=== PATIENT | female | born 1995 | race Caucasian/White ===

== ENCOUNTER → 2017-11-18 15:45 | Outpatient (CLI) | payer OTHER, SELFPAY ==
[2017-11-18 17:42] LABS: Absolute Lymphocyte Count 2.12 X10^3/ul (0.83-4.51); Absolute Neutrophil Count 4.8 X10^3/uL (2.0-7.7); Basophil# 0.01 X10^3/uL; Basophil% 0.1 % (0-1); Eosinophil# 0.08 X10^3/uL; Hematocrit 40.4 % (37-47); Hemoglobin 13.7 g/dl (12.0-15.0); Lymphocyte # 2.12 X10^3/ul (4.0); Lymphocyte % 27.1 % (19-41); Mean Corp Hgb Conc 33.9 g/gl (32-36); Mean Corpuscular Hgb 30.8 pg (27.0-32.0); Mean Corpuscular Volume 90.8 fL (81-99); Mean Platelet Vol. 10.7 fl (6.2-12.0); Monocyte% 10.2 % (0-10); Neutrophil # 4.81 X10^3/uL (2.7-7.7); Neutrophil % 61.5 % (47-70); Platelet Count 374 K/mm3 (150-450); RBC Distribution Width CV 12.5 % (11.6-14.6); RBC Distribution Width SD 40.7 fl (35.1-43.9); Red Blood Count 4.45 M/mm3 (4.2-5.4); White Blood Count 7.8 K/mm3 (4.4-11.0)
[2017-11-18 17:43] LABS: POSITIVE COUNT NO; POSITIVE DIFFERENTIAL NO; POSITIVE MORPHOLOGY NO
[2017-11-18 17:59] LABS: Erythrocyte Sedimentation Rate 2 mm/hr (0-20)
[2017-11-18 18:06] LABS: ALB/GLOB Ratio 1.3 RATIO (0.9-2.4); AST(SGOT) 16 U/L (15-37); Alanine Aminotransfer ALT/SGPT 22 U/L (13-56); Albumin, Serum 4.2 g/dL (3.2-5.0); Alkaline Phosphatase 50 U/L (45-117); Anion Gap 9 (5-15); BUN 10 mg/dL (7-18); BUN/Creat Ratio 17.2 RATIO (10-20); Calcium,Total 9.1 mg/dL (8.5-10.1); Chloride 103 mmol/L (98-107); Creatinine, Serum 0.58 mg/dL (0.55-1.02); EST Glomerular Filtration Rate 136 mL/min (>60); Est Glom Filt Rate - Afr Amer 165 mL/min (>60); Globulin 3.3 g/dL (2.2-4.2); Glucose 83 mg/dL (74-106); Potassium 3.8 mmol/L (3.5-5.1); Protein, Total 7.5 g/dL (6.4-8.2); Sodium Level 138 mmol/L (136-145); Thyroid Stim Hormone (TSH) 0.79 uIU/mL (0.358-3.74)
[2017-11-20 16:10] LABS: PROEL- A/G Ratio 1.5 (0.7-1.7); PROEL- Albumin 4.3 g/dL (2.9-4.4); PROEL- Alpha-1 Globulin 0.2 g/dL (0.0-0.4); PROEL- Alpha-2 Globulin 0.6 g/dL (0.4-1.0); PROEL- Globulin, Total 2.8 g/dL (2.2-3.9); PROEL- TOTAL PROTEIN 7.1 g/dL (6.0-8.5)
== END ==
PROVIDERS: Family Provider Internal Medicine; PCP Internal Medicine; Visit Provider Internal Medicine
DX: R20.2 Paresthesia of skin (principal)
CPT/HCPCS: 36415; 80053; 84165; 84443; 85025; 85652

== ENCOUNTER → 2018-01-28 12:34 | Outpatient (CLI) | payer OTHER, SELFPAY | PROVIDERS: Family Provider Internal Medicine; PCP Internal Medicine; Visit Provider Internal Medicine | DX: R20.2 Paresthesia of skin (principal) ==

== ENCOUNTER → 2019-10-11 08:19 | Outpatient (CLI) | payer BC, SELFPAY ==
--- NOTE | 2019-10-11 08:21 | US_ITS ---
STUDY: ABDOMINAL ULTRASOUND -left UPPER QUADRANT REASON FOR VISIT: Female, 23 years old SPLENOMEGALY TECHNIQUE: Ultrasound evaluation of the left upper quadrant was performed with real-time and static hope-scale imaging. TECHNICAL QUALITY: Adequate. COMPARISON: None. FINDINGS: Spleen: The spleen measures 8.4 cm x 3 3 cm by 3.4 cm. It is unremarkable. Left Kidney: Normal size of the left kidney. The left kidney measures 11.6 cm x 5.1 cm x 5.2 cm. Normal renal cortex. The left cortex measures 1.3 cm. There is no demonstrated renal mass or cyst. There is no left hydronephrosis. US/Spleen IMPRESSION: Normal left upper quadrant ultrasound examination. Electronically Signed: Lawrence Mckee, at 10:24 EST , Service support ,
== END ==
PROVIDERS: PCP Internal Medicine; Referring Provider Internal Medicine; Visit Provider Internal Medicine
DX: R16.1 Splenomegaly, not elsewhere classified (principal)
CPT/HCPCS: 76705

== ENCOUNTER → 2020-02-02 16:59 | Outpatient (CLI) | payer BC, SELFPAY ==
[2020-02-02 14:36] VITALS: BMI 26.1
[2020-02-02 20:05] LABS: Chlamydia Trachomatis by PCR Negative (Negative); Neisserai gonorrhoeae by PCR Negative (Negative); Probe Check PASS; Sample Adequacy Control PASS; Specimen Processing Control PASS
[2020-02-07 14:39] LABS: HPV Reflexed? NOT INDICATED
== END ==
PROVIDERS: PCP Internal Medicine; Referring Provider Nurse Practitioner Women's Health; Visit Provider Nurse Practitioner Women's Health
DX: Z11.3 Encounter for screening for infections with a predominantly sexual mode of transmission (principal); Z12.4 Encounter for screening for malignant neoplasm of cervix
CPT/HCPCS: 87491; 87591; 88175; G0145

== ENCOUNTER → 2020-08-09 15:31 | Outpatient (CLI) | payer BC, SELFPAY ==
[2020-02-02 14:36] VITALS: BMI 26.1
--- NOTE | 2020-08-09 15:36 | RAD_ITS ---
STUDY: X-RAY CHEST REASON FOR EXAM: Female, 24 years old. PT HAD COVID IN JANUARY, CONTINUED UPPER CHEST PAIN TECHNIQUE: 2 views COMPARISON: None. FINDINGS: The lungs are clear and expanded. There is no demonstrated pleural abnormality. Normal size heart. Normal mediastinum and mike. Normal visualized pulmonary arteries. Normal visualized aortic arch and descending thoracic aorta. Normal visualized thoracic spine. Normal visualized ribs, clavicles, and shoulders. There is no demonstrated abnormality of the visualized soft tissue structures of the upper abdomen. RAD/Chest PA and Lateral IMPRESSION: Normal x-ray examination of the chest. Electronically Signed: Franca Altamirano MD at 22:52 EST , Service support ,
== END ==
PROVIDERS: PCP Internal Medicine; Referring Provider Nurse Practitioner; Visit Provider Nurse Practitioner
DX: R07.89 Other chest pain (principal)
CPT/HCPCS: 71046

== ENCOUNTER → 2022-05-02 | Outpatient (CLI) | payer BC, SELFPAY ==
[2022-05-02 09:25] LABS: hCG Titer Quant., Serum 8 mIU/mL (1-3)
== END | disposition home or self-care (01) ==
LOC: PAVLAB 08:32
PROVIDERS: PCP Internal Medicine; Referring Provider Obstetrics & Gynecology; Visit Provider Obstetrics & Gynecology
DX: N91.2 Amenorrhea, unspecified (principal)
CPT/HCPCS: 36415; 84702

== ENCOUNTER → 2022-05-04 | Outpatient (CLI) | payer BC, SELFPAY ==
[2022-05-04 09:06] LABS: hCG Titer Quant., Serum 1 mIU/mL (1-3)
== END | disposition home or self-care (01) ==
LOC: LAB 08:13
PROVIDERS: PCP Internal Medicine; Referring Provider Obstetrics & Gynecology; Visit Provider Obstetrics & Gynecology
DX: O20.0 Threatened abortion (principal)
CPT/HCPCS: 36415; 84702

== ENCOUNTER → 2022-05-30 | Outpatient (CLI) | payer BC, SELFPAY ==
[2022-05-30 16:09] LABS: hCG Titer Quant., Serum 67 mIU/mL (1-3)
== END | disposition home or self-care (01) ==
LOC: LABSPEC 15:29
PROVIDERS: PCP Internal Medicine; Visit Provider Obstetrics & Gynecology
DX: O03.9 Complete or unspecified spontaneous abortion without complication (principal)
CPT/HCPCS: 36415; 84702

== ENCOUNTER → 2022-06-01 | Outpatient (CLI) | payer BC, SELFPAY ==
[2022-06-01 10:20] LABS: hCG Titer Quant., Serum 149 mIU/mL (1-3)
== END | disposition home or self-care (01) ==
LOC: LAB 09:16
PROVIDERS: PCP Internal Medicine; Visit Provider Obstetrics & Gynecology
DX: O03.9 Complete or unspecified spontaneous abortion without complication (principal)
CPT/HCPCS: 36415; 84702

== ENCOUNTER → 2022-06-21 | Outpatient (CLI) | payer BC, SELFPAY | END | disposition home or self-care (01) | LOC: LABSPEC 17:04 | PROVIDERS: PCP Internal Medicine; Visit Provider Obstetrics & Gynecology | DX: O34.60 Maternal care for abnormality of vagina, unspecified trimester (principal); N89.8 Other specified noninflammatory disorders of vagina | CPT/HCPCS: 87070; 87086; 87088; 87205 ==

== ENCOUNTER → 2022-07-08 | Outpatient (CLI) | payer BC, SELFPAY ==
[2022-07-08 13:51] LABS: Amphetamine Urine VISTA NEGATIVE (<1000 ng/mL); Barbiturate Urine VISTA NEGATIVE (< 200 ng/mL); Benzodiazepine Urine VISTA NEGATIVE (< 200 ng/mL); Cocaine Urine VISTA NEGATIVE (< 300 ng/mL); Ecstacy Urine VISTA NEGATIVE (< 500 ng/mL); Methadone Urine VISTA NEGATIVE (< 300 ng/mL); PCP Urine VISTA NEGATIVE (< 25 ng/mL); THC Urine VISTA NEGATIVE (< 50 ng/mL); Vista UDS pH Range 7
[2022-07-11 08:10] LABS: Chlamydia By Nucleic Acid AMP Negative (Negative)
[2022-07-11 16:05] LABS: Gonococcus By Nucleic Acid AMP Negative (Negative)
== END | disposition home or self-care (01) ==
LOC: LABSPEC 13:15
PROVIDERS: PCP Internal Medicine; Visit Provider Obstetrics & Gynecology
DX: Z34.91 Encounter for supervision of normal pregnancy, unspecified, first trimester (principal)
CPT/HCPCS: 80307; 87086; 87088; 87491; 87591

== ENCOUNTER → 2022-07-15 | Outpatient (CLI) | payer BC, SELFPAY ==
[2022-07-15 15:56] LABS: Absolute Lymphocyte Count 2.65 X10^3/uL (0.83-4.51); Absolute Neutrophil Count 8.2 X10^3/uL (2.0-7.7); Basophil# 0.03 X10^3/uL; Basophil% 0.3 % (0-1); Eosinophil# 0.17 X10^3/uL; Eosinophils% 1.4 % (0-5); Hematocrit 36.7 % (37-47); Lymphocyte # 2.65 X10^3/ul (0.83-4.51); Lymphocyte % 22.2 % (19-41); Mean Corp Hgb Conc 35.4 g/dL (32-36); Mean Corpuscular Hgb 31.2 pg (27.0-32.0); Mean Platelet Vol. 9.5 fl (6.2-12.0); Monocyte# 0.82 X10^3/uL; Monocyte% 6.9 % (0-10); NRBC Flagged by Analyzer 0 % (0-5); Neutrophil # 8.23 X10^3/uL (2.7-7.7); Neutrophil % 68.8 % (47-70); Platelet Count 397 K/mm3 (150-450); RBC Distribution Width CV 12.2 % (11.6-14.6); RBC Distribution Width SD 39.4 fl (35.1-43.9); Red Blood Count 4.17 M/mm3 (4.2-5.4)
[2022-07-15 16:51] LABS: NATERA MAILED SPECIMEN
[2022-07-16 08:48] LABS: HIV - WCH Non-Reactive (Nonreactive); Hepatitis B Surface Antigen Non-Reactive (Nonreactive); Hepatitis C Antibody Non-Reactive (Nonreactive); Rubella IgG Reactive (Nonreactive); Syphilis Antibodies Non-reactive
== END | disposition home or self-care (01) ==
PROVIDERS: PCP Internal Medicine; Referring Provider Obstetrics & Gynecology; Visit Provider Obstetrics & Gynecology
DX: Z34.81 Encounter for supervision of other normal pregnancy, first trimester (principal)
CPT/HCPCS: 36415; 85025; 86703; 86762; 86780; 86803; 86850; 86900; 86901; 87340

== ENCOUNTER → 2022-10-28 | Outpatient (CLI) | payer BC, SELFPAY ==
[2022-10-28 11:45] LABS: Absolute Lymphocyte Count 1.87 X10^3/uL (0.83-4.51); Absolute Neutrophil Count 10.9 X10^3/uL (2.0-7.7); Basophil# 0.05 X10^3/uL; Basophil% 0.4 % (0-1); Eosinophil# 0.15 X10^3/uL; Eosinophils% 1.1 % (0-5); Hematocrit 37.9 % (37-47); Hemoglobin 12.5 g/dL (12.0-15.0); Lymphocyte # 1.87 X10^3/ul (0.83-4.51); Lymphocyte % 13.2 % (19-41); Mean Corpuscular Hgb 30.6 pg (27.0-32.0); Mean Corpuscular Volume 92.9 fL (81-99); Monocyte# 0.97 X10^3/uL; Monocyte% 6.8 % (0-10); NRBC Flagged by Analyzer 0 % (0-5); Neutrophil # 10.89 X10^3/uL (2.7-7.7); Neutrophil % 76.6 % (47-70); Platelet Count 365 K/mm3 (150-450); RBC Distribution Width CV 13.6 % (11.6-14.6); RBC Distribution Width SD 45.6 fl (35.1-43.9); Red Blood Count 4.08 M/mm3 (4.2-5.4); White Blood Count 14.2 K/mm3 (4.4-11.0)
[2022-10-28 11:54] LABS: Glucose Challenge Gest 1H 50g 91 mg/dL (70-140)
[2022-10-28 12:49] LABS: HIV - WCH Non-Reactive (Nonreactive); Syphilis Antibodies Non-reactive
== END | disposition home or self-care (01) ==
PROVIDERS: Registered Nurse; PCP Internal Medicine; Referring Provider Obstetrics & Gynecology; Visit Provider Obstetrics & Gynecology
DX: O09.90 Supervision of high risk pregnancy, unspecified, unspecified trimester (principal); Z13.1 Encounter for screening for diabetes mellitus; Z3A.00 Weeks of gestation of pregnancy not specified
CPT/HCPCS: 36415; 82950; 85025; 86703; 86780

== ENCOUNTER → 2023-01-14 | Outpatient (CLI) | payer BC, SELFPAY | END | disposition home or self-care (01) | LOC: LABSPEC 10:38 | PROVIDERS: PCP Internal Medicine; Referring Provider Obstetrics & Gynecology; Visit Provider Obstetrics & Gynecology | DX: O09.90 Supervision of high risk pregnancy, unspecified, unspecified trimester (principal); Z3A.00 Weeks of gestation of pregnancy not specified | CPT/HCPCS: 87081 ==

== ENCOUNTER 2023-01-16 16:35 | Outpatient (CLI) | payer BC, SELFPAY ==
[2023-01-16 16:44] VITALS: BMI 32.9
[2023-01-16 17:09] VITALS: BP 122/72; PULSE 85; O2SAT 98
[2023-01-16 17:11] VITALS: PULSE 87; TEMP 36.3; O2SAT 97
[2023-01-16 17:50] LABS: ROM Internal Control Test YES-OK TO RESULT pt. (Internal QC); ROM Patient Test Negative (Negative)
--- NOTE | 2023-01-16 23:52 | OB.TRI.NOTE ---
HPI - General HPI Narrative TIFFANIE MO, is a 27 F who presents to l&D to rule out rupture of membranes. [facility] Medical History (Updated 01/31/23 @ 14:[address] Val Earl DO) History of anxiety Oligohydramnios Psoriasis Vaginal delivery Home Medications escitalopram oxalate 5 mg tablet (Lexapro) 5 mg PO DAILY anxiety 06/21/22 [History Last Taken 01/23/23 21:00] multivitamin no.47-iron fum 27 mg-folate no.1 1 mg-dha 300 mg capsule (PNV-DHA) 1 cap PO DAILY 06/27/22 [History Last Taken 01/23/23 21:00] omeprazole 20 mg capsule,delayed release 20 mg PO DAILY heartburn 01/24/23 [History Last Taken 01/23/23 19:00] Allergy/AdvReac Type Severity Reaction Status Date / Time No Known Allergies Allergy Verified 01/24/23 17:45 Family History Grandmother Diabetes Breast cancer, Onset Age: 67 maternal Grandfather Hypertension Grandmother Breast cancer, Onset Age: 75 paternal- of Covid before treatment of breast cancer completed Social History adopted: No household members: spouse housing: house current occupational status: employed 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 pets and animals: Yes (Not managing litterbox) pets and animals: cat(s) history of recent travel: Yes ([place] in January) out of state: Yes out of country: Yes sexually active: Yes Smoking Status: Never smoker alcohol intake: never substance use type: does not use well-balanced diet: daily or most days caffeine: No eating out: 1-3 times/week during the past year weight has: remained stable what type of physical activity do you participate in: weight training frequency: 3-4 times per week duration: 30-45 minutes/day lala/restorationism: None seatbelt use: always do you feel safe at home: Yes additional social history: [place]- Works at a [employer] History 2 Elective abortions Hx Para 0 Spontaneous abortions 1 Hx # Term Pregnancies Ectopic pregnancies Hx # Pregnancies Multiple births # of living children 1 Past Pregnancies Del. Date Name GA/Weeks Outcome Route Bth Weight Infant Gen Labor Lgth Anesthesia Del Locatn Provider FOB 05/03/22 chemical 01/25/23 Black 38 live - full term Male [facility] Marcanthony Delivery Date: 01/25/23 Last Updated by: Marisela Hollins IOL [place] 38 SM ROS Constitutional Constitutional: Reports systems reviewed and no addt'l complaints, except as documented Gastrointestinal Gastrointestinal: Denies bloating, constipation, cramping, diarrhea, nausea or vomiting Genitourinary Genitourinary: Reports other Details: Denies vaginal odor, vaginal bleeding, or vaginal discharge ; Denies difficulty urinating or flank pain NST FHR Rate Baby A Baseline: 135 Variability:: Moderate Accelerations:: 15 x 15 Decelerations:: None NST Reactive:: Yes FHR Category:: Category I Assessment & Plan (1) False labor after 37 completed weeks of gestation: PLAN: Plan rom + negative. pt reassured. sending home. Charges/Coding Multi Select Codes Urinary/Genital Urinary/Genital CPT Codes: 08847-02 non-stress test Interp
== END 2023-01-16 18:08 | disposition home or self-care (01) ==
LOC: WPOUT 16:41 → WP 16:41
PROVIDERS: Obstetrics & Gynecology; PCP Internal Medicine; Referring Provider Obstetrics & Gynecology; Visit Provider Obstetrics & Gynecology
DX: O47.1 False labor at or after 37 completed weeks of gestation (principal); O99.343 Other mental disorders complicating pregnancy, third trimester; F41.9 Anxiety disorder, unspecified; Z3A.37 37 weeks gestation of pregnancy
CPT/HCPCS: 59025; 59050; 84112

== ENCOUNTER 2023-01-24 17:13 | Inpatient (IN) | payer BC, SELFPAY ==
[2023-01-24] MEDS: Lactated Ringers 1,000 ML 50 ML IV (17:40)
[2023-01-24 17:44] VITALS: BMI 33.3
[2023-01-24 18:18] VITALS: BP 109/65; PULSE 112
[2023-01-24 18:18] LABS: Absolute Neutrophil Count 9.3 X10^3/uL (2.0-7.7); Basophil# 0.04 X10^3/uL; Basophil% 0.3 % (0-1); Eosinophil# 0.13 X10^3/uL; Hematocrit 39.1 % (37-47); Hemoglobin 13.2 g/dL (12.0-15.0); Lymphocyte % 15.4 % (19-41); Mean Corp Hgb Conc 33.8 g/dL (32-36); Mean Corpuscular Hgb 30.8 pg (27.0-32.0); Mean Corpuscular Volume 91.1 fL (81-99); Mean Platelet Vol. 10.4 fl (6.2-12.0); Monocyte# 1.26 X10^3/uL; Monocyte% 9.7 % (0-10); NRBC Flagged by Analyzer 0 % (0-5); Neutrophil # 9.27 X10^3/uL (2.7-7.7); Neutrophil % 71.4 % (47-70); Platelet Count 360 K/mm3 (150-450); RBC Distribution Width CV 13.8 % (11.6-14.6); RBC Distribution Width SD 45.8 fl (35.1-43.9); Red Blood Count 4.29 M/mm3 (4.2-5.4)
[2023-01-24 18:53] LABS: Syphilis Antibodies Non-reactive
[2023-01-24] MEDS: miSOPROStol 25 MCG TABLET VAGINAL ×2 (18:53→23:49)
[2023-01-24 20:04] VITALS: BP 113/69; PULSE 100; TEMP 36.6
--- NOTE | 2023-01-24 20:07 | HP.PCM.OB_ITS ---
HPI - General General Date of Admission: 01/24/23 HPI Narrative TIFFANIE MO, is a 27 F who presents for IOL secondary to oligohydramnios. she had an ultrasound today that showed kg of 3 cm upon review of images Maternal Data Information DARLENE Calculator Estimated Delivery Date Method Current WG Current Estimate 02/07/23 LMP (Certain) 38w 0d PFSH PFSH Medical History (Updated 01/24/23 @ 20:[address] Alida Mitchell MD) History of anxiety Oligohydramnios Psoriasis Home Medications escitalopram oxalate 5 mg tablet (Lexapro) 5 mg PO DAILY anxiety 06/21/22 [History Last Taken 01/23/23 21:00] multivitamin no.47-iron fum 27 mg-folate no.1 1 mg-dha 300 mg capsule (PNV-DHA) 1 cap PO DAILY 06/27/22 [History Last Taken 01/23/23 21:00] omeprazole 20 mg capsule,delayed release 20 mg PO DAILY heartburn 01/24/23 [History Last Taken 01/23/23 19:00] Allergy/AdvReac Type Severity Reaction Status Date / Time No Known Allergies Allergy Verified 01/24/23 17:45 Family History Grandmother Diabetes Breast cancer, Onset Age: 67 maternal Grandfather Hypertension Grandmother Breast cancer, Onset Age: 75 paternal- of Covid before treatment of breast cancer completed Social History adopted: No household members: spouse housing: house current occupational status: employed 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 pets and animals: Yes (Not managing litterbox) pets and animals: cat(s) history of recent travel: Yes ([place] in January) out of state: Yes out of country: Yes sexually active: Yes Smoking Status: Never smoker alcohol intake: never substance use type: does not use well-balanced diet: daily or most days caffeine: No eating out: 1-3 times/week during the past year weight has: remained stable what type of physical activity do you participate in: weight training frequency: 3-4 times per week duration: 30-45 minutes/day lala/druze: None seatbelt use: always do you feel safe at home: Yes additional social history: [place]- Works at a [employer] History 2 Elective abortions Hx Para 0 Spontaneous abortions 1 Hx # Term Pregnancies Ectopic pregnancies Hx # Pregnancies Multiple births # of living children Past Pregnancies Del. Date Name GA/Weeks Outcome Route Bth Weight Gen Labor Lgth Anesthesia Del Campos Provider FOB 05/03/22 chemical Visit Details Expected Delivery Route/Plan Labor Preferences- CB/BF classes: done labor support person: milton and mom Lynnette labor intervention preferences: none pain management options preferred: plans on epidural cut cord/dad catch: considering : yes PP control planned: [] discussed possible routes of delivery and associated risks: [] special requests: [] Plans Covid status: discussed Flu vaccine: encouraged Tdap vaccine: given Rhogam: na LARC form signed: declined movement and labor precautions reviewed. Problem list reviewed and updated with the most current plan of care details and appropriate orders placed. Relevant counseling for the gestational age provided. Continue routine care and follow up unless otherwise noted in visit notes/problem list details OB Flowsheet Initial Weight: Not Recorded Date -?-?-?-?-?-?-?-?-?-?-?-?- EGA Weight BP Urine Prot -?-?-?-?-?-?-?-?-?-?--?-?- Glucose FHR FuHt Pres Dilation -?-?-?-?-?-?-?-?-?-?-?-?- Effaced St Visit Note 07/08/22 -?-?-?-?-?-?-?-?-?-?-?-?- 9w 3d 193 lb 136/82 -?-?-?-?-?-?-?-?-?-?-?-?- 160 -?-?-?-?-?-?-?-?-?-?-?-?- SM- CRL 2.48cm c ons with LMP 08/06/22 -?-?-?-?-?-?-?-?-?-?-?-?- 13w 4d 195 lb 133/86 Negative -?-?-?-?-?-?-?-?-?-?-?-?- Negative 134 -?-?-?-?-?-?-?-?-?-?-?-?- JV- still a philomena le nauseated. no other complaints. normal NIPT. 09/03/22 -?-?-?-?-?-?-?-?-?-?-?-?- 17w 4d 199 lb 2 oz 108/72 Nega tive -?-?-?-?-?-?-?-?-?-?-?-?- Negative 153 -?-?-?-?-?-?-?-?-?-?-?-?- -No Concerns. No VB, cramping. MFM US 09/2309/18/22 -?-?-?-?-?-?-?-?-?-?-?-?- 19w 5d 196 lb 2 oz 114/76 -?-?-?-?-?-?-?-?-?-?-?-?- 143 -?-?-?-?-?-?-?-?-?-?-?-?- LC- no vb/crampi ng. fell yesterday onto bottom. in today for FHT. 09/30/22 -?-?-?-?-?-?-?-?-?-?-?-?- 21w 3d 202 lb 2 oz 113/71 Nega tive -?-?-?-?-?-?-?-?-?-?-?-?- Negative 145 -?-?-?-?-?-?-?-?-?-?-?-?- LC- no cramping/ vb/lof. anatomy LC- no cramping/vb/lof. vania clay normal. 10/29/22 -?-?-?-?-?-?-?-?-?-?-?-?- 25w 4d 206 lb 6 oz 116/76 Nega tive -?-?-?-?-?-?-?-?-?-?-?-?- Negative 145 26 -?-?-?-?-?-?-?-?-?-?-?-?- SM- no vb lof go od fm no regular ctx 11/18/22 -?-?-?-?-?-?-?-?-?-?-?-?- 28w 3d 213 lb 6 oz 99/57 Nega tive -?-?-?-?-?-?-?-?-?-?-?-?- Negative 140 28 -?-?-?-?-?-?-?-?-?-?-?-?- LC- doing well. no vb/lof/ctx. good fm. normal 28 week labs. LC- doing well. no vb/lof/ct x. good fm. normal 28 week labs. larc discussed and signed 12/02/22 -?-?-?-?-?-?-?-?-?-?-?-?- 30w 3d 215 lb 112/72 Negative -?-?-?-?-?-?-?-?-?-?-?-?- Negative 160 30 -?-?-?-?-?-?-?-?-?-?-?-?- SM- no vb lof go od fm no regular ctx 12/18/22 -?-?-?-?-?-?-?-?-?-?-?-?- 32w 5d 216 lb 117/75 Negative -?-?-?-?-?-?-?-?-?-?-?-?- Negative 159 32 -?-?-?-?-?-?-?-?-?-?-?-?- CIERRA- seth woods discussed, no complaints today. plan discussed briefly but she really does not have many requests after going to the just breathe class. 01/01/23 -?-?-?-?-?-?-?-?-?-?-?-?- 34w 5d 219 lb 8 oz 112/77 Nega tive -?-?-?-?-?-?-?-?-?-?-?-?- Negative 164 34 -?--?-?-?-?-?-?-?-?-?-?-?- JV- still has in digestion. will try omeprazole. plan for gbs next visit. 01/14/23 -?-?-?-?-?-?-?-?-?-?-?-?- 36w 4d 220 lb 4 oz 108/71 Nega tive -?-?-?-?-?-?-?-?-?-?-?-?- Negative 145 36 Cephalic 0 .5 -?-?-?-?-?-?-?-?-?-?-?-?- -2 SM- no v b lof good fm n oregular ctxgbs collected 01/22/23 -?-?-?-?-?-?-?-?-?-?-?-?- 37w 5d 221 lb 4 oz 100/67 Nega tive -?-?-?-?-?-?-?-?-?-?-?-?- Negative 144 35 Cephalic 1 -?-?-?-?-?-?-?-?-?-?-?-?- 0 -2 JV- measur ing small today. formal scan ordered. suspect could be lower station but patient seems nervous 01/24/23 -?-?-?-?-?-?-?-?-?-?-?-?- 38w 0d 219 lb 109/65 113/69 -?-?-?-?-?-?-?-?-?-?-?-?- -?-?-?-?-?-?-?-?-?-?-?-?- NST FHR Rate Baby A Baseline: 130 Variability:: Moderate Accelerations:: 15 x 15 Decelerations:: None NST Reactive:: Yes FHR Category:: Category I Uterine Activity:: irregular ROS Constitutional Constitutional: Reports systems reviewed and no addt'l complaints, except as documented Eyes Eyes: Denies change in vision ENT HEENT: Reports systems reviewed and no addt'l complaints, except as documented; Denies headache(s) Cardiovascular Cardiovascular: Reports systems reviewed and no addt'l complaints, except as documented; Denies chest pain or dyspnea Respiratory/Chest Respiratory/Chest: Reports systems reviewed and no addt'l complaints, except as documented Gastrointestinal Gastrointestinal: Reports systems reviewed and no addt'l complaints, except as documented; Denies abdominal pain Genitourinary Genitourinary: Reports systems reviewed and no addt'l complaints, except as documented, contractions Details: present (irregular) and movement Details: present; Denies dysuria or genital lesions Musculoskeletal Musculoskeletal: Reports systems reviewed and no addt'l complaints, except as documented Neurologic Neurologic: Reports systems reviewed and no addt'l complaints, except as doc umented Endocrine Endocrinology: Reports systems reviewed and no addt'l complaints, except as documented Vital Signs Vital Signs Vital Signs: 01/24/23 18:18 01/24/23 18:18 01/24/23 20:04 Pulse Rate 112 H Blood Pressure 109/65 113/69 BP Systolic 109 113 BP Diastolic 65 69 01/24/23 20:04 Pulse Rate 100 Blood Pressure BP Systolic BP Diastolic Weight Weight: 219 lb Body Mass Index (BMI) 33.3 Physical Exam Const alert, oriented x3, no apparent distress and healthy appearing HEENT normocephalic and moist oral mucous membranes Head and Scalp: atraumatic Neck full ROM, no lymphadenopathy, supple and thyroid normal General: trachea midline Lymph Lymphatic: no lymphadenopathy noted Chest inspection of chest normal Resp normal respiratory effort Cardio regular rate GI normal to inspection, nondistended, normoactive bowel sounds, soft to palpation and non-tender Inspection: gravid external exam normal Manual OB Exam: estimated gestational size appropriate, presentation cephalic, dilated, effaced and station Extremity normal to inspection General Extremity: Negative for edema Skin no rashes or lesions noted Neuro no focal motor deficits and deep tendon reflexes 2+ bilaterally Motor Exam: strength 5/5 throughout and clonus absent Psych mental status grossly normal Labs Labs Labs: Blood Type A POSITIVE Antibody Screen NEGATIVE Hct 39.1 % (37-47) Hgb 13.2 g/dL (12.0-15.0) Obstetrics US Syphilis Total Ab Non-reactive Rubella IgG Antibody Reactive (Nonreactive) Hep Bs Antigen Non-Reactive (Nonreactive) Chlamydia DNA (JENNI) Negative (Negative) Neisseria gonorrhoeae DNA (JENNI) Negative (Negative) HIV 1&2 Antibody Non-Reactive (Nonreactive) Glucose 1 Hr 50 gm 91 mg/dL (70-140) Assessment & Plan (1) : QUALIFIERS: Weeks of gestation: 37 weeks Qualified Code(s): Z3A.37 - 37 weeks gestation of COMMENT: GBS neg.,NIPT low risk, declind ntd and Carrier testing. anatomy nl. (2) Supervision of high risk , antepartum: COMMENT: PRR , DARLENE 02/07/23 boy Jaziel [place] (3) Need for Tdap vaccination: COMMENT: Given 11/18/22 (4) Oligohydramnios in third trimester: COMMENT: 3cm recommend IOL PLAN: Plan Patient presents IOL, plan management for with cytotec. Pain management: plans epidural. GBS negative. Management of any complications: oligo I have reviewed the [facility] and made any clinically relevant updates.
[2023-01-24 23:47] VITALS: BP 116/55; PULSE 85; TEMP 36.8
[2023-01-24] MEDS: DiphenhydrAMINE 50 MG/ML Syringe IV (23:54)
[2023-01-25] VITALS (86 sets, daily range): BP systolic 104–140; BP diastolic 50–83; PULSE 8–128; TEMP 36.6–37.3; O2SAT 85–100
[2023-01-25] MEDS: miSOPROStol 25 MCG TABLET VAGINAL (04:13)
--- NOTE | 2023-01-25 08:37 | PN.OBGYN_ITS ---
Subjective Subjective overnight did well with cytotec, got rest, plan on fb and pitocin today cat I tracing Objective Data Objective Data Vital Signs: Vital Signs Temp Pulse BP 98.3 F 95 116/69 01/25/23 03:54 01/25/23 07:53 01/25/23 07:53 Weight: 219 lb Body Mass Index (BMI) 33.3 Intake & Output: Intake and Output for Last 24 Hours 01/23/23 01/24/23 01/25/23 23:59 23:59 23:59 Output Total 900 / 900 Balance -900 / -900 Lab / Micro Data Result Diagrams: 01/24/23 17:45 Labs: Laboratory Results - last 24 hr 01/24/23 17:45: WBC 13.0 H, RBC 4.29, Hgb 13.2, Hct 39.1, MCV 91.1, MCH 30.8, MCHC 33.8, RDW Std Deviation 45.8 H, RDW Coeff of Zuri 13.8, Plt Count 360, MPV 10.4, Immature Gran % (Auto) 2.200 H, Neut % (Auto) 71.4 H, Lymph % (Auto) 15.4 L, Crenshaw % (Auto) 9.7, Eos % (Auto) 1.0, Baso % (Auto) 0.3, Absolute Neuts (auto) 9.3 H, Absolute Lymphs (auto) 2.00, Nucleated RBC % 0 01/24/23 17:45: Blood Type A POSITIVE, Antibody Screen NEGATIVE 01/24/23 17:45: Syphilis Total Ab Non-reactive
[2023-01-25] MEDS: 0.9% Normal Saline Single 100 ML IV.SOLN. INTRA-UTER (09:40)
[2023-01-25] MEDS: Oxytocin 15 Units/NS 250ml 15 UNITS/250 ML IV.SOLN 2 UNITS IV (10:25)
[2023-01-25] MEDS: Lactated Ringers 1,000 ML 200 ML IV ×2 (11:14→17:06)
[2023-01-25] MEDS: LACTATED RINGERS 500 ML 999 ML IV ×2 (13:52→18:08)
[2023-01-25] MEDS: fentaNYL-bupivacaine (epidural) 100 ML BAG EPIDURAL ×2 (15:00→19:29)
[2023-01-25] MEDS: Ondansetron 4 MG/2 ML Vial IV (21:22)
[2023-01-25] MEDS: Lidocaine 1% (20 ml mdv) 20 ML Vial INFILT (21:49)
--- NOTE | 2023-01-25 22:01 | EX.PCM.OBRPT ---
Assessment & Plan (1) Oligohydramnios in third trimester: COMMENT: 3cm recommend IOL (2) : QUALIFIERS: Weeks of gestation: 37 weeks Qualified Code(s): Z3A.37 - 37 weeks gestation of COMMENT: GBS neg.,NIPT low risk, declind ntd and Carrier testing. anatomy nl. (3) Supervision of high risk , antepartum: COMMENT: PRR , DARLENE 02/07/23 cecil Sheriff Deonte (4) Need for Tdap vaccination: COMMENT: Given 11/18/22 (5) Vaginal delivery: COMMENT: SM IOL [place] 38 boy Black Maternal Data Information DARLENE Calculator Estimated Delivery Date Method Current WG Current Estimate 02/07/23 LMP (Certain) 38w 2d Vaginal Delivery Operative Information Date of Procedure: 01/25/23 Pre-Operative Diagnosis: see a/p diagnoses Post-Operative Diagnosis: same Surgery / Procedure Performed: Spontaneous Vaginal Delivery Type of Anesthesia: Epidural and Pudendal Block Special Medications: none Estimated Blood Loss: 200 Fluids Replaced: crystalloid Findings Description of Procedure: Patient was uncomfortable with her epidural and therefore counseled to have a pudendal block placed. The vagina was prepped with betadine and the ischial spines were identified bilaterally, and 2 cm medial and posterior to them 10 cc of lidocaine was injected bilaterally without complication. the patient then began pushing and delivered the head in the SAGRARIO presentation. The head was delivered atraumatically. The anterior and posterior shoulders delivered without complication followed by the rest of the infant and the was placed on the maternal abdomen. Delayed cord clamping was employed for approximately 60 seconds. Cord was clamped and cut and gentle traction was applied to the cord and the placenta delivered spontaneously immediately following it was noted to be intact with three-vessel cord. The perineum and vagina were inspected and noted to have a first degree perineal laceration which was repaired in the usual fashion with 3-0 vicryl rapide. . EBL was 200 cc. Patient and infant tolerated delivery well. Amniotic Fluid Description: Clear Placental Delivery Description: Spontaneous Placenta Disposition: [facility] Cord Vessel Description: 3 Vessels Cord Entanglement: None Delayed Cord Clamping: Yes Post Vaginal Delivery Medications Given After Delivery: IV Pitocin Episiotomy Description: None Complication Complications: None Multi Select Codes Urinary/Genital Urinary/Genital CPT Codes: 57119 Vaginal Delivery global pkg and Other Procedure See Report ([id number] pudendal block)
--- NOTE | 2023-01-25 22:03 | DCINST_ITS ---
Discharge Instructions Diet Discharge Diet: No restrictions Activity Discharge Activity: Return to Normal Activity, May Drive, May Shower and May Take a Tub Bath (in 4 weeks) May resume sexual activity in: 6-8 weeks (after seen by OB provider) Weight Bearing Status: Full weight bearing Lifting Restrictions: none Dressing / Incision Call your doctor if you observe: Fever of 101 or Higher, Inability to urinate, Using more than 1 pad per hour (for more than 2 hours in a row or more), Shortness of breath, Dizziness, Chest pain and - (headache not controlled with tylenol, change in vision) Follow Up Care When: in 6 weeks for visit, call the office to make the appointment. If you had elevated blood pressures call the office to be seen within 1 week. Test Results: Test results from this visit will be discussed in further detail at your follow- up appointment, if applicable. Discharge Plan Admission Admit Date/Time: 01/24/23 17:13 Attending Provider: Alida Mitchell Primary Care Provider: Janelle Reeves Discharge Orders/Prescriptions Prescriptions: No Action PNV-DHA 27 mg iron-1 mg -300 mg capsule 1 cap PO DAILY escitalopram oxalate [Lexapro] 5 mg tablet 5 mg PO DAILY omeprazole 20 mg capsule,delayed release(DR/EC) 20 mg PO DAILY Referrals / Follow Up: Janelle Reeves DO [Primary Care Provider] - Disposition Disposition (needs filled in before D/C Order can be placed): Home, Self Care
[2023-01-25] MEDS: Oxytocin 15 Units/NS 250ml 15 UNITS/250 ML IV.SOLN 83 UNITS IV (22:50)
[2023-01-26] VITALS (13 sets, daily range): BP systolic 103–114; BP diastolic 49–62; PULSE 84–112; RESP 16–17; TEMP 36.2–36.8; O2SAT 90–99
[2023-01-26] MEDS: 0.9% Saline Lock 10 ML Syringe IV (02:17)
--- NOTE | 2023-01-26 06:09 | PCM.PN.OB ---
Subjective Subjective Patient doing well without complaints. Tolerating PO. Ambulating and voiding without difficulty. feeding well. Denies chest pain, shortness of breath, calf pain/swelling, fevers, chills, lightheadedness. Objective Data Objective Data Vital Signs: Vital Signs Temp Pulse Resp BP Pulse Ox O2 Del Method 97.6 F L 96 16 112/49 L 96 Room Air 01/26/23 04:45 01/26/23 04:45 01/26/23 04:45 01/26/23 04:45 01/26/23 04:45 01/26/23 04:46 Oxygen Delivery Method Room Air Weight: 219 lb Body Mass Index (BMI) 33.3 Intake & Output: Intake and Output for Last 24 Hours 01/24/23 01/25/23 01/26/23 23:59 23:59 23:59 Intake Total 4245.00 / 4245.00 250 / 250 Output Total 3100 / 3100 300 / 300 Balance 1145.00 / 1145.00 -50 / -50 Lab / Micro Data Result Diagrams: 01/24/23 17:45 ROS Constitutional Constitutional: Reports systems reviewed and no addt'l complaints, except as documented Cardiovascular Cardiovascular: Reports systems reviewed and no addt'l complaints, except as documented Respiratory/Chest Respiratory/Chest: Reports systems reviewed and no addt'l complaints, except as documented Gastrointestinal Gastrointestinal: Reports systems reviewed and no addt'l complaints, except as documented Physical Exam Const alert, oriented x3 and no apparent distress HEENT Head and Scalp: atraumatic Resp normal respiratory effort GI soft to palpation and non-tender Bimanual Exam - Vag & Uterus: uterus non-tender Uterus Palpation: uterus fundus firm (below Umbilicus) Assessment & Plan (1) Vaginal delivery: COMMENT: SM IOL [place] 38 boy Black PLAN: Plan s/p PPD # 1 1. routine post delivery care 2. breast feeding- support given 3. rh positive 4. rubella immune
[2023-01-26] MEDS: Naproxen 500 MG Tablet PO (06:38)
[2023-01-26] MEDS: Escitalopram Oxalate 10 MG Tablet 5 MG PO (11:54)
[2023-01-27 02:27] VITALS: BP 113/56; PULSE 85; RESP 18; TEMP 36.7
[2023-01-27] MEDS: Naproxen 500 MG Tablet PO (02:34)
[2023-01-27 08:08] VITALS: BP 114/62; PULSE 86; RESP 16; TEMP 36.6; O2SAT 97
--- NOTE | 2023-01-27 08:39 | PCM.PN.OB ---
Subjective Subjective Patient doing well without complaints. Tolerating PO. Ambulating and voiding without difficulty. Feeding well. Denies chest pain, shortness of breath, calf pain/swelling, fevers, chills, lightheadedness. Objective Data Objective Data Vital Signs: Vital Signs Temp Pulse Resp BP Pulse Ox O2 Del Method 97.8 F 86 16 114/62 97 Room Air 01/27/23 08:08 01/27/23 08:08 01/27/23 08:08 01/27/23 08:08 01/27/23 08:08 01/27/23 08:08 Oxygen Delivery Method Room Air Weight: 219 lb Body Mass Index (BMI) 33.3 Intake & Output: Intake and Output for Last 24 Hours 01/25/23 01/26/23 01/27/23 23:59 23:59 23:59 Intake Total 4245.00 / 4245.00 250 / 250 Output Total 3100 / 3100 300 / 300 Balance 1145.00 / 1145.00 -50 / -50 Lab / Micro Data Result Diagrams: 01/24/23 17:45 Physical Exam Const alert, oriented x3 and no apparent distress Neck full ROM Lymph Lymphatic: no lymphadenopathy noted Chest inspection of chest normal Nipple/Areola: nipples/areola normal Resp normal respiratory effort, normal air movement and no retractions Cardio regular rate and regular rhythm GI GI Narrative: fundus firm 1 below u, moderate lochia. no clots. Back/Spine normal ROM Extremity normal to inspection and full ROM Psych mental status grossly normal Assessment & Plan (1) Vaginal delivery: COMMENT: SM IOL [place] 38 boy Black PLAN: s/p PPD # 1 1. routine post delivery care 2. breast feeding- support given 3. rh positive 4. rubella immune 5. plan d/c home today
[2023-01-27] MEDS: Escitalopram Oxalate 10 MG Tablet 5 MG PO (10:14)
[2023-01-27] MEDS: Acetaminophen 500 MG Tablet 1000 MG PO (10:17)
[2023-01-27 12:00] VITALS: BP 121/65; PULSE 75; RESP 18; TEMP 36.4; O2SAT 96
== END 2023-01-27 12:40 | disposition home or self-care (01) | DRG 807 ==
PROVIDERS: Admitting Provider Obstetrics & Gynecology; PCP Internal Medicine; Visit Provider Obstetrics & Gynecology
DX: O41.03X0 Oligohydramnios, third trimester, not applicable or unspecified (principal); Z37.0 Single live birth; O99.344 Other mental disorders complicating childbirth; F41.9 Anxiety disorder, unspecified; O70.0 First degree perineal laceration during delivery; Z3A.37 37 weeks gestation of pregnancy; Z79.899 Other long term (current) drug therapy
CPT/HCPCS: 59025; 59050; 85025; 86780; 86850; 86900; 86901; 99221; J7120; A4216; G0378; J2405

== ENCOUNTER → 2023-01-24 | Outpatient (CLI) | payer BC, SELFPAY ==
--- NOTE | 2023-01-24 16:16 | US_ITS ---
STUDY: SECOND AND THIRD TRIMESTER OBSTETRICAL ULTRASOUND - LIMITED REASON FOR EXAM: Female, 27 years old growth LMP: 05/03/2022 PRIOR ULTRASOUND: None. TECHNIQUE: Standard TECHNICAL QUALITY: Adequate. FINDINGS: There is a single intrauterine fetus. The fetus is in a cephalic presentation. There is demonstrated cardiac activity with a heart rate of 145 bpm. There is a normal amniotic fluid volume. The largest amniotic fluid pocket measures 3.4 x 2.2 cm. The amniotic fluid index (LAI) is 5.17 cm. The placenta is anterior and not low-lying The cervix measures 3.6 cm in length. BIOMETRY: BPD: 9.2 cm: 37 weeks, 3 days HC: 34.08 cm: 39 weeks, 2 days AC: 34.3 cm: 33 weeks, 1 days FL: 17.18 cm: 3620 weeks, 5 days Age by LMP: 38 weeks, 0 days. DARLENE by LMP: 02/17/2023. age by current US: 37 weeks, 6 days. DARLENE by current US: 02/08/2023. Estimated weight: 3320 grams, +/- 498 grams, 58 percentile. Gender: US/OB Limited With Biometrics IMPRESSION: Single viable intrauterine gestation. Mean gestational age based upon ultrasound parameters 37 weeks 6 days. Electronically Signed: James Lopez MD, BRITTANY at 18:38 EDT ,
== END | disposition home or self-care (01) ==
LOC: US 16:15
PROVIDERS: PCP Internal Medicine; Referring Provider Obstetrics & Gynecology; Visit Provider Obstetrics & Gynecology
DX: O26.849 Uterine size-date discrepancy, unspecified trimester (principal)
CPT/HCPCS: 76816

== ENCOUNTER 2023-02-11 17:00 | Emergency (ER) | payer BC, SELFPAY ==
[2023-02-11 17:01] VITALS: BP 106/80; PULSE 107; RESP 18; TEMP 36.2; O2SAT 100; BMI 30.7
--- NOTE | 2023-02-11 18:16 | ED.VIS.LOWEX ---
HPI History of Present Illness Chief Complaint: Lower Extremity Injury Narrative Narrative: 27-year-old female who denies significant past medical history is 2 weeks . Over the last few days she has had right posterior calf pain that is dull and achy. She denies any chest pain or shortness of breath. She has not noticed any overt swelling of her right lower extremity. She called her [facility]ER who told her to come to the emergency department for an ultrasound. Of note, she states that she has not had disorder where she can easily dislocate her kneecaps. She had twisted her knee and fallen the other day and relocated her patella, and has swelling around there, but no direct trauma to her mid calf area. [facility] Medical History History of anxiety Oligohydramnios Psoriasis Vaginal delivery Home Medications escitalopram oxalate 5 mg tablet (Lexapro) 5 mg PO DAILY anxiety 06/21/22 [History Last Taken 01/23/23 21:00] multivitamin no.47-iron fum 27 mg-folate no.1 1 mg-dha 300 mg capsule (PNV-DHA) 1 cap PO DAILY 06/27/22 [History Last Taken 01/23/23 21:00] omeprazole 20 mg capsule,delayed release 20 mg PO DAILY heartburn 01/24/23 [History Last Taken 01/23/23 19:00] Allergy/AdvReac Type Severity Reaction Status Date / Time No Known Allergies Allergy Verified 01/24/23 17:45 Family History Grandmother Diabetes Breast cancer, Onset Age: 67 maternal Grandfather Hypertension Grandmother Breast cancer, Onset Age: 75 paternal- of Covid before treatment of breast cancer completed Social History adopted: No household members: spouse housing: house current occupational status: employed 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 pets and animals: Yes (Not managing litterbox) pets and animals: cat(s) history of recent travel: Yes ([place] in January) out of state: Yes out of country: Yes sexually active: Yes Smoking Status: Never smoker alcohol intake: never substance use type: does not use well-balanced diet: daily or most days caffeine: No eating out: 1-3 times/week during the past year weight has: remained stable what type of physical activity do you participate in: weight training frequency: 3-4 times per week duration: 30-45 minutes/day lala/protestant: None seatbelt use: always do you feel safe at home: Yes additional social history: [place]- Works at a [employer] ROS ROS ED ROS Narrative Constitutional: No fever, no chills. HEENT: No sore throat. No neck pain. No loss of vision. No rhinorrhea. Cardiovascular: No chest pain. No palpitations. No pedal edema. Respiratory: No cough, no shortness of breath. Abdominal: No abdominal pain. No nausea. No vomiting. Genitourinary: No dysuria. No hematuria. Musculoskeletal: Right mid calf pain, achiness. No arthralgias. Neurologic: No headaches. No dizziness. No lightheadedness. Skin: No rash. No change in color. Psychiatric: No depression. No anxiety. EXAM Physical Exam Narrative Exam Narrative: Afebrile. Vital signs noted. HEENT: Normocephalic. Atraumatic. PERRL, EOMI. Neck soft and supple. No point tenderness or step off. Cardiovascular: Regular rate and rhythm. No murmurs, rubs, or gallops appreciated. Respiratory: No tachypnea. Lungs clear to auscultation bilaterally. Gastrointestinal: Abdomen soft, nontender, with normoactive bowel sounds. No rebound or guarding. Neurological: Awake. Alert. Nonfocal, nonlateralizing. Skin: No rash. Normal color. No pallor. Musculoskeletal: No pedal edema. Full range of motion extremities. Mild tenderness mid right calf, no overt swelling or erythema, no palpable cord, palpable dorsalis pedis pulse. Const Vital Signs: 02/11/23 17:01 Temperature 97.2 F L Temperature Source Temporal Pulse Rate 107 H Respiratory Rate 18 Blood Pressure 106/80 Blood Pressure Mean 88 Pulse Ox 100 Oxygen Delivery Method Room Air MDM MDM MDM Narrative Medical decision making narrative: Ultrasound will be obtained for rule out of DVT in the right lower extremity. I do not feel laboratory work is indicated currently nor do I feel that any other imaging is indicated. I reviewed the radiology report which shows no evidence of acute DVT. At this point in time, she will be discharged to take [id number] analgesics and follow-up with her primary care provider and/or her [facility]ER. I do not feel that she needs anticoagulants or narcotic pain medication. Disposition is discharged home in stable condition. Radiography Diagnostic Testing: Clinical Impression(s) from Imaging Studies Venous Duplex 02/11/23 19:08 IMPRESSION: Normal right lower extremity duplex venous ultrasound. Electronically Signed: Paolo An MD at 20:07 EDT , Discharge Plan Triage Chief Complaint: Lower Extremity Injury ED Provider: Waqas Evans Dx/Rx/DC Orders Clinical Impression: Calf pain Instructions: ED Myalgias, ED Pain, Acute, Uncertain Cause Prescriptions: No Action PNV-DHA 27 mg iron-1 mg -300 mg capsule 1 cap PO DAILY escitalopram oxalate [Lexapro] 5 mg tablet 5 mg PO DAILY omeprazole 20 mg capsule,delayed release(DR/EC) 20 mg PO DAILY Primary Care Provider: Janelle Reeves Referrals: Janelle Reeves, [Primary Care Provider] - As soon as possible Disposition Disposition: Home, Self Care
--- NOTE | 2023-02-11 19:08 | US_ITS ---
EXAM: US DUPLEX RIGHT LOWER EXTREMITY VEINS CLINICAL INDICATION: right calf pain TECHNIQUE: Real-time duplex ultrasound scan of the right lower extremity veins integrating B-mode two-dimensional vascular structure, Doppler spectral analysis, color flow Doppler imaging and compression. COMPARISON: No relevant prior studies available. FINDINGS: DEEP VEINS: Unremarkable. No DVT in the visualized common femoral, femoral, proximal deep femoral or popliteal veins. The veins demonstrate normal color flow, are normally compressible, with normal phasic flow and/or augmentation response. SUPERFICIAL VEINS: Unremarkable. No thrombus in the visualized great saphenous vein. SOFT TISSUES: No acute findings. No popliteal cyst. US/Venous Duplex Imag/Limited/Uni IMPRESSION: Normal right lower extremity duplex venous ultrasound. Electronically Signed: Paolo An MD at 20:07 EDT ,
[2023-02-11 21:20] VITALS: O2SAT 100
== END 2023-02-11 21:24 | disposition home or self-care (01) ==
PROVIDERS: Emergency Provider Emergency Medicine; PCP Internal Medicine; Visit Provider Emergency Medicine
DX: M79.604 Pain in right leg (principal); F41.9 Anxiety disorder, unspecified; Z79.899 Other long term (current) drug therapy
CPT/HCPCS: 93971; 99282

== ENCOUNTER → 2023-03-14 | Outpatient (CLI) | payer BC, SELFPAY ==
[2023-03-21 18:17] LABS: HPV Reflexed? NOT INDICATED
== END | disposition home or self-care (01) ==
LOC: LABSPEC 16:53
PROVIDERS: PCP Internal Medicine; Referring Provider Obstetrics & Gynecology; Visit Provider Obstetrics & Gynecology
DX: Z12.4 Encounter for screening for malignant neoplasm of cervix (principal)
CPT/HCPCS: 88175; G0145

== ENCOUNTER → 2024-12-08 | Outpatient (CLI) | payer BC, SELFPAY ==
--- NOTE | 2024-12-08 15:22 | US_ITS ---
PROCEDURE: THYROID 12/08/2024 REASON FOR EXAM: THYROMEGALY TECHNIQUE: Real-time grayscale and color imaging COMPARISON: None. PROCEDURE: N/A FINDINGS: The isthmus is normal thickness at 2.7 mm. Right thyroid measures 5.2 cm by 1.4 cm AP x 1.5 cm T. Left thyroid lobe measures 5.0 cm by 1.3 cm AP by 1.6 cm T Ovoid 13 mm craniocaudad solid nodule has smooth margins and is wider than tall (TR 3). ACR TI-RADS recommendation is no follow-up imaging and no FNA biopsies for a small TR 3 lesion. Two colloid cysts identified in the left lower the client. 1 measures 5 mm greatest dimension in the other 7 mm greatest dimension. US/Thyroid IMPRESSION: Small nodules for which follow-up imaging and FNA biopsy is not recommended per ACR TI-RADS guidelines. Reading Location[facility]
== END | disposition home or self-care (01) ==
LOC: US 15:20
PROVIDERS: PCP Internal Medicine; Referring Provider Internal Medicine; Visit Provider Internal Medicine
DX: E01.0 Iodine-deficiency related diffuse (endemic) goiter (principal)
CPT/HCPCS: 76536

== ENCOUNTER → 2025-05-18 | Outpatient (CLI) | payer BC, SELFPAY ==
[2025-05-18 19:39] LABS: hCG Titer Quant., Serum 307 mIU/mL (<9 non-preg)
== END | disposition home or self-care (01) ==
LOC: LAB 16:37
PROVIDERS: PCP Internal Medicine; Referring Provider Advanced Practice Midwife; Visit Provider Advanced Practice Midwife
DX: O26.859 Spotting complicating pregnancy, unspecified trimester (principal); Z3A.00 Weeks of gestation of pregnancy not specified
CPT/HCPCS: 36415; 84702

== ENCOUNTER → 2025-05-20 | Outpatient (CLI) | payer BC, SELFPAY ==
[2025-05-20 17:22] LABS: hCG Titer Quant., Serum 821 mIU/mL (<9 non-preg)
== END | disposition home or self-care (01) ==
LOC: LAB 15:22
PROVIDERS: PCP Internal Medicine; Referring Provider Advanced Practice Midwife; Visit Provider Advanced Practice Midwife
DX: O26.859 Spotting complicating pregnancy, unspecified trimester (principal); Z3A.00 Weeks of gestation of pregnancy not specified
CPT/HCPCS: 36415; 84702

== ENCOUNTER → 2025-06-09 | Outpatient (CLI) | payer BC, SELFPAY ==
--- NOTE | 2025-06-09 11:00 | US_ITS ---
PROCEDURE: TRANSVAGINAL W/PREG US 06/09/2025 REASON FOR EXAM: WELL BEING Routine survey TECHNIQUE: Procedure Code: [id number] Modality: US Procedure: TRANSVAGINAL W/PREG US COMPARISON: None FINDINGS There is a single live intrauterine . There is a normal-appearing gestational sac containing a 4 mm yolk sac and a pole. [place]-rump length measures 10 mm corresponding to an ultrasound dating of 7 weeks 1 day with heart rate noted at 130 beats per minute. EGA by ultrasound is 7 weeks 4 days with DARLENE by ultrasound of 01/22/2026. The uterus appears to be bicornuate with the gestation visualized within the left horn of the uterus. There is a complex fluid collection in the right horn of the uterus measuring 2.6 x 1.7 x 1 cm. Uterus measures 9.5 x 7.4 x 5.3 cm with a closed cervix. 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 DARLENE of 01/22/2026. The right horn of the uterus shows a complex fluid collection within the right endometrium measuring 2.6 x 1.7 x 1 cm Corpus luteal cyst on the right ovary No free fluid in the cul de sac Reading Location: [id number]
[2025-06-09 13:18] LABS: hCG Titer Quant., Serum 57319 mIU/mL (<9 non-preg)
== END | disposition home or self-care (01) ==
LOC: US 10:55
PROVIDERS: PCP Internal Medicine; Referring Provider Obstetrics & Gynecology; Visit Provider Obstetrics & Gynecology
DX: O36.80X0 Pregnancy with inconclusive fetal viability, not applicable or unspecified (principal); O26.859 Spotting complicating pregnancy, unspecified trimester; Z3A.00 Weeks of gestation of pregnancy not specified
CPT/HCPCS: 36415; 76817; 84702

== ENCOUNTER → 2025-06-11 | Outpatient (CLI) | payer BC, SELFPAY ==
--- OUTSIDE RECORDS SUMMARY | 2025-06-11 10:59 | XMS RPT_ITS | CCD ---
Author Organization [facility] Care Team Providers Care Special Agent [employer] Name Role Phone Janelle Linton Unavailable Blayne Costa Unavailable Nicko Bush Unavailable Unavailable Ciesa, Ghada Unavailable Unavailable Unavailable Rashmi Delgado Unavailable Unavailable Nicko Adkins Unavailable Unavailable CarmenJacki brown Unavailable Unavailable Slarb, Meggan Unavailable Unavailable Janelle Linton DO Unavailable Blayne Costa MD Unavailable Rashmi Delgado LPN Unavailable Unavailable Unavailable Unavailable Janelle Linton DO Unavailable Slawil ALVARADO, Meggan Unavailable Unavailable Gravius PHYSICAL DAMAGE APPRAISER, Angi Unavailable Unavailable Dr. Janelle Linton Primary Care Provider [phone] Dr. Janelle Linton Referring Provider [phone] Dr. Val Earl Attending Provider [phone] Dr. Alida Mccrary Attending Provider [phone] JANELLE LINTON Primary Care Unavailable ALIDA MCCRARY Referring UnavailALIDA Waldrop Attending UnavailDr. Janelle Kim Primary Care Provider [phone] Dr. Janelle Linton Referring Provider [phone] ELICIA Palma Attending Provider [phone] Dr. Alida Mccrary Attending Provider [phone] Dr. Val Earl Attending Provider [phone] Dr. Janelle Linton Primary Care Provider [phone] Dr. Janelle Linton Referring Provider ELICIA Palma Attending Provider [phone] Janlele Linton Primary Care Provider [phone] Dr. Janelle Linton Referring Provider ELICIA Palma Attending Provider [phone] Alida Mccrary Referring Provider [phone] Dr. Alida Mccrary Other Provider Dr. Alida Mccrary Admit Provider Dr. Janelle Linton Primary Care Provider [phone] Dr. Janelle Linton Referring Provider [phone] Alida Mccrary Attending Provider [phone] ELICIA Palma Attending Provider [phone] Leandro PIERRE, Dr. Luis Primary Care Provider Leandro PIERRE, Dr. Luis Attending Provider [phone] Leandro PIERRE, Dr. Luis Referring Provider [phone] Leandro PIERRE, Dr. Luis Primary Care Physician Stefanie Rojas CNM Attending Physician [phone] Stefanie Rojas CNM Referring Provider [phone] Stefanie Roajs Attending Unavailable Stefanie Rojas Referring Unavailable Janelle Linton Primary Care Unavailable Janelle Linton Attending Unavailable Janelle Linton Referring Unavailable Janelle Linton Primary Care Unavailable Stefanie Rojas Attending Unavailable Stefanie Rojas Referring Unavailable Janelle Linton Primary Care Unavailable Janelle Linton Primary Care Unavailable Janelle Linton Referring Unavailable Val Earl Attending Unavailabl e Medications Current Medications Medication Drug Class(es) Dates Sig (Normalized) Sig (Original) Multivit 71-Lgvy-Iybtxt 1-Dha (Pnv-Dha) 27 mg iron-1 mg -300 mg capsule (10 sources) Start: 06-03-2025 Start: 06-27-2022 End: 03-14-2023 Multivit 23-Motq-Pouizb 1-Dh a (Pnv-Dha) 27 mg iron-1 mg -300 mg capsule Discontinued 1 NMA PO DAILY June 27, 2022 12:00am March 14, 2023 3:30pm Start: 06-27-2022 End: 03-14-2023 Multivit 91-Hxyc-Zyszsu 1-Dh a (Pnv-Dha) 27 mg iron-1 mg -300 mg capsule Discontinued 1 NMA PO DAILY June 27, 2022 12:00am March 14, 2023 3:30pm Start: 06-27-2022 End: 03-14-2023 take 1 capsule by mouth once daily Multivit 62-Ktdn-Klylmi 1-Dha (Pnv-Dha) 27 mg iron-1 mg -300 mg capsule Discontinued 1 CAP PO DAILY June 27, 2022 12:00am March 14, 2023 3:30pm Start: 06-27-2022 take 1 capsule by mo uth once daily Multivit 08-Eyqd-Pmuytw 1-Dha (Pnv-Dha) 27 mg iron-1 mg -300 mg capsule Active 1 CAP PO DAILY June 27, 2022 12:00am Start: 06-27-2022 Multivit 47-Ir on-Folate 1-Dha (Pnv-Dha) 27 mg iron-1 mg -300 mg capsule Active CAP PO June 26, 2022 11:00pm promethazine hydrochloride 12.5 mg oral tablet (2 sources) Phenothiazine Start: 08-09-2022 take 12.5 mg by mouth every six hours Promethazine Active 12.5 MG PO EVERY 6 HOURS 60 August 09, 2022 1:00am Completed/Discontinued Medications Medication Drug Class(es) Dates Sig (Normalized) Sig (Original) amoxicillin 500 mg oral capsule (20 sources) Penicillin-class Antibacterial Start: 10-01-2019 End: 10-15-2019 take 1 capsule by mouth twice daily Amoxicillin 500 MG Oral Capsule 1 (one) Capsule bid for 0 days Quantity: 20 {Capsule} Refills: 0 Ordered: 15-Oct-2019 Angi Langston CMA Start : 01-Oct-2019 End : 15-Oct-2019 Inactive busPIRone hydrochloride 15 mg oral tablet (20 sources) Start: 03-16-2015 End: 07-27-2015 take 1 tablet by mouth twice daily BUSPIRONE HCL, 15MG (Oral Tablet) 1 (one) Tablet Tablet bid for 0 days Quantity: 60 {Tablet} Refills: 2 Ordered: 27-Jul-2015 Stefanie Mesa RN Start : 16-Mar-2015 End : 27-Jul-2015 Inactive citalopram 10 mg oral tablet (20 sources) Serotonin Reuptake Inhibitor Start: 06-19-2020 End: 08-09-2020 take 1 tablet by mouth once daily CeleXA 10 MG Oral Tablet 1 (one) Tablet qd for 0 days Quantity: 30 {Tablet} Refills: 11 Ordered: 09-Aug-2020 Shelby Rich Start : 19-Jun-2020 End : 09-Aug-2020 Inactive Start: 10-03-2017 End: 09-17-2019 take 1 tablet by mouth once daily CeleXA 10 MG Oral Tablet 1 (one) Tablet qd for 0 days Quantity: 30 {Tablet} Refills: 11 Ordered: 17-Sep-2019 Kian EDAngi Start : 03-Oct-2017 End : 17-Sep-2019 Inactive escitalopram 10 mg oral tablet (20 sources) Serotonin Reuptake Inhibitor Start: 03-14-2023 End: 04-27-2025 take 1 tablet by mouth once daily Escitalopram Oxalate (Lexapro) 10 mg tablet Discontinued 10 mg PO DAILY 90 4 April 07, 2024 6:08am April 27, 2025 12:19pm Start: 07-29-2022 take 0.5 tablet by m outh once daily escitalopram oxalate 10 mg oral tablet 1/2 Tablet daily as directed for 0 days Quantity: 90 {Tablet} Refills: 2 Ordered: 07-Aug-2022 Gina Kwok CNP Start : 07-Aug-2022 Active Comments: Mail order. Start: 06-21-2022 End: 04-07-2024 take 1 tablet by mouth once daily Escitalopram Oxalate (Lexapro) 5 mg tablet Discontinued 5 mg PO DAILY June 21, 2022 12:00am April 07, 2024 11:14am anxiety Start: 03-04-2022 take 0.5 tablet by m outh once daily Escitalopram Oxalate 10 MG Oral Tablet 1/2 Tablet daily as directed for 0 days Quantity: 30 {Tablet} Refills: 3 Ordered: 04-Mar-2022 Janelle Linton DO, DO, Kathleen Start : 04-Mar-2022 Active Start: 05-28-2021 take 1 tablet by alejandrina th once daily Escitalopram Oxalate 10 MG Oral Tablet 1 (one) Tablet daily as directed for 0 days Quantity: 30 {Tablet} Refills: 3 Ordered: 28-May-2021 Shelby Rich Start : 28-May-2021 Active Start: 10-10-2020 take 1 tablet by alejandrina th once daily Escitalopram Oxalate 10 MG Oral Tablet 1 (one) Tablet daily as directed for 0 days Quantity: 30 {Tablet} Refills: 3 Ordered: 10-Oct-2020 Shelby Rich CNP Start : 10-Oct-2020 Active Start: 09-09-2020 take 1 tablet by alejandrina th once daily Escitalopram Oxalate 10 MG Oral Tablet 1 (one) Tablet daily as directed for 0 days Quantity: 30 {Tablet} Refills: 0 Ordered: 09-Sep-2020 Shelby Rich CNP Start : 09-Sep-2020 Active Start: 09-09-2020 take 1 tablet by alejandrina th once daily Escitalopram Oxalate 10 MG Oral Tablet 1 (one) Tablet daily as directed for 0 days Quantity: 30 {Tablet} Refills: 3 Ordered: 09-Sep-2020 Shelby Rich CNP Start : 09-Sep-2020 Active Comments: Mail order. Start: 08-09-2020 take 1 tablet by alejandrina th once daily Escitalopram Oxalate 10 MG Oral Tablet 1 (one) Tablet daily as directed for 0 days Quantity: 30 {Tablet} Refills: 0 Ordered: 09-Aug-2020 Iris ALVARADOMeggan Start : 09-Aug-2020 Active Comment on above: Mail order. omeprazole 20 mg delayed release oral capsule (14 sources) Proton Pump Inhibitor Start: 3 End: 3 take 1 capsule by mouth once daily Omeprazole 20 mg capsule,delayed release(DR/EC) Discontinued 20 mg PO DAILY January 24, 2023 5:46pm March 14, 2023 3:31pm heartburn Pnv #00-Kefc-Glwez Acid-Omega3 30 mg iron-10 mg iron-1 mg capsule (1 source) Start: 4 End: 4 Pnv #26-Owcj-Sltya Acid-Omega3 30 mg iron-10 mg iron-1 mg capsule Discontinued 1 NMA PO DAILY April 07, 2024 12:00am July 09, 2024 3:16pm Pnv 88-Rmkt-Tmsal Kink-Xfqvb-4 30 mg iron-10 mg iron-1 mg capsule (2 sources) Start: 4 End: 4 Pnv 58-Chqu-Siggd Bhvi-Fmlxr-6 30 mg iron-10 mg iron-1 mg capsule Discontinued 1 NMA PO DAILY April 07, 2024 12:00am July 09, 2024 3:16pm predniSONE 10 mg oral tablet (20 sources) Start: 0 End: 0 predniSONE 10 MG Oral Tablet 1 (one) Tablet am and lunch with food for 2days then one tab qd for 4days for 0 days Quantity: 8 {Tablet} Refills: 0 Ordered: 01-Oct-2019 Stefanie Mesa RN Start : 17-Sep-2019 End : 01-Oct-2019 Inactive NEGATED: Highlighted row has not occurred!drug or medication (13 sources) No Known Histori ambrose Medications NEGATED: Highlighted row has not occurred!No Known Historical Medications (4 sources) No Known Histori ambrose Medications Problems Active Problems Problem Classification Problem Date Documented Da te Episodic/Chronic Anxiety disorders (20 sources) Anxiety; Translations: [Anxiety] 04-03-2020 Chronic Comment on above: has had in past now worse with homebound and worry reassurance given will be getting coun seling will be getting coun seling,has not started med yet, keeps googling problems, adds to anxiety just started on awake counselor ing Diseases of white blood cells (20 sources) Leukocytosis; Translations: [Leukocytosis] Resolved: 08-16-2020 04-03-2020 Chronic Comment on above: has had this before in 09-27-19 then normal now elevated again, chest ok, enzo check S&S infection check sed, crp, rine, lymes Fever of unknown origin (20 sources) Fever; Translations: [Fever] 04-03-2020 Episodic Comment on above: Day #7, awaiting res ults of covid. Plan to get results and call her if positive will set up facetime, if not will just give message Hemorrhoids (7 sources) Hemorrhoids; Translations: [Hemorrhoid] 04-03-2022 Episodic Comment on above: flat and uninflamed -- if flaree again call or otc prep H Immunizations and screening for infectious disease (20 sources) Contact with and (suspected) exposure to other viral communicable diseases; Translations: [Exposure to SARS virus] 04-03-2020 Episodic Comment on above: will test today Given 11/18/22 Lymphadenitis (20 sources) Lymphadenopathy; Translations: [Lymphadenopathy] 04-03-2020 Episodic Comment on above: s/p antibioitc and p red - no chg -- before cat scan willck allergy testing-- Nonspecific chest pain (20 sources) Atypical chest pain; Translations: [Chest pain, atypical] 08-09-2020 Episodic Comment on above: resolved Other complications of (1 source) Maternal obesity complicating , childbirth and the puerperium, antepartum; Translations: [Obesity complicating , unspecified trimester] 06-03-2025 Chronic Comment on above: HGBA1c Other complications of (10 sources) High risk ; Translations: [Supervision of high risk , unspecified, unspecified trimester] 10-29-2022 Episodic Comment on above: PRR , DARLENE 02/07/23 boy Jaziel Deonte , DARLENE 01/25/26, P C Black, Deonte Other complications of (9 sources) Vaginal discharge; Translations: [Other specified related conditions, unspecified trimester] 07-08-2022 Episodic Other complications of (1 source) Other specified related conditions, unspecified trimester; Translations: [Other specified complications of , unspecified as to episode of care or not applicable] Episodic Other complications of (20 sources) Supervision of high risk , unspecified, unspecified trimester; Translations: [Supervision of unspecified high-risk ] Episodic Other complications of (2 sources) Spotting per vagina in ; Translations: [Spotting complicating , unspecified trimester] 05-18-2025 Episodic Comment on above: HCGx2 Other complications of (1 source) Spotting complicating , unspecified trimester; Translations: [Spotting complicating , unspecified trimester] Onset: 05-27-2025 Episodic Other connective tissue disease (6 sources) Pain in calf; Translations: [Pain in unspecified lower leg] 02-11-2023 Episodic Other female genital disorders (7 sources) History of past delivery; Translations: [Status post vaginal delivery] 03-14-2023 Episodic Other gastrointestinal disorders (20 sources) Splenomegaly; Translations: [Splenomegaly] 04-03-2020 Episodic Other inflammatory condition of skin (9 sources) Psoriasis; Translations: [Psoriasis, unspecified] 07-08-2022 Chronic Other nervous system disorders (20 sources) Paresthesia; Translations: [Paresthesia] 04-03-2020 Episodic Comment on above: left leg Other nervous system disorders (20 sources) Agnosia for smell; Translations: [Agnosia for smell] 08-11-2020 Episodic Comment on above: ever since covid --- been 8weeks now --give few more weeks and if no better refer ?? in rashad Other nutritional; endocrine; and metabolic disorders (13 sources) Body mass index 25-29 - overweight; Translations: [BMI 25.0-25.9,adult] 04-03-2020 Chronic Other nutritional; endocrine; and metabolic disorders (4 sources) Body mass index 25-29 - overweight; Translations: [BMI 25.0-25.9,adult] Resolved: 03-04-2022 08-16-2020 Episodic Other nutritional; endocrine; and metabolic disorders (8 sources) Weight gain; Translations: [Weight gain] 03-04-2022 Episodic Other nutritional; endocrine; and metabolic disorders (20 sources) Overweight in adulthood with body mass index of 25 or more but less than 30; Translations: [BMI 29.0-29.9,adult] Resolved: 04-03-2022 04-03-2022 Episodic Other and delivery including normal (20 sources) Early stage of ; Translations: [Encounter for supervision of normal , unspecified, unspecified trimester] Episodic Comment on above: SM IOL [place] 38 boy Black quants rising approp riatley GBS neg.,NIPT low ri sk, declind ntd and Carrier testing. anatomy nl. elects NIPT with gen raji Other screening for suspected conditions (not mental disorders or infectious disease) (16 sources) Patient encounter status; Translations: [Encounter for screening for lipid disorder] 08-16-2020 Episodic Comment on above: Mirena IUD Other upper respiratory infections (20 sources) Postnasal drip; Translations: [Posterior rhinorrhea] Resolved: 04-03-2022 04-03-2020 Episodic Polyhydramnios and other problems of amniotic cavity (9 sources) Oligohydramnios; Translations: [Oligohydramnios, third trimester, not applicable or unspecified] 01-25-2023 Episodic Comment on above: 3cm recommend IOL Residual codes; unclassified (20 sources) Finding related to blood, organ, or tissue donation; Translations: [Plasma donor] 08-09-2020 Episodic Comment on above: since she was covid pos Had Wed Aug 02, 2020 Residual codes; unclassified (20 sources) Non-smoker; Translations: [Non-smoker] 08-16-2020 Episodic Residual codes; unclassified (6 sources) H/O: 1 miscarriage; Translations: [Personal history of other complications of , childbirth and the puerperium] 07-08-2022 Episodic Residual codes; unclassified (4 sources) H/O: miscarriage; Translations: [Personal history of other complications of , childbirth and the puerperium] 07-08-2022 Episodic Comment on above: April- weeks Spontaneous (12 sources) Miscarriage; Translations: [Complete or unspecified spontaneous without complication] 06-21-2022 Episodic Comment on above: Serial quants when b ecomes again. Thyroid disorders (1 source) Iodine-deficiency related diffuse (endemic) goiter; Translations: [Iodine-deficiency related diffuse (endemic) goiter] Onset: 12-09-2024 Chronic Unclassified (20 sources) Viral infection (20 sources) Coronavirus infection; Translations: [SARS-associated coronavirus infection] 06-19-2020 Episodic Comment on above: clinically improving Oct tested positive at urgent care is improving, still with no smell (Jul 2020)clinically improving Past or Other Problems Problem Classification Problem Date Documented Da te Episodic/Chronic Headache; including migraine (19 sources) Headache; including migraine Unclassified (20 sources) Non-smoker; Translations: [Non-smoker] 04-03-2020 Unclassified (20 sources) Encounter for screening for lipid disorder; Translations: [Patient encounter status] 04-03-2020 Unclassified (20 sources) BMI 25.0-25.9,adult Unclassified (17 sources) Exposure to SARS virus Unclassified (20 sources) SARS-associated coronavirus infection Unclassified (20 sources) Chest pain, atypical Unclassified (15 sources) Plasma donor Unclassified (20 sources) Agnosia for smell Unclassified (2 sources) BMI 28.0-28.9,adult Unclassified (2 sources) Weight gain Unclassified (1 source) BMI 29.0-29.9,adult Unclassified (1 source) Hemorrhoid Viral infection (7 sources) Disease caused by 2019-nCoV NEGATED: Highlighted row has been ruled out!Unclassified (20 sources) Problem Onset: 05-27-2014 04-03-2020 Results Test Name Value Interpretation Reference Range Facility Serum human chorionic gonado tropin detection for pregnancyOrdered By: Stefanie Rojas on 05-20-2025 HCG ( test) Ql 821 mIU/mL High <9 [facility] Comment on above: Gestational Age0.2-1 Week: 5-50 mIU/mL1-2 Weeks: 50-500 mIU/mL2-3 Weeks: 100-5000 mIU/mL3-4 Weeks: 500-10,000 mIU/mL4-5 Weeks:1000-50,000 mIU/mL5-6 Weeks: 10,000-100,000 mIU/mL6-8 Weeks: 15,000-200,000 mIU/mL2-3 Months:10,000-100,000 mIU/mL hCG Titer Quant., Serumon HCG QUANT. 821 mIU/mL High <9 non-preg [facility] Comment on above: Result Comment: Gest ational Age 0.2-1 Week: 5-50 mIU/mL 1-2 Weeks: 50-500 mIU/mL 2-3 Weeks: 100-5000 mIU/mL 3-4 Weeks: 500-10,000 mIU/mL 4-5 Weeks:1000-50,000 mIU/mL 5-6 Weeks: 10,000-100,000 mIU/mL 6-8 Weeks: 15,000-200,000 mIU/mL 2-3 Months:10,000-100,000 mIU/mL Performed By: #### L 700.8000 #### [facility] [address] [place], [address] Serum human chorionic gonado tropin detection for pregnancyOrdered By: Stefanie Rojas on 05-18-2025 HCG ( test) Ql 307 mIU/mL High <9 [facility] Comment on above: Gestational Age0.2-1 Week: 5-50 mIU/mL1-2 Weeks: 50-500 mIU/mL2-3 Weeks: 100-5000 mIU/mL3-4 Weeks: 500-10,000 mIU/mL4-5 Weeks:1000-50,000 mIU/mL5-6 Weeks: 10,000-100,000 mIU/mL6-8 Weeks: 15,000-200,000 mIU/mL2-3 Months:10,000-100,000 mIU/mL hCG Titer Quant., Serumon HCG QUANT. 307 mIU/mL High <9 non-preg [facility] Comment on above: Result Comment: Gest ational Age 0.2-1 Week: 5-50 mIU/mL 1-2 Weeks: 50-500 mIU/mL 2-3 Weeks: 100-5000 mIU/mL 3-4 Weeks: 500-10,000 mIU/mL 4-5 Weeks:1000-50,000 mIU/mL 5-6 Weeks: 10,000-100,000 mIU/mL 6-8 Weeks: 15,000-200,000 mIU/mL 2-3 Months:10,000-100,000 mIU/mL Performed By: #### L 700.8000 #### [facility] [address] [place] [address], [id number] Thyroidon 12-08-2024 Thyroid [facility] Services [address] [place] [address] Thyroid MR#: [id number] Acct: [id number] Name: TIFFANIE MO Rep #: [id number] : 1995 F 29 From: Lc Mancilla DO PCP: Dr. Janelle Linton, Status: DEP CLI Study: Thyroid Date of Exam: 12/08/24 Exam# [id number] Ordering Dr: Janelle Linton DO PROCEDURE: THYROID 12/08/2024 REASON FOR EXAM: THYROMEGALY TECHNIQUE: Real-time grayscale and color imaging COMPARISON: None. PROCEDURE: N/A FINDINGS: The isthmus is normal thickness at 2.7 mm. Right thyroid measures 5.2 cm by 1.4 cm AP x 1.5 cm T. Left thyroid lobe measures 5.0 cm by 1.3 cm AP by 1.6 cm T Ovoid 13 mm craniocaudad solid nodule has smooth margins and is wider than tall (TR 3). ACR TI-RADS recommendation is no follow-up imaging and no FNA biopsies for a small TR 3 lesion. Two colloid cysts identified in the left lower the client. 1 measures 5 mm greatest dimension in the other 7 mm greatest dimension. US/Thyroid IMPRESSION: Small nodules for which follow-up imaging and FNA biopsy is not recommended per ACR TI-RADS guidelines. Reading Location: [facility] CC: Dr. Janelle Linton DO Criminal Researcher: Signed Normal [facility] [employer] Office Visit Reporton 07-09-2024 [employer] Office Visit Report [facility] [address], [address] [place] [address] OFFICE VISIT Date of Service: 07/09/24 MR#: [id number] Acct: [id number] Name: TIFFANIE MO Rep #: [id number] : 1995 Provider: Dr. Val Vela DO Age/Sex: 28/F Location: [facility] Status: Signed Intake Vital Signs 04/07/24 11:12 07/09/24 15:09 07/09/24 15:09 Height 5 ft 8 in 5 ft 8 in 5 ft 8 in Weight: 207 lb 211 lb 6 oz BMI 31.4 32.1 BP 102/60 120/84 H Blood Pressure Location Lt brachial Position Sitting Intake Visit Reasons: mirena removal Director Telemetry Required: No Is patient in pain?: No Allergies No Known Allergies Allergy (Verified 07/09/24 15:08) Medications ???Medication ???Instructions ???Recorded ???Confirmed ???Type escitalopram oxalate 10 mg tablet 10 mg PO DAILY #90 tabs 04/07/24 07/09/24 Rx (Lexapro) Post menopausal: No Patient : No : No [facility] Medical History Vaginal delivery Oligohydramnios Psoriasis History of anxiety Family History Grandmother Diabetes Breast cancer, Onset Age: 67 maternal Grandfather Hypertension Grandmother Breast cancer, Onset Age: 75 paternal- of Covid before treatment of breast cancer completed Social History adopted: No household members: spouse housing: house current occupational status: employed 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 and animals: Yes (Not managing litterbox) pets and animals: cat(s) history of recent travel: No ([place] in January) sexually active: Yes Smoking Status: Never smoker alcohol intake: never substance use type: does not use well-balanced diet: daily or most days caffeine: No eating out: 1-3 times/week during the past year weight has: remained stable what type of physical activity do you participate in: weight training frequency: 3-4 times per week duration: 30-45 minutes/day lala/confucianist: None seatbelt use: always do you feel safe at home: Yes additional social history: [place]- Works at a [employer] HPI mirena removal Details: TIFFANIE MO is a 28 year old who presents for IUD removal. She wants to start trying for baby #2. History 2 Elective abortions Hx Para 0 Spontaneous abortions 1 Hx # Term Pregnancies Ectopic pregnancies Hx # Pregnancies Multiple births # of living children 1 Past Pregnancies Del. Date Name GA/Weeks Outcome Route Bth Weight Infant Gen Labor Lgth Anesthesia Del Locatn Provider FOB 05/03/22 chemical 01/25/23 Black 38 live - full term 6lbs 10oz Male H Ma rcafiorella Clemons Delivery Date: 01/25/23 Last Updated by: Marisela Hollins IOL [place] 38 SM ROS Const ROS Unobtainable: All systems reviewed are unremarkable except as noted in H Resp Resp: Reports system reviewed and no additional complaints, except as documented; Denies cough GI GI: Reports as per HPI Psych Psych: Reports system reviewed and no additional complaints, except as documented Exam Const General: cooperative, healthy appearing, comfortable and no acute distress Resp Effort Inspection: normal respiratory effort General: bimanual renal exam normal bilaterally External Female Exam: normal appearance of the urethra Urethra: normal appearance of the urethra Speculum Exam - Vagina: normal appearance of the vagina Speculum Exam - Cervix: normal appearance of the cervix Bimanual Exam- Adnexa, other: normal adnexae and normal Pelvic Support: normal Skin General: no rashes or lesions noted Psych Appearance: grossly normal Speech and Movement: speech and movement normal Office Procedures IUD Removal IUD Removal Details: Sign out documentation: Completed Procedure: Speculum placed in vagina, IUD string visualized and grasped with ring forceps. IUD easily removed in its entirety and patient tolerated well. Coding Level of Care Code Off vis,est,level 3 Diagnoses Contraception management Z30.9 Encounter for IUD removal Z30.432 Assessment and Plan Assessment and Plan (1) Contraception management: Status: Acute Comment: Mirena IUD (2) Encounter for IUD removal: Status: Acute Orders: Orders IUD Removal Today Z30.432 - Encounter for removal of intrauterine contraceptive device Plan IUD successfully removed. start vitamins RTO as needed and for annual exams 07/09/24 1546 Date Val Earl DO Cosigner Signature: Date (if applicable) CC (more content not included)... Normal [facility] Cervical or vagninal specime n microscopic examination by cytology stain (reported asOrdered By: Val Fiore on 03-14-2023 Cytology report Cyto stain Doc (Cvx/Vag) Comment . [facility] Comment on above: The Pap smear is a s creening test designed to aid in thedetection of premalignant and malignant conditions of theuterine cervix. It is not a diagnostic procedure andshould not be used as the sole means of detecting cervicalcancer. Both false-positive and false-negative reports dooccur. Laboratory - CytologyOrdered By: Val Fiore on 03-14-2023 Natural Resources Engineer Cyto stain Nom (Cvx/Vag) [ID] Comment . [facility] Comment on above: Nicolas Del Realt echnologist ([facility]) Laboratory - Miscellaneous t estsOrdered By: Val Fiore on 03-14-2023 Service comment (Unsp spec) [Interp] Comment . [facility] Comment on above: This liquid based Th inPrep(R) pap test was screened withthe use of an image guided system. Service comment (Unsp spec) [Interp] . . [facility] No Panel InformationOrdered By: Val Fiore on 03-14-2023 Human Papillomavirus Screen Comment . [facility] Comment on above: The HPV DNA reflex nancy gibson were not met with this specimenresult therefore, no HPV testing was performed.Performed at: [address] [id number] Director: Zenia Howard MD, Phone: [phone] Pap Smear QC Review Comment . [facility] Comment on above: Nancy Reed ytotechnologist ([facility]) Pathology report final diagnosis Narrative Comment . [facility] Comment on above: NEGATIVE FOR INTRAEP ITHELIAL LESION OR MALIGNANCY.THIS SPECIMEN WAS RESCREENED PART OF OUR OFFICE AUTOMATION TECHNICIAN PROGRAM. Absolute lymphocyte countOrd ered By: Dr. Mccrary on 01-24-2023 Lymphocytes Auto (Unsp spec) [#/Vol] 2.00 10*3/uL 0.83-4.51 [facility] Basophil percentageOrdered B y: Dr. Mccrary on 01-24-2023 Basophils/100 WBC (Bld) 0.3 % 0-1 [facility] Eosinophils/100 WBC (Bld) 1.0 % 0-5 [facility] Neutrophils (Bld) [#/Vol] 9.3 10*3/uL 2.0-7.7 [facility] Neutrophils/100 WBC (Bld) 71.4 % 47-70 [facility] WBC (Bld) [#/Vol] 13.0 10*3/uL 4.4-11.0 [facility] Blood erythrocytes count (nu mber/volume)Ordered By: Dr. Mccrary on 01-24-2023 RBC (Bld) [#/Vol] 4.29 10*6/uL 4.2-5.4 [facility] Blood hemoglobin measurement (mass/volume)Ordered By: Dr. Mccrary on 01-24-2023 Hemoglobin (Bld) [Mass/Vol] 13.2 g/dL 12.0-15.0 [facility] Blood lymphocytes/100 leukoc ytesOrdered By: Dr. Mccrary on 01-24-2023 Lymphocytes/100 WBC (Bld) 15.4 % 19-41 [facility] Blood monocytes/100 leukocyt esOrdered By: Dr. Mccrary on 01-24-2023 Monocytes/100 WBC (Bld) 9.7 % 0-10 [facility] Blood platelet mean volumeOr dered By: Dr. Mccrary on 01-24-2023 Platelet mean volume (Bld) [Entitic vol] 10.4 fL 6.2-12.0 [facility] Determination of erythrocyte mean corpuscular volume (MCV)Ordered By: Dr. Mccrary on 01-24-2023 MCV (RBC) [Entitic vol] 91.1 fL 81-99 [facility] Hematocrit Auto (Bld) [Volum e fraction]Ordered By: Dr. Mccrary on 01-24-2023 Hematocrit (Bld) [Volume fraction] 39.1 % 37-47 [facility] Laboratory - Hematology and Cell countsOrdered By: Dr. Mccrary on 01-24-2023 Erythrocyte distribution width (RBC) [Entitic vol] 45.8 fL 35.1-43.9 [facility] Erythrocyte distribution width (RBC) [Ratio] 13.8 % 11.6-14.6 [facility] Immature granulocytes/100 WBC (Bld) 2.200 % 0.0-0.9 [facility] Comment on above: IG% - Immature Granu locytes (promyelocytes, myelocytes and metamyelocytes) > 1% indicates that a LEFT SHIFT is Present. MCH (RBC) [Entitic mass] 30.8 pg 27.0-32.0 [facility] Nucleated RBC/100 WBC (Bld) [Ratio] 0 % 0-5 [facility] MCHC Auto (RBC) [Mass/Vol]Or dered By: Dr. Mccrary on 01-24-2023 MCHC (RBC) [Mass/Vol] 33.8 g/dL 32-36 [facility] Platelets bldOrdered By: Dr. Mccrary on 01-24-2023 Platelets (Bld) [#/Vol] 360 10*3/uL 150-450 [facility] Serum Treponema species anti body detectionOrdered By: Dr. Mccrary on 01-24-2023 Treponema sp Ab Ql (S) Non-Reactive [facility] Laboratory - Chemistry and C hemistry - challengeon 01-22-2023 Glucose Ql (U) Negative [facility] Laboratory - Urinalysison Protein Ql (U) Negative [facility] No Panel InformationOrdered By: Dr. Mccrary on 01-17-2023 Group B Streptococcus Culture Group B Beta Streptococcus is not isolated. [facility] No Panel InformationOrdered By: Dr. Fiore on 01-16-2023 Vaginal Amniotic Fluid Detection Negative Negative [facility] Comment on above: Amniotic fluid not p resent indicates No Rupture of FetalMembranes at time of specimen collection. Laboratory - Chemistry and C hemistry - challengeon 01-14-2023 Glucose Ql (U) Negative [facility] Laboratory - Urinalysison Protein Ql (U) Negative [facility] No Panel InformationOrdered By: Alida Mccrary on 01-14-2023 Group B Streptococcus Culture Group B Beta Streptococcus is not isolated. [facility] Laboratory - Chemistry and C hemistry - challengeon 01-01-2023 Glucose Ql (U) Negative [facility] Laboratory - Urinalysison Protein Ql (U) Negative [facility] Laboratory - Chemistry and C hemistry - challengeon 12-18-2022 Glucose Ql (U) Negative [facility] Laboratory - Urinalysison Protein Ql (U) Negative [facility] Laboratory - Chemistry and C hemistry - challengeon 2022 Glucose Ql (U) Negative [facility] Laboratory - Urinalysison Protein Ql (U) Negative [facility] Laboratory - Chemistry and C hemistry - challengeon 11-18-2022 Glucose Ql (U) Negative [facility] Laboratory - Urinalysison Protein Ql (U) Negative [facility] Laboratory - Chemistry and C hemistry - challengeon 10-29-2022 Glucose Ql (U) Negative [facility] Laboratory - Urinalysison Protein Ql (U) Negative [facility] Absolute lymphocyte countOrd ered By: Kacy Palma on 10-28-2022 Lymphocytes Auto (Unsp spec) [#/Vol] 1.87 10*3/uL 0.83-4.51 [facility] Basophil percentageOrdered B y: Kacy Palma on 10-28-2022 Basophils/100 WBC (Bld) 0.4 % 0-1 [facility] Eosinophils/100 WBC (Bld) 1.1 % 0-5 [facility] Neutrophils (Bld) [#/Vol] 10.9 10*3/uL 2.0-7.7 [facility] Neutrophils/100 WBC (Bld) 76.6 % 47-70 [facility] WBC (Bld) [#/Vol] 14.2 10*3/uL 4.4-11.0 [facility] Blood erythrocytes count (nu mber/volume)Ordered By: Kacy Palma on 10-28-2022 RBC (Bld) [#/Vol] 4.08 10*6/uL 4.2-5.4 [facility] Blood hemoglobin measurement (mass/volume)Ordered By: Kacy Palma on 10-28-2022 Hemoglobin (Bld) [Mass/Vol] 12.5 g/dL 12.0-15.0 [facility] Blood lymphocytes/100 leukoc ytesOrdered By: Kacy Palma on 10-28-2022 Lymphocytes/100 WBC (Bld) 13.2 % 19-41 [facility] Blood monocytes/100 leukocyt esOrdered By: Kacy Palma on 10-28-2022 Monocytes/100 WBC (Bld) 6.8 % 0-10 [facility] Blood platelet mean volumeOr dered By: Kacy Palma on 10-28-2022 Platelet mean volume (Bld) [Entitic vol] 10.0 fL 6.2-12.0 [facility] Determination of erythrocyte mean corpuscular volume (MCV)Ordered By: Kacy Palma on 10-28-2022 MCV (RBC) [Entitic vol] 92.9 fL 81-99 [facility] Gestational diabetes screen 1-hour screen with 50g oral glucose loadOrdered By: Kacy Palma on 10-28-2022 Glucose 1 Hr post 50 g glucose PO [Mass/Vol] 91 mg/dL 70-140 [facility] HIV 1 and HIV-2 antibody ass ay with HIV-1 p24 antigen detectionOrdered By: Kacy Palma on 10-28-2022 HIV 1+2 Ab+HIV1 p24 Ag IA Ql Non-Reactive Nonreactive [facility] Hematocrit Auto (Bld) [Volum e fraction]Ordered By: Kacy Palma on 10-28-2022 Hematocrit (Bld) [Volume fraction] 37.9 % 37-47 [facility] Laboratory - Hematology and Cell countsOrdered By: Kacy Palma on 10-28-2022 Erythrocyte distribution width (RBC) [Entitic vol] 45.6 fL 35.1-43.9 [facility] Erythrocyte distribution width (RBC) [Ratio] 13.6 % 11.6-14.6 [facility] Immature granulocytes/100 WBC (Bld) 1.900 % 0.0-0.9 [facility] Comment on above: IG% - Immature Granu locytes (promyelocytes, myelocytes and metamyelocytes) > 1% indicates that a LEFT SHIFT is Present. MCH (RBC) [Entitic mass] 30.6 pg 27.0-32.0 [facility] Nucleated RBC/100 WBC (Bld) [Ratio] 0 % 0-5 [facility] MCHC Auto (RBC) [Mass/Vol]Or dered By: Kacy Palma on 10-28-2022 MCHC (RBC) [Mass/Vol] 33.0 g/dL 32-36 [facility] Platelets bldOrdered By: Tosha Palma on 10-28-2022 Platelets (Bld) [#/Vol] 365 10*3/uL 150-450 [facility] Serum Treponema species anti body detectionOrdered By: Kacy Palma on 10-28-2022 Treponema sp Ab Ql (S) Non-Reactive [facility] Laboratory - Chemistry and C hemistry - challengeon 09-30-2022 Glucose Ql (U) Negative [facility] Laboratory - Urinalysison Protein Ql (U) Negative [facility] Absolute lymphocyte counton 07-15-2022 Lymphocytes Auto (Unsp spec) [#/Vol] 2.65 10*3/uL 0.83-4.51 [facility] Work Phone: Basophil percentageon 2021 Basophils/100 WBC (Bld) 0.3 % 0-1 [facility] Work Phone: Eosinophils/100 WBC (Bld) 1.4 % 0-5 [facility] Work Phone: Neutrophils (Bld) [#/Vol] 8.2 10*3/uL 2.0-7.7 [facility] Work Phone: Neutrophils/100 WBC (Bld) 68.8 % 47-70 [facility] Work Phone: WBC (Bld) [#/Vol] 12.0 10*3/uL 4.4-11.0 [facility] Work Phone: Blood erythrocytes count (nu mber/volume)on 07-15-2022 RBC (Bld) [#/Vol] 4.17 10*6/uL 4.2-5.4 [facility] Work Phone: Blood hemoglobin measurement (mass/volume)on 07-15-2022 Hemoglobin (Bld) [Mass/Vol] 13.0 g/dL 12.0-15.0 [facility] Work Phone: Blood lymphocytes/100 leukoc yteson 07-15-2022 Lymphocytes/100 WBC (Bld) 22.2 % 19-41 [facility] Work Phone: Blood monocytes/100 leukocyt eson 07-15-2022 Monocytes/100 WBC (Bld) 6.9 % 0-10 [facility] Work Phone: Blood platelet mean volumeon 07-15-2022 Platelet mean volume (Bld) [Entitic vol] 9.5 fL 6.2-12.0 [facility] Work Phone: Determination of erythrocyte mean corpuscular volume (MCV)on 07-15-2022 MCV (RBC) [Entitic vol] 88.0 fL 81-99 [facility] Work Phone: HIV 1 and HIV-2 antibody ass ay with HIV-1 p24 antigen detectionon 07-15-2022 HIV 1+2 Ab+HIV1 p24 Ag IA Ql Non-Reactive Nonreactive [facility] Work Phone: Hematocrit Auto (Bld) [Volum e fraction]on 07-15-2022 Hematocrit (Bld) [Volume fraction] 36.7 % 37-47 [facility] Work Phone: Laboratory - Hematology and Cell countson 07-15-2022 Erythrocyte distribution width (RBC) [Entitic vol] 39.4 fL 35.1-43.9 [facility] Work Phone: Erythrocyte distribution width (RBC) [Ratio] 12.2 % 11.6-14.6 [facility] Work Phone: Immature granulocytes/100 WBC (Bld) 0.400 % 0.0-0.9 [facility] Work Phone: Comment on above: IG% - Immature Granu locytes (promyelocytes, myelocytes and metamyelocytes) > 1% indicates that a LEFT SHIFT is Present. MCH (RBC) [Entitic mass] 31.2 pg 27.0-32.0 [facility] Work Phone: Nucleated RBC/100 WBC (Bld) [Ratio] 0 % 0-5 [facility] Work Phone: MCHC Auto (RBC) [Mass/Vol]on 07-15-2022 MCHC (RBC) [Mass/Vol] 35.4 g/dL 32-36 [facility] Work Phone: No Panel Informationon 07-15 Hepatitis B Surface Antigen Non-Reactive Nonreactive [facility] Work Phone: Hepatitis C Antibody Non-Reactive Nonreactive [facility] Work Phone: Comment on above: Non Reactive: < 0.8 Equivocal: >/= 0.8 to < 1.0 Reactive: >/= 1.0The [facility] recommends that a reactive/equivocal HCV antibody result be followed up by the HCV Nucleic Acid Amplificationtest (922428) Miscellaneous Test Comment MAILED SPECIMEN [facility] Work Phone: Rubella IgG Antibody Reactive Nonreactive [facility] Work Phone: Comment on above: Antibody Results Int erpretation of Immune Status Non Reactive Presumed Non-Immune Equivocal Equivocal Reactive Presumed Immune Platelets bldon 07-15-2022 Platelets (Bld) [#/Vol] 397 10*3/uL 150-450 [facility] Work Phone: Serum Treponema species anti body detectionon 07-15-2022 Treponema sp Ab Ql (S) Non-Reactive [facility] Work Phone: Chlamydia trachomatis rRNA d etection by probe and target amplification methodon 07-08-2022 C. trachomatis rRNA JENNI+probe Ql (Unsp spec) Negative Negative [facility] Work Phone: Laboratory - Drug toxicology on 07-08-2022 Amphetamines Ql (U) Negative <1000 ng/mL [facility] Work Phone: Benzodiazepines Ql (U) Negative < 200 ng/mL [facility] Work Phone: Cannabinoids Screen Ql (U) Negative < 50 ng/mL [facility] Work Phone: Cocaine Ql (U) Negative < 300 ng/mL [facility] Work Phone: Opiates Ql (U) Negative < 300 ng/mL [facility] Work Phone: Laboratory - Microbiology an d Antimicrobial susceptibilityon 07-08-2022 N. gonorrhoeae DNA JENNI+probe Ql (Unsp spec) Negative Negative [facility] Work Phone: Comment on above: Performed at: =Edwin walker [address]Nacho vazqueztonМария [id number] Director: Zenia Howard MD, Phone: [phone] No Panel Informationon 07-08 MDMA (Ecstasy) Screen Negative < 500 ng/mL [facility] Work Phone: Urine Barbiturates Screen Negative < 200 ng/mL [facility] Work Phone: Urine Drug Screen Comment [facility] Work Phone: Comment on above: CONFIRMATORY TESTING FOR ALL POSITIVE URINE DRUG SCREENRESULTS WILL ONLY BE SENT OUT UPON PHYSICIAN ORDER. VISTA Urine Drug Screen methods provide only preliminaryanalytical test results. A more specific alternate chemicalmethod must be used in order to obtain a confirmedanalytical result. Gas chromatography/mass spectrometery(GC/MS) is the preferred confirmatory method. Clinicalconsideration and professional judgement should be appliedto any drug of abuse test result, particularly whenpreliminary positive results are used. URINE TCA TESTING MUST BE ORDERED SEPARATELY. USE TESTMNEMONIC: [facility] Urine Methadone Screen Negative < 300 ng/mL [facility] Work Phone: Urine phencyclidine (PCP) de tectionon 07-08-2022 Phencyclidine Ql (U) Negative < 25 ng/mL [facility] Work Phone: No Panel Informationon 06-21 POC Bacterial Vaginitis (Rapid) Negative [facility] Work Phone: Serum or plasma choriogonado tropin detectionon 06-01-2022 HCG ( test) Ql 149 mIU/mL <4 [facility] Work Phone: Comment on above: hCG levels with Gest ational AgeGestational Age hCG mIU/mL (IU/L)0.2 - 1 week 5 - 501-2 weeks 50 - 5002-3 weeks 100 - 64258-5 weeks 500 - 320013-6 weeks 1000 - 540180-3 weeks 78880 - 100,0006-8 weeks 76142 - 200,0002-3 months 04691 - 100,000 Serum or plasma choriogonado tropin detectionon 05-30-2022 HCG ( test) Ql 67 mIU/mL <4 [facility] Work Phone: Comment on above: hCG levels with Gest ational AgeGestational Age hCG mIU/mL (IU/L)0.2 - 1 week 5 - 501-2 weeks 50 - 5002-3 weeks 100 - 87083-4 weeks 500 - 054260-5 weeks 1000 - 977712-7 weeks 83862 - 100,0006-8 weeks 61332 - 200,0002-3 months 17801 - 100,000 Serum or plasma choriogonado tropin detectionon 05-04-2022 HCG ( test) Ql 1 mIU/mL <4 [facility] Work Phone: Comment on above: hCG levels with Gest ational AgeGestational Age hCG mIU/mL (IU/L)0.2 - 1 week 5 - 501-2 weeks 50 - 5002-3 weeks 100 - 67686-2 weeks 500 - 694010-6 weeks 1000 - 614293-9 weeks 38641 - 100,0006-8 weeks 12392 - 200,0002-3 months 43647 - 100,000 Serum or plasma choriogonado tropin detectionon 05-02-2022 HCG ( test) Ql 8 mIU/mL <4 [facility] Work Phone: C-REACT PROT HIGH SENS(hsCRP ) ([id number])Ordered By: Department Of Sociology Chair on 08-11-2020 CRP High sensitivity method [Mass/Vol] 0.19 mg/L Normal 0.00-3.00 [facility] Work Phone: Comment on above: Relative Risk for Fu ture Cardiovascular Event Low <1.00 Average 1.00 - 3.00 High >3.00 PATIENT NOT FASTINGP ERFORMED BY: [employer] [place] [id number] CBC & PLATELETS (AUTO) ([id number] [id number])Ordered By: Department Of Sociology Chair on 08-11-2020 Erythrocyte distribution width (RBC) [Ratio] 12.5 % Normal 11.7-15.4 [facility] Work Phone: Comment on above: PATIENT NOT FASTINGP ERFORMED BY: [employer] [place] [id number] Hematocrit (Bld) [Volume fraction] 39.1 % Normal 34.0-46.6 [facility] Work Phone: Comment on above: PATIENT NOT FASTINGP ERFORMED BY: CB [facility] Gslczy225[address]Dublin [place] [id number] Hemoglobin (Bld) [Mass/Vol] 13.4 g/dL Normal 11.1-15.9 [facility] Work Phone: Comment on above: PATIENT NOT FASTINGP ERFORMED BY: CB [facility] Wsmjdt6048 [address]Dublin [place] [id number] MCH (RBC) [Entitic mass] 31.2 pg Normal 26.6-33.0 [facility] Work Phone: Comment on above: PATIENT NOT FASTINGP ERFORMED BY: CB [facility] Blwfzs0836 [address] RoadDublin [place] [id number] MCHC (RBC) [Mass/Vol] 34.3 g/dL Normal 31.5-35.7 [facility] Work Phone: Comment on above: PATIENT NOT FASTINGP ERFORMED BY: CB [facility] Hqneiq26[address]Dublin [place] [id number] MCV (RBC) [Entitic vol] 91 fL Normal 79-97 [facility] Work Phone: Comment on above: PATIENT NOT FASTINGP ERFORMED BY: CB [facility] Piokfk76[address]Dublin [place] [id number] Platelets (Bld) [#/Vol] 400 {x10E3/uL} Normal 150-450 [facility]; [facility] Work Phone: Comment on above: PATIENT NOT FASTINGP ERFORMED BY: CB [facility] Udpmwb9149 [address]Dublin [place] [id number] Platelets (Bld) [#/Vol] 400 10*3/uL Normal 150-450 [facility]; [facility] Work Phone: Comment on above: PATIENT NOT FASTINGP ERFORMED BY: CB [facility] Wnmoet2505 [address]Dublin [place] [id number] RBC (Bld) [#/Vol] 4.29 {x10E6/uL} Normal 3.77-5.28 [facility] Work Phone: Comment on above: PATIENT NOT FASTINGP ERFORMED BY: RAYMOND Styles Ektyut78[address] [id number] RBC (Bld) [#/Vol] 4.29 10*6/uL Normal 3.77-5.28 [facility] Work Phone: Comment on above: PATIENT NOT FASTINGP ERFORMED BY: [facility] Gtdzoh7393 [facility] [id number] WBC (Bld) [#/Vol] 6.5 {x10E3/uL} Normal 3.4-10.8 [facility] Work Phone: Comment on above: PATIENT NOT FASTINGP ERFORMED BY: [facility] Quzrza7108 [facility] [id number] WBC (Bld) [#/Vol] 6.5 10*3/uL Normal 3.4-10.8 [facility]; [facility] Work Phone: Comment on above: PATIENT NOT FASTINGP ERFORMED BY: KwameGeneral [facility] Evvwur8914 [facility] [id number] Lyme Disease Antibody W/ Ref mary ([id number])Ordered By: Department Of Sociology Chair on 08-11-2020 B. burgdorferi IgG+IgM Qn (S) {index_val} Normal 0.00-0.90 [facility]; [facility] Work Phone: Comment on above: Negative <0.91 Equiv ocal 0.91 - 1.09 Positive >1.09 PATIENT NOT FASTINGP ERFORMED BY: LabProm[facility]6370 [facility] [id number] B. burgdorferi IgG+IgM Qn (S) {index_val} Normal 0.00-0.90 [facility]; [facility] Work Phone: Comment on above: Negative <0.91 Equiv ocal 0.91 - 1.09 Positive >1.09 PATIENT NOT FASTINGP ERFORMED BY: RAYMOND LabCowillie Surlgs2409 [address]Dublin [place] [id number] SED RATE ERYTHROCYTE ([id number]) Ordered By: Department Of Sociology Chair on 08-11-2020 ESR (Bld) [Velocity] 2 mm/h Normal 0-32 Comp rehensive [facility]; [facility] Work Phone: Comment on above: PATIENT NOT FASTINGP ERFORMED BY: RAYMOND [facility] Mczieb7094 [address]Dublin [place] [id number] URINALYSIS ([id number])Ordered By : Department Of Sociology Chair on 08-11-2020 Appearance (U) Clear Normal Comprehens ronal [facility]; [facility] Work Phone: Comment on above: PATIENT NOT FASTINGP ERFORMED BY: RAYMOND LabCorinna CeeLjtdud2299 [address]Dublin [place] [id number] Bilirubin Ql (U) Negative Normal Comprehe nsive [facility]; [facility] Work Phone: Comment on above: PATIENT NOT FASTINGP ERFORMED BY: RAYMOND LabCowillie CeeUsrmya0414 [address]Dublin [place] [id number] Bilirubin Ql (U) Negative Normal Comprehe nsive [facility]; [facility] Work Phone: Comment on above: PATIENT NOT FASTINGP ERFORMED BY: RAYMOND LabCorinna Zqippz1533 [address]Dublin [place] [id number] Color (U) Yellow Normal [facility]; [facility] Work Phone: Comment on above: PATIENT NOT FASTINGP ERFORMED BY: RAYMOND [facility] Qfzjck1796 [address]son RoadDublin [place] [id number] Glucose Ql (U) Negative Normal Comprehens ronal [facility]; [facility] Work Phone: Comment on above: PATIENT NOT FASTINGP ERFORMED BY: RAYMOND [facility] Yhuygq9969 [address] RoadDublin [place] [id number] Glucose Ql (U) Negative Normal Comprehens ronal [facility] Medicine; [facility] Work Phone: Comment on above: PATIENT NOT FASTINGP ERFORMED BY: RAYMOND [facility] Ehepds8820 [address] RoadDublin [place] [id number] Hemoglobin Ql (U) Negative Normal Compreh ensive Internal Medicine; [facility] Work Phone: Comment on above: PATIENT NOT FASTINGP ERFORMED BY: RAYMOND [facility] Nomxxt9245 [address]Dublin [place] [id number] Hemoglobin Ql (U) Negative Normal Compreh ensive Internal Medicine; [facility] Work Phone: Comment on above: PATIENT NOT FASTINGP ERFORMED BY: RAYMOND [facility] Twpcua4293 [address] RoadDublin [place] [id number] Ketones Ql (U) Negative Normal Comprehens ronal [facility]; [facility] Work Phone: Comment on above: PATIENT NOT FASTINGP ERFORMED BY: RAYMOND [facility] Kfsmcz0698 [address] RoadDublin [place] [id number] Ketones Ql (U) Negative Normal Comprehens ronal [facility] Medicine; [facility] Work Phone: Comment on above: PATIENT NOT FASTINGP ERFORMED BY: RAYMOND [facility] Objdap7029 [address] RoadDublin [place] [id number] Leukocyte esterase Test strip Ql (U) Negative Normal [facility]; [facility] Work Phone: Comment on above: PATIENT NOT FASTINGP ERFORMED BY: RAYMOND [facility] Exqnpp7643 [address] RoadDublin [place] [id number] Leukocyte esterase Test strip Ql (U) Negative Normal [facility]; [facility] Work Phone: Comment on above: PATIENT NOT FASTINGP ERFORMED BY: CB [facility] Vfuuch7947 [address] RoadDublin [place] [id number] Microscopic observation LM Nom (Urine sed) MICNIP Normal [facility]; [facility] Work Phone: Comment on above: Microscopic not lolita cated and not performed. PATIENT NOT FASTINGP ERFORMED BY: CB [facility] Cimaba3060 [address]Dublin [place] [id number] Nitrite Ql (U) Negative Normal Comprehens ronal [facility] Medicine; [facility] Work Phone: Comment on above: PATIENT NOT FASTINGP ERFORMED BY: RAYMOND LabCorinna Marlow6370 [address] RoadDublin [place] [id number] Nitrite Ql (U) Negative Normal Comprehens ronal Internal Medicine; [facility] Internal Medicine Work Phone: Comment on above: PATIENT NOT FASTINGP ERFORMED BY: RAYMOND LabCorinna Zlpvfq7954 [address]Dublin [place] [id number] pH (U) 7.0 [pH] Normal 5.0-7.5 [facility]; [facility] Work Phone: Comment on above: PATIENT NOT FASTINGP ERFORMED BY: RAYMOND LabCowillie Viwcuk8524 [address] RoadDublin [place] [id number] Protein Ql (U) Negative Normal Comprehens ronal Internal Medicine; [facility] Internal Medicine Work Phone: Comment on above: PATIENT NOT FASTINGP ERFORMED BY: RAYMOND Ayaan Epvoar0981 [address]Dublin [place] [id number] Protein Ql (U) Negative Normal Comprehens ronal Internal Medicine; [facility] Medicine Work Phone: Comment on above: PATIENT NOT FASTINGP ERFORMED BY: RAYMOND Ayaan Marlow6370 [address] [facility]bl[facility] [place] [id number] Specific gravity (U) [Rel density] <=1.005 Abnormal 1.005-1.030 [facility]; [facility] Work Phone: Comment on above: PATIENT NOT FASTINGP ERFORMED BY: RAYMOND LabFarzanarp Thuukc3172 [address]Dublin [place] [id number] Urobilinogen (U) [Mass/Vol] 0.2 mg/dL Normal 0.2-1.0 [facility]; [facility] Work Phone: Comment on above: PATIENT NOT FASTINGP ERFORMED BY: RAYMOND LabCorinna CeeAtqsih0381 [address]Dublin [place] [id number] Urobilinogen Test strip (U) [Mass/Vol] 0.2 mg/dL Normal 0.2-1.0 Comprehensi Internal Medicine; [facility] Work Phone: Comment on above: PATIENT NOT FASTINGP ERFORMED BY: RAYMOND [facility] Hdmslt8291 [address] [facility]in [place] [id number] ASSAY, TROPONIN, QUANTITATIV E (aka Troponin I) ([id number])Ordered By: Department Of Sociology Chair on 08-09-2020 Troponin I.cardiac [Mass/Vol] ng/mL Normal 0.00-0.04 [facility] Work Phone: Comment on above: PATIENT NOT FASTINGP ERFORMED BY: CB [facility] Rxhkei7328 [address]Formerly [facility]in [place] [id number] Troponin I.cardiac [Mass/Vol] ng/mL Normal 0.00-0.04 [facility]; [facility] Work Phone: Comment on above: PATIENT NOT FASTINGP ERFORMED BY: [facility] Disrvv0801 [address] [facility] [id number] CBC & PLATELETS (AUTO) ([id number])Ordered By: Department Of Sociology Chair on 08-09-2020 Erythrocyte distribution width (RBC) [Ratio] 12.3 % Normal 11.7-15.4 [facility] Work Phone: Comment on above: PATIENT NOT FASTINGP ERFORMED BY: CB [facility] Jacjap2325 [address] [facility] [id number] Hematocrit (Bld) [Volume fraction] 42.9 % Normal 34.0-46.6 [facility] Work Phone: Comment on above: PATIENT NOT FASTINGP ERFORMED BY: CB [facility] Fegdmd0296 [facility] [facility] [id number] Hemoglobin (Bld) [Mass/Vol] 14.6 g/dL Normal 11.1-15.9 [facility] Work Phone: Comment on above: PATIENT NOT FASTINGP ERFORMED BY: CB [facility] Qicdon1374 [address] [facility] [id number] MCH (RBC) [Entitic mass] 31.3 pg Normal 26.6-33.0 [facility] Work Phone: Comment on above: PATIENT NOT FASTINGP ERFORMED BY: CB [facility] Kwaufh5252 [address] RoadDublin [place] [id number] MCHC (RBC) [Mass/Vol] 34.0 g/dL Normal 31.5-35.7 [facility] Work Phone: Comment on above: PATIENT NOT FASTINGP ERFORMED BY: CB [facility] Kxwoci6871 [address] RoadDublin [place] [id number] MCV (RBC) [Entitic vol] 92 fL Normal 79-97 [facility] Work Phone: Comment on above: PATIENT NOT FASTINGP ERFORMED BY: CB [facility] Petmqp0730 [address] RoadDublin [place] [id number] Platelets (Bld) [#/Vol] 443 {x10E3/uL} Normal 150-450 [facility] Work Phone: Comment on above: PATIENT NOT FASTINGP ERFORMED BY: CB [facility] Giehoe3047 [address] RoadDublin [place] [id number] Platelets (Bld) [#/Vol] 443 10*3/uL Normal 150-450 [facility]; [facility] Work Phone: Comment on above: PATIENT NOT FASTINGP ERFORMED BY: CB [facility] Ebxmsa2391 [address]Dublin [place] [id number] RBC (Bld) [#/Vol] 4.67 {x10E6/uL} Normal 3.77-5.28 [facility]erehens[facility] Work Phone: Comment on above: PATIENT NOT FASTINGP ERFORMED BY: CB [facility] Pnnpee1971 [address] RoadDublin [place] [id number] RBC (Bld) [#/Vol] 4.67 10*6/uL Normal 3.77-5.28 [facility]; [facility] Work Phone: Comment on above: PATIENT NOT FASTINGP ERFORMED BY: CB [facility] Blqkne8168 [address] RoadDublin [place] [id number] WBC (Bld) [#/Vol] 14.4 {x10E3/uL} Abnormal 3.4-10.8 Co mprehensive Internal Medicine Work Phone: Comment on above: PATIENT NOT FASTINGP ERFORMED BY: RAYMOND [facility] Mpboga1381 [address]Dublin [place] [id number] WBC (Bld) [#/Vol] 14.4 10*3/uL Abnormal 3.4-10.8 [facility]; [facility] Work Phone: Comment on above: PATIENT NOT FASTINGP ERFORMED BY: CB [facility] Ylrnes1843 [address] RoadDublin [place] [id number] CPK MB FRACTION ([id number])Order ed By: Department Of Sociology Chair on 08-09-2020 CK.MB [Mass/Vol] 1.0 ng/mL Normal 0.0-5.3 [facility] Work Phone: Comment on above: PATIENT NOT FASTINGP ERFORMED BY: RAYMOND [facility] Lbeain3293 [address] Roadblin [place] [id number] MYOGLOBIN ([id number])Ordered By: Department Of Sociology Chair on 08-09-2020 Myoglobin [Mass/Vol] ng/mL Abnormal 25-58 [facility] Internal Medicine Work Phone: Comment on above: PATIENT NOT FASTINGP ERFORMED BY: CB [facility] Bhtxcq9630 [address] RoadDublin [place] [id number] Myoglobin [Mass/Vol] ng/mL Abnormal 25-58 [facility] Internal Medicine; [facility] Work Phone: Comment on above: PATIENT NOT FASTINGP ERFORMED BY: CB [facility] Vilduq4477 [address] Roadblin [place] [id number] Metabolic Panel, Comprehensi ve ([id number])Ordered By: Department Of Sociology Chair on 08-09-2020 Albumin [Mass/Vol] 5.0 g/dL Normal 3.9-5.0 [facility] Internal Medicine Work Phone: Comment on above: PATIENT NOT FASTINGP ERFORMED BY: CB [facility] Zhqokn1054 [address] RoadDublin [place] [id number] Albumin/Globulin [Mass ratio] 2.2 {ratio} Normal 1.2-2.2 [facility] Work Phone: Comment on above: PATIENT NOT FASTINGP ERFORMED BY: RAYMOND [facility] Gdudni4287 [address] RoadDublin [place] [id number] ALP [Catalytic activity/Vol] 53 [iU]/L Normal 39-117 [facility] Work Phone: Comment on above: PATIENT NOT FASTINGP ERFORMED BY: CB [facility] Qkruhu3590 [address] RoadDublin [place] [id number] ALP [Catalytic activity/Vol] 53 U/L Normal 39-117 [facility]; [facility] Work Phone: Comment on above: PATIENT NOT FASTINGP ERFORMED BY: CB [facility] Jkqwsx3748 [address] RoadDublin [place] [id number] ALT [Catalytic activity/Vol] 14 [iU]/L Normal 0-32 [facility] Work Phone: Comment on above: PATIENT NOT FASTINGP ERFORMED BY: RAYMOND [facility] Qacfel6501 [address] RoadDublin [place] [id number] ALT [Catalytic activity/Vol] 14 U/L Normal 0-32 [facility]; [facility] Work Phone: Comment on above: PATIENT NOT FASTINGP ERFORMED BY: RAYMOND [facility] Yvgwcv4195 [address] RoadDublin [place] [id number] AST [Catalytic activity/Vol] 18 [iU]/L Normal 0-40 [facility] Work Phone: Comment on above: PATIENT NOT FASTINGP ERFORMED BY: RAYMOND [facility] Lydvxd7423 [address] RoadDublin [place] [id number] AST [Catalytic activity/Vol] 18 U/L Normal 0-40 [facility]; [facility] Work Phone: Comment on above: PATIENT NOT FASTINGP ERFORMED BY: CB [facility] Ubjnjz2319 [address] RoadDublin [place] [id number] Bilirubin [Mass/Vol] 0.3 mg/dL Normal 0.0-1.2 Comp [facility] Internal Medicine Work Phone: Comment on above: PATIENT NOT FASTINGP ERFORMED BY: CB [facility] Fupvmo5349 [address] RoadDublin [place] [id number] Calcium [Mass/Vol] 9.9 mg/dL Normal 8.7-10.2 [facility] Internal Medicine Work Phone: Comment on above: PATIENT NOT FASTINGP ERFORMED BY: CB [facility] Owwygc2318 [address] RoadDublin [place] [id number] Chloride [Moles/Vol] 100 mmol/L Normal 96-106 Comp rehensive Internal Medicine Work Phone: Comment on above: PATIENT NOT FASTINGP ERFORMED BY: CB [facility] Hfqwfv5481 [address] RoadDublin [place] [id number] CO2 [Moles/Vol] 25 mmol/L Normal 20-29 [facility] Internal Medicine Work Phone: Comment on above: PATIENT NOT FASTINGP ERFORMED BY: CB [facility] Pmgoqr8413 [address] RoadDublin [place] [id number] Creatinine [Mass/Vol] 0.65 mg/dL Normal 0.57-1.00 [facility] Work Phone: Comment on above: PATIENT NOT FASTINGP ERFORMED BY: CB [facility] Zyikwb2606 [address] RoadDublin [place] [id number] GFR/1.73 sq M predicted among blacks CKD-EPI (S/P/Bld) [Vol rate/Area] 143 mL/min/1.73 Normal [facility] Work Phone: Comment on above: PATIENT NOT FASTINGP ERFORMED BY: CB [facility] Fusyff4156 [address] RoadDublin [place] [id number] GFR/1.73 sq M predicted among non-blacks CKD-EPI (S/P/Bld) [Vol rate/Area] 124 mL/min/1.73 Normal [facility] Work Phone: Comment on above: PATIENT NOT FASTINGP ERFORMED BY: CB [facility] Fjafej3143 [address] RoadDublin [place] [id number] Globulin (S) [Mass/Vol] 2.3 g/dL Normal 1.5-4.5 [facility] Work Phone: Comment on above: PATIENT NOT FASTINGP ERFORMED BY: RAYMOND [facility] Oumoqn6155 [address] RoadDublin [place] [id number] Glucose [Mass/Vol] 120 mg/dL Abnormal 65-99 [facility] Internal Medicine Work Phone: Comment on above: PATIENT NOT FASTINGP ERFORMED BY: RAYMOND [facility] Jktuyu8362 [address] RoadDublin [place] [id number] Potassium [Moles/Vol] 4.1 mmol/L Normal 3.5-5.2 [facility] Work Phone: Comment on above: PATIENT NOT FASTINGP ERFORMED BY: RAYMOND [facility] Foitfn9736 [address] RoadDublin [place] [id number] Protein [Mass/Vol] 7.3 g/dL Normal 6.0-8.5 [facility] Internal Medicine Work Phone: Comment on above: PATIENT NOT FASTINGP ERFORMED BY: RAYMOND [facility] Ukugjo7707 [address] RoadFormerly [facility]in [place] [id number] Sodium [Moles/Vol] 140 mmol/L Normal 134-144 [facility] Internal Medicine Work Phone: Comment on above: PATIENT NOT FASTINGP ERFORMED BY: RAYMOND [facility] Xlnfxt4718 [address] RoadDublin [place] [id number] Urea nitrogen [Mass/Vol] 9 mg/dL Normal 6-20 [facility] Work Phone: Comment on above: PATIENT NOT FASTINGP ERFORMED BY: CB [facility] Scvhpk4911 [address] RoadDublin [place] [id number] Urea nitrogen/Creatinine [Mass ratio] 14 mg/mg Normal 9-23 [facility] Work Phone: Comment on above: PATIENT NOT FASTINGP ERFORMED BY: CB [facility] Komwtq3421 [address] RoadDublin [place] [id number] 2018 Novel Coronavirus (COVI D-19), JENNI ([id number])Ordered By: Department Of Sociology Chair on 03-31-2020 2019 Novel Coronavirus (COVID-19), JENNI ([id number]) Not Detected Normal [facility] Work Phone: Comment on above: This test was develo ped and its performance characteristics determinedby [employer]. This test has not been FDA cleared orapproved. This test has been authorized by FDA under an Emergency UseAuthorization (EUA). This test is only authorized for the duration oftime the declaration that circumstances exist justifying theauthorization of the emergency use of in vitro diagnostic tests fordetection of SARS-CoV-2 virus and/or diagnosis of COVID-19 infectionunder section 564(b)(1) of the Act, 21 U.S.C. 360bbb-3(b)(1), unlessthe authorization is terminated or revoked sooner.When diagnostic testing is negative, the possibility of a falsenegative result should be considered in the context of a patient'srecent exposures and the presence of clinical signs and symptomsconsistent with COVID-19. An individual without symptoms of COVID-19and who is not shedding SARS-CoV-2 virus would expect to have anegative (not detected) result in this assay. PATIENT NOT FASTINGP ERFORMED BY: [employer] [place] Xdmknmwwku8287 Meet My FriendsFrazee [place] [id number] Information: NASAL 2019 Novel Coronavirus (COVID-19), JENNI ([id number]) Not detected Normal [facility]; [facility] Work Phone: Comment on above: This test was develo ped and its performance characteristics determinedby [employer]. This test has not been FDA cleared orapproved. This test has been authorized by FDA under an Emergency UseAuthorization (EUA). This test is only authorized for the duration oftime the declaration that circumstances exist justifying theauthorization of the emergency use of in vitro diagnostic tests fordetection of SARS-CoV-2 virus and/or diagnosis of COVID-19 infectionunder section 564(b)(1) of the Act, 21 U.S.C. 360bbb-3(b)(1), unlessthe authorization is terminated or revoked sooner.When diagnostic testing is negative, the possibility of a falsenegative result should be considered in the context of a patient'srecent exposures and the presence of clinical signs and symptomsconsistent with COVID-19. An individual without symptoms of COVID-19and who is not shedding SARS-CoV-2 virus would expect to have anegative (not detected) result in this assay. PATIENT NOT FASTINGP ERFORMED BY: [employer] TechJEANCARLOS [facility] Zcwbiijasr1414 [address] [place] [id number] Information: NASAL CBC W/AUTO DIFF WBC ([id number])O rdered By: Department Of Sociology Chair on 10-13-2019 Basophils (Bld) [#/Vol] 0.0 {x10E3/uL} Normal 0.0-0.2 [facility] Work Phone: Comment on above: PATIENT NOT FASTINGP ERFORMED BY: [facility] Rnfeqm3838 [address] [facility] FetchFormerly [facility]in [place] [id number] Basophils (Bld) [#/Vol] 0.0 10*3/uL Normal 0.0-0.2 [facility]; [facility] Work Phone: Comment on above: PATIENT NOT FASTINGP ERFORMED BY: CB [facility] Rfjpvj6739 [address] [facility] With FetchFormerly [facility]in [place] [id number] Basophils/100 WBC (Bld) 0 % Normal [facility] Work Phone: Comment on above: PATIENT NOT FASTINGP ERFORMED BY: [facility] Afazqt3347 [address] [facility]bl[facility] [place] [id number] Eosinophils (Bld) [#/Vol] 0.2 {x10E3/uL} Normal 0.0-0.4 [facility] Work Phone: Comment on above: PATIENT NOT FASTINGP ERFORMED BY: [facility] Sgjtbo8955 [address] RoadDublin [place] [id number] Eosinophils (Bld) [#/Vol] 0.2 10*3/uL Normal 0.0-0.4 [facility]; [facility] Work Phone: Comment on above: PATIENT NOT FASTINGP ERFORMED BY: CB [facility] Tfhkpm6494 [address]Dublin [place] [id number] Eosinophils/100 WBC (Bld) 2 % Normal [facility] Work Phone: Comment on above: PATIENT NOT FASTINGP ERFORMED BY: CB [facility] Ofqwyz8770 [address] RoadDublin [place] [id number] Erythrocyte distribution width (RBC) [Ratio] 12.2 % Normal 11.7-15.4 [facility] Work Phone: Comment on above: PATIENT NOT FASTINGP ERFORMED BY: CB [facility] Mtgbqu6287 [address] RoadDublin [place] [id number] Hematocrit (Bld) [Volume fraction] 43.6 % Normal 34.0-46.6 [facility] Work Phone: Comment on above: PATIENT NOT FASTINGP ERFORMED BY: CB [facility] Kajbev3926 [address] RoadDublin [place] [id number] Hemoglobin (Bld) [Mass/Vol] 14.4 g/dL Normal 11.1-15.9 [facility] Work Phone: Comment on above: PATIENT NOT FASTINGP ERFORMED BY: CB [facility] Cypvwd9994 [address] RoadDublin [place] [id number] Immature granulocytes (Bld) [#/Vol] 0.0 {x10E3/uL} Normal 0.0-0.1 [facility] Work Phone: Comment on above: PATIENT NOT FASTINGP ERFORMED BY: CB [facility] Bupfeq1929 [address] RoadDublin [place] [id number] Immature granulocytes (Bld) [#/Vol] 0.0 10*3/uL Normal 0.0-0.1 [facility]; [facility] Work Phone: Comment on above: PATIENT NOT FASTINGP ERFORMED BY: CB [facility] Lqraoe6657 [address] RoadDublin [place] [id number] Immature granulocytes/100 WBC (Bld) 0 % Normal [facility] Work Phone: Comment on above: PATIENT NOT FASTINGP ERFORMED BY: CB [facility] Upqyct4730 [address] RoadDublin [place] [id number] Lymphocytes (Bld) [#/Vol] 2.1 {x10E3/uL} Normal 0.7-3.1 [facility] Work Phone: Comment on above: PATIENT NOT FASTINGP ERFORMED BY: CB [facility] Knvpcb3323 [address] [facility]bl[facility] [place] [id number] Lymphocytes (Bld) [#/Vol] 2.1 10*3/uL Normal 0.7-3.1 [facility]; [facility] Work Phone: Comment on above: PATIENT NOT FASTINGP ERFORMED BY: CB [facility] Uydyae3475 [facility] [facility] [id number] Lymphocytes/100 WBC (Bld) 26 % Normal [facility] Work Phone: Comment on above: PATIENT NOT FASTINGP ERFORMED BY: CB [facility] Ayekro6829 [facility] [id number] MCH (RBC) [Entitic mass] 30.3 pg Normal 26.6-33.0 [facility] Work Phone: Comment on above: PATIENT NOT FASTINGP ERFORMED BY: CB [facility] Nemcrf4494 [address] [facility] [place] [id number] MCHC (RBC) [Mass/Vol] 33.0 g/dL Normal 31.5-35.7 [facility] Work Phone: Comment on above: PATIENT NOT FASTINGP ERFORMED BY: RAYMOND [facility] Iodlow3520 [address] [facility] [place] [id number] MCV (RBC) [Entitic vol] 92 fL Normal 79-97 [facility] Work Phone: Comment on above: PATIENT NOT FASTINGP ERFORMED BY: CB [facility] Eurehm5117 [address] [facility] [place] [id number] Monocytes (Bld) [#/Vol] 0.8 {x10E3/uL} Normal 0.1-0.9 [facility] Work Phone: Comment on above: PATIENT NOT FASTINGP ERFORMED BY: CB [facility] Nsagcq8341 [address] [facility] CenterD[facility] [place] [id number] Monocytes (Bld) [#/Vol] 0.8 10*3/uL Normal 0.1-0.9 [facility]; [facility] Work Phone: Comment on above: PATIENT NOT FASTINGP ERFORMED BY: CB [facility] Gokgpy1235 [address] RoadDublin [place] [id number] Monocytes/100 WBC (Bld) 9 % Normal [facility] Work Phone: Comment on above: PATIENT NOT FASTINGP ERFORMED BY: CB [facility] Dbyhzp4069 [address] RoadDublin [place] [id number] Neutrophils (Bld) [#/Vol] 5.1 {x10E3/uL} Normal 1.4-7.0 [facility] Work Phone: Comment on above: PATIENT NOT FASTINGP ERFORMED BY: CB [facility] Rameya7618 [address] RoadDublin [place] [id number] Neutrophils (Bld) [#/Vol] 5.1 10*3/uL Normal 1.4-7.0 [facility]; [facility] Work Phone: Comment on above: PATIENT NOT FASTINGP ERFORMED BY: CB [facility] Dslkpj5053 [address]Dublin [place] [id number] Neutrophils/100 WBC (Bld) 63 % Normal [facility] Work Phone: Comment on above: PATIENT NOT FASTINGP ERFORMED BY: CB [facility] Fdiyot2702 [address] RoadDublin [place] [id number] Platelets (Bld) [#/Vol] 437 {x10E3/uL} Normal 150-450 [facility] Work Phone: Comment on above: PATIENT NOT FASTINGP ERFORMED BY: CB [facility] Drxlcm8202 [address] RoadDublin [place] [id number] Platelets (Bld) [#/Vol] 437 10*3/uL Normal 150-450 [facility]; [facility] Work Phone: Comment on above: PATIENT NOT FASTINGP ERFORMED BY: CB [facility] Gbrdrc4657 [address] RoadDublin [place] [id number] RBC (Bld) [#/Vol] 4.76 {x10E6/uL} Normal 3.77-5.28 Co mprehensive Internal Medicine Work Phone: Comment on above: PATIENT NOT FASTINGP ERFORMED BY: RAYMOND [facility] Lehklq5431 [address] [facility]bl[facility] [place] [id number] RBC (Bld) [#/Vol] 4.76 10*6/uL Normal 3.77-5.28 [facility]; [facility] Work Phone: Comment on above: PATIENT NOT FASTINGP ERFORMED BY: CB [facility] Ffxcoo1132 [address]Formerly [facility]in [place] [id number] WBC (Bld) [#/Vol] 8.1 {x10E3/uL} Normal 3.4-10.8 [facility] Internal Medicine Work Phone: Comment on above: PATIENT NOT FASTINGP ERFORMED BY: RAYMOND [facility] Zwybrv2456 [address] RoadFormerly [facility]in [place] [id number] WBC (Bld) [#/Vol] 8.1 10*3/uL Normal 3.4-10.8 [facility] Internal Medicine; [facility] Work Phone: Comment on above: PATIENT NOT FASTINGP ERFORMED BY: RAYMOND [facility] Fenwhc1643 [address] [facility] [place] [id number] KETAN (ANTINUCLEAR ANTIBODY) ( [id number])Ordered By: Department Of Sociology Chair on 09-17-2019 Nuclear Ab Ql (S) Negative Normal Compreh ensive Internal Medicine Work Phone: Comment on above: PATIENT NOT FASTINGP ERFORMED BY: CB [facility] Cmvfuy6672 [address] [facility] [place] [id number] Nuclear Ab Ql (S) Negative Normal Compreh ensive Internal Medicine; [facility] Work Phone: Comment on above: PATIENT NOT FASTINGP ERFORMED BY: CB [facility] Muxnxg8738 [facility] [id number] C-REACTIVE PROTEIN ([id number])Or dered By: Department Of Sociology Chair on 09-17-2019 CRP [Mass/Vol] mg/L Normal 0-10 Comprehens ronal Internal Medicine Work Phone: Comment on above: PATIENT NOT FASTINGP ERFORMED BY: CB [facility] Ddqrtf9489 [facility] [id number] CRP [Mass/Vol] mg/L Normal 0-10 Comprehens ronal Internal Medicine; [facility] Work Phone: Comment on above: PATIENT NOT FASTINGP ERFORMED BY: RAYMOND [facility] Tzbjmk4113 [facility] [id number] CMV ANTIBODY ([id number])Ordered By: Department Of Sociology Chair on 09-17-2019 CMV IgG IA Qn <0.60 Normal 0.00-0.59 Comprehensi ve Internal Medicine Work Phone: Comment on above: Negative <0.60 Equiv ocal 0.60 - 0.69 Positive >0.69 PATIENT NOT FASTINGP ERFORMED BY: RAYMOND [facility] [id number] EBV Panel ([id number])Ordered By: Department Of Sociology Chair on 09-17-2019 EBV capsid IgG IA Qn (S) <18.0 Normal 0.0-17.9 [facility] Work Phone: Comment on above: Negative <18.0 Equiv ocal 18.0 - 21.9 Positive >21.9 PATIENT NOT FASTINGP ERFORMED BY: RAYMOND [facility] [id number] EBV capsid IgM IA Qn (S) <36.0 Normal 0.0-35.9 [facility] Work Phone: Comment on above: Negative <36.0 Equiv ocal 36.0 - 43.9 Positive >43.9 PATIENT NOT FASTINGP ERFORMED BY: [facility]6[address] [facility] [id number] EBV early IgG Qn (S) <9.0 Normal 0.0-8.9 Comp [facility] Internal Medicine Work Phone: Comment on above: Negative < 9.0 Equiv ocal 9.0 - 10.9 Positive >10.9 PATIENT NOT FASTINGP ERFORMED BY: [facility]6[address] [facility] [id number] EBV nuclear IgG IA Qn (S) <18.0 Normal 0.0-17.9 [facility] Work Phone: Comment on above: Negative <18.0 Equiv ocal 18.0 - 21.9 Positive >21.9 PATIENT NOT FASTINGP ERFORMED BY: Xanofi Jnylvi2510 [facility] [id number] Service comment (Unsp spec) [Interp] SPRCS Normal Comprehensi ve Internal Medicine Work Phone: Comment on above: EBV Interpretation Nancy izaguirre . Interpretation EBV-IgM EA(D)-IgG VCA-IgG EBNA-IgG . EBV Seronegative - - - - Early Phase + - - - Acute Primary + +or- + - Infection Convalescence/Past - +or- + + Infection Reactivated +or- +or- + + Infection + Antibody Present - Antibody Absent Effective September 13, 2019, 251185 EBV Acute Infection Antibodies and [id number] EBV, Chronic/Active Infection will be made non-orderable. [employer] offers order code [id number] EBV Antibody Profile. PATIENT NOT FASTINGP ERFORMED BY: [employer]6370 [employer] [facility] [id number] LDH (LD) (LACTATE DEHYDROGEN ASE) ([id number])Ordered By: Department Of Sociology Chair on 09-17-2019 LDH [Catalytic activity/Vol] 174 [iU]/L Normal 119-226 [facility] Work Phone: Comment on above: PATIENT NOT FASTINGP ERFORMED BY: [facility]6[address] [facility] [id number] LDH [Catalytic activity/Vol] 174 U/L Normal 119-226 [facility]; [facility] Work Phone: Comment on above: PATIENT NOT FASTINGP ERFORMED BY: [employer]6[address] [facility] [id number] METABOLIC PANEL, COMPREHENSI VE ([id number])Ordered By: Department Of Sociology Chair on 09-17-2019 Albumin [Mass/Vol] 5.1 g/dL Normal 3.5-5.5 [facility] Internal Medicine Work Phone: Comment on above: Effective September 27, 2019 Albumin reference interval will be changing to: Age Male Female 0 - 7 days 3.6 - 4.9 3.6 - 4.9 8 - 30 days 3.4 - 4.7 3.4 - 4.7 1 - 6 month 3.7 - 4.8 3.7 - 4.8 7 months - 2 years 3.9 - 5.0 3.9 - 5.0 3 - 5 years 4.0 - 5.0 4.0 - 5.0 6 - 12 years 4.1 - 5.0 4.0 - 5.0 13 - 30 years 4.1 - 5.2 3.9 - 5.0 31 - 50 years 4.0 - 5.0 3.8 - 4.8 51 - 60 years 3.8 - 4.9 3.8 - 4.9 61 - 70 years 3.8 - 4.8 3.8 - 4.8 71 - 80 years 3.7 - 4.7 3.7 - 4.7 81 - 89 years 3.6 - 4.6 3.6 - 4.6 >89 years 3.5 - 4.6 3.5 - 4.6 PATIENT NOT FASTINGP ERFORMED BY: CB [facility] Awqukg8705 [address] RoadDublin [place] [id number]; ov 10/01/19 Albumin/Globulin [Mass ratio] 1.8 {ratio} Normal 1.2-2.2 [facility] Work Phone: Comment on above: PATIENT NOT FASTINGP ERFORMED BY: CB [facility] Hizvxg7105 [address] RoadDublin [place] [id number]; ov 10/01/19 ALP [Catalytic activity/Vol] 47 [iU]/L Normal 39-117 [facility] Work Phone: Comment on above: PATIENT NOT FASTINGP ERFORMED BY: CB [facility] Qzfasw0673 [address] RoadDublin [place] [id number]; ov 10/01/19 ALP [Catalytic activity/Vol] 47 U/L Normal 39-117 [facility]; [facility] Work Phone: Comment on above: PATIENT NOT FASTINGP ERFORMED BY: CB [facility] Htsgrp4174 [address] RoadDublin [place] [id number]; ov 10/01/19 ALT [Catalytic activity/Vol] 12 [iU]/L Normal 0-32 [facility] Work Phone: Comment on above: PATIENT NOT FASTINGP ERFORMED BY: CB [facility] Plbkpn0629 [address] RoadDublin [place] [id number]; ov 10/01/19 ALT [Catalytic activity/Vol] 12 U/L Normal 0-32 [facility]; [facility] Work Phone: Comment on above: PATIENT NOT FASTINGP ERFORMED BY: CB [facility] Fyitbc4374 [address] RoadDublin [place] [id number]; ov 10/01/19 AST [Catalytic activity/Vol] 15 [iU]/L Normal 0-40 [facility] Work Phone: Comment on above: PATIENT NOT FASTINGP ERFORMED BY: CB [facility] Koudzi2129 [address] RoadDublin [place] [id number]; ov 10/01/19 AST [Catalytic activity/Vol] 15 U/L Normal 0-40 [facility]; [facility] Work Phone: Comment on above: PATIENT NOT FASTINGP ERFORMED BY: CB [facility] Isvrbo2784 [address] RoadDublin [place] [id number]; ov 10/01/19 Bilirubin [Mass/Vol] 0.3 mg/dL Normal 0.0-1.2 Comp rehensive Internal Medicine Work Phone: Comment on above: PATIENT NOT FASTINGP ERFORMED BY: CB [facility] Tlsovh7034 [address] RoadDublin [place] [id number]; ov 10/01/19 Calcium [Mass/Vol] 10.0 mg/dL Normal 8.7-10.2 [facility] Internal Medicine Work Phone: Comment on above: PATIENT NOT FASTINGP ERFORMED BY: CB [facility] Yipwri4206 [address] RoadDublin [place] [id number]; ov 10/01/19 Chloride [Moles/Vol] 100 mmol/L Normal 96-106 Comp rehensive Internal Medicine Work Phone: Comment on above: PATIENT NOT FASTINGP ERFORMED BY: CB [facility] Mhkelh7855 [address] RoadDublin [place] [id number]; ov 10/01/19 CO2 [Moles/Vol] 24 mmol/L Normal 20-29 [facility] Internal Medicine Work Phone: Comment on above: PATIENT NOT FASTINGP ERFORMED BY: CB [facility] Osxioy5429 [address] RoadDublin [place] [id number]; ov 10/01/19 Creatinine [Mass/Vol] 0.76 mg/dL Normal 0.57-1.00 [facility] Work Phone: Comment on above: PATIENT NOT FASTINGP ERFORMED BY: CB [facility] Znxzaj2122 [address] RoadDublin [place] [id number]; ov 10/01/19 GFR/1.73 sq M predicted among blacks CKD-EPI (S/P/Bld) [Vol rate/Area] 127 mL/min/1.73 Normal [facility] Work Phone: Comment on above: PATIENT NOT FASTINGP ERFORMED BY: CB [facility] Mohabb2620 [address] RoadDublin [place] [id number]; ov 10/01/19 GFR/1.73 sq M predicted among non-blacks CKD-EPI (S/P/Bld) [Vol rate/Area] 110 mL/min/1.73 Normal [facility] Work Phone: Comment on above: PATIENT NOT FASTINGP ERFORMED BY: CB [facility] Txqpnn3169 [address] RoadDublin [place] [id number]; ov 10/01/19 Globulin (S) [Mass/Vol] 2.9 g/dL Normal 1.5-4.5 [facility] Work Phone: Comment on above: PATIENT NOT FASTINGP ERFORMED BY: CB [facility] Gyevlo2554 [address] RoadDublin [place] [id number]; ov 10/01/19 Glucose [Mass/Vol] 125 mg/dL Abnormal 65-99 [facility] Internal Medicine Work Phone: Comment on above: PATIENT NOT FASTINGP ERFORMED BY: CB [facility] Avczpg3766 [address] RoadDublin [place] [id number]; ov 10/01/19 Potassium [Moles/Vol] 4.4 mmol/L Normal 3.5-5.2 [facility] Work Phone: Comment on above: PATIENT NOT FASTINGP ERFORMED BY: CB [facility] Ivfgvg0171 [address] RoadDublin [place] [id number]; ov 10/01/19 Protein [Mass/Vol] 8.0 g/dL Normal 6.0-8.5 [facility] Internal Medicine Work Phone: Comment on above: PATIENT NOT FASTINGP ERFORMED BY: CB [facility] Ovsvyp1566 [address] RoadDublin [place] [id number]; ov 10/01/19 Sodium [Moles/Vol] 142 mmol/L Normal 134-144 [facility] Internal Medicine Work Phone: Comment on above: PATIENT NOT FASTINGP ERFORMED BY: [facility] Kassuz5989 [address] Roadblin [place] [id number]; ov 10/01/19 Urea nitrogen [Mass/Vol] 9 mg/dL Normal 6-20 [facility] Work Phone: Comment on above: PATIENT NOT FASTINGP ERFORMED BY: CB [facility] Zvmtew9962 [address] Roadblin [place] [id number]; ov 10/01/19 Urea nitrogen/Creatinine [Mass ratio] 12 mg/mg Normal 9-23 [facility] Work Phone: Comment on above: PATIENT NOT FASTINGP ERFORMED BY: CB [facility] Iefvfx3897 [address] Roadblin [place] [id number]; ov 10/01/19 RHEUMATOID FACTOR-QUANT ([id number])Ordered By: Department Of Sociology Chair on 09-17-2019 Rheumatoid factor Qn [IU]/mL Normal 0.0-13.9 Comp rehensive Internal Medicine Work Phone: Comment on above: PATIENT NOT FASTINGP ERFORMED BY: RAYMOND [facility] Pngrls1464 [address] RoadDublin [place] [id number] Rheumatoid factor Qn [IU]/mL Normal 0.0-13.9 Comp rehensive Internal Medicine; [facility] Work Phone: Comment on above: PATIENT NOT FASTINGP ERFORMED BY: [facility] Fswioj0188 [address] RoadDublin [place] [id number] SED RATE ERYTHROCYTE ([id number]) Ordered By: Department Of Sociology Chair on 09-17-2019 ESR (Bld) [Velocity] 2 mm/h Normal 0-32 Comp rehensive Internal Medicine Work Phone: Comment on above: PATIENT NOT FASTINGP ERFORMED BY: [employer] [facility] Ndcnkp7618 [address] RoadDublin [place] [id number] METABOLIC PANEL, COMPREHENSI VE ([id number])Ordered By: Department Of Sociology Chair on 05-27-2014 Albumin [Mass/Vol] 4.9 g/dL Normal 3.5-5.5 [facility] Internal Medicine Work Phone: Comment on above: PERFORMED BY: [employer] [facility]6370 [address] [place] [id number] Albumin/Globulin [Mass ratio] 1.8 {ratio} Normal 1.1-2.5 [facility] Work Phone: Comment on above: PERFORMED BY: [employer] [facility]6[address]Dublin [place] [id number] ALP [Catalytic activity/Vol] 55 [iU]/L Normal 39-117 [facility] Work Phone: Comment on above: PERFORMED BY: [employer]6[address]Dublin [place] [id number] ALP [Catalytic activity/Vol] 55 U/L Normal 39-117 [facility]; [facility] Work Phone: Comment on above: PERFORMED BY: [employer]6[address]Dublin [place] [id number] ALT [Catalytic activity/Vol] 10 [iU]/L Normal 0-32 [facility] Work Phone: Comment on above: PERFORMED BY: [employer]6[address]Dublin [place] [id number] ALT [Catalytic activity/Vol] 10 U/L Normal 0-32 [facility]; [facility] Work Phone: Comment on above: PERFORMED BY: [employer] Kgmkdi3594 [address] RoadDublin [place] [id number] AST [Catalytic activity/Vol] 21 [iU]/L Normal 0-40 [facility] Work Phone: Comment on above: PERFORMED BY: [employer] [facility] [employer] Enunav2651 [address] RoadDublin [place] [id number] AST [Catalytic activity/Vol] 21 U/L Normal 0-40 [facility]; [facility] Work Phone: Comment on above: PERFORMED BY: [employer]6[address]Dublin [place] [id number] Bilirubin [Mass/Vol] 0.3 mg/dL Normal 0.0-1.2 [facility] Work Phone: Comment on above: PERFORMED BY: [employer]6[address]Dublin [place] [id number] Calcium [Mass/Vol] 9.7 mg/dL Normal 8.7-10.2 [facility] Internal Medicine Work Phone: Comment on above: PERFORMED BY: [employer] Zhfkie6917 [address] RoadDublin [place] [id number] Chloride [Moles/Vol] 99 mmol/L Normal 97-108 [facility] Work Phone: Comment on above: PERFORMED BY: [employer] Mcmycw8496 [address] RoadDublin [place] [id number] CO2 [Moles/Vol] 24 mmol/L Normal 18-29 [facility] Internal Medicine Work Phone: Comment on above: PERFORMED BY: [employer] Gpoeyr9570 [address] RoadDublin [place] [id number] Creatinine [Mass/Vol] 0.68 mg/dL Normal 0.57-1.00 [facility] Internal Medicine Work Phone: Comment on above: PERFORMED BY: [employer] Irwtlf0383 [address] RoadDublin [place] [id number] GFR/1.73 sq M predicted among blacks CKD-EPI (S/P/Bld) [Vol rate/Area] 147 mL/min/1.73 Normal [facility] Work Phone: Comment on above: PERFORMED BY: [employer]70 [facility] AnalyticsCritical access hospital [id number] GFR/1.73 sq M predicted among non-blacks CKD-EPI (S/P/Bld) [Vol rate/Area] 127 mL/min/1.73 Normal [facility] Work Phone: Comment on above: PERFORMED BY: [facility]ocketBankCritical access hospital [id number] Globulin (S) [Mass/Vol] 2.7 g/dL Normal 1.5-4.5 [facility] Work Phone: Comment on above: PERFORMED BY: RocketBankCritical access hospital [id number] Glucose [Mass/Vol] 91 mg/dL Normal 65-99 [facility] Internal Medicine Work Phone: Comment on above: PERFORMED BY: [employer]70 V[facility] AnalyticsCritical access hospital [id number] Potassium [Moles/Vol] 4.4 mmol/L Normal 3.5-5.2 [facility] Work Phone: Comment on above: PERFORMED BY: [employer]70 Vuv AnalyticsCritical access hospital [id number] Protein [Mass/Vol] 7.6 g/dL Normal 6.0-8.5 [facility] Internal Medicine Work Phone: Comment on above: PERFORMED BY: [employer]70 Vuv AnalyticsCritical access hospital [id number] Sodium [Moles/Vol] 140 mmol/L Normal 134-144 [facility] Internal Medicine Work Phone: Comment on above: PERFORMED BY: RocketBankCritical access hospital [id number] Urea nitrogen [Mass/Vol] 11 mg/dL Normal 6-20 [facility] Work Phone: Comment on above: PERFORMED BY: RocketBankCritical access hospital [id number] Urea nitrogen/Creatinine [Mass ratio] 16 mg/mg Normal 8-20 [facility] Work Phone: Comment on above: PERFORMED BY: [employer] [facility]6370 V[facility] AnalyticsCritical access hospital [id number] TSH ([id number])Ordered By: Bettye estrada Liquor Blender on 05-27-2014 TSH Qn 0.672 {uIU/mL} Normal 0.450-4.500 [facility] re[facility] Internal Medicine Work Phone: Comment on above: PERFORMED BY: [facility] [facility]6370 [email or web address] access hospital [id number] Culture, urine Bacteria identified Cx Nom (U) Positive [facility] Work Phone: Gram stain for investigation of transfusion reaction Microscopic observation Gram stain Nom (Unsp spec) [facility] Work Phone: Thin prep Papanicolaou smear with manual screening Cytopathology procedure, preparation of smear, genital source Normal genital josue isolated [facility] Work Phone: Vital Signs Date Time Vital Sign Value Performing Clinician Facility 03-14-2023 15:23-0400 Body height 172.[address] Janelle Linton Work Phone: [facility] 03-14-2023 15:23-0400 Body mass index (BMI) [Ratio] 31.3 kg/m2 Dr. Janelle Linton Work Phone: [facility] 03-14-2023 15:23-0400 Body weight 93.[address] Janelle Linton Work Phone: [facility] 03-14-2023 15:23-0400 Diastolic blood pressure 77 mm[Hg] Dr. Janelle Linton Work Phone: [facility] 03-14-2023 15:23-0400 Systolic blood pressure 116 mm[Hg] Dr. Janelle Linton Work Phone: [facility] 02-11-2023 21:20-0400 SaO2% (BldA) [Mass fraction] 100 % Dr. Janelle Linton Work Phone: [facility] 02-11-2023 17:01-0400 Body height 172.[address] Janelle Linton Work Phone: [facility] 02-11-2023 17:01-0400 Body mass index (BMI) [Ratio] 30.7 kg/m2 Dr. Janelle Linton Work Phone: [facility] 02-11-2023 17:01-0400 Body temperature 97.2 [degF] Dr. Janelle Linton Work Phone: [facility] 02-11-2023 17:01-0400 Body weight 91.[address] Janelle Linton Work Phone: [facility] 02-11-2023 17:01-0400 Diastolic blood pressure 80 mm[Hg] Dr. Janelle Linton Work Phone: [facility] 02-11-2023 17:01-0400 Heart rate 107 /min Dr. Janelle Linton Work Phone: [facility] 02-11-2023 17:01-0400 Respiratory rate 18 /min Dr. Janelle Linton Work Phone: [facility] 02-11-2023 17:01-0400 Systolic blood pressure 106 mm[Hg] Dr. Janelle Linton Work Phone: [facility] 01-27-2023 12:00-0400 Body temperature 97.6 [degF] Dr. Janelle Linton Work Phone: [facility] 01-27-2023 12:00-0400 Diastolic blood pressure 65 mm[Hg] Dr. Janelle Linton Work Phone: [facility] 01-27-2023 12:00-0400 Heart rate 75 /min Dr. Janelle Linton Work Phone: [facility] 01-27-2023 12:00-0400 Respiratory rate 18 /min Dr. Janelle Linton Work Phone: [facility] 01-27-2023 12:00-0400 SaO2% (BldA) [Mass fraction] 96 % Dr. Janelle Linton Work Phone: [facility] 01-27-2023 12:00-0400 Systolic blood pressure 121 mm[Hg] Dr. Janelle Linton Work Phone: [facility] 01-24-2023 17:44-0400 Body mass index (BMI) [Ratio] 33.3 kg/m2 Dr. Janelle Linton Work Phone: [facility] 01-24-2023 17:44-0400 Body weight 99.[address] Janelle Linton Work Phone: [facility] 01-22-2023 11:38-0400 Body mass index (BMI) [Ratio] 33.6 kg/m2 Dr. Janelle Linton Work Phone: [facility] 01-22-2023 11:38-0400 Body weight 100.[address] Janelle Linton Work Phone: [facility] 01-22-2023 11:38-0400 Diastolic blood pressure 67 mm[Hg] Dr. Janelle Linton Work Phone: [facility] 01-22-2023 11:38-0400 Systolic blood pressure 100 mm[Hg] Dr. Janelle Linton Work Phone: [facility] 01-16-2023 17:11-0400 Body temperature 97.4 [degF] Dr. Janelle Linton Work Phone: [facility] 01-16-2023 17:11-0400 Heart rate 87 /min Dr. Janelle Linton Work Phone: [facility] 01-16-2023 17:11-0400 SaO2% (BldA) [Mass fraction] 97 % Dr. Janelle Linton Work Phone: [facility] 01-16-2023 17:09-0400 Diastolic blood pressure 72 mm[Hg] Dr. Janelle Linton Work Phone: [facility] 01-16-2023 17:09-0400 Systolic blood pressure 122 mm[Hg] Dr. Janelle Linton Work Phone: [facility] 01-16-2023 16:44-0400 Body height 172.[address] Janelle Linton Work Phone: [facility] 01-16-2023 16:44-0400 Body mass index (BMI) [Ratio] 32.9 kg/m2 Dr. Janelle Linton Work Phone: [facility] 01-16-2023 16:44-0400 Body weight 98.[address] Janelle Linton Work Phone: [facility] 01-14-2023 08:40-0400 Body mass index (BMI) [Ratio] 33.5 kg/m2 Dr. Janelle Linton Work Phone: [facility] 01-14-2023 08:40-0400 Body weight 99.[address] Janelle Linton Work Phone: [facility] 01-14-2023 08:40-0400 Diastolic blood pressure 71 mm[Hg] Dr. Janelle Linton Work Phone: [facility] 01-14-2023 08:40-0400 Systolic blood pressure 108 mm[Hg] Dr. Janelle Linton Work Phone: [facility] 01-01-2023 09:18-0400 Body mass index (BMI) [Ratio] 33.3 kg/m2 Dr. Janelle Linton Work Phone: [facility] 01-01-2023 09:18-0400 Body weight 99.[address] Janelle Linton Work Phone: [facility] 01-01-2023 09:18-0400 Diastolic blood pressure 77 mm[Hg] Dr. Janelle Linton Work Phone: [facility] 01-01-2023 09:18-0400 Systolic blood pressure 112 mm[Hg] Dr. Janelle Linton Work Phone: [facility] 12-18-2022 08:30-0400 Body mass index (BMI) [Ratio] 32.8 kg/m2 Dr. Janelle Linton Work Phone: [facility] 12-18-2022 08:30-0400 Body weight 97.[address] Janelle Linton Work Phone: [facility] 12-18-2022 08:30-0400 Diastolic blood pressure 75 mm[Hg] Dr. Janelle Linton Work Phone: [facility] 12-18-2022 08:30-0400 Systolic blood pressure 117 mm[Hg] Dr. Janelle Linton Work Phone: [facility] 2022 08:41-0400 Body mass index (BMI) [Ratio] 32.6 kg/m2 Dr. Janelle Linton Work Phone: [facility] 2022 08:41-0400 Body weight 97.[address] Janelle Linton Work Phone: [facility] 2022 08:41-0400 Diastolic blood pressure 72 mm[Hg] Dr. Janelle Linton Work Phone: [facility] 2022 08:41-0400 Systolic blood pressure 112 mm[Hg] Dr. Janelle Linton Work Phone: [facility] 11-18-2022 08:13-0400 Body mass index (BMI) [Ratio] 32.4 kg/m2 Dr. Janelle Linton Work Phone: [facility] 11-18-2022 08:13-0400 Body weight 96.[address] Janelle Linton Work Phone: [facility] 11-18-2022 08:13-0400 Diastolic blood pressure 57 mm[Hg] Dr. Janelle Linton Work Phone: [facility] 11-18-2022 08:13-0400 Systolic blood pressure 99 mm[Hg] Dr. Janelle Linton Work Phone: [facility] 10-29-2022 08:55-0500 Diastolic blood pressure 76 mm[Hg] Dr. Janelle Linton Work Phone: [facility] 10-29-2022 08:55-0500 Systolic blood pressure 116 mm[Hg] Dr. Janelle Linton Work Phone: [facility] 10-29-2022 08:40-0500 Body mass index (BMI) [Ratio] 31.4 kg/m2 Dr. Janelle Linton Work Phone: [facility] 10-29-2022 08:40-0500 Body weight 93.[address] Janelle Linton Work Phone: [facility] 09-30-2022 09:11-0500 Body mass index (BMI) [Ratio] 30.7 kg/m2 Dr. Janelle Linton Work Phone: [facility] 09-30-2022 09:11-0500 Body weight 91.[address] Janelle Linton Work Phone: [facility] 09-30-2022 09:11-0500 Diastolic blood pressure 71 mm[Hg] Dr. Janelle Linton Work Phone: [facility] 09-30-2022 09:11-0500 Systolic blood pressure 113 mm[Hg] Dr. Janelle Linton Work Phone: [facility] 09-18-2022 09:35-0500 Body mass index (BMI) [Ratio] 29.8 kg/m2 Dr. Janelle Linton Work Phone: [facility] 09-18-2022 09:35-0500 Body weight 88.[address] Janelle Linton Work Phone: [facility] 09-18-2022 09:35-0500 Diastolic blood pressure 76 mm[Hg] Dr. Janelle Linton Work Phone: [facility] 09-18-2022 09:35-0500 Systolic blood pressure 114 mm[Hg] Dr. Janelle Linton Work Phone: [facility] 07-08-2022 10:00-0400 Diastolic blood pressure 82 mm[Hg] Dr. Janelle Linton Work Phone: [facility] Work Phone: 07-08-2022 10:00-0400 Systolic blood pressure 136 mm[Hg] Dr. Janelle Linton Work Phone: [facility] Work Phone: 07-08-2022 09:22-0400 Body height [address] Janelle Linton Work Phone: [facility] Work Phone: 07-08-2022 09:21-0400 Body mass index (BMI) [Ratio] 29.3 kg/m2 Dr. Janelle Linton Work Phone: [facility] Work Phone: 07-08-2022 09:21-0400 Body weight 87.[address] Janelle Linton Work Phone: [facility] Work Phone: 06-21-2022 15:37-0400 Body mass index (BMI) [Ratio] 29.7 kg/m2 Dr. Janelle Linton Work Phone: [facility] Work Phone: 06-21-2022 15:37-0400 Body weight 88.[address] Janelle Linton Work Phone: [facility] Work Phone: 06-21-2022 15:37-0400 Diastolic blood pressure 71 mm[Hg] Dr. Janelle Linton Work Phone: [facility] Work Phone: 06-21-2022 15:37-0400 Systolic blood pressure 105 mm[Hg] Dr. Janelle Linton Work Phone: [facility] Work Phone: 04-03-2022 15:36-0400 Body height 172.72 cm Angi Langston [facility]; [facility] Work Phone: 04-03-2022 15:36-0400 Body mass index (BMI) [Ratio] 29.19 kg/m2 Angi Langston [facility]; [facility] Work Phone: 04-03-2022 15:36-0400 Body surface area Derived from formula 2.01 m2 Angi Langston [facility]; [facility] Work Phone: 04-03-2022 15:36-0400 Body temperature 97.3 [degF] Angi Langston [facility] Com[facility]; [facility] Work Phone: Comment on above: Method: Infrared 04-03-2022 15:36-0400 Body weight 87.09 kg Angi Langston [facility]; [facility] Work Phone: 04-03-2022 15:36-0400 Diastolic blood pressure 78 mm[Hg] Angi Langston [facility]; [facility] Work Phone: Comment on above: Patient Position: Sitting; Cuff Location : Left Arm; Cuff Size: Standard 04-03-2022 15:36-0400 Heart rate 80 /min Anig Langston [facility]; [facility] Work Phone: Comment on above: Pattern: Regular 04-03-2022 15:36-0400 Respiratory rate 16 /min Angi Langston [facility]; [facility] Work Phone: Comment on above: Pattern: Unlabored 04-03-2022 15:36-0400 SaO2% (BldA) [Mass fraction] 98 % Angi Langston [facility]; [facility] Work Phone: Comment on above: Room air 04-03-2022 15:36-0400 Systolic blood pressure 112 mm[Hg] Angi Langston [facility]; [facility] Work Phone: Comment on above: Patient Position: Sitting; Cuff Location : Left Arm; Cuff Size: Standard 03-04-2022 14:59-0400 Body height 172.72 cm Meggan Slarb [employer] [facility]; [facility] Work Phone: 03-04-2022 14:59-0400 Body mass index (BMI) [Ratio] 28.89 kg/m2 Meggan Slarb [employer] [facility]; [facility] Work Phone: 03-04-2022 14:59-0400 Body surface area Derived from formula 2 m2 Meggan Slarb [employer] [facility]; [facility] Work Phone: 03-04-2022 14:59-0400 Body weight 86.18 kg Meggan Slarb [employer] [facility]; [facility] Work Phone: 03-04-2022 14:59-0400 Diastolic blood pressure 78 mm[Hg] Meggan Slarb [employer] [facility]; [facility] Work Phone: Comment on above: Patient Position: Sitting; Cuff Location : Left Arm; Cuff Size: Standard 03-04-2022 14:59-0400 Heart rate 87 /min Meggan Slarb [employer] [facility]; [facility] Work Phone: Comment on above: Pattern: Regular 03-04-2022 14:59-0400 Respiratory rate 16 /min Meggan Slarb [employer] [facility]; [facility] Work Phone: Comment on above: Pattern: Unlabored 03-04-2022 14:59-0400 SaO2% (BldA) [Mass fraction] 97 % Meggan Slarb [employer] [facility]; [facility] Work Phone: Comment on above: Room air 03-04-2022 14:59-0400 Systolic blood pressure 120 mm[Hg] Meggan Slarb [employer] [facility]; [facility] Work Phone: Comment on above: Patient Position: Sitting; Cuff Location : Left Arm; Cuff Size: Standard 08-16-2020 08:10-0500 BMI (Body Mass Index) 25.85 kg/m2 Rashmi [facility]; [facility] Work Phone: 08-16-2020 08:10-0500 Body weight 77.11 kg [facility]; [facility] Work Phone: 08-16-2020 08:10-0500 BSA (Body Surface Area) 1.91 m2 [facility]; [facility] Work Phone: 08-16-2020 08:10-0500 Height 172.72 cm [facility]; [facility] Work Phone: 08-11-2020 07:22-0500 BMI (Body Mass Index) 25.85 kg/m2 Meggan Slarb [employer] [facility] Work Phone: Comment on above: pt reported. 08-11-2020 07:22-0500 Body weight 77.11 kg Meggan Slarb [employer] [facility] Work Phone: Comment on above: pt reported. 08-11-2020 07:22-0500 BSA (Body Surface Area) 1.91 m2 Meggan Slarb [employer] [facility] Work Phone: Comment on above: pt reported. 08-11-2020 07:22-0500 Height 172.72 cm Meggan Slarb [employer] [facility] Work Phone: Comment on above: pt reported. 08-09-2020 11:36-0500 BMI (Body Mass Index) 25.92 kg/m2 Jacki Morales [facility] Work Phone: 08-09-2020 11:36-0500 Body Temperature 98.1 [degF] Jacki Morales [facility] Work Phone: 08-09-2020 11:36-0500 Body weight 77.34 kg Jacki Morales [facility] Work Phone: 08-09-2020 11:36-0500 BSA (Body Surface Area) 1.91 m2 Jacki Morales [facility] Work Phone: 08-09-2020 11:36-0500 Height 172.72 cm Jacki Morales [facility] Work Phone: 06-19-2020 13:16-0400 BMI (Body Mass Index) 25.62 kg/m2 Rashmi Delgado [facility] Work Phone: 06-19-2020 13:16-0400 Body weight 76.43 kg Rashmi Delgado [facility] Work Phone: 06-19-2020 13:16-0400 BSA (Body Surface Area) 1.9 m2 Rashmi Delgado [facility] Work Phone: 06-19-2020 13:16-0400 Height 172.72 cm Rashmi Delgado [facility] Work Phone: 04-03-2020 15:13-0400 BMI (Body Mass Index) 25.62 kg/m2 Nikco Adkins [facility] Work Phone: Comment on above: was 97.9 this AM 04-03-2020 15:13-0400 Body Temperature 99.2 [degF] Nicko Adkins [facility] Work Phone: Comment on above: Method: Oral was 97.9 this AM 04-03-2020 15:13-0400 Body weight 76.43 kg Nicko Adkins [facility] Work Phone: Comment on above: was 97.9 this AM 04-03-2020 15:13-0400 BSA (Body Surface Area) 1.9 m2 Nicko Adkins [facility] Work Phone: Comment on above: was 97.9 this AM 04-03-2020 15:13-0400 Height 172.72 cm Nicko Adkins [facility] Work Phone: Comment on above: was 97.9 this AM 03-31-2020 07:19-0400 BMI (Body Mass Index) 25.62 kg/m2 Shelby Rich ENTRY MANAGER Work Phone: [facility] Work Phone: 03-31-2020 07:19-0400 Body Temperature 98.8 [degF] Shelby Rich ENTRY MANAGER Work Phone: [facility] Work Phone: 03-31-2020 07:19-0400 Body weight 76.43 kg Shelby Rich ENTRY MANAGER Work Phone: [facility] Work Phone: 03-31-2020 07:19-0400 BSA (Body Surface Area) 1.9 m2 Shelby Rich ENTRY MANAGER Work Phone: [facility] Work Phone: 03-31-2020 07:19-0400 Height 172.72 cm Shelby Rich ENTRY MANAGER Work Phone: [facility] Work Phone: 10-15-2019 13:49-0500 BMI (Body Mass Index) 25.62 kg/m2 Angi Langston [facility] Work Phone: 10-15-2019 13:49-0500 Body Temperature 97.2 [degF] Angi Langston [facility] Com[facility] Work Phone: Comment on above: Method: Temporal 10-15-2019 13:49-0500 Body weight 76.43 kg Angi Langston [facility] Work Phone: 10-15-2019 13:49-0500 BP Diastolic 60 mm[Hg] Angi Yeseniaius [facility] Work Phone: Comment on above: Patient Position: Sitting; Cuff Location : Left Arm; Cuff Size: Standard 10-15-2019 13:49-0500 BP Systolic 102 mm[Hg] Angi Gravius [facility] Work Phone: Comment on above: Patient Position: Sitting; Cuff Location : Left Arm; Cuff Size: Standard 10-15-2019 13:49-0500 BSA (Body Surface Area) 1.9 m2 Angi Langston CMA [facility] Work Phone: 10-15-2019 13:49-0500 Height 172.72 cm Angi Langsotn CMA [facility] Work Phone: 10-15-2019 13:49-0500 Pulse (Heart Rate) 127 /min Angi Langston CMA Com[facility] Work Phone: Comment on above: Pattern: Regular 10-15-2019 13:49-0500 Pulse Oximetry 98 % Janelle Linton [facility] Internal Medicine Work Phone: Comment on above: Room air 10-15-2019 13:49-0500 Respiratory Rate 18 /min Angi Langston CMA Com[facility] Work Phone: Comment on above: Pattern: Unlabored 10-15-2019 13:49-0500 SaO2% (BldA) [Mass fraction] 98 % Angi Langston CMA [facility] Internal [facility]; [facility] Work Phone: Comment on above: Room air 10-01-2019 13:11-0500 BMI (Body Mass Index) 25.92 kg/m2 Janelle Linton [facility] Internal Medicine Work Phone: 10-01-2019 13:11-0500 Body Temperature 99.3 [degF] Janelle Linton [facility] Medicine Work Phone: Comment on above: Method: Temporal 10-01-2019 13:11-0500 Body weight 77.34 kg Janelle Linton [facility] Work Phone: 10-01-2019 13:11-0500 BP Diastolic 70 mm[Hg] Janelle Linton [facility] Work Phone: Comment on above: Patient Position: Sitting; Cuff Location : Left Arm; Cuff Size: Standard 10-01-2019 13:11-0500 BP Systolic 120 mm[Hg] Janelle Linton [facility] Medicine Work Phone: Comment on above: Patient Position: Sitting; Cuff Location : Left Arm; Cuff Size: Standard 10-01-2019 13:11-0500 BSA (Body Surface Area) 1.91 m2 Janelle [facility] Internal Medicine Work Phone: 10-01-2019 13:11-0500 Height 172.72 cm [facility] Work [facility]: 10-01-2019 13:11-0500 Pulse (Heart Rate) 125 /min [facility]: Comment on above: Pattern: Regular 10-01-2019 13:11-0500 Respiratory Rate 16 /min [facility] Work [facility]: Comment on above: Pattern: Unlabored 09-17-2019 13:17-0500 BMI (Body Mass Index) 25.92 kg/m2 Angi Langston [facility] Internal Medicine Work Phone: Comment on above: pt reports shes anxious 09-17-2019 13:17-0500 Body Temperature 97.3 [degF] Angi Langston [facility] Comprehensiv [facility] Work Phone: Comment on above: Method: Temporal pt reports shes anxi ous 09-17-2019 13:17-0500 Body weight 77.34 kg Angi Langston [facility] Internal Medicine Work Phone: Comment on above: pt reports shes anxious 09-17-2019 13:17-0500 BP Diastolic 78 mm[Hg] Angi Langston [facility] Work Phone: Comment on above: Patient Position: Sitting; Cuff Location : Left Arm; Cuff Size: Standard pt reports shes anxi ous 09-17-2019 13:17-0500 BP Systolic 110 mm[Hg] Angi Langston [facility] Medicine Work Phone: Comment on above: Patient Position: Sitting; Cuff Location : Left Arm; Cuff Size: Standard pt reports shes anxi ous 09-17-2019 13:17-0500 BSA (Body Surface Area) 1.91 m2 Angi Langston [facility] Internal Medicine Work Phone: Comment on above: pt reports shes anxious 09-17-2019 13:17-0500 Height 172.72 cm [facility] Work Phone: Comment on above: pt reports shes anxious 09-17-2019 13:17-0500 Pulse (Heart Rate) 134 /min Angi Langston [facility] Comprehens ronal Internal Medicine Work Phone: Comment on above: Pattern: Regular pt reports shes anxi ous 09-17-2019 13:17-0500 Pulse Oximetry 95 % Janelle Linton [facility] Work Phone: Comment on above: Room air pt reports shes anxi ous 09-17-2019 13:17-0500 Respiratory Rate 20 /min Angi Langston [facility] Comprehens[facility] e Internal Medicine Work Phone: Comment on above: Pattern: Unlabored pt reports shes anxi ous 09-17-2019 13:17-0500 SaO2% (BldA) [Mass fraction] 95 % Angi Langston [facility]; [facility] Work Phone: Comment on above: Room air pt reports shes anxi ous 11-07-2017 14:41-0500 BMI (Body Mass Index) 25.62 kg/m2 Stefanie Mesa RN [facility] Work Phone: 11-07-2017 14:41-0500 Body weight 76.43 kg Stefanie Mesa RN [facility] Work Phone: 11-07-2017 14:41-0500 BP Diastolic 78 mm[Hg] Stefanie Mesa RN [facility] Work Phone: Comment on above: Patient Position: Sitting; Cuff Location : Left Arm; Cuff Size: Large 11-07-2017 14:41-0500 BP Systolic 118 mm[Hg] Stefanie Mesa RN [facility] Work Phone: Comment on above: Patient Position: Sitting; Cuff Location : Left Arm; Cuff Size: Large 11-07-2017 14:41-0500 BSA (Body Surface Area) 1.9 m2 Stefanie Mesa RN [facility] Work Phone: 11-07-2017 14:41-0500 Height 172.72 cm Stefanie Mesa RN [facility] Work Phone: 11-07-2017 14:41-0500 Pulse (Heart Rate) 71 /min Stefanie Mesa RN Comprehens [facility] Work Phone: Comment on above: Pattern: Regular 11-07-2017 14:41-0500 Pulse Oximetry 98 % Janelle Leandro [facility] Work Phone: Comment on above: Room air 11-07-2017 14:41-0500 Respiratory Rate 18 /min Stefanie Mesa RN Comprehens[facility] e [facility] Work Phone: Comment on above: Pattern: Unlabored 11-07-2017 14:41-0500 SaO2% (BldA) [Mass fraction] 98 % Stefanie Mesa RN [facility]; [facility] Work Phone: Comment on above: Room air 07-27-2015 13:55-0500 BMI (Body Mass Index) 23.45 kg/m2 Stefanie Mesa RN [facility] Work Phone: 07-27-2015 13:55-0500 Body weight 69.97 kg Stefanie Mesa RN [facility] Work Phone: 07-27-2015 13:55-0500 BP Diastolic 64 mm[Hg] Stefanie Mesa RN [facility] Work Phone: Comment on above: Patient Position: Sitting; Cuff Location : Left Arm; Cuff Size: Standard 07-27-2015 13:55-0500 BP Systolic 102 mm[Hg] Stefanie Mesa RN [facility] Work Phone: Comment on above: Patient Position: Sitting; Cuff Location : Left Arm; Cuff Size: Standard 07-27-2015 13:55-0500 BSA (Body Surface Area) 1.83 m2 Stefanie Mesa RN [facility] Work Phone: 07-27-2015 13:55-0500 Height 172.72 cm Stefanie Mesa RN [facility] Work Phone: 07-27-2015 13:55-0500 Pulse (Heart Rate) 70 /min Stefanie Mesa RN [facility]prehens [facility] Work Phone: Comment on above: Pattern: Regular 07-27-2015 13:55-0500 Pulse Oximetry 99 % Janelle Linton [facility] Work Phone: Comment on above: Room air 07-27-2015 13:55-0500 SaO2% (BldA) [Mass fraction] 99 % Stefanie Mesa RN [facility]; [facility] Work Phone: Comment on above: Room air 04-27-2015 12:22-0400 BMI (Body Mass Index) 22.43 kg/m2 Stefanie Mesa RN [facility] Work Phone: 04-27-2015 12:22-040 Body weight 66.91 kg Stefanie Mesa RN [facility] Work Phone: 04-27-2015 12:22-0400 BP Diastolic 60 mm[Hg] Stefanie Mesa RN [facility] Work Phone: Comment on above: Patient Position: Sitting; Cuff Location : Left Arm; Cuff Size: Large 04-27-2015 12:22-0400 BP Systolic 102 mm[Hg] Stefanie Mesa RN [facility] Work Phone: Comment on above: Patient Position: Sitting; Cuff Location : Left Arm; Cuff Size: Large 04-27-2015 12:22-0400 BSA (Body Surface Area) 1.8 m2 Stefanie Mesa RN [facility] Work Phone: 04-27-2015 12:22-040 Height 172.72 cm Stefanie Mesa RN [facility] Work Phone: 04-27-2015 12:22-0400 Pulse (Heart Rate) 60 /min Stefanie Mesa RN Comprehens [facility] Work Phone: Comment on above: Pattern: Regular 04-27-2015 12:22-0400 Pulse Oximetry 98 % Janelle Leandro [facility] Work Phone: Comment on above: Room air 04-27-2015 12:22-0400 Respiratory Rate 16 /min Stefanie Mesa RN Comprehens[facility] e [facility] Work Phone: Comment on above: Pattern: Unlabored 04-27-2015 12:22-0400 SaO2% (BldA) [Mass fraction] 98 % Stefanie Mesa RN [facility]; [facility] Work Phone: Comment on above: Room air 03-16-2015 12:33-0400 BMI (Body Mass Index) 22.58 kg/m2 Stefanie Mesa RN [facility] Work Phone: 03-16-2015 12:33-0400 Body weight 67.36 kg Stefanie Mesa RN [facility] Work Phone: 03-16-2015 12:33-0400 BP Diastolic 62 mm[Hg] Stefanie Mesa RN [facility] Work Phone: Comment on above: Patient Position: Sitting; Cuff Location : Left Arm; Cuff Size: Large 03-16-2015 12:33-0400 BP Systolic 104 mm[Hg] Stefanie Mesa RN [facility] Work Phone: Comment on above: Patient Position: Sitting; Cuff Location : Left Arm; Cuff Size: Large 03-16-2015 12:33-0400 BSA (Body Surface Area) 1.8 m2 Stefanie Mesa RN [facility] Work Phone: 03-16-2015 12:33-0400 Height 172.72 cm Stefanie Mesa RN [facility] Work Phone: 03-16-2015 12:33-0400 Pulse (Heart Rate) 60 /min Stefanie Mesa RN [facility]prehens [facility] Work Phone: Comment on above: Pattern: Regular 03-16-2015 12:33-0400 Pulse Oximetry 98 % Janelle Linton [facility] Work Phone: Comment on above: Room air 03-16-2015 12:33-0400 Respiratory Rate 18 /min Stefanie Mesa RN [facility] Work Phone: Comment on above: Pattern: Unlabored 03-16-2015 12:33-0400 SaO2% (BldA) [Mass fraction] 98 % Stefanie Mesa RN [facility]; [facility] Work Phone: Comment on above: Room air 08-02-2014 16:31-0500 Body weight 69.03 kg Stefanie Mesa RN [facility] Work Phone: 08-02-2014 16:31-0500 BP Diastolic 64 mm[Hg] Stefanie Mesa RN [facility] Work Phone: Comment on above: Patient Position: Sitting; Cuff Location : Left Arm; Cuff Size: Large 08-02-2014 16:31-0500 BP Systolic 118 mm[Hg] Stefanie Mesa RN [facility] Work Phone: Comment on above: Patient Position: Sitting; Cuff Location : Left Arm; Cuff Size: Large 08-02-2014 16:31-0500 Pulse (Heart Rate) 97 /min Stefanie Mesa RN [facility] Work Phone: Comment on above: Pattern: Regular 08-02-2014 16:31-0500 Pulse Oximetry 97 % Janelle Leandro [facility] Work Phone: Comment on above: Room air 08-02-2014 16:31-0500 Respiratory Rate 20 /min Stefanie Mesa RN [facility] Work Phone: Comment on above: Pattern: Unlabored 08-02-2014 16:31-0500 SaO2% (BldA) [Mass fraction] 97 % Stefanie eMsa RN [facility]; [facility] Work Phone: Comment on above: Room air 05-27-2014 13:47-0400 Body weight 67.19 kg Stefanie Mesa RN [facility] Work Phone: 05-27-2014 13:47-0400 BP Diastolic 78 mm[Hg] Stefanie Mesa RN [facility] Work Phone: Comment on above: Patient Position: Sitting; Cuff Location : Left Arm; Cuff Size: Large 05-27-2014 13:47-0400 BP Systolic 118 mm[Hg] Stefanie Mesa RN [facility] Work Phone: Comment on above: Patient Position: Sitting; Cuff Location : Left Arm; Cuff Size: Large 05-27-2014 13:47-0400 Pulse (Heart Rate) 121 /min Stefanie Mesa RN Comprehens [facility] Work Phone: Comment on above: Pattern: Regular 05-27-2014 13:47-0400 Pulse Oximetry 98 % Janelle Leandro [facility] Work Phone: Comment on above: Room air 05-27-2014 13:47-0400 Respiratory Rate 18 /min Stefanie Mesa RN Comprehens[facility] e [facility] Work Phone: Comment on above: Pattern: Unlabored 05-27-2014 13:470400 SaO2% (BldA) [Mass fraction] 98 % Stefanie Mesa RN [facility]; [facility] Work Phone: Comment on above: Room air Encounters Encounter Date Encounter Type Care Provider Facility Start: 05-20-2025 End: 05-20-[address] Janelle Linton DO Work Phone: -Laboratory Start: 05-20-2025 End: 05-20-2025 Patient encounter procedure Stefanie Rojas CNM -Laboratory Work Phone: Start: 05-20-2025 End: 05-20-2025 ambulatory Stefanie Rojas Facility:[facility] Start: 05-18-2025 End: 05-18-[address] Janelle Linton DO Work Phone: -Laboratory Start: 05-18-2025 End: 05-18-2025 Patient encounter procedure Stefanie Rojas CNM -Laboratory Work Phone: Start: 05-18-2025 End: 05-18-2025 ambulatory Stefanie Rojas Facility:[facility] Start: 12-08-2024 End: 12-08-[address] Janelle Linton DO Work Phone: [facility] Work Phone: Start: 12-08-2024 End: 12-08-[address] Janelle Linton DO -Ultrasound, [facility] Work Phone: Start: 12-08-2024 End: 12-08-2024 ambulatory Janelle Linton Facility:[facility] Start: 07-09-2024 End: 07-09-2024 ambulatory Janelle Linton Facility:[facility] Start: 03-14-2023 End: 03-14-[address] Janelle Linton Work Phone: [facility] Work Phone: Start: 03-14-2023 End: 03-14-[address] [facility] Work [facility] Start: 03-14-2023 End: 03-14-[address] Janelle Linton Work Phone: [facility] Work Phone: Start: 02-11-2023 End: 02-11-2023 Emergency department patient visit Dr. Janelle Linton Work Phone: [facility]-Emergency Department Start: 01-27-2023 Non-patient / Non-visit Dr. Janelle Linton Work Phone: [facility] Start: 01-26-2023 Non-patient / Non-visit Dr. Janelle Linton Work Phone: [facility] Start: 01-25-2023 Non-patient / Non-visit Dr. Janelle Linton Work Phone: [facility] Start: 01-24-2023 Non-patient / Non-visit Dr. Janelle Linton Work Phone: [facility] Start: 01-24-2023 End: 01-27-2023 Evaluation and management of inpatient Dr. Janelle Linton [facility] Start: 01-24-2023 End: 01-24-[address] Janelle Linton Work Phone: [facility] Work Phone: Start: 01-24-2023 End: 01-24-[address] Janelle Linton Work Phone: [facility] Start: 01-22-2023 End: 01-22-[address] Janelle Linton Work Phone: [facility] Start: 01-16-2023 Non-patient / Non-visit Dr. Janelle Linton Work Phone: [facility] Start: 01-16-2023 End: 01-16-[address] Janelle Linton Work Phone: [facility] Work Phone: Start: 01-16-2023 End: 01-16-[address] Janelle Linton Work Phone: [facility], Outpatients Start: 01-14-2023 End: 01-14-[address] Janelle Linton Work Phone: [facility] Work Phone: Start: 01-14-2023 End: 01-14-[address] [facility] Start: 01-14-2023 End: 01-14-[address] Janelle Linton Work Phone: [facility] Start: 01-01-2023 End: 01-01-[address] Janelle Linton Work Phone: [facility] Start: 12-18-2022 End: 12-18-[address] Janelle Linton Work Phone: [facility] Start: 2022 End: [address] Janelle Linton Work Phone: [facility] Start: 11-18-2022 End: 11-18-[address] Janelle Linton Work Phone: [facility] Start: 10-29-2022 End: 10-29-[address] Janelle Linton Work Phone: [facility] Start: 10-28-2022 End: 10-28-[address] Janelle Linton [facility] Start: 09-30-2022 End: 09-30-[address] Janelle Linton Work Phone: [facility] Start: 09-23-2022 End: 09-23-2022 ambulatory JANELLE LINTON [facility] pital Start: 09-18-2022 End: 09-18-[address] Janelle Linton Work Phone: [facility] Start: 07-15-2022 End: 07-15-[address] Janelle Linton Work Phone: [facility] Work Phone: Start: 07-15-2022 End: 07-15-[address] Janelle Linton [facility] Start: 07-08-2022 End: 07-08-[address] Janelle Linton [facility] Start: 07-08-2022 End: 07-08-[address] Janelle Linton Work Phone: [facility] Start: 06-21-2022 End: 06-21-[address] Janelle Linton [facility] Start: 06-21-2022 End: 06-21-[address] Janelle Linton Work Phone: [facility] Start: 06-01-2022 End: 06-01-2022 ambulatory [facility] Work Phone: Start: 06-01-2022 End: 06-01-2022 Patient encounter procedure [facility] Start: 05-30-2022 End: 05-30-2022 Patient encounter procedure [facility] Specimen Start: 05-04-2022 End: 05-04-2022 ambulatory [facility] Work Phone: Start: 05-04-2022 End: 05-04-2022 Patient encounter procedure [facility] Start: 05-02-2022 End: 05-02-2022 ambulatory [facility] Work Phone: Start: 05-02-2022 End: 05-02-2022 Patient encounter procedure [facility] OP Pavilion Start: 04-03-2022 End: 04-03-2022 Office outpatient visit 10 minutes Janelle Linton DO Work Phone: [facility] Start: 03-04-2022 End: 03-04-2022 Office outpatient visit 10 minutes Janelle Linton DO Work Phone: [facility] Start: 03-04-2022 Review Janelle Gallegos n DO Work Phone: [facility] Start: 08-16-2020 Review Janelle Linton [facility] Start: 08-16-2020 End: 08-16-2020 Office outpatient visit 15 minutes Janelle Linton [facility] Start: 08-11-2020 End: 08-11-2020 Office outpatient visit 25 minutes Janelle Linton [facility] Start: 08-09-2020 End: 08-09-2020 Office outpatient visit 15 minutes Janelle Linton [facility] Start: 06-19-2020 End: 06-19-2020 Office outpatient visit 10 minutes Janelle Linton [facility] Start: 04-03-2020 End: 04-03-2020 Office outpatient visit 15 minutes Janelle Linton [facility] Start: 03-31-2020 End: 03-31-2020 Office outpatient visit 15 minutes Janelle Linton [facility] Start: 10-15-2019 End: 10-15-2019 Office outpatient visit 15 minutes Janelle Linton [facility] Start: 10-01-2019 End: 10-01-2019 Office outpatient visit 15 minutes Janelle Leandro [facility] Start: 09-17-2019 End: 09-17-2019 Phone Encounter Janelle Leandro [facility] Start: 09-17-2019 End: 09-17-2019 Office outpatient visit 10 minutes Janelle Leandro [facility] Start: 11-07-2017 End: 11-07-2017 Office outpatient visit 15 minutes Janelle Leandro [facility] Start: 07-27-2015 End: 07-27-2015 Office outpatient visit 10 minutes Janelle Leandro [facility] Start: 04-27-2015 End: 04-27-2015 Office outpatient visit 15 minutes Janelle Linton [facility] Start: 03-16-2015 End: 03-16-2015 Office outpatient visit 15 minutes Janelle Leandro [facility] Medicine Start: 08-02-2014 End: 08-02-2014 Office outpatient visit 10 minutes Janelle Leandro [facility] Medicine Start: 05-27-2014 End: 05-27-2014 Office outpatient new 20 minutes Janelle Linton [facility] Internal Medicine Procedures Date Procedure Procedure Detail Performing Clinician Start: 02-11-2023 End: 02-11-2023 Venous Duplex Imag/Limited/Uni Procedure Note: See Note; NOTES: [facility] Imaging Services [address] [place] [id number] Venous Duplex Imag/Limited/Uni MR#: [id number] Acct: [id number] Name: TIFFANIE MO Rep #: [id number] : 1995 F 27 From: Paolo An MD PCP: Dr. Janelle Linton, DO Status: [facility] ER Study: Venous Duplex Imag/Limited/Uni Date of Exam: 0 02/11/23 Exam# [id number] Ordering Dr: Waqas Evans MD EXAM: US DUPLEX RIGHT LOWER EXTREMITY VEINS CLINICAL INDICATION: right calf pain TECHNIQUE: Real-time duplex ultrasound scan of the right lower extremity veins integrating B-mode two-dimensional vascular structure, Doppler spectral analysis, color flow Doppler imaging and compression. COMPARISON: No relevant prior studies available. FINDINGS: DEEP VEINS: Unremarkable. No DVT in the visualized common femoral, femoral, proximal deep femoral or popliteal veins. The veins demonstrate normal color flow, are normally compressible, with normal phasic flow and/or augmentation response. SUPERFICIAL VEINS: Unremarkable. No thrombus in the visualized great saphenous vein. SOFT TISSUES: No acute findings. No popliteal cyst. US/Venous Duplex Imag/Limited/Uni IMPRESSION: Normal right lower extremity duplex venous ultrasound. Electronically Signed: Paolo An MD at 20:07 EDT , CC: Dr. Waqas Evans MD; Dr. Janelle Linton DO Criminal Researcher: Signed Janelle Linton DO Work Phone: Start: 02-11-2023 End: 02-11-2023 Emergency Department Summary Procedure Note: See Note; NOTES: [facility] Medical Records Department [address] [place] [id number] Emergency Department Summary 02/11/23 MR#: [id number] Acct: [id number] Name: TIFFANIE MO Rep #: [id number] : 1995 27 From: Waqas Evans MD PCP: Dr. Janelle Linton DO Status:REG ER Location: ED HPI History of Present Illness Chief Complaint: Lower Extremity Injury Narrative Narrative: 27-year-old female who denies significant past medical history is 2 weeks . Over the last few days she has had right posterior calf pain that is dull and achy. She denies any chest pain or shortness of breath. She has not noticed any overt swelling of her right lower extremity. She called her WEEKDAY BABYSITTER who told her to come to the emergency department for an ultrasound. Of note, she states that she has not had disorder where she can easily dislocate her kneecaps. She had twisted her knee and fallen the other day and relocated her patella, and has swelling around there, but no direct trauma to her mid calf area. [facility] Medical History History of anxiety Oligohydramnios Psoriasis Vaginal delivery Home Medications escitalopram oxalate 5 mg tablet (Lexapro) 5 mg PO DAILY anxiety 06/21/22 [History Last Taken 01/23/23 21:00] multivitamin no.47-iron fum 27 mg-folate no.1 1 mg-dha 300 mg capsule (PNV-DHA) 1 cap PO DAILY 06/27/22 [History Last Taken 01/23/23 21:00] omeprazole 20 mg capsule,delayed release 20 mg PO DAILY heartburn 01/24/23 [History Last Taken 01/23/23 19:00] Allergy/AdvReac Type Severity Reaction Status Date / Time No Known Allergies Allergy Verified 01/24/23 17:45 Family History Grandmother Diabetes Breast cancer, Onset Age: 67 maternal Grandfather Hypertension Grandmother Breast cancer, Onset Age: 75 paternal- of Covid before treatment of breast cancer completed Social History adopted: No household members: spouse housing: house current occupational status: employed 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 and animals: Yes (Not managing litterbox) pets and animals: cat(s) history of recent travel: Yes ([place] in January) out of state: Yes out of country: Yes sexually active: Yes Smoking Status: Never smoker alcohol intake: never substance use type: does not use well-balanced diet: daily or most days caffeine: No eating out: 1-3 times/week during the past year weight has: remained stable what type of physical activity do you participate in: weight training frequency: 3-4 times per week duration: 30-45 minutes/day lala/confucianist: None seatbelt use: always do you feel safe at home: Yes additional social history: Deonte- Works at a [employer] ROS ROS ED ROS Narrative Constitutional: No fever, no chills. HEENT: No sore throat. No neck pain. No loss of vision. No rhinorrhea. Cardiovascular: No chest pain. No palpitations. No pedal edema. Respiratory: No cough, no shortness of breath. Abdominal: No abdominal pain. No nausea. No vomiting. Genitourinary: No dysuria. No hematuria. Musculoskeletal: Right mid calf pain, achiness. No arthralgias. Neurologic: No headaches. No dizziness. No lightheadedness. Skin: No rash. No change in color. Psychiatric: No depression. No anxiety. EXAM Physical Exam Narrative Exam Narrative: Afebrile. Vital signs noted. HEENT: Normocephalic. Atraumatic. PERRL, EOMI. Neck soft and supple. No point tenderness or step off. Cardiovascular: Regular rate and rhythm. No murmurs, rubs, or gallops appreciated. Respiratory: No tachypnea. Lungs clear to auscultation bilaterally. Gastrointestinal: Abdomen soft, nontender, with normoactive bowel sounds. No rebound or guarding. Neurological: Awake. Alert. Nonfocal, nonlateralizing. Skin: No rash. Normal color. No pallor. Musculoskeletal: No pedal edema. Full range of motion extremities. Mild tenderness mid right calf, no overt swelling or erythema, no palpable cord, palpable dorsalis pedis pulse. Const Vital Signs: 02/11/23 17:01 Temperature 97.2 F L Temperature Source Temporal Pulse Rate 107 H Respiratory Rate 18 Blood Pressure 106/80 Blood Pressure Mean 88 Pulse Ox 100 Oxygen Delivery Method Room Air MDM MDM MDM Narrative Medical decision making narrative: Ultrasound will be obtained for rule out of DVT in the right lower extremity. I do not feel laboratory work is indicated currently nor do I feel that any other imaging is indicated. I reviewed the radiology report which shows no evidence of acute DVT. At this point in time, she will be discharged to take [id number] analgesics and follow-up with her primary care provider and/or her WEEKDAY BABYSITTER. I do not feel that she needs anticoagulants or narcotic pain medication. Disposition is discharged home in stable condition. Radiography Diagnostic Testing: Clinical Impression(s) from Imaging Studies Venous Duplex 02/11/23 19:08 IMPRESSION: Normal right lower extremity duplex venous ultrasound. Electronically Signed: Paolo An MD at 20:07 EDT , Discharge Plan Triage Chief Complaint: Lower Extremity Injury ED Provider: Waqas Evans Dx/Rx/DC Orders Clinical Impression: Calf pain Instructions: ED Myalgias, ED Pain, Acute, Uncertain Cause Prescriptions: No Action PNV-DHA 27 mg iron-1 mg -300 mg capsule 1 cap PO DAILY escitalopram oxalate [Lexapro] 5 mg tablet 5 mg PO DAILY omeprazole 20 mg capsule,delayed release(DR/EC) 20 mg PO DAILY Primary Care Provider: Janelle Linton Referrals: Janelle Linton, [Primary Care Provider] - As soon as possible Disposition Disposition: Home, Self Care What to do if you have Problems For any increased pain, shortness of breath, bleeding, nausea or vomiting, chest pain, or any unexpected problems, contact your Primary Care Provider. Call [facility] ([phone]) or report to the closest Emergency Room. Call 911 if necessary. 02/11/232122 <Electronically signed by Waqas Evans MD> Cosigner Signature (if applicable): CC: Dr. Janelle Linton DO Signed Janelle Linton DO Work Phone: Start: 01-24-2023 Ultrasound scan for growth Dr. Janelle Linton Work Phone: Start: 01-24-2023 End: 01-24-2023 OB Limited With Biometrics Procedure Note: See Note; NOTES: [facility] Imaging Services [address] [place] [id number] OB Limited With Biometrics MR#: [id number] Acct: [id number] Name: TIFFANIE MO Rep #: [id number] : 1995 F 27 From: James Lopez MD PCP: Dr. Janelle Linton DO Status: REG CLI Study: OB Limited With Biometrics Date of Exam: 01/24 Exam# [id number] Ordering Dr: Val Earl DO STUDY: SECOND AND THIRD TRIMESTER OBSTETRICAL ULTRASOUND - LIMITED REASON FOR EXAM: Female, 27 years old growth LMP: 05/03/2022 PRIOR ULTRASOUND: None. TECHNIQUE: Standard TECHNICAL QUALITY: Adequate. FINDINGS: There is a single intrauterine fetus. The fetus is in a cephalic presentation. There is demonstrated cardiac activity with a heart rate of 145 bpm. There is a normal amniotic fluid volume. The largest amniotic fluid pocket measures 3.4 x 2.2 cm. The amniotic fluid index (LAI) is 5.17 cm. The placenta is anterior and not low-lying The cervix measures 3.6 cm in length. BIOMETRY: BPD: 9.2 cm: 37 weeks, 3 days HC: 34.08 cm: 39 weeks, 2 days AC: 34.3 cm: 33 weeks, 1 days FL: 17.18 cm: 3620 weeks, 5 days Age by LMP: 38 weeks, 0 days. DARLENE by LMP: 02/17/2023. age by current US: 37 weeks, 6 days. DARLENE by current US: 02/08/2023. Estimated weight: 3320 grams, +/- 498 grams, 58 percentile. Gender: US/OB Limited With Biometrics IMPRESSION: Single viable intrauterine gestation. Mean gestational age based upon ultrasound parameters 37 weeks 6 days. Electronically Signed: James Lopez MD, BRITTANY at 18:38 EDT Reading Location ID and State: [facility] [place] Tel , Service support , CC: Dr. Val Earl DO; Dr. Janelle Linton DO Criminal Researcher: Signed Janelle Linton DO Work Phone: Start: 01-23-2023 End: 01-23-2023 /MAINE.[facility] Procedure Note: See Note; NOTES: [facility] [address] [place] [address] OFFICE VISIT Date of Service: 01/23/23 MR#: [id number] Acct: [id number] Name: TIFFANIE OM Rep #: [id number] : 1995 Provider: DILCIA ceballos Age/Sex: 27/F Location: [facility] Status: Signed Intake Intake Visit Reasons: visit Chief Complaint: Allergies No Known Allergies Allergy (Verified 01/22/23 11:38) PFSH PFSH Medical History History of anxiety Psoriasis Family History Grandmother Diabetes Breast cancer, Onset Age: 67 maternal Grandfather Hypertension Grandmother Breast cancer, Onset Age: 75 paternal- of Covid before treatment of breast cancer completed Social History adopted: No household members: spouse housing: house current occupational status: employed 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 and animals: Yes (Not managing litterbox) pets and animals: cat(s) history of recent travel: Yes ([place] in January) out of state: Yes out of country: Yes sexually active: Yes Smoking Status: Never smoker alcohol intake: never substance use type: does not use well-balanced diet: daily or most days caffeine: No eating out: 1-3 times/week during the past year weight has: remained stable what type of physical activity do you participate in: weight training frequency: 3-4 times per week duration: 30-45 minutes/day lala/confucianist: None seatbelt use: always do you feel safe at home: Yes additional social history: Deonte- Works at a [employer] History 2 Elective abortions Hx Para 0 Spontaneous abortions 1 Hx # Term Pregnancies Ectopic pregnancies Hx # Pregnancies Multiple births # of living children Past Pregnancies Del. Date Name GA/Weeks Outcome Route Bth Weight Gen Labor Lgth Anesthesia Del [facility] Provider FOB 05/03/22 chemical HPI HPI HPI: TIFFANIE MO, is a 27 F who presents to the office today for visit. History provided by the patient. ROS ROS Const Constitutional: Denies fever(s) or lethargy : Denies nipple discharge Skin Skin/Breast: Denies breast pain, breast skin changes or nipple discharge Details: hand expressed some colostrum yesterday, questions today about how to safely do milk expression, patient 37.6 weeks, denies any risk factors for , denies any pelvic rest, denies gestational diabetes, patient had increase breast size with , no significant contractions at this point, checked yesterday at appointment with OB and was 1 cm dilated, referred for expression and milk storage Exam Maternal Assessment Breast Assessment Bilateral Breasts: Soft Nipple Assessment Bilateral Nipples: Flat Areolar Tissue Areolar Tissue: Pliable Assessment Goals Breast Feeding Goals: Exclusive Exam Const General: comfortable and no acute distress Orientation: alert and oriented x3 Chest Breast inspection: normal inspection of the breasts Breast palpation: normal palpation of the breasts Resp Effort Inspection: normal respiratory effort Skin General: no rashes or lesions noted Psych Appearance: grossly normal Mental Status: mental status grossly normal Affect: normal affect Assessment and Plan Assessment and Plan (1) Care and examination of lactating mother: Plan: Educated on milk expression, 2x a day for up to 5 minutes. Educated to not use breastpump. If having contractions or any bleeding stop hand expression. Educated on storage of colostrum and syringes provided to patient. Fitted for 19 size flange and also recommended breast shells to help with flat nipples and will collect any colostrum that is leaking. Follow up with PRN. Call right away for any concerns. Coding Level of Care Code 98271 PRVT COUNSELING INDIVID Diagnoses Care and examination of lactating mother Z39.1 Time Spent (min) 15 01/23/23 1715 <Electronically signed by Day QUIROGA> Date Day QUIROGA Cosigner Signature: Date (if applicable) CC: Janelle Linton DO Work Phone: Start: 01-22-2023 End: 01-22-2023 [employer] Office Visit Report Procedure Note: See Note; NOTES: [facility] [address] [place] [address] OFFICE VISIT Date of Service: 01/22/23 MR#: [id number] Acct: [id number] Name: TIFFANIE MO Rep #: [id number] : 1995 Provider: Dr. Val Vela DO Age/Sex: 27/F Location: [facility] Status: Signed Intake Vital Signs 01/01/23 09:19 01/16/23 16:44 01/22/23 11:38 01/22/23 11:40 Height 5 ft 8 in 5 ft 8 in 5 ft 8 in 5 ft 8 in Weight: 221 lb 4 oz BMI 33.6 BP 100/67 Intake Visit Reasons: 37 WK EST OB Director Telemetry Required: No Is patient in pain?: No Allergies No Known Allergies Allergy (Verified 01/22/23 11:38) Medications escitalopram oxalate 5 mg tablet (Lexapro) 5 mg PO DAILY anxiety 06/21/22 [History Confirmed 01/22/23] multivitamin no.47-iron fum 27 mg-folate no.1 1 mg-dha 300 mg capsule (PNV-DHA) 1 cap PO DAILY 06/27/22 [History Confirmed 01/22/23] promethazine 12.5 mg tablet 12.5 mg PO Q6H PRN nausea and vomiting 30 days #60 tabs 08/09/22 [Rx Confirmed 01/22/23] omeprazole 20 mg capsule,delayed release 20 mg PO DAILY #30 caps 01/01/23 [Rx Confirmed 01/22/23] Last Menstrual Period: 05/03/22 Zika: Zika virus screening: Negative : No PFSH PFSH Medical History History of anxiety Psoriasis Family History Grandmother Diabetes Breast cancer, Onset Age: 67 maternal Grandfather Hypertension Grandmother Breast cancer, Onset Age: 75 paternal- of Covid before treatment of breast cancer completed Social History adopted: No household members: spouse housing: house current occupational status: employed 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 and animals: Yes (Not managing litterbox) pets and animals: cat(s) history of recent travel: Yes ([place] in January) out of state: Yes out of country: Yes sexually active: Yes Smoking Status: Never smoker alcohol intake: never substance use type: does not use well-balanced diet: daily or most days caffeine: No eating out: 1-3 times/week during the past year weight has: remained stable what type of physical activity do you participate in: weight training frequency: 3-4 times per week duration: 30-45 minutes/day lala/confucianist: None seatbelt use: always do you feel safe at home: Yes additional social history: Deonte- Works at a [employer] History 2 Elective abortions Hx Para 0 Spontaneous abortions 1 Hx # Term Pregnancies Ectopic pregnancies Hx # Pregnancies Multiple births # of living children Past Pregnancies Del. Date Name GA/Weeks Outcome Route Bth Weight Gen Labor Lgth Anesthesia Del Locatn Provider FOB 05/03/22 chemical HPI 37 WK EST OB Details: TIFFANIE MO is a 27 year old who presents for routine OB visit. OB Visit DARLENE Calculator Estimated Delivery Date Method Current WG Current Estimate 02/07/23 LMP (Certain) 37w 5d Expected Delivery Route/Plan Labor Preferences- CB/BF classes: done labor support person: deonte and mom Lynnette labor intervention preferences: none pain management options preferred: plans on epidural cut cord/dad catch: considering : yes PP control planned: [] discussed possible routes of delivery and associated risks: [] special requests: [] Specific Issue/Plans Covid status: discussed Flu vaccine: encouraged Tdap vaccine: given Rhogam: na LARC form signed: declined movement and labor precautions reviewed. Problem list reviewed and updated with the most current plan of care details and appropriate orders placed. Relevant counseling for the gestational age provided. Continue routine care and follow up unless otherwise noted in visit notes/problem list details Initial Weight: Not Recorded Date -???-???-???-???-???-???-??? -???-???-???-???-???- EGA Weight BP Urine Prot -???-???-???-???-???-???-??? -???-???-???-???-???- Glucose FHR FuHt Pres Dilation -???-???-???-???-???-???-??? -???-???-???-???-???- Effaced St Visit Note 07/08/22 -???-???-???-???-???-???-??? -???-???-???-???-???- 9w 3d 193 lb 136/82 -???-???-???-???-???-???-??? -???-???-???-???-???- 160 -???-???-???-???-???-???-??? -???-???-???-???-???- SM- CRL 2.48 cm cons with LMP 08/06/22 -???-???-???-???-???-???-??? -???-???-???-???-???- 13w 4d 195 lb 133/86 Negative -???-???-???-???-???-???-??? -???-???-???-???-???- Negative 134 -???-???-???-???-???-???-??? -???-???-???-???-???- JV- still a little nauseated. no other complaints. normal NIPT. 09/03/22 -???-???-???-???-???-???-??? -???-???-???-???-???- 17w 4d 199 lb 2 oz 108/72 Negative -???-???-???-???-???-???-??? -???-???-???-???-???- Negative 153 -???-???-???-???-???-???-??? -???-???-???-???-???- -No Concer ns. No VB, cramping. MFM 09/2309/18/22 -???-???-???-???-???-???-??? -???-???-???-???-???- 19w 5d 196 lb 2 oz 114/76 -???-???-???-???-???-???-??? -???-???-???-???-???- 143 -???-???-???-???-???-???-??? -???-???-???-???-???- LC- no vb/cr amping. fell yesterday onto bottom. in today for FHT. 09/30/22 -???-???-???-???-???-???-??? -???-???-???-???-???- 21w 3d 202 lb 2 oz 113/71 Negative -???-???-???-???-???-???-??? -???-???-???-???-???- Negative 145 -???-???-???-???-???-???-??? -???-???-???-???-???- LC- no cramp ing/vb/lof. anatomy LC- no cramping/vb/lof. anatomy no rmal. 10/29/22 -???-???-???-???-???-???-??? -???-???-???-???-???- 25w 4d 206 lb 6 oz 116/76 Negative -???-???-???-???-???-???-??? -???-???-???-???-???- Negative 145 26 -???-???-???-???-???-???-??? -???-???-???-???-???- SM- no vb lo f good fm no regular ctx 11/18/22 -???-???-???-???-???-???-??? -???-???-???-???-???- 28w 3d 213 lb 6 oz 99/57 Negative -???-???-???-???-???-???-??? -???-???-???-???-???- Negative 140 28 -???-???-???-???-???-???-??? -???-???-???-???-???- LC- doing we ll. no vb/lof/ctx. good fm. normal 28 week labs. LC- doing well. no vb/lof/ctx. goo d fm. normal 28 week labs. larc discussed and signed 12/02/22 -???-???-???-???-???-???-??? -???-???-???-???-???- 30w 3d 215 lb 112/72 Negative -???-???-???-???-???-???-??? -???-???-???-???-???- Negative 160 30 -???-???-???-???-???-???-??? -???-???-???-???-???- SM- no vb lo f good fm no regular ctx 12/18/22 -???-???-???-???-???-???-??? -???-???-???-???-???- 32w 5d 216 lb 117/75 Negative -???-???-???-???-???-???-??? -???-???-???-???-???- Negative 159 32 -???-???-???-???-???-???-??? -???-???-???-???-???- JV- seth langley discussed, no complaints today. plan discussed briefly but she really does not have many requests after going to the [employer] class. 01/01/23 -???-???-???-???-???-???-??? -???-???-???-???-???- 34w 5d 219 lb 8 oz 112/77 Negative -???-???-???-???-???-???-??? -???-???-???-???-???- Negative 164 34 -???-???-???-???-???-???-??? -???-???-???-???-???- JV- still preciado s indigestion. will try omeprazole. plan for gbs next visit. 01/14/23 -???-???-???-???-???-???-??? -???-???-???-???-???- 36w 4d 220 lb 4 oz 108/71 Negative -???-???-???-???-???-???-??? -???-???-???-???-???- Negative 145 36 Cephalic 0.5 -???-???-???-???-???-???-??? -???-???-???-???-???- -2 SM- no vb lof good fm n oregular ctxgbs collected 01/22/23 -???-???-???-???-???-???-??? -???-???-???-???-???- 37w 5d 221 lb 4 oz 100/67 Negative -???-???-???-???-???-???-??? -???-???-???-???-???- Negative 144 35 Cephalic 1 -???-???-???-???-???-???-??? -???-???-???-???-???- 0 -2 JV- measur ing small today. formal scan ordered. suspect could be lower station but patient seems nervous ACOG First Trimester First Trimester: Discussed Second Trimester Second Trimester: Signs and Symptoms of Labor, Selecting a care provider, Reproductive Life Planning Contreception, Care Planning, Depression/Anxiety and Intimate Partner Violence; Discussed Tobacco Cessation Third Trimester Third Trimester: Pain Management Plans, Labor support person(s), Immediate Larc, Movement Monitoring, Signs and Symptoms of Preeclampsia and [place] [facility] Diagnostics Diagnostics Diagnostics: Blood Type A POSITIVE Antibody Screen NEGATIVE Glucose 1 Hr 50 gm 91 mg/dL (70-140) HIV 1 2 Antibody Non-Reactive (Nonreactive) Rubella IgG Antibody Reactive (Nonreactive) Hgb 12.5 g/dL (12.0-15.0) Hct 37.9 % (37-47) Details: HIV: Urine Culture: Sequential Screen: NIPT Screen: ROS Const Denies fever(s) GI Reports as per HPI and Denies abdominal pain Reports as per HPI, Denies abnormal vaginal bleeding, Denies dysuria and Denies vaginal discharge Exam Const General: healthy appearing, comfortable and no acute distress GI Inspection: normal to inspection Palpation: soft and nontender Results POC Urinalysis 2 Dip (Clinic) Office Urine Glucose Negative Last Edit by Gena Aaron on 01/22/23 11:45 Office Urine Protein Negative Last Edit by Gena Aaron on 01/22/23 11:45 Coding Level of Care Code OB Routine Diagnoses Need for Tdap vaccination Z23 Supervision of high risk , antepartum O09.90 Z3A.37 Weeks of gestation: 37 weeks Assessment and Plan Assessment and Plan (1) Need for Tdap vaccination: Status: Acute Comment: Given 11/18/22 (2) Supervision of high risk , antepartum: Status: Acute Comment: PRR , DARLENE 02/07/23 cecil Sheriff Deonte (3) : Status: Acute Qualifiers: Weeks of gestation: 37 weeks Qualified Code(s): Z3A.37 - 37 weeks gestation of Comment: GBS neg.,NIPT low risk, declind ntd and Carrier testing. anatomy nl. Orders: Orders POC Urinalysis 2 Dip (Clinic) Today 01/22/23 1157 <Electronically signed by Val Earl DO> Date Val Earl DO Cosigner Signature: Date (if applicable) CC: Janelle Linton DO Work Phone: Start: 01-16-2023 End: 01-31-2023 OB Triage Physician Note Procedure Note: See Note; NOTES: [facility] Medical Records Department [address] [place] [address] OB Triage Physician Note 01/16/23 [id number] MR#: [id number] Acct: [id number] Name: TIFFANIE MO Rep #: [id number] : 1995 27 From: Val Earl DO PCP: Dr. Janelle Linton DO Status:DEP CLI Y Location: [facility] HPI - General HPI Narrative TIFFANIE MO, is a 27 F who presents to l D to rule out rupture of membranes. [facility] Medical History (Updated 01/31/23 @ 14:[address] Val Earl DO) History of anxiety Oligohydramnios Psoriasis Vaginal delivery Home Medications escitalopram oxalate 5 mg tablet (Lexapro) 5 mg PO DAILY anxiety 06/21/22 [History Last Taken 01/23/23 21:00] multivitamin no.47-iron fum 27 mg-folate no.1 1 mg-dha 300 mg capsule (PNV-DHA) 1 cap PO DAILY 06/27/22 [History Last Taken 01/23/23 21:00] omeprazole 20 mg capsule,delayed release 20 mg PO DAILY heartburn 01/24/23 [History Last Taken 01/23/23 19:00] Allergy/AdvReac Type Severity Reaction Status Date / Time No Known Allergies Allergy Verified 01/24/23 17:45 Family History Grandmother Diabetes Breast cancer, Onset Age: 67 maternal Grandfather Hypertension Grandmother Breast cancer, Onset Age: 75 paternal- of Covid before treatment of breast cancer completed Social History adopted: No household members: spouse housing: house current occupational status: employed 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 and animals: Yes (Not managing litterbox) pets and animals: cat(s) history of recent travel: Yes ([place] in January) out of state: Yes out of country: Yes sexually active: Yes Smoking Status: Never smoker alcohol intake: never substance use type: does not use well-balanced diet: daily or most days caffeine: No eating out: 1-3 times/week during the past year weight has: remained stable what type of physical activity do you participate in: weight training frequency: 3-4 times per week duration: 30-45 minutes/day lala/confucianist: None seatbelt use: always do you feel safe at home: Yes additional social history: Deonte- Works at a [employer] History 2 Elective abortions Hx Para 0 Spontaneous abortions 1 Hx # Term Pregnancies Ectopic pregnancies Hx # Pregnancies Multiple births # of living children 1 Past Pregnancies Del. Date Name GA/Weeks Outcome Route Bth Weight Gen Labor Lgth Anesthesia Del Locatn Provider FOB 05/03/22 chemical 01/25/23 Black 38 live - full term Male WC Vamsi barros Delivery Date: 01/25/23 Last Updated by: Marisela Hollins IOL [place]lig[place] 38 SM ROS Constitutional Constitutional: Reports systems reviewed and no addt'l complaints, except as documented Gastrointestinal Gastrointestinal: Denies bloating, constipation, cramping, diarrhea, nausea or vomiting Genitourinary Genitourinary: Reports other Details: Denies vaginal odor, vaginal bleeding, or vaginal discharge ; Denies difficulty urinating or flank pain NST FHR Rate Baby A Baseline: 135 Variability:: Moderate Accelerations:: 15 x 15 Decelerations:: None NST Reactive:: Yes FHR Category:: Category I Assessment Plan (1) False labor after 37 completed weeks of gestation: PLAN: Plan rom + negative. pt reassured. sending home. Charges/Coding Multi Select Codes Urinary/Genital Urinary/Genital CPT Codes: 72305-42 non-stress test Interp 01/31/23 1453 <Electronically signed by Val Earl DO> Date Val Earl DO Cosigner Signature (if applicable): Date CC: Dr. Val Earl DO; Dr. Janelle Linton DO Signed Janelle Linton DO Work Phone: Start: 01-14-2023 Group B Streptococcus Culture Dr. Janelle Linton Work Phone: Start: 01-14-2023 End: 01-14-2023 [employer] Office Visit Report Procedure Note: See Note; NOTES: [facility] [address] [place], [place] [address] OFFICE VISIT Date of Service: 01/14/23 MR#: [id number] Acct: [id number] Name: TIFFANIE MO Rep #: [id number] : 1995 Provider: Dr. Alida barros MD Age/Sex: 27/F Location: [facility] Status: Signed Intake Vital Signs 12/02/22 08:46 01/14/23 08:40 01/14/23 08:42 Height 5 ft 8 in 5 ft 8 in 5 ft 8 in Weight: 220 lb 4 oz BMI 33.5 BP 108/71 Intake Visit Reasons: 36 WK OB Director Telemetry Required: No Is patient in pain?: No Allergies No Known Allergies Allergy (Verified 01/14/23 08:41) Medications escitalopram oxalate 5 mg tablet (Lexapro) 5 mg PO DAILY 06/21/22 [History Confirmed 01/14/23] multivitamin no.47-iron fum 27 mg-folate no.1 1 mg-dha 300 mg capsule (PNV-DHA) cap PO 06/27/22 [History Confirmed 01/14/23] doxylamine succinate 25 mg tablet (Unisom (doxylamine)) 25 mg PO QHS PRN 08/06/22 [History Confirmed 01/14/23] promethazine 12.5 mg tablet 12.5 mg PO Q6H PRN nausea and vomiting 30 days #60 tabs 08/09/22 [Rx Confirmed 01/14/23] omeprazole 20 mg capsule,delayed release 20 mg PO DAILY #30 caps 01/01/23 [Rx Confirmed 01/14/23] Last Menstrual Period: 05/03/22 Zika: Zika virus screening: Negative : No PFSH PFSH Medical History History of anxiety Psoriasis Family History Grandmother Diabetes Breast cancer, Onset Age: 67 maternal Grandfather Hypertension Grandmother Breast cancer, Onset Age: 75 paternal- of Covid before treatment of breast cancer completed Social History adopted: No household members: spouse housing: house 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 occupational status: employed 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 and animals: Yes (Not managing litterbox) pets and animals: cat(s) history of recent travel: Yes ([place] in January) out of state: Yes out of country: Yes sexually active: Yes Smoking Status: Never smoker alcohol intake: never substance use type: does not use well-balanced diet: daily or most days caffeine: No eating out: 1-3 times/week during the past year weight has: remained stable what type of physical activity do you participate in: weight training frequency: 3-4 times per week duration: 30-45 minutes/day lala/confucianist: None seatbelt use: always do you feel safe at home: Yes additional social history: Deonte- Works at a [employer] History 2 Elective abortions Hx Para 0 Spontaneous abortions 1 Hx # Term Pregnancies Ectopic pregnancies Hx # Pregnancies Multiple births # of living children Past Pregnancies Del. Date Name GA/Weeks Outcome Route Bth Weight Gen Labor Lgth Anesthesia Del Locatn Provider FOB 05/03/22 chemical HPI 36 WK OB Details: TIFFANIE MO is a 27 year old who presents for routine OB visit. OB Visit DARLENE Calculator Estimated Delivery Date Method Current WG Current Estimate 02/07/23 LMP (Certain) 36w 4d Expected Delivery Route/Plan Labor Preferences- CB/BF classes: done labor support person: deonte and mom Lynnette labor intervention preferences: none pain management options preferred: plans on epidural cut cord/dad catch: considering : yes PP control planned: [] discussed possible routes of delivery and associated risks: [] special requests: [] Specific Issue/Plans Covid status: discussed Flu vaccine: encouraged Tdap vaccine: given Rhogam: na LARC form signed: declined movement and labor precautions reviewed. Problem list reviewed and updated with the most current plan of care details and appropriate orders placed. Relevant counseling for the gestational age provided. Continue routine care and follow up unless otherwise noted in visit notes/problem list details Initial Weight: Not Recorded Date -???-???-???-???-???-???-??? -???-???-???-???-???- EGA Weight BP Urine Prot -???-???-???-???-???-???-??? -???-???-???-???-???- Glucose FHR FuHt Pres Dilation -???-???-???-???-???-???-??? -???-???-???-???-???- Effaced St Visit Note 07/08/22 -???-???-???-???-???-???-??? -???-???-???-???-???- 9w 3d 193 lb 136/82 -???-???-???-???-???-???-??? -???-???-???-???-???- 160 -???-???-???-???-???-???-??? -???-???-???-???-???- SM- CRL 2.48 cm cons with LMP 08/06/22 -???-???-???-???-???-???-??? -???-???-???-???-???- 13w 4d 195 lb 133/86 Negative -???-???-???-???-???-???-??? -???-???-???-???-???- Negative 134 -???-???-???-???-???-???-??? -???-???-???-???-???- JV- still a little nauseated. no other complaints. normal NIPT. 09/03/22 -???-???-???-???-???-???-??? -???-???-???-???-???- 17w 4d 199 lb 2 oz 108/72 Negative -???-???-???-???-???-???-??? -???-???-???-???-???- Negative 153 -???-???-???-???-???-???-??? -???-???-???-???-???- MH-No Concer ns. No VB, cramping. [facility] 09/2309/18/22 -???-???-???-???-???-???-??? -???-???-???-???-???- 19w 5d 196 lb 2 oz 114/76 -???-???-???-???-???-???-??? -???-???-???-???-???- 143 -???-???-???-???-???-???-??? -???-???-???-???-???- LC- no vb/cr amping. fell yesterday onto bottom. in today for FHT. 09/30/22 -???-???-???-???-???-???-??? -???-???-???-???-???- 21w 3d 202 lb 2 oz 113/71 Negative -???-???-???-???-???-???-??? -???-???-???-???-???- Negative 145 -???-???-???-???-???-???-??? -???-???-???-???-???- LC- no cramp ing/vb/lof. anatomy LC- no cramping/vb/lof. anatomy no rmal. 10/29/22 -???-???-???-???-???-???-??? -???-???-???-???-???- 25w 4d 206 lb 6 oz 116/76 Negative -???-???-???-???-???-???-??? -???-???-???-???-???- Negative 145 26 -???-???-???-???-???-???-??? -???-???-???-???-???- SM- no vb lo f good fm no regular ctx 11/18/22 -???-???-???-???-???-???-??? -???-???-???-???-???- 28w 3d 213 lb 6 oz 99/57 Negative -???-???-???-???-???-???-??? -???-???-???-???-???- Negative 140 28 -???-???-???-???-???-???-??? -???-???-???-???-???- LC- doing we ll. no vb/lof/ctx. good fm. normal 28 week labs. LC- doing well. no vb/lof/ctx. goo d fm. normal 28 week labs. larc discussed and signed 12/02/22 -???-???-???-???-???-???-??? -???-???-???-???-???- 30w 3d 215 lb 112/72 Negative -???-???-???-???-???-???-??? -???-???-???-???-???- Negative 160 30 -???-???-???-???-???-???-??? -???-???-???-???-???- SM- no vb lo f good fm no regular ctx 12/18/22 -???-???-???-???-???-???-??? -???-???-???-???-???- 32w 5d 216 lb 117/75 Negative -???-???-???-???-???-???-??? -???-???-???-???-???- Negative 159 32 -???-???-???-???-???-???-??? -???-???-???-???-???- CIERRA- seth langley discussed, no complaints today. plan discussed briefly but she really does not have many requests after going to the just breathe class. 01/01/23 -???-???-???-???-???-???-??? -???-???-???-???-???- 34w 5d 219 lb 8 oz 112/77 Negative -???-???-???-???-???-???-??? -???-???-???-???-???- Negative 164 34 -???-???-???-???-???-???-??? -???-???-???-???-???- CIERRA- still preciado s indigestion. will try omeprazole. plan for gbs next visit. 01/14/23 -???-???-???-???-???-???-??? -???-???-???-???-???- 36w 4d 220 lb 4 oz 108/71 -???-???-???-???-???-???-??? -???-???-???-???-???- 145 36 Cephalic 0.5 -???-???-???-???-???-???-??? -???-???-???-???-???- -2 SM- no vb lof good fm n oregular ctxgbs collected ACOG First Trimester First Trimester: Discussed Second Trimester Second Trimester: Signs and Symptoms of Labor, Selecting a care provider, Reproductive Life Planning Contreception, Care Planning, Depression/Anxiety and Intimate Partner Violence; Discussed Tobacco Cessation Third Trimester Third Trimester: Pain Management Plans, Labor support person(s), Immediate Larc, Movement Monitoring, Signs and Symptoms of Preeclampsia and [place] [facility] Diagnostics Diagnostics Diagnostics: Blood Type A POSITIVE Antibody Screen NEGATIVE Glucose 1 Hr 50 gm 91 mg/dL (70-140) HIV 1 2 Antibody Non-Reactive (Nonreactive) Rubella IgG Antibody Reactive (Nonreactive) Hgb 12.5 g/dL (12.0-15.0) Hct 37.9 % (37-47) Chlamydia DNA (JENNI) Negative (Negative) N.gonorrhoeae DNA (JENNI) Negative (Negative) Details: HIV: Urine Culture: Sequential Screen: NIPT Screen: Coding Level of Care Code OB Routine Diagnoses Need for Tdap vaccination Z23 Supervision of high risk , antepartum O09.90 Z3A.36 Weeks of gestation: 36 weeks Assessment and Plan Assessment and Plan (1) Need for Tdap vaccination: Status: Acute Comment: Given 11/18/22 (2) Supervision of high risk , antepartum: Status: Acute Comment: PRR , DARLENE 02/07/23 boy De Baca Deonte (3) : Status: Acute Qualifiers: Weeks of gestation: 36 weeks Qualified Code(s): Z3A.36 - 36 weeks gestation of Comment: NIPT low risk, declind ntd and Carrier testing. anatomy nl. Orders: Orders POC Urinalysis 2 Dip (Clinic) Today Culture, Group B Streptococcus Today O09.90 - Supervision of high risk , unspecified, unspecified trimester 01/14/23 0914 <Electronically signed by Alida Mccrary MD> Date Alida Mccrary MD Cosigner Signature: Date (if applicable) CC: Janelle Leandro DO Work Phone: Start: 01-01-2023 End: 01-01-2023 [employer] Office Visit Report Procedure Note: See Note; NOTES: [facility] [address] [place] [address] OFFICE VISIT Date of Service: 01/01/23 MR#: [id number] Acct: [id number] Name: TIFFANIE MO Rep #: [id number] : 1995 Provider: Dr. Val Vela DO Age/Sex: 27/F Location: [facility] Status: Signed Intake Vital Signs 01/01/23 09:18 01/01/23 09:19 Height 5 ft 8 in 5 ft 8 in Weight: 219 lb 8 oz BMI 33.3 BP 112/77 Intake Visit Reasons: 34 WK OB Director Telemetry Required: No Is patient in pain?: No Allergies No Known Allergies Allergy (Verified 01/01/23 09:18) Medications escitalopram oxalate 5 mg tablet (Lexapro) 5 mg PO DAILY 06/21/22 [History Confirmed 01/01/23] multivitamin no.47-iron fum 27 mg-folate no.1 1 mg-dha 300 mg capsule (PNV-DHA) cap PO 06/27/22 [History Confirmed 01/01/23] doxylamine succinate 25 mg tablet (Unisom (doxylamine)) 25 mg PO QHS PRN 08/06/22 [History Confirmed 01/01/23] promethazine 12.5 mg tablet 12.5 mg PO Q6H PRN nausea and vomiting 30 days #60 tabs 08/09/22 [Rx Confirmed 01/01/23] omeprazole 20 mg capsule,delayed release 20 mg PO DAILY #30 caps 01/01/23 [Rx Confirmed 01/01/23] Last Menstrual Period: 05/03/22 Zika: Zika virus screening: Negative : No PFSH PFSH Medical History History of anxiety Psoriasis Family History Grandmother Diabetes Breast cancer, Onset Age: 67 maternal Grandfather Hypertension Grandmother Breast cancer, Onset Age: 75 paternal- of Covid before treatment of breast cancer completed Social History adopted: No household members: spouse housing: house current occupational status: employed 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 and animals: Yes (Not managing litterbox) pets and animals: cat(s) history of recent travel: Yes ([place] in January) out of state: Yes out of country: Yes sexually active: Yes Smoking Status: Never smoker alcohol intake: never substance use type: does not use well-balanced diet: daily or most days caffeine: No eating out: 1-3 times/week during the past year weight has: remained stable what type of physical activity do you participate in: weight training frequency: 3-4 times per week duration: 30-45 minutes/day lala/confucianist: None seatbelt use: always do you feel safe at home: Yes additional social history: Deonte- Works at a [employer] History 2 Elective abortions Hx Para 0 Spontaneous abortions 1 Hx # Term Pregnancies Ectopic pregnancies Hx # Pregnancies Multiple births # of living children Past Pregnancies Del. Date Name GA/Weeks Outcome Route Bth Weight Infant Gen Labor Lgth Anesthesia Del Locatn Provider FOB 05/03/22 chemical HPI 34 WK OB Details: TIFFANIE MO is a 27 year old who presents for routine OB visit. OB Visit DARLENE Calculator Estimated Delivery Date Method Current WG Current Estimate 02/07/23 LMP (Certain) 34w 5d Expected Delivery Route/Plan Labor Preferences- CB/BF classes: done labor support person: deonte and mom Lynnette labor intervention preferences: none pain management options preferred: plans on epidural cut cord/dad catch: considering : yes PP control planned: [] discussed possible routes of delivery and associated risks: [] special requests: [] Specific Issue/Plans Covid status: discussed Flu vaccine: encouraged Tdap vaccine: given Rhogam: na LARC form signed: declined movement and labor precautions reviewed. Problem list reviewed and updated with the most current plan of care details and appropriate orders placed. Relevant counseling for the gestational age provided. Continue routine care and follow up unless otherwise noted in visit notes/problem list details Initial Weight: Not Recorded Date -???-???-???-???-???-???-??? -???-???-???-???-???- EGA Weight BP Urine Prot -???-???-???-???-???-???-??? -???-???-???-???-???- Glucose FHR FuHt Pres Dilation -???-???-???-???-???-???-??? -???-???-???-???-???- Effaced St Visit Note 07/08/22 -???-???-???-???-???-???-??? -???-???-???-???-???- 9w 3d 193 lb 136/82 -???-???-???-???-???-???-??? -???-???-???-???-???- 160 -???-???-???-???-???-???-??? -???-???-???-???-???- SM- CRL 2.48 cm cons with LMP 08/06/22 -???-???-???-???-???-???-??? -???-???-???-???-???- 13w 4d 195 lb 133/86 Negative -???-???-???-???-???-???-??? -???-???-???-???-???- Negative 134 -???-???-???-???-???-???-??? -???-???-???-???-???- JV- still a little nauseated. no other complaints. normal NIPT. 09/03/22 -???-???-???-???-???-???-??? -???-???-???-???-???- 17w 4d 199 lb 2 oz 108/72 Negative -???-???-???-???-???-???-??? -???-???-???-???-???- Negative 153 -???-???-???-???-???-???-??? -???-???-???-???-???- MH-No Concer ns. No VB, cramping. MFM US 09/2309/18/22 -???-???-???-???-???-???-??? -???-???-???-???-???- 19w 5d 196 lb 2 oz 114/76 -???-???-???-???-???-???-??? -???-???-???-???-???- 143 -???-???-???-???-???-???-??? -???-???-???-???-???- LC- no vb/cr amping. fell yesterday onto bottom. in today for FHT. 09/30/22 -???-???-???-???-???-???-??? -???-???-???-???-???- 21w 3d 202 lb 2 oz 113/71 Negative -???-???-???-???-???-???-??? -???-???-???-???-???- Negative 145 -???-???-???-???-???-???-??? -???-???-???-???-???- LC- no cramp ing/vb/lof. anatomy LC- no cramping/vb/lof. anatomy no rmal. 10/29/22 -???-???-???-???-???-???-??? -???-???-???-???-???- 25w 4d 206 lb 6 oz 116/76 Negative -???-???-???-???-???-???-??? -???-???-???-???-???- Negative 145 26 -???-???-???-???-???-???-??? -???-???-???-???-???- SM- no vb lo f good fm no regular ctx 11/18/22 -???-???-???-???-???-???-??? -???-???-???-???-???- 28w 3d 213 lb 6 oz 99/57 Negative -???-???-???-???-???-???-??? -???-???-???-???-???- Negative 140 28 -???-???-???-???-???-???-??? -???-???-???-???-???- LC- doing we ll. no vb/lof/ctx. good fm. normal 28 week labs. LC- doing well. no vb/lof/ctx. goo d fm. normal 28 week labs. larc discussed and signed 12/02/22 -???-???-???-???-???-???-??? -???-???-???-???-???- 30w 3d 215 lb 112/72 Negative -???-???-???-???-???-???-??? -???-???-???-???-???- Negative 160 30 -???-???-???-???-???-???-??? -???-???-???-???-???- SM- no vb lo f good fm no regular ctx 12/18/22 -???-???-???-???-???-???-??? -???-???-???-???-???- 32w 5d 216 lb 117/75 Negative -???-???-???-???-???-???-??? -???-???-???-???-???- Negative 159 32 -???-???-???-???-???-???-??? -???-???-???-???-???- JV- seth de la rosa shivam discussed, no complaints today. plan discussed briefly but she really does not have many requests after going to the just breathe class. 01/01/23 -???-???-???-???-???-???-??? -???-???-???-???-???- 34w 5d 219 lb 8 oz 112/77 Negative -???-???-???-???-???-???-??? -???-???-???-???-???- Negative 164 34 -???-???-???-???-???-???-??? -???-???-???-???-???- JV- still preciado s indigestion. will try omeprazole. plan for gbs next visit. ACOG First Trimester First Trimester: Discussed Second Trimester Second Trimester: Signs and Symptoms of Labor, Selecting a care provider, Reproductive Life Planning Contreception, Care Planning, Depression/Anxiety and Intimate Partner Violence; Discussed Tobacco Cessation Third Trimester Third Trimester: Pain Management Plans, Labor support person(s), Immediate Larc, Movement Monitoring, Signs and Symptoms of Preeclampsia and Education Diagnostics Diagnostics Diagnostics: Blood Type A POSITIVE Antibody Screen NEGATIVE Glucose 1 Hr 50 gm 91 mg/dL (70-140) HIV 1 2 Antibody Non-Reactive (Nonreactive) Rubella IgG Antibody Reactive (Nonreactive) Hgb 12.5 g/dL (12.0-15.0) Hct 37.9 % (37-47) Chlamydia DNA (JENNI) Negative (Negative) N.gonorrhoeae DNA (JENNI) Negative (Negative) Details: HIV: Urine Culture: Sequential Screen: NIPT Screen: ROS Const Denies fever(s) GI Reports as per HPI and Denies abdominal pain Reports as per HPI, Denies abnormal vaginal bleeding, Denies dysuria and Denies vaginal discharge Exam Const General: healthy appearing, comfortable and no acute distress GI Inspection: normal to inspection Palpation: soft and nontender Results POC Urinalysis 2 Dip (Clinic) Office Urine Glucose Negative Last Edit by Gena Aaron on 01/01/23 09:35 Office Urine Protein Negative Last Edit by Gena Aaron on 01/01/23 09:35 Coding Level of Care Code OB Routine Diagnoses Need for Tdap vaccination Z23 Supervision of high risk , antepartum O09.90 Z3A.34 Weeks of gestation: 34 weeks Assessment and Plan Assessment and Plan (1) Need for Tdap vaccination: Status: Acute Comment: Given 11/18/22 (2) Supervision of high risk , antepartum: Status: Acute Comment: PRR , DARLENE 02/07/23 cecil Sheriff Deonte (3) : Status: Acute Qualifiers: Weeks of gestation: 34 weeks Qualified Code(s): Z3A.34 - 34 weeks gestation of Comment: NIPT low risk, declind ntd and Carrier testing. anatomy nl. Orders: Orders POC Urinalysis 2 Dip (Clinic) Today Medications: New omeprazole 20 mg PO DAILY 30 caps 4RF 01/01/23 0935 <Electronically signed by Val Earl DO> Date Val Earl DO Cosigner Signature: Date (if applicable) CC: Janelle Linton DO Work Phone: Start: 12-18-2022 End: 12-18-2022 [employer] Office Visit Report Procedure Note: See Note; NOTES: [facility] [address] [place], [place] [address] OFFICE VISIT Date of Service: 12/18/22 MR#: [id number] Acct: [id number] Name: TIFFANIE MO Rep #: [id number] : 1995 Provider: Dr. Val Vela DO Age/Sex: 27/F Location: [facility] [place] Status: Signed Intake Vital Signs 10/29/22 08:41 12/18/22 08:30 12/18/22 08:30 Height 5 ft 8 in 5 ft 8 in 5 ft 8 in Weight: 216 lb BMI 32.8 BP 117/75 Intake Visit Reasons: 32 WK OB Is patient in pain?: No Allergies No Known Allergies Allergy (Verified 12/18/22 08:30) Medications escitalopram oxalate 5 mg tablet (Lexapro) 5 mg PO DAILY 06/21/22 [History Confirmed 12/18/22] multivitamin no.47-iron fum 27 mg-folate no.1 1 mg-dha 300 mg capsule (PNV-DHA) cap PO 06/27/22 [History Confirmed 12/18/22] doxylamine succinate 25 mg tablet (Unisom (doxylamine)) 25 mg PO QHS PRN 08/06/22 [History Confirmed 12/18/22] promethazine 12.5 mg tablet 12.5 mg PO Q6H PRN nausea and vomiting 30 days #60 tabs 08/09/22 [Rx Confirmed 12/18/22] Last Menstrual Period: 05/03/22 Zika: Zika virus screening: Negative : No PFSH PFSH Medical History History of anxiety Psoriasis Family History Grandmother Diabetes Breast cancer, Onset Age: 67 maternal Grandfather Hypertension Grandmother Breast cancer, Onset Age: 75 paternal- of Covid before treatment of breast cancer completed Social History adopted: No household members: spouse housing: house current occupational status: employed 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 and animals: Yes (Not managing litterbox) pets and animals: cat(s) history of recent travel: Yes ([place] in January) out of state: Yes out of country: Yes sexually active: Yes Smoking Status: Never smoker alcohol intake: never substance use type: does not use well-balanced diet: daily or most days caffeine: No eating out: 1-3 times/week during the past year weight has: remained stable what type of physical activity do you participate in: weight training frequency: 3-4 times per week duration: 30-45 minutes/day lala/confucianist: None seatbelt use: always do you feel safe at home: Yes additional social history: Deonte- Works at a [employer] History 2 Elective abortions Hx Para 0 Spontaneous abortions 1 Hx # Term Pregnancies Ectopic pregnancies Hx # Pregnancies Multiple births # of living children Past Pregnancies Del. Date Name GA/Weeks Outcome Route Bth Weight Infant Gen Labor Lgth Anesthesia Del Locatn Provider FOB 05/03/22 chemical HPI 32 WK OB Details: TIFFANIE MO is a 27 year old who presents for routine OB visit. OB Visit DARLENE Calculator Estimated Delivery Date Method Current WG Current Estimate 02/07/23 LMP (Certain) 32w 5d Expected Delivery Route/Plan Labor Preferences- CB/BF classes: done labor support person: deonte and mom Lynnette labor intervention preferences: none pain management options preferred: plans on epidural cut cord/dad catch: considering : yes PP control planned: [] discussed possible routes of delivery and associated risks: [] special requests: [] Specific Issue/Plans Covid status: discussed Flu vaccine: encouraged Tdap vaccine: given Rhogam: na LARC form signed: declined movement and labor precautions reviewed. Problem list reviewed and updated with the most current plan of care details and appropriate orders placed. Relevant counseling for the gestational age provided. Continue routine care and follow up unless otherwise noted in visit notes/problem list details Initial Weight: Not Recorded Date -???-???-???-???-???-???-??? -???-???-???-???-???- EGA Weight BP Urine Prot -???-???-???-???-???-???-??? -???-???-???-???-???- Glucose FHR FuHt Pres Dilation -???-???-???-???-???-???-??? -???-???-???-???-???- Effaced St Visit Note 07/08/22 -???-???-???-???-???-???-??? -???-???-???-???-???- 9w 3d 193 lb 136/82 -???-???-???-???-???-???-??? -???-???-???-???-???- 160 -???-???-???-???-???-???-??? -???-???-???-???-???- SM- CRL 2.48 cm cons with LMP 08/06/22 -???-???-???-???-???-???-??? -???-???-???-???-???- 13w 4d 195 lb 133/86 Negative -???-???-???-???-???-???-??? -???-???-???-???-???- Negative 134 -???-???-???-???-???-???-??? -???-???-???-???-???- JV- still a little nauseated. no other complaints. normal NIPT. 09/03/22 -???-???-???-???-???-???-??? -???-???-???-???-???- 17w 4d 199 lb 2 oz 108/72 Negative -???-???-???-???-???-???-??? -???-???-???-???-???- Negative 153 -???-???-???-???-???-???-??? -???-???-???-???-???- -No Concer ns. No VB, cramping. [facility] 09/2309/18/22 -???-???-???-???-???-???-??? -???-???-???-???-???- 19w 5d 196 lb 2 oz 114/76 -???-???-???-???-???-???-??? -???-???-???-???-???- 143 -???-???-???-???-???-???-??? -???-???-???-???-???- LC- no vb/cr amping. fell yesterday onto bottom. in today for FHT. 09/30/22 -???-???-???-???-???-???-??? -???-???-???-???-???- 21w 3d 202 lb 2 oz 113/71 Negative -???-???-???-???-???-???-??? -???-???-???-???-???- Negative 145 -???-???-???-???-???-???-??? -???-???-???-???-???- LC- no cramp ing/vb/lof. anatomy LC- no cramping/vb/lof. anatomy no rmal. 10/29/22 -???-???-???-???-???-???-??? -???-???-???-???-???- 25w 4d 206 lb 6 oz 116/76 Negative -???-???-???-???-???-???-??? -???-???-???-???-???- Negative 145 26 -???-???-???-???-???-???-??? -???-???-???-???-???- SM- no vb lo f good fm no regular ctx 11/18/22 -???-???-???-???-???-???-??? -???-???-???-???-???- 28w 3d 213 lb 6 oz 99/57 Negative -???-???-???-???-???-???-??? -???-???-???-???-???- Negative 140 28 -???-???-???-???-???-???-??? -???-???-???-???-???- LC- doing we ll. no vb/lof/ctx. good fm. normal 28 week labs. LC- doing well. no vb/lof/ctx. goo d fm. normal 28 week labs. larc discussed and signed 12/02/22 -???-???-???-???-???-???-??? -???-???-???-???-???- 30w 3d 215 lb 112/72 Negative -???-???-???-???-???-???-??? -???-???-???-???-???- Negative 160 30 -???-???-???-???-???-???-??? -???-???-???-???-???- SM- no vb lo f good fm no regular ctx 12/18/22 -???-???-???-???-???-???-??? -???-???-???-???-???- 32w 5d 216 lb 117/75 Negative -???-???-???-???-???-???-??? -???-???-???-???-???- Negative 159 32 -???-???-???-???-???-???-??? -???-???-???-???-???- Victor MBebo- seth rj nts discussed, no complaints today. plan discussed briefly but she really does not have many requests after going to the just breathe class. ACOG First Trimester First Trimester: Discussed Second Trimester Second Trimester: Signs and Symptoms of Labor, Selecting a care provider, Reproductive Life Planning Contreception, Care Planning, Depression/Anxiety and Intimate Partner Violence; Discussed Tobacco Cessation Third Trimester Third Trimester: Pain Management Plans, Labor support person(s), Immediate Larc, Movement Monitoring, Signs and Symptoms of Preeclampsia and [place] [facility] Diagnostics Diagnostics Diagnostics: Blood Type A POSITIVE Antibody Screen NEGATIVE Glucose 1 Hr 50 gm 91 mg/dL (70-140) HIV 1 2 Antibody Non-Reactive (Nonreactive) Rubella IgG Antibody Reactive (Nonreactive) Hgb 12.5 g/dL (12.0-15.0) Hct 37.9 % (37-47) Chlamydia DNA (JENNI) Negative (Negative) N.gonorrhoeae DNA (JENNI) Negative (Negative) Details: HIV: Urine Culture: Sequential Screen: NIPT Screen: ROS Const Denies fever(s) GI Reports as per HPI and Denies abdominal pain Reports as per HPI, Denies abnormal vaginal bleeding, Denies dysuria and Denies vaginal discharge Exam Const General: healthy appearing, comfortable and no acute distress GI Inspection: normal to inspection Palpation: soft and nontender Results POC Urinalysis 2 Dip (Clinic) Office Urine Glucose Negative Last Edit by Gena Aaron on 12/18/22 08:36 Office Urine Protein Negative Last Edit by Gena Aaron on 12/18/22 08:36 Coding Level of Care Code OB Routine Diagnoses Need for Tdap vaccination Z23 Supervision of high risk , antepartum O09.90 Z3A.32 Weeks of gestation: 32 weeks Assessment and Plan Assessment and Plan (1) Need for Tdap vaccination: Status: Acute Comment: Given 11/18/22 (2) Supervision of high risk , antepartum: Status: Acute Comment: PRR , DARLENE 02/07/23 boy Jaziel Deonte (3) : Status: Acute Qualifiers: Weeks of gestation: 32 weeks Qualified Code(s): Z3A.32 - 32 weeks gestation of Comment: NIPT low risk, declind ntd and Carrier testing. anatomy nl. Orders: Orders POC Urinalysis 2 Dip (Clinic) Today 12/18/22 09 <Electronically signed by Val Earl DO> Date Val Earl DO Cosigner Signature: Date (if applicable) CC: Janelle Linton DO Work Phone: Start: 2022 End: 2022 [employer] Office Visit Report Procedure Note: See Note; NOTES: [facility] [address] [place], [place] [address]angel[address] [place] [address] OFFICE VISIT Date of Service: 12/02/22 MR#: [id number] Acct: [id number] Name: TIFFANIE MO Rep #: [id number] : 1995 Provider: Dr. Alida barros MD Age/Sex: 27/F Location: [facility] [place] Status: Signed Intake Vital Signs 12/02/22 08:41 12/02/22 08:46 Height 5 ft 8 in 5 ft 8 in Weight: 215 lb BMI 32.6 BP 112/72 Intake Visit Reasons: 30 WK OB Director Telemetry Required: No Is patient in pain?: No Allergies No Known Allergies Allergy (Verified 12/02/22 08:45) Medications escitalopram oxalate 5 mg tablet (Lexapro) 5 mg PO DAILY 06/21/22 [History Confirmed 12/02/22] multivitamin no.47-iron fum 27 mg-folate no.1 1 mg-dha 300 mg capsule (PNV-DHA) cap PO 06/27/22 [History Confirmed 12/02/22] doxylamine succinate 25 mg tablet (Unisom (doxylamine)) 25 mg PO QHS PRN 08/06/22 [History Confirmed 12/02/22] promethazine 12.5 mg tablet 12.5 mg PO Q6H PRN nausea and vomiting 30 days #60 tabs 08/09/22 [Rx Confirmed 12/02/22] Last Menstrual Period: 05/03/22 Zika: Zika virus screening: Negative : No PFSH PFSH Medical History History of anxiety Psoriasis Family History Grandmother Diabetes Breast cancer, Onset Age: 67 maternal Grandfather Hypertension Grandmother Breast cancer, Onset Age: 75 paternal- of Covid before treatment of breast cancer completed Social History adopted: No household members: spouse housing: house current occupational status: employed 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 and animals: Yes (Not managing litterbox) pets and animals: cat(s) history of recent travel: Yes ([place] in January) out of state: Yes out of country: Yes sexually active: Yes Smoking Status: Never smoker alcohol intake: never substance use type: does not use well-balanced diet: daily or most days caffeine: No eating out: 1-3 times/week during the past year weight has: remained stable what type of physical activity do you participate in: weight training frequency: 3-4 times per week duration: 30-45 minutes/day lala/confucianist: None seatbelt use: always do you feel safe at home: Yes additional social history: Deonte- Works at a [employer] History 2 Elective abortions Hx Para 0 Spontaneous abortions 1 Hx # Term Pregnancies Ectopic pregnancies Hx # Pregnancies Multiple births # of living children Past Pregnancies Del. Date Name GA/Weeks Outcome Route Bth Weight Infant Gen Labor Lgth Anesthesia Del Hussainatn Provider FOB 05/03/22 chemical HPI 30 WK OB Details: TIFFANIE MO is a 27 year old who presents for routine OB visit. OB Visit DARLENE Calculator Estimated Delivery Date Method Current WG Current Estimate 02/07/23 LMP (Certain) 30w 3d Expected Delivery Route/Plan Labor Preferences- CB/BF classes: done labor support person: deonte and mom Lynnette labor intervention preferences: none pain management options preferred: plans on epidural cut cord/dad catch: considering : yes PP control planned: [] discussed possible routes of delivery and associated risks: [] special requests: [] Specific Issue/Plans Covid status: discussed Flu vaccine: encouraged Tdap vaccine: given Rhogam: na LARC form signed: declined movement and labor precautions reviewed. Problem list reviewed and updated with the most current plan of care details and appropriate orders placed. Relevant counseling for the gestational age provided. Continue routine care and follow up unless otherwise noted in visit notes/problem list details Initial Weight: Not Recorded Date -???-???-???-???-???-???-??? -???-???-???-???-???- EGA Weight BP Urine Prot -???-???-???-???-???-???-??? -???-???-???-???-???- Glucose FHR FuHt Pres Dilation -???-???-???-???-???-???-??? -???-???-???-???-???- Effaced St Visit Note 07/08/22 -???-???-???-???-???-???-??? -???-???-???-???-???- 9w 3d 193 lb 136/82 -???-???-???-???-???-???-??? -???-???-???-???-???- 160 -???-???-???-???-???-???-??? -???-???-???-???-???- SM- CRL 2.48 cm cons with LMP 08/06/22 -???-???-???-???-???-???-??? -???-???-???-???-???- 13w 4d 195 lb 133/86 Negative -???-???-???-???-???-???-??? -???-???-???-???-???- Negative 134 -???-???-???-???-???-???-??? -???-???-???-???-???- JV- still a little nauseated. no other complaints. normal NIPT. 09/03/22 -???-???-???-???-???-???-??? -???-???-???-???-???- 17w 4d 199 lb 2 oz 108/72 Negative -???-???-???-???-???-???-??? -???-???-???-???-???- Negative 153 -???-???-???-???-???-???-??? -???-???-???-???-???- MH-No Concer ns. No VB, cramping. MFM US 09/2309/18/22 -???-???-???-???-???-???-??? -???-???-???-???-???- 19w 5d 196 lb 2 oz 114/76 -???-???-???-???-???-???-??? -???-???-???-???-???- 143 -???-???-???-???-???-???-??? -???-???-???-???-???- LC- no vb/cr amping. fell yesterday onto bottom. in today for FHT. 09/30/22 -???-???-???-???-???-???-??? -???-???-???-???-???- 21w 3d 202 lb 2 oz 113/71 Negative -???-???-???-???-???-???-??? -???-???-???-???-???- Negative 145 -???-???-???-???-???-???-??? -???-???-???-???-???- LC- no cramp ing/vb/lof. anatomy LC- no cramping/vb/lof. anatomy no rmal. 10/29/22 -???-???-???-???-???-???-??? -???-???-???-???-???- 25w 4d 206 lb 6 oz 116/76 Negative -???-???-???-???-???-???-??? -???-???-???-???-???- Negative 145 26 -???-???-???-???-???-???-??? -???-???-???-???-???- SM- no vb lo f good fm no regular ctx 11/18/22 -???-???-???-???-???-???-??? -???-???-???-???-???- 28w 3d 213 lb 6 oz 99/57 Negative -???-???-???-???-???-???-??? -???-???-???-???-???- Negative 140 28 -???-???-???-???-???-???-??? -???-???-???-???-???- LC- doing we ll. no vb/lof/ctx. good fm. normal 28 week labs. LC- doing well. no vb/lof/ctx. goo d fm. normal 28 week labs. larc discussed and signed 12/02/22 -???-???-???-???-???-???-??? -???-???-???-???-???- 30w 3d 215 lb 112/72 Negative -???-???-???-???-???-???-??? -???-???-???-???-???- Negative 160 30 -???-???-???-???-???-???-??? -???-???-???-???-???- SM- no vb lo f good fm no regular ctx ACOG First Trimester First Trimester: Discussed Second Trimester Second Trimester: Signs and Symptoms of Labor, Selecting a care provider, Reproductive Life Planning Contreception, Care Planning, Depression/Anxiety and Intimate Partner Violence; Discussed Tobacco Cessation Third Trimester Third Trimester: Pain Management Plans, Labor support person(s), Immediate Larc, Movement Monitoring, Signs and Symptoms of Preeclampsia and Education Diagnostics Diagnostics Diagnostics: Blood Type A POSITIVE Antibody Screen NEGATIVE Glucose 1 Hr 50 gm 91 mg/dL (70-140) HIV 1 2 Antibody Non-Reactive (Nonreactive) Rubella IgG Antibody Reactive (Nonreactive) Hgb 12.5 g/dL (12.0-15.0) Hct 37.9 % (37-47) Chlamydia DNA (JENNI) Negative (Negative) N.gonorrhoeae DNA (JENNI) Negative (Negative) Details: HIV: Urine Culture: Sequential Screen: NIPT Screen: Results POC Urinalysis 2 Dip (Clinic) Office Urine Glucose Negative Last Edit by Shanika Jansen on 12/02/22 08:48 Office Urine Protein Negative Last Edit by Shanika Jansen on 12/02/22 08:48 Coding Level of Care Code OB Routine Diagnoses Need for Tdap vaccination Z23 Supervision of high risk , antepartum O09.90 Z3A.30 Weeks of gestation: 30 weeks Assessment and Plan Assessment and Plan (1) Need for Tdap vaccination: Status: Acute Comment: Given 11/18/22 (2) Supervision of high risk , antepartum: Status: Acute Comment: PRR , DARLENE 02/07/23 boy Jaziel Deonte (3) : Status: Acute Qualifiers: Weeks of gestation: 30 weeks Qualified Code(s): Z3A.30 - 30 weeks gestation of Comment: NIPT low risk, declind ntd and Carrier testing. anatomy nl. Orders: Orders POC Urinalysis 2 Dip (Clinic) Today 12/02/22 0858 <Electronically signed by Alida Mccrary MD> Date Alida Mccrary MD Cosigner Signature: Date (if applicable) CC: Janelle Linton DO Work Phone: Start: 11-18-2022 End: 11-18-2022 [employer] Office Visit Report Procedure Note: See Note; NOTES: [facility] [address] [place] [address] OFFICE VISIT Date of Service: 11/18/22 MR#: [id number] Acct: [id number] Name: TIFFANIE MO Rep #: [id number] : 1995 Provider: ELICIA sanchez Age/Sex: 26/F Location: [facility] [place] Status: Signed Intake Vital Signs 11/18/22 08:13 11/18/22 08:14 Height 5 ft 8 in 5 ft 8 in Weight: 213 lb 6 oz BMI 32.4 BP 99/57 L Intake Visit Reasons: 28 WK OB Director Telemetry Required: No Is patient in pain?: No Allergies No Known Allergies Allergy (Verified 11/18/22 08:13) Medications escitalopram oxalate 5 mg tablet (Lexapro) 5 mg PO DAILY 06/21/22 [History Confirmed 11/18/22] multivitamin no.47-iron fum 27 mg-folate no.1 1 mg-dha 300 mg capsule (PNV-DHA) cap PO 06/27/22 [History Confirmed 11/18/22] doxylamine succinate 25 mg tablet (Unisom (doxylamine)) 25 mg PO QHS PRN 08/06/22 [History Confirmed 11/18/22] promethazine 12.5 mg tablet 12.5 mg PO Q6H PRN nausea and vomiting 30 days #60 tabs 08/09/22 [Rx Confirmed 11/18/22] Last Menstrual Period: 05/03/22 Zika: Zika virus screening: Negative : No PFSH PFSH Medical History History of anxiety Psoriasis Family History Grandmother Diabetes Breast cancer, Onset Age: 67 maternal Grandfather Hypertension Grandmother Breast cancer, Onset Age: 75 paternal- of Covid before treatment of breast cancer completed Social History adopted: No household members: spouse housing: house current occupational status: employed 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 and animals: Yes (Not managing litterbox) pets and animals: cat(s) history of recent travel: Yes ([place] in January) out of state: Yes out of country: Yes sexually active: Yes Smoking Status: Never smoker alcohol intake: never substance use type: does not use well-balanced diet: daily or most days caffeine: No eating out: 1-3 times/week during the past year weight has: remained stable what type of physical activity do you participate in: weight training frequency: 3-4 times per week duration: 30-45 minutes/day lala/confucianist: None seatbelt use: always do you feel safe at home: Yes additional social history: Deonte- Works at a [employer] History 2 Elective abortions Hx Para 0 Spontaneous abortions 1 Hx # Term Pregnancies Ectopic pregnancies Hx # Pregnancies Multiple births # of living children Past Pregnancies Del. Date Name GA/Weeks Outcome Route Bth Weight Gen Labor Lgth Anesthesia Del Locatn Provider FOB 05/03/22 chemical HPI 28 WK OB Details: TIFFANIE MO is a 26 year old who presents for routine OB visit. OB Visit DARLENE Calculator Estimated Delivery Date Method Current WG Current Estimate 02/07/23 LMP (Certain) 28w 3d Expected Delivery Route/Plan Labor Preferences- CB/BF classes: enc labor support person: [] labor intervention preferences: [] pain management options preferred: [] cut cord/dad catch: [] : [] PP control planned: [] discussed possible routes of delivery and associated risks: [] special requests: [] Specific Issue/Plans Covid status: discussed Flu vaccine: encouraged Tdap vaccine: [] Rhogam: [] LARC form signed: [] Problem list reviewed and updated with the most current plan of care details and appropriate orders placed. Relevant counseling for the gestational age provided. Continue routine care and follow up unless otherwise noted in visit notes/problem list details Initial Weight: Not Recorded Date -???-???-???-???-???-???-??? -???-???-???-???-???- EGA Weight BP Urine Prot -???-???-???-???-???-???-??? -???-???-???-???-???- Glucose FHR FuHt Pres Dilation -???-???-???-???-???-???-??? -???-???-???-???-???- Effaced St Visit Note 07/08/22 -???-???-???-???-???-???-??? -???-???-???-???-???- 9w 3d 193 lb 136/82 -???-???-???-???-???-???-??? -???-???-???-???-???- 160 -???-???-???-???-???-???-??? -???-???-???-???-???- SM- CRL 2.48 cm cons with LMP 08/06/22 -???-???-???-???-???-???-??? -???-???-???-???-???- 13w 4d 195 lb 133/86 Negative -???-???-???-???-???-???-??? -???-???-???-???-???- Negative 134 -???-???-???-???-???-???-??? -???-???-???-???-???- JV- still a little nauseated. no other complaints. normal NIPT. 09/03/22 -???-???-???-???-???-???-??? -???-???-???-???-???- 17w 4d 199 lb 2 oz 108/72 Negative -???-???-???-???-???-???-??? -???-???-???-???-???- Negative 153 -???-???-???-???-???-???-??? -???-???-???-???-???- MH-No Concer ns. No VB, cramping. MFM 09/2309/18/22 -???-???-???-???-???-???-??? -???-???-???-???-???- 19w 5d 196 lb 2 oz 114/76 -???-???-???-???-???-???-??? -???-???-???-???-???- 143 -???-???-???-???-???-???-??? -???-???-???-???-???- LC- no vb/cr amping. fell yesterday onto bottom. in today for FHT. 09/30/22 -???-???-???-???-???-???-??? -???-???-???-???-???- 21w 3d 202 lb 2 oz 113/71 Negative -???-???-???-???-???-???-??? -???-???-???-???-???- Negative 145 -???-???-???-???-???-???-??? -???-???-???-???-???- LC- no cramp ing/vb/lof. anatomy LC- no cramping/vb/lof. anatomy no rmal. 10/29/22 -???-???-???-???-???-???-??? -???-???-???-???-???- 25w 4d 206 lb 6 oz 116/76 Negative -???-???-???-???-???-???-??? -???-???-???-???-???- Negative 145 26 -???-???-???-???-???-???-??? -???-???-???-???-???- SM- no vb lo f good fm no regular ctx 11/18/22 -???-???-???-???-???-???-??? -???-???-???-???-???- 28w 3d 213 lb 6 oz 99/57 Negative -???-???-???-???-???-???-??? -???-???-???-???-???- Negative 140 28 -???-???-???-???-???-???-??? -???-???-???-???-???- LC- doing we ll. no vb/lof/ctx. good fm. normal 28 week labs. LC- doing well. no vb/lof/ctx. goo d fm. normal 28 week labs. larc discussed and signed ACOG First Trimester First Trimester: Discussed Second Trimester Second Trimester: Signs and Symptoms of Labor, Selecting a care provider, Reproductive Life Planning Contreception, Care Planning, Depression/Anxiety and Intimate Partner Violence; Discussed Tobacco Cessation Third Trimester Third Trimester: Pain Management Plans, Labor support person(s), Immediate Larc, Movement Monitoring, Signs and Symptoms of Preeclampsia and [place] Education Diagnostics Diagnostics Diagnostics: Blood Type A POSITIVE Antibody Screen NEGATIVE Glucose 1 Hr 50 gm 91 mg/dL (70-140) HIV 1 2 Antibody Non-Reactive (Nonreactive) Rubella IgG Antibody Reactive (Nonreactive) Hgb 12.5 g/dL (12.0-15.0) Hct 37.9 % (37-47) Chlamydia DNA (JENNI) Negative (Negative) N.gonorrhoeae DNA (JENNI) Negative (Negative) Details: HIV: Urine Culture: Sequential Screen: NIPT Screen: ROS Const Reports system reviewed and no additional complaints, except as documented GI Denies nausea and Denies vomiting Denies urinary hesitancy and Denies urinary urgency Exam Const Orientation: alert, awake and oriented x3 Resp Effort Inspection: normal respiratory effort, able to speak in complete sentences and symmetric chest movement GI Palpation: soft (gravid) OB/External Speculum: other (fundus appriopriate for GA) Results POC Urinalysis 2 Dip (Clinic) Office Urine Glucose Negative Last Edit by Gena Aaron on 11/18/22 08:24 Office Urine Protein Negative Last Edit by Gena Aaron on 11/18/22 08:24 Immunizations Adacel(Tdap Adolesn/Adult)(PF) Performing Provider: Kacy Palma CNM Administered by: Gena Aaron on 11/18/22 08:24 Dose Route Admin Location Lot Number Expiration Date [facility] Manufactu rer 0.5 mL IM Left Deltoid [id number] 08/23/24 [id number] [employer] VIS Given Date VIS Provided VIS Publication Date 11/18/22 Single Vaccine 21 Eligibility Eligibility Date Funding Source Not Applicable Coding Level of Care Code OB Routine Diagnoses Supervision of high risk , antepartum O09.90 Z3A.28 Weeks of gestation: 28 weeks Assessment and Plan Assessment and Plan (1) Supervision of high risk , antepartum: Status: Acute Comment: PRR , DARLENE 02/07/23 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 anatomy nl. Orders: Orders Tdap Immunization Today Z23 - Encounter for immunization POC Urinalysis 2 Dip (Clinic) Today Plan Details Additional Comments: ACOG trimester education reviewed and updated. see problem list details for updated plan management information and see below for orders placed at this visit. GA appropriate handout given. 11/18/22 1056 <Electronically signed by Kacy Palma CNM> Date Kacy Palma CNM Cosigner Signature: Date (if applicable) CC: Janelle Linton DO Work Phone: Start: 10-29-2022 End: 10-29-2022 [employer] Office Visit Report Procedure Note: See Note; NOTES: [facility] [address] [place] [address] OFFICE VISIT Date of Service: 10/29/22 MR#: [id number] Acct: [id number] Name: TIFFANIE MO Rep #: [id number] : 1995 Provider: Dr. Alida barros MD Age/Sex: 26/F Location: [facility] [place] Status: Signed Intake Vital Signs 09/03/22 10:54 10/29/22 08:40 10/29/22 08:41 Height 5 ft 8 in 5 ft 8 in 5 ft 8 in Weight: 206 lb 6 oz BMI 31.4 Intake Visit Reasons: 25 WK OB Chief Complaint: 25w4d Director Telemetry Required: No Is patient in pain?: No Allergies No Known Allergies Allergy (Verified 10/29/22 08:40) Last Menstrual Period: 05/03/22 Zika: Zika virus screening: Negative : No PFSH PFSH Medical History History of anxiety Psoriasis Family History Grandmother Diabetes Breast cancer, Onset Age: 67 maternal Grandfather Hypertension Grandmother Breast cancer, Onset Age: 75 paternal- of Covid before treatment of breast cancer completed Social History adopted: No household members: spouse housing: house current occupational status: employed 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 and animals: Yes (Not managing litterbox) pets and animals: cat(s) history of recent travel: Yes ([place] in January) out of state: Yes out of country: Yes sexually active: Yes Smoking Status: Never smoker alcohol intake: never substance use type: does not use well-balanced diet: daily or most days caffeine: No eating out: 1-3 times/week during the past year weight has: remained stable what type of physical activity do you participate in: weight training frequency: 3-4 times per week duration: 30-45 minutes/day lala/confucianist: None seatbelt use: always do you feel safe at home: Yes additional social history: [place]- Works at a [employer] History 2 Elective abortions Hx Para 0 Spontaneous abortions 1 Hx # Term Pregnancies Ectopic pregnancies Hx # Pregnancies Multiple births # of living children Past Pregnancies Del. Date Name GA/Weeks Outcome Route Bth Weight Gen Labor Lgth Anesthesia Del Locatn Provider FOB 05/03/22 chemical HPI 25 WK OB Details: TIFFANIE MO is a 26 year old who presents for routine OB visit. OB Visit DARLENE Calculator Estimated Delivery Date Method Current WG Current Estimate 02/07/23 LMP (Certain) 25w 4d Expected Delivery Route/Plan Labor Preferences- CB/BF classes: enc labor support person: [] labor intervention preferences: [] pain management options preferred: [] cut cord/dad catch: [] : [] PP control planned: [] discussed possible routes of delivery and associated risks: [] special requests: [] Specific Issue/Plans Covid status: discussed Flu vaccine: encouraged Tdap vaccine: [] Rhogam: [] LARC form signed: [] Problem list reviewed and updated with the most current plan of care details and appropriate orders placed. Relevant counseling for the gestational age provided. Continue routine care and follow up unless otherwise noted in visit notes/problem list details Initial Weight: Not Recorded Date -???-???-???-???-???-???-??? -???-???-???-???-???- EGA Weight BP Urine Prot -???-???-???-???-???-???-??? -???-???-???-???-???- Glucose FHR FuHt Pres Dilation -???-???-???-???-???-???-??? -???-???-???-???-???- Effaced St Visit Note 07/08/22 -???-???-???-???-???-???-??? -???-???-???-???-???- 9w 3d 193 lb 136/82 -???-???-???-???-???-???-??? -???-???-???-???-???- 160 -???-???-???-???-???-???-??? -???-???-???-???-???- SM- CRL 2.48 cm cons with LMP 08/06/22 -???-???-???-???-???-???-??? -???-???-???-???-???- 13w 4d 195 lb 133/86 Negative -???-???-???-???-???-???-??? -???-???-???-???-???- Negative 134 -???-???-???-???-???-???-??? -???-???-???-???-???- JV- still a little nauseated. no other complaints. normal NIPT. 09/03/22 -???-???-???-???-???-???-??? -???-???-???-???-???- 17w 4d 199 lb 2 oz 108/72 Negative -???-???-???-???-???-???-??? -???-???-???-???-???- Negative 153 -???-???-???-???-???-???-??? -???-???-???-???-???- -No Concer ns. No VB, cramping. [facility] 09/2309/18/22 -???-???-???-???-???-???-??? -???-???-???-???-???- 19w 5d 196 lb 2 oz 114/76 -???-???-???-???-???-???-??? -???-???-???-???-???- 143 -???-???-???-???-???-???-??? -???-???-???-???-???- LC- no vb/cr amping. fell yesterday onto bottom. in today for FHT. 09/30/22 -???-???-???-???-???-???-??? -???-???-???-???-???- 21w 3d 202 lb 2 oz 113/71 Negative -???-???-???-???-???-???-??? -???-???-???-???-???- Negative 145 -???-???-???-???-???-???-??? -???-???-???-???-???- LC- no cramp ing/vb/lof. anatomy LC- no cramping/vb/lof. anatomy no rmal. 10/29/22 -???-???-???-???-???-???-??? -???-???-???-???-???- 25w 4d 206 lb 6 oz 116/76 Negative -???-???-???-???-???-???-??? -???-???-???-???-???- Negative 145 26 -???-???-???-???-???-???-??? -???-???-???-???-???- SM- no vb lo f good fm no regular ctx ACOG First Trimester First Trimester: Discussed Second Trimester Second Trimester: Signs and Symptoms of Labor, Selecting a care provider, Reproductive Life Planning Contreception, Care Planning, Depression/Anxiety and I ntimate Partner Violence; Discussed Tobacco Cessation Third Trimester Third Trimester: Pain Management Plans, Labor support person(s), Immediate Larc, Movement Monitoring, Signs and Symptoms of Preeclampsia and Education Diagnostics Diagnostics Diagnostics: Blood Type A POSITIVE Antibody Screen NEGATIVE Glucose 1 Hr 50 gm 91 mg/dL (70-140) HIV 1 2 Antibody Non-Reactive (Nonreactive) Rubella IgG Antibody Reactive (Nonreactive) Hgb 12.5 g/dL (12.0-15.0) Hct 37.9 % (37-47) Chlamydia DNA (JENNI) Negative (Negative) N.gonorrhoeae DNA (JENNI) Negative (Negative) Details: HIV: Urine Culture: Sequential Screen: NIPT Screen: Results POC Urinalysis 2 Dip (Clinic) Office Urine Glucose Negative Last Edit by Shanika Jansen on 10/29/22 08:51 Office Urine Protein Negative Last Edit by Shanika Jansen on 10/29/22 08:51 Coding Level of Care Code OB Routine Diagnoses Supervision of high risk , antepartum O09.90 Z3A.25 Weeks of gestation: 25 weeks Assessment and Plan Assessment and Plan (1) Supervision of high risk , antepartum: Status: Acute Comment: PRR , DARLENE 02/07/23 boy Jaziel Deonte (2) : Status: Acute Qualifiers: Weeks of gestation: 25 weeks Qualified Code(s): Z3A.25 - 25 weeks gestation of Comment: NIPT low risk, declind ntd and Carrier testing. anatomy nl. Orders: Orders POC Urinalysis 2 Dip (Clinic) Today 10/29/22 0858 <Electronically signed by Alida Mccrary MD> Date Alida Mccrary MD Cosigner Signature: Date (if applicable) CC: Janelle Gerberon DO Work Phone: Start: 09-30-2022 End: 09-30-2022 [employer] Office Visit Report Procedure Note: See Note; NOTES: [facility] [address] [place] [address] OFFICE VISIT Date of Service: 09/30/22 MR#: [id number] Acct: [id number] Name: TIFFANIE MO Rep #: [id number] : 1995 Provider: ELICIA sanchez Age/Sex: 26/F Location: [facility] [place] Status: Signed Intake Vital Signs 09/18/22 09:35 09/30/22 09:03 09/30/22 09:11 Height 5 ft 8 in 5 ft 8 in 5 ft 8 in Weight: 196 lb 2 oz 202 lb 2 oz BMI 29.8 30.7 BP 114/76 113/71 Intake Visit Reasons: 21 WK OB Chief Complaint: 21w3d Is patient in pain?: No Allergies No Known Allergies Allergy (Verified 09/30/22 09:03) Medications escitalopram oxalate 5 mg tablet (Lexapro) 5 mg PO DAILY 06/21/22 [History Confirmed 09/30/22] multivitamin no.47-iron fum 27 mg-folate no.1 1 mg-dha 300 mg capsule (PNV-DHA) cap PO 06/27/22 [History Confirmed 09/30/22] doxylamine succinate 25 mg tablet (Unisom (doxylamine)) 25 mg PO QHS PRN 08/06/22 [History Confirmed 09/30/22] promethazine 12.5 mg tablet 12.5 mg PO Q6H PRN nausea and vomiting 30 days #60 tabs 08/09/22 [Rx Confirmed 09/30/22] Last Menstrual Period: 05/03/22 Zika: Zika virus screening: Negative [facility] Medical History History of anxiety Psoriasis Family History Grandmother Diabetes Breast cancer, Onset Age: 67 maternal Grandfather Hypertension Grandmother Breast cancer, Onset Age: 75 paternal- of Covid before treatment of breast cancer completed Social History adopted: No household members: spouse housing: house current occupational status: employed 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 and animals: Yes (Not managing litterbox) pets and animals: cat(s) history of recent travel: Yes ([place] in January) out of state: Yes out of country: Yes sexually active: Yes Smoking Status: Never smoker alcohol intake: never substance use type: does not use well-balanced diet: daily or most days caffeine: No eating out: 1-3 times/week during the past year weight has: remained stable what type of physical activity do you participate in: weight training frequency: 3-4 times per week duration: 30-45 minutes/day lala/confucianist: None seatbelt use: always do you feel safe at home: Yes additional social history: Deonte- Works at a [employer] History 2 Elective abortions Hx Para 0 Spontaneous abortions 1 Hx # Term Pregnancies Ectopic pregnancies Hx # Pregnancies Multiple births # of living children Past Pregnancies Del. Date Name GA/Weeks Outcome Route Bth Weight Gen Labor Lgth Anesthesia Del Locatn Provider FOB 05/03/22 chemical HPI 21 WK OB Details: TIFFANIE MO is a 26 year old who presents for routine OB visit. OB Visit DARLENE Calculator Estimated Delivery Date Method Current WG Current Estimate 02/07/23 LMP (Certain) 21w 3d Expected Delivery Route/Plan Labor Preferences- CB/BF classes: enc labor support person: [] labor intervention preferences: [] pain management options preferred: [] cut cord/dad catch: [] : [] PP control planned: [] discussed possible routes of delivery and associated risks: [] special requests: [] Specific Issue/Plans Covid status: discussed Flu vaccine: encouraged Tdap vaccine: [] Rhogam: [] LARC form signed: [] Problem list reviewed and updated with the most current plan of care details and appropriate orders placed. Relevant counseling for the gestational age provided. Continue routine care and follow up unless otherwise noted in visit notes/problem list details Initial Weight: Not Recorded Date -???-???-???-???-???-???-??? -???-???-???-???-???- EGA Weight BP Urine Prot -???-???-???-???-???-???-??? -???-???-???-???-???- Glucose FHR FuHt Pres Dilation -???-???-???-???-???-???-??? -???-???-???-???-???- Effaced St Visit Note 07/08/22 -???-???-???-???-???-???-??? -???-???-???-???-???- 9w 3d 193 lb 136/82 -???-???-???-???-???-???-??? -???-???-???-???-???- 160 -???-???-???-???-???-???-??? -???-???-???-???-???- SM- CRL 2.48 cm cons with LMP 08/06/22 -???-???-???-???-???-???-??? -???-???-???-???-???- 13w 4d 195 lb 133/86 Negative -???-???-???-???-???-???-??? -???-???-???-???-???- Negative 134 -???-???-???-???-???-???-??? -???-???-???-???-???- JV- still a little nauseated. no other complaints. normal NIPT. 09/03/22 -???-???-???-???-???-???-??? -???-???-???-???-???- 17w 4d 199 lb 2 oz 108/72 Negative -???-???-???-???-???-???-??? -???-???-???-???-???- Negative 153 -???-???-???-???-???-???-??? -???-???-???-???-???- -No Concer ns. No VB, cramping. MFM 09/2309/18/22 -???-???-???-???-???-???-??? -???-???-???-???-???- 19w 5d 196 lb 2 oz 114/76 -???-???-???-???-???-???-??? -???-???-???-???-???- 143 -???-???-???-???-???-???-??? -???-???-???-???-???- LC- no vb/cr amping. fell yesterday onto bottom. in today for FHT. 09/30/22 -???-???-???-???-???-???-??? -???-???-???-???-???- 21w 3d 202 lb 2 oz 113/71 Negative -???-???-???-???-???-???-??? -???-???-???-???-???- Negative 145 -???-???-???-???-???-???-??? -???-???-???-???-???- LC- no cramp ing/vb/lof. anatomy LC- no cramping/vb/lof. anatomy no rmal. ACOG First Trimester First Trimester: Discussed Second Trimester Second Trimester: Signs and Symptoms of Labor, Selecting a care provider, Reproductive Life Planning Contreception, Care Planning, Depression/Anxiety and Intimate Partner Violence; Discussed Tobacco Cessation Third Trimester Third Trimester: Pain Management Plans, Labor support person(s), Immediate Larc, Movement Monitoring, Signs and Symptoms of Preeclampsia and Education Diagnostics Diagnostics Diagnostics: Blood Type A POSITIVE Antibody Screen NEGATIVE HIV 1 2 Antibody Non-Reactive (Nonreactive) Rubella IgG Antibody Reactive (Nonreactive) Hgb 13.0 g/dL (12.0-15.0) Hct 36.7 % (37-47) L Chlamydia DNA (JENNI) Negative (Negative) N.gonorrhoeae DNA (JENNI) Negative (Negative) Details: HIV: Urine Culture: Sequential Screen: NIPT Screen: ROS Const Denies anorexia, Denies body aches, Denies chills, Denies daytime sleepiness, Denies difficulty sleeping, Denies fever(s), Denies frequent falls, Denies headache(s), Denies increased appetite and Denies poor appetite ENT Denies headache(s) Card Denies chest pain GI Denies abdominal pain, Denies nausea and Denies vomiting Denies urinary hesitancy and Denies urinary urgency Neuro No frequent falls and No headache(s) Exam Const Orientation: alert, awake and oriented x3 HENMT Head: normocephalic Eyes Pupils: PERRL Neck Neck: full ROM Resp Effort Inspection: normal respiratory effort, able to speak in complete sentences and symmetric chest movement GI Palpation: soft OB/External Speculum: other (fundus appriopriate for GA) Results POC Urinalysis 2 Dip (Clinic) Office Urine Glucose Negative Last Edit by Shanika Jansen on 09/30/22 09:53 Office Urine Protein Negative Last Edit by Shanika Jansen on 09/30/22 09:53 Coding Level of Care Code OB Routine Diagnoses Supervision of high risk , antepartum O09.90 Z3A.19 Weeks of gestation: 19 weeks Assessment and Plan Assessment and Plan (1) Supervision of high risk , antepartum: Status: Acute Comment: PRR , DARLENE 02/07/23 Deonte (2) : Status: Acute Qualifiers: Weeks of gestation: 19 weeks Qualified Code(s): Z3A.19 - 19 weeks gestation of Comment: NIPT low risk, discussed Carrier testing Orders: Orders POC Urinalysis 2 Dip (Clinic) Today O09.90 - Supervision of high risk , unspecified, unspecified trimester HIV - [facility] Today O09.90 - Supervision of high risk , unspecified, unspecified trimester Syphilis Antibodies Today O09.90 - Supervision of high risk , unspecified, unspecified trimester Glucose Challenge Gest 1H 50g Today O09.90 - Supervision of high risk , unspecified, unspecified trimester, Z13.1 - Encounter for screening for diabetes mellitus CBC W/Diff, Automated Today O09.90 - Supervision of high risk , unspecified, unspecified trimester Plan Details Additional Comments: ACOG trimester education reviewed and updated. see problem list details for updated plan management information and see below for orders placed at this visit. GA appropriate handout given. 09/30/22 2845 <Electronically signed by Kacy Palma CNM> Date Kacy Minayaignfrancisco javier Signature: Date (if applicable) CC: Janelle Linton DO Work Phone: Start: 09-18-2022 End: 09-18-2022 [employer] Office Visit Report Procedure Note: See Note; NOTES: [facility] [address] [place] [address] OFFICE VISIT Date of Service: 09/18/22 MR#: [id number] Acct: [id number] Name: TIFFANIE MO Rep #: [id number] : 1995 Provider: ELICIA sanchez Age/Sex: 26/F Location: [facility] [place] Status: Signed Intake Vital Signs 09/18/22 09:22 09/18/22 09:35 Height 5 ft 8 in 5 ft 8 in Weight: 196 lb 2 oz BMI 29.8 BP 114/76 Intake Visit Reasons: OB pt, fell last night Chief Complaint: 19w5d, fell last night Director Telemetry Required: No Allergies No Known Allergies Allergy (Verified 09/18/22 09:20) Medications escitalopram oxalate 5 mg tablet (Lexapro) 5 mg PO DAILY 06/21/22 [History Confirmed 09/18/22] multivitamin no.47-iron fum 27 mg-folate no.1 1 mg-dha 300 mg capsule (PNV-DHA) cap PO 06/27/22 [History Confirmed 09/18/22] doxylamine succinate 25 mg tablet (Unisom (doxylamine)) 25 mg PO QHS PRN 08/06/22 [History Confirmed 09/18/22] promethazine 12.5 mg tablet 12.5 mg PO Q6H PRN nausea and vomiting 30 days #60 tabs 08/09/22 [Rx Confirmed 09/18/22] Last Menstrual Period: 05/03/22 Zika: Zika virus screening: Negative : No PFSH PFSH Medical History History of anxiety Psoriasis Family History Grandmother Diabetes Breast cancer, Onset Age: 67 maternal Grandfather Hypertension Grandmother Breast cancer, Onset Age: 75 paternal- of Covid before treatment of breast cancer completed Social History adopted: No household members: spouse housing: house current occupational status: employed 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 and animals: Yes (Not managing litterbox) pets and animals: cat(s) history of recent travel: Yes ([place] in January) out of state: Yes out of country: Yes sexually active: Yes Smoking Status: Never smoker alcohol intake: never substance use type: does not use well-balanced diet: daily or most days caffeine: No eating out: 1-3 times/week during the past year weight has: remained stable what type of physical activity do you participate in: weight training frequency: 3-4 times per week duration: 30-45 minutes/day lala/confucianist: None seatbelt use: always do you feel safe at home: Yes additional social history: [place]onte- Works at a [employer] History 2 Elective abortions Hx Para 0 Spontaneous abortions 1 Hx # Term Pregnancies Ectopic pregnancies Hx # Pregnancies Multiple births # of living children Past Pregnancies Del. Date Name GA/Weeks Outcome Route Bth Weight Infant Gen Labor Lgth Anesthesia Del [facility] Provider FOB 05/03/22 chemical HPI OB pt, fell last night Details: TIFFANIE MO is a 26 year old who presents for routine OB visit. OB Visit DARLENE Calculator Estimated Delivery Date Method Current WG Current Estimate 02/07/23 LMP (Certain) 19w 5d Expected Delivery Route/Plan Labor Preferences- CB/BF classes: [] labor support person: [] labor intervention preferences: [] pain management options preferred: [] cut cord/dad catch: [] : [] PP control planned: [] discussed possible routes of delivery and associated risks: [] special requests: [] Specific Issue/Plans Covid status: discussed Flu vaccine: encouraged Tdap vaccine: [] Rhogam: [] LARC form signed: [] Problem list reviewed and updated with the most current plan of care details and appropriate orders placed. Relevant counseling for the gestational age provided. Continue routine care and follow up unless otherwise noted in visit notes/problem list details Initial Weight: Not Recorded Date -???-???-???-???-???-???-??? -???-???-???-???-???- EGA Weight BP Urine Prot -???-???-???-???-???-???-??? -???-???-???-???-???- Glucose FHR FuHt Pres Dilation -???-???-???-???-???-???-??? -???-???-???-???-???- Effaced St Visit Note 07/08/22 -???-???-???-???-???-???-??? -???-???-???-???-???- 9w 3d 193 lb 136/82 -???-???-???-???-???-???-??? -???-???-???-???-???- 160 -???-???-???-???-???-???-??? -???-???-???-???-???- SM- CRL 2.48 cm cons with LMP 08/06/22 -???-???-???-???-???-???-??? -???-???-???-???-???- 13w 4d 195 lb 133/86 Negative -???-???-???-???-???-???-??? -???-???-???-???-???- Negative 134 -???-???-???-???-???-???-??? -???-???-???-???-???- JV- still a little nauseated. no other complaints. normal NIPT. 09/03/22 -???-???-???-???-???-???-??? -???-???-???-???-???- 17w 4d 199 lb 2 oz 108/72 Negative -???-???-???-???-???-???-??? -???-???-???-???-???- Negative 153 -???-???-???-???-???-???-??? -???-???-???-???-???- -No Concer ns. No VB, cramping. MFM 09/2309/18/22 -???-???-???-???-???-???-??? -???-???-???-???-???- 19w 5d 196 lb 2 oz 114/76 -???-???-???-???-???-???-??? -???-???-???-???-???- 143 -???-???-???-???-???-???-??? -???-???-???-???-???- LC- no vb/cr amping. fell yesterday onto bottom. in today for FHT. ACOG First Trimester First Trimester: Discussed Second Trimester Second Trimester: Signs and Symptoms of Labor, Selecting a care provider, Reproductive Life Planning Contreception, Care Planning, Depression/Anxiety and Intimate Partner Violence; Discussed Tobacco Cessation Third Trimester Third Trimester: Pain Management Plans, Labor support person(s), Immediate Larc, Movement Monitoring, Signs and Symptoms of Preeclampsia and Education Diagnostics Diagnostics Diagnostics: Blood Type A POSITIVE Antibody Screen NEGATIVE HIV 1 2 Antibody Non-Reactive (Nonreactive) Rubella IgG Antibody Reactive (Nonreactive) Hgb 13.0 g/dL (12.0-15.0) Hct 36.7 % (37-47) L Chlamydia DNA (JENNI) Negative (Negative) N.gonorrhoeae DNA (JENNI) Negative (Negative) Details: HIV: Urine Culture: Sequential Screen: NIPT Screen: ROS Const Denies anorexia, Denies body aches, Denies chills, Denies daytime sleepiness, Denies difficulty sleeping, Denies fever(s), Denies frequent falls, Denies headache(s), Denies increased appetite and Denies poor appetite ENT Denies headache(s) Card Denies chest pain GI Denies abdominal pain, Denies nausea and Denies vomiting Denies urinary hesitancy and Denies urinary urgency Neuro No frequent falls and No headache(s) Exam Const Orientation: alert, awake and oriented x3 HENMT Head: normocephalic Eyes Pupils: PERRL Neck Neck: full ROM Resp Effort Inspection: normal respiratory effort, able to speak in complete sentences and symmetric chest movement GI Palpation: soft OB/External Speculum: other (fundus appriopriate for GA) Coding Level of Care Code OB Routine Diagnoses Supervision of high risk , antepartum O09.90 Z3A.19 Weeks of gestation: 19 weeks Assessment and Plan Assessment and Plan (1) Supervision of high risk , antepartum: Status: Acute Comment: PRR , DARLENE 02/07/23 Deonte (2) : Status: Acute Qualifiers: Weeks of gestation: 19 weeks Qualified Code(s): Z3A.19 - 19 weeks gestation of Comment: NIPT low risk, discussed Carrier testing Plan Details Additional Comments: ACOG trimester education reviewed and updated. see problem list details for updated plan management information and see below for orders placed at this visit. GA appropriate handout given. 09/18/22 0945 <Electronically signed by Kacy Palma CNM> Date Kacy Palma CNM Cosigner Signature: Date (if applicable) CC: Janelle Linton DO Work Phone: Start: 09-03-2022 End: 09-03-2022 [employer] Office Visit Report Procedure Note: See Note; NOTES: [facility] [address] [place] [address] OFFICE VISIT Date of Service: 09/03/22 MR#: [id number] Acct: [id number] Name: TIFFANIE MO Rep #: [id number] : 1995 Provider: KIMBER chery Age/Sex: 26/F Location: [facility] [place] Status: Signed Intake Vital Signs 09/03/22 10:54 09/03/22 10:54 Height 5 ft 8 in 5 ft 8 in Weight: 199 lb 2 oz BMI 30.2 BP 108/72 Intake Visit Reasons: est ob 17w Chief Complaint: 17 Week OB Director Telemetry Required: No Is patient in pain?: No Allergies No Known Allergies Allergy (Verified 09/03/22 10:53) Medications escitalopram oxalate 5 mg tablet (Lexapro) 5 mg PO DAILY 06/21/22 [History Confirmed 09/03/22] multivitamin no.47-iron fum 27 mg-folate no.1 1 mg-dha 300 mg capsule (PNV-DHA) cap PO 06/27/22 [History Confirmed 09/03/22] doxylamine succinate 25 mg tablet (Unisom (doxylamine)) 25 mg PO QHS PRN 08/06/22 [History Confirmed 09/03/22] promethazine 12.5 mg tablet 12.5 mg PO Q6H PRN nausea and vomiting 30 days #60 tabs 08/09/22 [Rx Confirmed 09/03/22] Last Menstrual Period: 05/03/22 Zika: Zika virus screening: Negative : No PFSH PFSH Medical History History of anxiety Psoriasis Family History Grandmother Diabetes Breast cancer, Onset Age: 67 maternal Grandfather Hypertension Grandmother Breast cancer, Onset Age: 75 paternal- of Covid before treatment of breast cancer completed Social History adopted: No household members: spouse housing: house current occupational status: employed 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 and animals: Yes (Not managing litterbox) pets and animals: cat(s) history of recent travel: Yes ([place] in January) out of state: Yes out of country: Yes sexually active: Yes Smoking Status: Never smoker alcohol intake: never substance use type: does not use well-balanced diet: daily or most days caffeine: No eating out: 1-3 times/week during the past year weight has: remained stable what type of physical activity do you participate in: weight training frequency: 3-4 times per week duration: 30-45 minutes/day lala/confucianist: None seatbelt use: always do you feel safe at home: Yes additional social history: [place]- Works at a [employer] History 2 Elective abortions Hx Para 0 Spontaneous abortions 1 Hx # Term Pregnancies Ectopic pregnancies Hx # Pregnancies Multiple births # of living children Past Pregnancies Del. Date Name GA/Weeks Outcome Route Bth Weight Gen Labor Lgth Anesthesia Del Locatn Provider FOB 05/03/22 chemical HPI est ob 17w Details: TIFFANIE MO is a 26 year old who presents for routine OB visit. OB Visit DARLENE Calculator Estimated Delivery Date Method Current WG Current Estimate 02/07/23 LMP (Certain) 17w 4d Expected Delivery Route/Plan Labor Preferences- CB/BF classes: [] labor support person: [] labor intervention preferences: [] pain management options preferred: [] cut cord/dad catch: [] : [] PP control planned: [] discussed possible routes of delivery and associated risks: [] special requests: [] Specific Issue/Plans Covid status: discussed Flu vaccine: encouraged Tdap vaccine: [] Rhogam: [] LARC form signed: [] Problem list reviewed and updated with the most current plan of care details and appropriate orders placed. Relevant counseling for the gestational age provided. Continue routine care and follow up unless otherwise noted in visit notes/problem list details Initial Weight: Not Recorded Date -???-???-???-???-???-???-??? -???-???-???-???-???- EGA Weight BP Urine Prot -???-???-???-???-???-???-??? -???-???-???-???-???- Glucose FHR FuHt Pres Dilation -???-???-???-???-???-???-??? -???-???-???-???-???- Effaced St Visit Note 07/08/22 -???-???-???-???-???-???-??? -???-???-???-???-???- 9w 3d 193 lb 136/82 -???-???-???-???-???-???-??? -???-???-???-???-???- 160 -???-???-???-???-???-???-??? -???-???-???-???-???- SM- CRL 2.48 cm cons with LMP 08/06/22 -???-???-???-???-???-???-??? -???-???-???-???-???- 13w 4d 195 lb 133/86 Negative -???-???-???-???-???-???-??? -???-???-???-???-???- Negative 134 -???-???-???-???-???-???-??? -???-???-???-???-???- JV- still a little nauseated. no other complaints. normal NIPT. 09/03/22 -???-???-???-???-???-???-??? -???-???-???-???-???- 17w 4d 199 lb 2 oz 108/72 Negative -???-???-???-???-???-???-??? -???-???-???-???-???- Negative 153 -???-???-???-???-???-???-??? -???-???-???-???-???- MH-No Concer ns. No VB, cramping. [facility] 09/23 ACOG First Trimester First Trimester: Discussed Second Trimester Second Trimester: Signs and Symptoms of Labor, Selecting a care provider, Reproductive Life Planning Contreception, Care Planning, Depression/Anxiety and Intimate Partner Violence; Discussed Tobacco Cessation Third Trimester Third Trimester: Pain Management Plans, Labor support person(s), Immediate Larc, Movement Monitoring, Signs and Symptoms of Preeclampsia and Education Diagnostics Diagnostics Diagnostics: Blood Type A POSITIVE Antibody Screen NEGATIVE HIV 1 2 Antibody Non-Reactive (Nonreactive) Rubella IgG Antibody Reactive (Nonreactive) Hgb 13.0 g/dL (12.0-15.0) Hct 36.7 % (37-47) L Chlamydia DNA (JENNI) Negative (Negative) N.gonorrhoeae DNA (JENNI) Negative (Negative) Details: HIV: Urine Culture: Sequential Screen: NIPT Screen: ROS Const Reports system reviewed and no additional complaints, except as documented GI Denies abdominal pain, Denies nausea and Denies vomiting Exam Const General: cooperative Nutritional Appearance: well nourished GI Palpation: soft, nontender and other (gravid) Results POC Urinalysis 2 Dip (Clinic) Office Urine Glucose Negative Last Edit by Mariangel Borrego on 09/03/22 10:54 Office Urine Protein Negative Last Edit by Mariangel Borrego on 09/03/22 10:54 Coding Level of Care Code OB Routine Diagnoses Supervision of high risk , antepartum O09.90 Z3A.13 Weeks of gestation: 13 weeks Assessment and Plan Assessment and Plan (1) Supervision of high risk , antepartum: Status: Acute Comment: PRR , DARLENE 02/07/23 Deonte (2) : Status: Acute Qualifiers: Weeks of gestation: 13 weeks Qualified Code(s): Z3A.13 - 13 weeks gestation of Comment: NIPT low risk, discussed Carrier testing Orders: Orders POC Urinalysis 2 Dip (Clinic) Today Plan problem list reviewed and updated for most current plan of care and appropriate orders placed. Relevant counseling for the gestational age appropriate provided and ACOG education checklist updated. Continue routine care and follow up. 09/03/22 1112 <Electronically signed by Nel QUIROGA> Date Nel BRADYC Cosigner Signature: Date (if applicable) CC: Janelle Linton DO Work Phone: Start: 08-06-2022 End: 08-06-2022 [employer] Office Visit Report Procedure Note: See Note; NOTES: [facility] [address] [place] [address]. [address] [place] [address] OFFICE VISIT Date of Service: 08/06/22 MR#: [id number] Acct: [id number] Name: TIFFANIE MO BRUNO Rep #: [id number] : 1995 Provider: Dr. Val Vela DO Age/Sex: 26/F Location: [facility] [place] Status: Signed Intake Vital Signs 08/06/22 10:11 08/06/22 10:12 Height 5 ft 8 in 5 ft 8 in Weight: 195 lb BMI 29.6 BP 133/86 H Intake Visit Reasons: 13 WK OB Director Telemetry Required: No Is patient in pain?: No Allergies No Known Allergies Allergy (Verified 08/06/22 10:11) Medications escitalopram oxalate 5 mg tablet (Lexapro) 5 mg PO DAILY 06/21/22 [History Confirmed 08/06/22] multivitamin no.47-iron fum 27 mg-folate no.1 1 mg-dha 300 mg capsule (PNV-DHA) cap PO 06/27/22 [History Confirmed 08/06/22] doxylamine succinate 25 mg tablet (Unisom (doxylamine)) 25 mg PO QHS PRN 08/06/22 [History Confirmed 08/06/22] Last Menstrual Period: 05/03/22 Zika: Zika virus screening: Negative : No PFSH PFSH Medical History History of anxiety Psoriasis Family History Grandmother Diabetes Breast cancer, Onset Age: 67 maternal Grandfather Hypertension Grandmother Breast cancer, Onset Age: 75 paternal- of Covid before treatment of breast cancer completed Social History adopted: No household members: spouse housing: house current occupational status: employed 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 and animals: Yes (Not managing litterbox) pets and animals: cat(s) history of recent travel: Yes ([place] in January) out of state: Yes out of country: Yes sexually active: Yes Smoking Status: Never smoker alcohol intake: never substance use type: does not use well-balanced diet: daily or most days caffeine: No eating out: 1-3 times/week during the past year weight has: remained stable what type of physical activity do you participate in: weight training frequency: 3-4 times per week duration: 30-45 minutes/day lala/confucianist: None seatbelt use: always do you feel safe at home: Yes additional social history: [place]- Works at a [employer] History 2 Elective abortions Hx Para 0 Spontaneous abortions 1 Hx # Term Pregnancies Ectopic pregnancies Hx # Pregnancies Multiple births # of living children Past Pregnancies Del. Date Name GA/Weeks Outcome Route Bth Weight Gen Labor Lgth Anesthesia Del Ericn Provider FOB 05/03/22 chemical HPI 13 WK OB Details: TIFFANIE MO is a 26 year old who presents for routine OB visit. OB Visit DARLENE Calculator Estimated Delivery Date Method Current WG Current Estimate 02/07/23 LMP (Certain) 13w 4d Expected Delivery Route/Plan Labor Preferences- CB/BF classes: [] labor support person: [] labor intervention preferences: [] pain management options preferred: [] cut cord/dad catch: [] : [] PP control planned: [] discussed possible routes of delivery and associated risks: [] special requests: [] Specific Issue/Plans Covid status: discussed Flu vaccine: encouraged Tdap vaccine: [] Rhogam: [] LARC form signed: [] Problem list reviewed and updated with the most current plan of care details and appropriate orders placed. Relevant counseling for the gestational age provided. Continue routine care and follow up unless otherwise noted in visit notes/problem list details Initial Weight: Not Recorded Date -???-???-???-???-???-???-??? -???-???-???-???-???- EGA Weight BP Urine Prot -???-???-???-???-???-???-??? -???-???-???-???-???- Glucose FHR FuHt Pres Dilation -???-???-???-???-???-???-??? -???-???-???-???-???- Effaced St Visit Note 07/08/22 -???-???-???-???-???-???-??? -???-???-???-???-???- 9w 3d 193 lb 136/82 -???-???-???-???-???-???-??? -???-???-???-???-???- 160 -???-???-???-???-???-???-??? -???-???-???-???-???- SM- CRL 2.48 cm cons with LMP 08/06/22 -???-???-???-???-???-???-??? -???-???-???-???-???- 13w 4d 195 lb 133/86 Negative -???-???-???-???-???-???-??? -???-???-???-???-???- Negative 134 -???-???-???-???-???-???-??? -???-???-???-???-???- JV- still a little nauseated. no other complaints. normal NIPT. ACOG First Trimester First Trimester: Discussed Second Trimester Second Trimester: Signs and Symptoms of Labor, Selecting a care provider, Reproductive Life Planning Contreception, Care Planning, Depression/Anxiety and Intimate Partner Violence; Discussed Tobacco Cessation Third Trimester Third Trimester: Pain Management Plans, Labor support person(s), Immediate Larc, Movement Monitoring, Signs and Symptoms of Preeclampsia and Education Diagnostics Diagnostics Diagnostics: Blood Type A POSITIVE Antibody Screen NEGATIVE HIV 1 2 Antibody Non-Reactive (Nonreactive) Rubella IgG Antibody Reactive (Nonreactive) Hgb 13.0 g/dL (12.0-15.0) Hct 36.7 % (37-47) L Chlamydia DNA (JENNI) Negative (Negative) N.gonorrhoeae DNA (JENNI) Negative (Negative) Details: HIV: Urine Culture: Sequential Screen: NIPT Screen: ROS Const Denies fever(s) GI Reports as per HPI and Denies abdominal pain Reports as per HPI, Denies abnormal vaginal bleeding, Denies dysuria and Denies vaginal discharge Exam Const General: healthy appearing, comfortable and no acute distress GI Inspection: normal to inspection Palpation: soft and nontender Results POC Urinalysis 2 Dip (Clinic) Office Urine Glucose Negative Last Edit by Gena Aaron on 08/06/22 10:18 Office Urine Protein Negative Last Edit by Gena Aaron on 08/06/22 10:18 Coding Level of Care Code Off vis,est,level 3 Diagnoses Supervision of high risk , antepartum O09.90 Z3A.13 Weeks of gestation: 13 weeks Assessment and Plan Assessment and Plan (1) Supervision of high risk , antepartum: Status: Acute Comment: , DARLENE 02/07/23 Deonte (2) : Status: Acute Qualifiers: Weeks of gestation: 13 weeks Qualified Code(s): Z3A.13 - 13 weeks gestation of Comment: NIPT low risk, discussed Carrier testing Orders: Orders POC Urinalysis 2 Dip (Clinic) Today 08/06/22 1054 <Electronically signed by Val Earl DO> Date Val Earl DO Cosign Signature: Date (if applicable) CC: Janelle Linton DO Work Phone: Start: 07-08-2022 End: 07-08-2022 [employer] Office Visit Report Procedure Note: See Note; NOTES: [facility] [address] [place] [address] [address] [place] [address] OFFICE VISIT Date of Service: 07/08/22 MR#: [id number] Acct: [id number] Name: TIFFANIE MO Rep #: [id number] : 1995 Provider: Dr. Alida barros MD Age/Sex: 26/F Location: [facility] [place] Status: Signed Intake Vital Signs 02/02/20 14:36 06/21/22 15:37 07/08/22 09:21 07/08/22 09:22 Height 5 ft 8 in 5 ft 8 in 5 ft 8 in 5 ft 8 in Weight: 196 lb 193 lb BMI 29.7 29.3 BP 105/71 Intake Visit Reasons: NOB LMP 05/03/22 Chief Complaint: NEW OB LMP 05/03/22 Director Telemetry Required: No Is patient in pain?: No Allergies No Known Allergies Allergy (Verified 06/27/22 11:21) Medications escitalopram oxalate 5 mg tablet (Lexapro) 5 mg PO DAILY 06/21/22 [History Confirmed 06/27/22] multivitamin no.47-iron fum 27 mg-folate no.1 1 mg-dha 300 mg capsule (PNV-DHA) cap PO 06/27/22 [History Confirmed 06/27/22] Last Menstrual Period: 05/03/22 Zika: Zika virus screening: Negative : No PFSH PFSH Medical History (Updated 07/08/22 @ 10:[address] 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 and animals: Yes (Not managing litterbox) pets and animals: cat(s) history of recent travel: Yes ([place] in January) out of state: Yes out of country: Yes sexually active: Yes Smoking Status: Never smoker alcohol intake: never substance use type: does not use well-balanced diet: daily or most days caffeine: No eating out: 1-3 times/week during the past year weight has: remained stable what type of physical activity do you participate in: weight training frequency: 3-4 times per week duration: 30-45 minutes/day lala/confucianist: None seatbelt use: always do you feel safe at home: Yes additional social history: [place]- Works at a [employer] History 2 Elective abortions Hx Para 0 Spontaneous abortions 1 Hx # Term Pregnancies Ectopic pregnancies Hx # Pregnancies Multiple births # of living children Past Pregnancies Del. Date Name GA/Weeks Outcome Route Bth Weight Gen Labor Lgth Anesthesia Del Locatn Provider FOB 05/03/22 chemical HPI NOB LMP 05/03/22 Details: TIFFANIE MO is a 26 year old who presents for New OB visit. OB Visit DARLENE Calculator Estimated Delivery Date Method Current WG Current Estimate 02/07/23 LMP (Certain) 9w 3d Comments: HIV: Urine Culture: Sequential Screen: NIPT Screen: Estimated Due Date: 02/07/23 Expected Delivery Route/Plan Labor Preferences- CB/BF classes: [] labor support person: [] labor intervention preferences: [] pain management options preferred: [] cut cord/dad catch: [] : [] PP control planned: [] discussed possible routes of delivery and associated risks: [] special requests: [] Specific Issue/Plans Covid status: discussed Flu vaccine: encouraged Tdap vaccine: [] Rhogam: [] LARC form signed: [] Problem list reviewed and updated with the most current plan of care details and appropriate orders placed. Relevant counseling for the gestational age provided. Continue routine care and follow up unless otherwise noted in visit notes/problem list details Initial Weight: Not Recorded Date -???-???-???-???-???-???-??? -???-???-???-???-???- EGA Weight BP Urine Prot -???-???-???-???-???-???-??? -???-???-???-???-???- Glucose FHR FuHt Pres Dilation -???-???-???-???-???-???-??? -???-???-???-???-???- Effaced St Visit Note 07/08/22 -???-???-???-???-???-???-??? -???-???-???-???-???- 9w 3d 193 lb 136/82 -???-???-???-???-???-???-??? -???-???-???-???-???- 160 -???-???-???-???-???-???-??? -???-???-???-???-???- SM- CRL 2.48 cm cons with LMP Menstrual History Last Menstrual Period: 05/03/22 Reported LMP: definite Normal amount/duration: No (miscarriage on 05/03/22 No menses before getting ) Frequency in days: 28 On hormonal BC at conception: No hCG+: 05/28/22 Antepartum Record Genetic Screening: Congenital Heart Defect: Other, Neural Tube Defect: Other, Hemoglobinopathy Or Carrier: Other, Cystic Fibrosis: Other, Chromosome Abnormality: Other, Austin-Sachs: Other, Hemophilia: Other, Intellectual Disability/Autism: Other, Recurrent Loss/Stillbirth: Other, Other Structural Defect: Other, Other Genetic Disease: Other and Maternal Metabolic Disorder: Other Infection History: Live with someone with TB or Exposed to TB: No, Patient or Partner has history of Genital Herpes: No, Rash or Viral illness since last mentrual period: No, Prior GBS-Infected child: No, History of STD: No, HIV Infection: No, History of Hepatitis: No, Recent travel outside of [place]: Yes (), Concern for hepatitis exposure: No and Varicella immune: Yes (immune) Comments: Covid vaccinated (2 shots Moderna) 1 booster Medical History Medical History: Positive: Auto-immune disorder (psoriasis), Psychiatric (anxiety, medicated and therapy) and Relevant family history (maternal grandmother late 60's, paternal grandma 75 ) and Negative: Diabetes, Hypertension, Heart disease, Kidney disease/UTI, Neurologic/epilepsy, Depression/ depression, Hepatitis/liver disease, Varicosities/phlebitis, Thyroid dysfunction, Trauma/domestic violence, History of blood transfusions, D (Rh) Sensitized, Pulmonary (e.g.,TB,Asthma), Seasonal allergies, Drug/latex allergies/reactions, Breast, [employer] surgery, Operations/hospitalizations, Anesthetic complications, History of abnormal pap, Uterine anomaly/santana, Infertility and Anti-retroviral treatment ACOG First Trimester First Trimester: Discussed ROS Const Reports system reviewed and no additional complaints, except as documented, Reports fatigue and Denies fever(s) Eyes Reports system reviewed and no additional complaints, except as documented ENT Reports system reviewed and no additional complaints, except as documented Card Denies chest pain and Denies dyspnea Resp Reports system reviewed and no additional complaints, except as documented, Denies cough and Denies dyspnea GI Denies abdominal pain and Reports nausea Reports system reviewed and no additional complaints, except as documented Musc Reports system reviewed and no additional complaints, except as documented Skin/Breast Reports system reviewed and no additional complaints, except as documented Neuro Yes system reviewed and no additional complaints, except as documented Psych Reports system reviewed and no additional complaints, except as documented Endo Reports system reviewed and no additional complaints, except as documented and Reports fatigue Exam Const General: healthy appearing, comfortable and no acute distress Orientation: alert [facility] Head: normal to inspection, normocephalic and atraumatic Ears: hearing grossly normal bilaterally and external ears normal Nose: external nose normal and nares normal Mouth: oral mucosae normal Teeth and gingiva: dentition normal Eyes General: appearance normal, both eyes and all related structures Neck Neck: normal visual inspection, no lymphadenopathy and supple Thyroid: thyroid normal Chest Chest palpation inspection: normal inspection of the chest Breast inspection: normal inspection of the breasts and normal inspection of the axillae Breast palpation: normal palpation of the breasts and normal palpation of the axillae Resp Effort Inspection: normal respiratory effort GI Inspection: normal to inspection Palpation: soft and no hepatosplenomegaly General: bladder normal to palpation External Female Exam: normal external appearance and normal appearance of the urethra Urethra: normal appearance of the urethra Speculum Exam - Vagina: normal appearance of the vagina and normal vaginal discharge Speculum Exam - Cervix: normal appearance of the cervix Bimanual Exam- Vagina Uterus: normal bimanual exam, bladder normal to palpation, non-tender and other Bimanual Exam- Adnexa, other: non-tender Skin General: no rashes or lesions noted Neuro Motor: muscle tone normal throughout and no movement abnormalities noted Extrem General: normal to inspection and full ROM Supplemental Info ACOG book given and patient encouraged to read about nutrition, exercise, weight gain, and food avoidance in . Coding Level of Care Code OB Routine Diagnoses Supervision of high risk , antepartum O09.90 Z3A.09 Weeks of gestation: 9 weeks Assessment and Plan Assessment and Plan (1) Supervision of high risk , antepartum: Status: Acute Comment: , DARLENE 02/07/23 Deonte (2) : Status: Acute Qualifiers: Weeks of gestation: 9 weeks Qualified Code(s): Z3A.09 - 9 weeks gestation of Comment: discussed NIPT Carrier testing Orders: Orders Type Screen Today Z3A.09 - 9 weeks gestation of Hepatitis B Surface Antigen Today Z3A.09 - 9 weeks gestation of Hepatitis C Antibody Today Z3A.09 - 9 weeks gestation of HIV - [facility] Today Z3A.09 - 9 weeks gestation of Syphilis Antibodies Today Z3A.09 - 9 weeks gestation of Rubella IgG Today Z3A.09 - 9 weeks gestation of CBC W/Diff, Automated Today Z3A.09 - 9 weeks gestation of Culture, Urine Today Z3A.09 - 9 weeks gestation of Chlamydia/GC JENNI aptima Today Z3A.09 - 9 weeks gestation of Urine Drug Screen ([facility]) Today Z3A.09 - 9 weeks gestation of Plan Patient oriented to practice and discussed care expectations and screenings. ACOG book offered to patient. Discussed routine and specially indicated labs if needed- patient consents to testing. See problem list details for plan information. Optional screening including maternal carrier screenings, neural tube defect screening, genetic screening options including quad screen, nuchal translucency, sequential screening, and NIPT screening offered to patient and patient chose: nipt considering 07/08/22 1005 <Electronically signed by Alida Mccrary MD> Date Alida Mccrary MD Cosigner Signature: Date (if applicable) CC: Janelle Linton DO Work Phone: Start: 06-21-2022 End: 06-21-2022 [employer] Office Visit Report Procedure Note: See Note; NOTES: [facility] [address] [place] [address] [address] [place] [address] OFFICE VISIT Date of Service: 06/21/22 MR#: [id number] Acct: [id number] Name: TIFFANIE MO Rep #: [id number] : 1995 Provider: Dr. Val Vela DO Age/Sex: 26/F Location: [facility] [place] Status: Signed Intake Vital Signs 02/02/20 14:36 06/21/22 15:32 06/21/22 15:37 Height 5 ft 8 in 5 ft 8 in 5 ft 8 in Weight: 196 lb BMI 29.7 BP 105/71 Intake Visit Reasons: vaginal discharge yellow/green Director Telemetry Required: No Is patient in pain?: No Allergies No Known Allergies Allergy (Verified 06/21/22 15:36) Medications escitalopram oxalate 5 mg tablet (Lexapro) 5 mg PO DAILY 06/21/22 [History Confirmed 06/21/22] Is last menstrual period known: Yes Last Menstrual Period: 05/03/22 Post menopausal: No Patient : Yes : No PFSH Medical History History of anxiety Family History Grandmother Diabetes Breast cancer Grandfather Hypertension Social History Smoking Status: Never smoker alcohol intake: never substance use type: does not use caffeine: Yes what type of physical activity do you participate in: none seatbelt use: always do you feel safe at home: Yes additional social history: Deonte- Works at a [employer] 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 she is approximately 7 weeks gestation and also wondering if can have ultrasound. Female Reproductive History Last Menstrual Period: 05/03/22 History 0 Elective abortions Hx Para Spontaneous abortions Hx # Term Pregnancies Ectopic pregnancies Hx # Pregnancies Multiple births # of living children ROS Const ROS Unobtainable: All systems reviewed are unremarkable except as noted in H Resp Resp: Reports system reviewed and no additional complaints, except as documented; Denies cough GI GI: Reports as per HPI Psych Psych: Reports system reviewed and no additional complaints, except as documented Exam Const General: cooperative, healthy appearing, comfortable and no acute distress Resp Effort Inspection: normal respiratory effort General: bimanual renal exam normal bilaterally External Female Exam: normal appearance of the urethra Urethra: normal appearance of the urethra Speculum Exam - Vagina: normal appearance of the vagina Speculum Exam - Cervix: normal appearance of the cervix Bimanual Exam- Adnexa, other: normal adnexae and normal Pelvic Support: normal Other: bedside ultrasound shows CRL consistent with 6 w 6d iup with heart tones 125. Skin General: no rashes or lesions noted Psych Appearance: grossly normal Speech and Movement: speech and movement normal Results Office BVBlue Test Office BVBlue Test Negative Last Edit by Gena Aaron on 06/21/22 16:15 Coding Level of Care Code Off vis,est,level 4 Diagnoses Vaginal discharge during O26.899; N89.8 Assessment and Plan Assessment and Plan (1) Vaginal discharge during : Status: Acute Plan: suspect physiologic. bv rapid test neg, culture collected. urine culture collected return for new ob exam. Orders: Orders POC BV Blue Test Today N89.8 - Other specified noninflammatory disorders of vagina Culture, Genital Comprehensive Today N89.8 - Other specified noninflammatory disorders of vagina Culture, Urine Today Z34.90 - Encounter for supervision of normal , unspecified, unspecified trimester 06/21/22 1627 <Electronically signed by Val Earl DO> Date Val Earl DO Cosigner Signature: Date (if applicable) CC: Janelle Linton DO Work Phone: Start: 08-09-2020 End: 08-09-2020 Chest PA and Lateral Comments: See Note; NOTES: [facility] Imaging Services [address] [place] [address] Chest PA and Lateral MR#: [id number] Acct: [id number] Name: TIFFANIE MO Rep #: [id number] : 1995 F 24 From: Franca Altamirano MD PCP: Dr. Janelle Linton DO Status: REG CLI Study: Chest PA and Lateral Date of Exam: 08/09/20 Exam# [id number] Ordering Dr: Shelby Rich NP RESEARCH ASSOCIATE PROFESSOR-C STUDY: X-RAY CHEST REASON FOR EXAM: Female, 24 years old. PT HAD COVID IN JANUARY, CONTINUED UPPER CHEST PAIN TECHNIQUE: 2 views COMPARISON: None. FINDINGS: The lungs are clear and expanded. There is no demonstrated pleural abnormality. Normal size heart. Normal mediastinum and mike. Normal visualized pulmonary arteries. Normal visualized aortic arch and descending thoracic aorta. Normal visualized thoracic spine. Normal visualized ribs, clavicles, and shoulders. There is no demonstrated abnormality of the visualized soft tissue structures of the upper abdomen. RAD/Chest PA and Lateral IMPRESSION: Normal x-ray examination of the chest. Electronically Signed: Franca Altamirano MD at 22:52 EST , Service support , CC: RESEARCH ASSOCIATE PROFESSOR-C Shelby Rich; Dr. 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 annual Director Telemetry Required: No Is patient in pain?: No Allergies No Known Allergies Allergy (Unverified 02/02/20 14:37) Medications NK 02/02/20 [History Confirmed 02/02/20] Post menopausal: No Patient : No : No PFSH Medical History (Updated 02/02/20 @ 14:37 by Nava Ceja) History of anxiety (Acute) Family History (Updated 02/02/20 @ 14:39 by Nava Ceja) Grandmother Diabetes Breast cancer Grandfather Hypertension Social History (Updated 02/02/20 @ 14:54 by Nel Crowe NP-C) Smoking Status: Never smoker alcohol intake: never substance use type: does not use caffeine: Yes what type of physical activity do you participate in: none seatbelt use: always do you feel safe at home: Yes additional social history: Deonte- Works at a [employer] Patient works as a [employer] Pregancy History 0 Elective abortions Hx Para Spontaneous abortions Hx # Term Pregnancies Ectopic pregnancies Hx # Pregnancies Multiple births # of living children HPI Encounter for routine gynecological examination: Details: TIFFANIE MO is a 24 year old who presents for new patient first annual exam. Last PAP: baseline NFP for contraception but ok. Menses very regular every 27-28 days Female Reproductive History Cycle Length: 21-35 Questions: Metorrhagia: No, Sexually active: Yes, Dyspareunia: No, PCB: No ROS Const Constitutional: Denies fatigue, weight gain or weight loss Cardio Card: Denies chest pain Resp Resp: Denies cough or shortness of breath with activity GI GI: Denies abdominal pain, bloating, change in stools, constipation or vomiting : Reports as per HPI; denies difficulty urinating, pelvic pain, urinary frequency, urinary incontinence, urinary urgency, vaginal discharge or vaginal itching Exam Const General: cooperative, healthy appearing, no acute distress, well developed Orientation: alert, oriented to person, oriented to place [facility] Head: normal to inspection Neck Neck: normal visual inspection Thyroid: thyroid normal Lymphatic: no lymphadenopathy noted Chest Breast inspection: normal inspection of the breasts, normal inspection of the axillae Breast palpation: normal palpation of the breasts, normal palpation of the axillae, no axillary lymphadenopathy Resp Effort Inspection: normal respiratory effort GI Palpation: soft, no masses, nontender Rectal Exam: deferred External Female Exam: normal external appearance, normal appearance of the urethra Urethra: normal appearance of the urethra, normal palpation Speculum Exam - Vagina: normal appearance of the vagina, normal vaginal discharge Speculum Exam - Cervix: normal appearance of the cervix Bimanual Exam- Vagina Uterus: normal bimanual exam, uterine size normal, uterine shape normal, uterus non-tender Bimanual Exam- Adnexa, other: normal adnexae, no adnexal masses, pelvic support normal, adnexae non- tender Pelvic Support: normal Neuro General: alert, oriented x3 Psych Affect: normal affect Assessment Plan 1. Encounter for gynecological examination without abnormal finding Z01.419 Plan Completed breast and pelvic exam Reviewed diet and exercise Pap thin prep pap with reflex HPV breast self exam encouraged monthly Contraception natural family planning Start vitamin GCC RTO 1 year, prn with problems Nel Crowe ENTRY MANAGER Plan Detail Other Orders Orders: PAP I-G w/rfx hrHPV-Aptima Today Z12.4 Coding Level of Care Code Off vis,new,prev 18-39yrs Diagnoses Encounter for gynecological examination without abnormal finding Z01.419 ?Gynecological examination findings: abnormal findings ABSENT 02/02/20 6195 <Electronically signed by Nel QUIROGA> Date Nel QUIROGA Cosigner Signature: Date (if applicable) CC: Janelle Linton Start: 10-11-2019 End: 10-11-2019 Spleen Comments: See Note; NOTES: [facility] Imaging Services [address] [place] [address] Spleen MR#: [id number] Acct: [id number] Name: TIFFANIE MO Rep #: [id number] : 1995 F 23 From: Lawrence Mckee MD PCP: Janelle Linton DO Status: REG CLI Study: Spleen Date of Exam: 10/11/19 Exam# [id number] Ordering Dr: Janelle Linton DO STUDY: ABDOMINAL ULTRASOUND -left UPPER QUADRANT REASON FOR VISIT: Female, 23 years old SPLENOMEGALY TECHNIQUE: Ultrasound evaluation of the left upper quadrant was performed with real-time and static hope-scale imaging. TECHNICAL QUALITY: Adequate. COMPARISON: None. FINDINGS: Spleen: The spleen measures 8.4 cm x 3 3 cm by 3.4 cm. It is unremarkable. Left Kidney: Normal size of the left kidney. The left kidney measures 11.6 cm x 5.1 cm x 5.2 cm. Normal renal cortex. The left cortex measures 1.3 cm. There is no demonstrated renal mass or cyst. There is no left hydronephrosis. US/Spleen IMPRESSION: Normal left upper quadrant ultrasound examination. Electronically Signed: Lawrence Mkcee, at 10:24 EST , Service support , CC: Janelle Linton DO Criminal Researcher: Signed Janelle Linton Work Phone: Start: 05-27-2014 End: 05-27-2014 No Known Past Surgical History [facility] Cytopathology procedure, preparation of smear, genital source Dr. Janelle Linton Work Phone: Group B Streptococcu s Culture Dr. Janelle Linton Work Phone: Investigation of transfusion reaction Dr. Janelle Linton Work Phone: Urine culture Dr. Janelle eugene Work Phone: Plan of Treatment Date Care Activity Detail Author Start: 12-08-2024 US scan of thyroid Thyroid [facility] Start: 03-14-2023 Liquid based cervical cytology screening [facility] Start: 01-27-2023 Patient discharge [facility] Start: 01-25-2023 Administration of medication [facility] Start: 01-25-2023 Application of ice collar, cap or bag [facility] Start: 01-25-2023 Catheterization of vein [facility] Start: 01-25-2023 Introduction of urinary catheter [facility] Start: 01-25-2023 Measuring intake and output [facility] Start: 01-25-2023 Notification of physician [facility] Start: 01-25-2023 Procedure discontinued [facility] Start: 01-25-2023 Provision of activity privileges [facility] Start: 01-25-2023 Vital signs measurements [facility] Start: 01-25-2023 [facility] Start: 01-25-2023 Consultation [facility] Start: 01-24-2023 Admission procedure [facility] Start: 01-16-2023 Nonstress test [facility] Start: 01-16-2023 Obstetric monitoring [facility] Start: 01-16-2023 Vital signs measurements [facility] Start: 01-16-2023 [facility] Start: 01-16-2023 Patient discharge [facility] Start: 01-14-2023 Streptococcus agalactiae [Presence] in Unspecified specimen by Organism specific culture [facility] Start: 04-03-2022 Procedure Education Eprescribed prescriptions (G8553) [facility] Work Phone: Start: 04-03-2022 Provider Instructions for Treatment Continue Current Prescription(s) [facility] Work Phone: Start: 03-04-2022 Procedure Education Eprescribed prescriptions (G8553) [facility]; [facility] Work Phone: Start: 03-04-2022 Provider Instructions for Treatment [facility] Work Phone: Start: 08-16-2020 Procedure Education Eprescribed prescriptions (G8553) [facility]; [facility] Work Phone: Start: 08-16-2020 Provider Instructions for Treatment [facility] Work Phone: Start: 08-11-2020 Procedure Education Eprescribed prescriptions (G8553) [facility] Work Phone: Start: 08-11-2020 Provider Instructions for Treatment [facility] Work Phone: Start: 08-11-2020 Urinalysis qual/semiquant except immunoassays URINALYSIS (85971) [facility] Work Phone: Start: 08-11-2020 Blood count complete automated CBC & PLATELETS (AUTO) (53319) [facility] Work Phone: Start: 08-11-2020 Antibody borrelia burgdorferi lyme disease Lyme Disease Antibody W/ Reflex (76599) [facility] Work Phone: Start: 08-11-2020 C-reactive protein high sensitivity C-REACT PROT HIGH SENS(hsCRP) (48071) [facility] Work Phone: Start: 08-11-2020 Sedimentation rate rbc non-automated SED RATE ERYTHROCYTE (86284) [facility] Work Phone: Start: 08-11-2020 Antibody toxoplasma TOXOPLASMA ANTIBODY (52701) [facility] Work Phone: Start: 08-09-2020 Procedure Education Eprescribed prescriptions (G8553) [facility] Work Phone: Start: 08-09-2020 Provider Instructions for Treatment Follow up in 1 week with KF or Mec callpt with date and tme front maker [facility] Work Phone: Start: 08-09-2020 Comprehensive metabolic panel Metabolic Panel, Comprehensive (84770) [facility] Work Phone: Start: 08-09-2020 Blood count complete automated CBC & PLATELETS (AUTO) (33797) [facility] Work Phone: Start: 08-09-2020 Myoglobin [Mass/Vol] MYOGLOBIN (68131) [facility] Work Phone: Start: 08-09-2020 Creatine kinase mb fraction only CPK MB FRACTION (53687) [facility] Work Phone: Start: 08-09-2020 Troponin I.cardiac [Mass/Vol] ASSAY, TROPONIN, QUANTITATIVE (aka Troponin I) (82367) [facility] Work Phone: Start: 06-19-2020 Procedure Education Eprescribed prescriptions (G8553) [facility] Work Phone: Start: 06-19-2020 Provider Instructions for Treatment Follow up in 1 month [facility] Work Phone: Start: 04-03-2020 Procedure Education Eprescribed prescriptions (G8553) [facility] Work Phone: Start: 03-31-2020 Procedure Education Eprescribed prescriptions (G8553) [facility] Work Phone: Start: 03-31-2020 Provider Instructions for Treatment Follow up in 3 days with virtual visit Front to call and make apt [facility] Work Phone: Start: 03-31-2020 Iaadiadoo influenza 2019 Novel Coronavirus (COVID-19), JENNI (73591) [facility] Work Phone: Start: 10-15-2019 Procedure Education Eprescribed prescriptions (G8553) [facility] Work Phone: Start: 10-15-2019 Provider Instructions for Treatment [facility] Work Phone: Start: 10-01-2019 Provider Instructions for Treatment Reviewed Lab [facility] Work Phone: Start: 09-17-2019 Blood count manual cell count each CBC WITH MANUAL DIFF (33111) [facility] Work Phone: Start: 09-17-2019 Procedure Education Eprescribed prescriptions (G8553) [facility] Work Phone: Start: 11-07-2017 Protein [Mass/Vol] Serum Protein Electrophoresis (SPEP) (45133) [facility] Work Phone: Start: 11-07-2017 Protein electrophoretic fractj&quantj serum Serum Protein Electrophoresis (SPEP) (78096) [facility]; [facility] Work Phone: Start: 11-07-2017 Assay of thyroid stimulating hormone tsh TSH (THYROID STIMULATING HORMONE) (30549) [facility]; [facility] Work Phone: Start: 11-07-2017 TSH Qn TSH (THYROID STIMULATING HORMONE) (44657) [facility] Work Phone: Start: 11-07-2017 Sedimentation rate rbc non-automated SED RATE ERYTHROCYTE (41313) [facility] Work Phone: Start: 11-07-2017 Comprehensive metabolic panel METABOLIC PANEL, COMPREHENSIVE (56568) [facility] Work Phone: Start: 11-07-2017 Blood count complete automated CBC & PLATELETS (AUTO) (65047) [facility] Work Phone: Start: 07-27-2015 Lipid panel LIPID PANEL (34728) [facility] Work Phone: Start: 07-27-2015 Provider Instructions for Treatment [facility] Work Phone: Start: 04-27-2015 Patient Education Anxiety: emotional health [facility] Work Phone: Start: 04-27-2015 Provider Instructions for Treatment Follow up in 3 months [facility] Work Phone: Start: 03-16-2015 Patient Education Anxiety: emotional health [facility] Work Phone: Start: 03-16-2015 Procedure Education Eprescribed prescriptions (G8553) [facility] Work Phone: Start: 03-16-2015 Provider Instructions for Treatment Follow up in 1 month [facility] Work Phone: Start: 08-02-2014 Provider Instructions for Treatment [facility] Work Phone: Start: 05-27-2014 Procedure Education Eprescribed prescriptions (G8553) [facility] Work Phone: Start: 05-27-2014 Provider Instructions for Treatment Follow up in 1 month [facility] Work Phone: Beta-hemolytic Streptococcus culture [facility] Group B Streptococcu s Culture Group B Streptococcus Culture [facility] Path report.final Dx Spec [facility] Patient Education [facility] Work Phone: Patient referral [facility] Work Phone: [facility] Work Phone: [facility] Work Phone: [facility] Work Phone: [facility] Work Phone: Immunizations Immunization Date Immunization Notes Care Provider [facility] 11-18-2022 tetanus toxoid, reduced diphtheria toxoid, and acellular pertussis vaccine, adsorbed Dr. Janelle Linton Work Phone: [facility] 07-19-2022 influenza, injectabl e, quadrivalent, preservative free Dr. Janelle Linton DO Work Phone: [facility] 07-19-2022 influenza, seasonal, injectable Dr. Janelle Linton Work Phone: [facility] 09-08-2021 Giftyid (Moderna) Dr. Janelle Linton Work Phone: [facility] 12-30-2020 COVID-Moderna (100 MCG/0.5 ML) Janelle Linton DO Work Phone: [facility] Work Phone: 12-07-2020 COVID-Moderna (100 MCG/0.5 ML) Janelle Linton DO Work Phone: [facility] Work Phone: 2020 Giftyid (Moderna) Dr. Janelle Linton Work Phone: [facility] Payers Date Payer Category Payer Unknown [id number] c 2024 Self-pay [id number] c 2024 Unknown [id number] 1995 Unknown [id number] Unknown [place] JOANNA ANDRADE [facility] [id number] Unknown Victor M ANDRADE *DO NOT USE* [id number] Unknown [id number] Unknown [id number] Unknown [id number] Unknown [id number] Social History Date Type Detail Facility Alcohol Use: Alcohol Use: [facility] Work Phone: Caffeine Use Caffeine Use [facility] Work Phone: Comment on above: qd Exercise History: Exercise History: [facility] Work Phone: Living Situation: Living Situation: [facility] Work Phone: Pets/Animals: Pets/Animals: [facility] Work Phone: Tobacco use: Tobacco use: [facility] Work Phone: Alcohol Use: Alcohol Use: [facility] Work Phone: Exercise History: Exercise History: [facility]; [facility] Work Phone: Living Situation: Living Situation: [facility]; [facility] Work Phone: Pets/Animals: Pets/Animals: [facility]; [facility] Work Phone: Tobacco use: Tobacco use: [facility] Work Phone: Start: 02-02-2020 End: 03-14-2023 Tobacco smoking status NHIS Unknown if ever smoked [facility] Start: 1995 Sex Assigned At Female [facility] Start: 04-07-2024 End: 06-03-2025 Tobacco smoking status NHIS Never smoked tobacco (finding) [facility] Start: 12-09-2024 Sex Female (finding) [facility] Sex Female [facility] NEGATED: Highlighted row [facility] Goals Date Patient Goal Desired Activity /State Clinical Notes 02-11-2023 to 03-14-2023 Note Date & Type Note Facility 03-14-2023 Note [facility] Pap Smear Specimen Adequacy March 14, 2023 5:28pm Comment . Satisfactory for evaluation. Endocervical and/or squamous metaplasticcells (endocervical component) are present. Comment on above: Satisfactory for cristian luation. Endocervical and/or squamous metaplasticcells (endocervical component) are present. 02-11-2023 Discharge summary Note Date/Time February 11, 2023 6:19p m [facility] System Medical Records Department [address] [place] [address] Emergency Department Summary 02/11/23 MR#: [id number] Acct: [id number] Name: TIFFANIE MO Rep #:[id number] : 1995 27 From: Waqas Evans MD PCP: Dr. Janelle Linton, DO Status:RE G ER Location: ED HPI History of Present Illness Chief Complaint: Lower Extremity Injury Narrative Narrative: 27-year-old female who denies significant past medical history is 2 weeks . Over the last few days she has had right posterior calf pain that is dull and achy. She denies any chest pain or shortness of breath. She has not noticed any overt swelling of her right lower extremity. She called her WEEKDAY BABYSITTER who told her to come to the emergency department for an ultrasound. Of note, she states that she has not had disorder where she can easily dislocate her kneecaps. She had twisted her knee and fallen the other day and relocated her patella, and has swelling around there, but no direct trauma to her mid calfarea. [facility] Medical History History of anxiety Oligohydramnios Psoriasis Vaginal delivery Home Medications escitalopram oxalate 5 mg tablet (Lexapro) 5 mg PO DAILY anxiety 06/21/22 [History Last Taken 01/23/23 21:00] multivitamin no.47-iron fum 27 mg-folate no.1 1 mg-dha 300 mg capsule (PNV-DHA)1 cap PO DAILY 06/27/22 [History Last Taken 01/23/23 21:00] omeprazole 20 mg capsule,delayed release 20 mg PO DAILY heartburn 01/24/23 [History Last Taken 01/23/23 19:00] Allergy/AdvReac Type Severity Reaction Status Date / Time No Known Allergies Allergy Verified 01/24/23 17:45 Family History Grandmother Diabetes Breast cancer, Onset Age: 67 maternal Grandfather Hypertension Grandmother Breast cancer, Onset Age: 75 paternal- of Covid before treatment of breast cancer completed Social History adopted: No household members: spouse housing: house current occupational status: employed 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 and animals: Yes (Not managing litterbox) pets and animals: cat(s) history of recent travel: Yes ([place] in January) out of state: Yes out of country:Yes sexually active: Yes Smoking Status: Never smoker alcohol intake: never substance use type: does not use well-balanced diet: daily or most days caffeine: No eating out: 1-3 times/week during the past year weight has: remained stable what type of physical activity do you participate in: weight training frequency: 3-4 times per week duration: 30-45 minutes/day lala/confucianist: None seatbelt use: always do you feel safe at home: Yes additional social history: [place]- 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 HEENT: No sore throat. No neck pain. No loss of vision. No rhinorrhea. Cardiovascular: No chest pain. No palpitations. No pedal edema. Respiratory: No cough, no shortness of breath. Abdominal: No abdominal pain. No nausea. No vomiting. Genitourinary: No dysuria. No hematuria. Musculoskeletal: Right mid calf pain, achiness. No arthralgias. Neurologic: No headaches. No dizziness. No lightheadedness. Skin: No rash. No change in color. Psychiatric: No depression. No anxiety. EXAM Physical Exam Narrative Exam Narrative: Afebrile. Vital signs noted. HEENT: Normocephalic. Atraumatic. PERRL, EOMI. Neck soft and supple. No pointtenderness or step off. Cardiovascular: Regular rate and rhythm. No murmurs, rubs, or gallops appreciated. Respiratory: No tachypnea. Lungs clear to auscultation bilaterally. Gastrointestinal: Abdomen soft, nontender, with normoactive bowel sounds. No rebound or guarding. Neurological: Awake. Alert. Nonfocal, nonlateralizing. Skin: No rash. Normal color. No pallor. Musculoskeletal: No pedal edema. Full range of motion extremities. Mild tenderness mid right calf, no overt swelling or erythema, no palpable cord, palpable dorsalis pedis pulse. Const Vital Signs: 02/11/23 17:01 Temperature 97.2 F L Temperature Source Temporal Pulse Rate 107 H Respiratory Rate 18 Blood Pressure 106/80 Blood Pressure Mean 88 Pulse Ox 100 Oxygen Delivery Method Room Air MDM MDM MDM Narrative Medical decision making narrative: Ultrasound will be obtained for rule out of DVT in the right lower extremity. Po not feel laboratory work is indicated currently nor do I feel that any other imaging is indicated. I reviewed the radiology report which shows no evidence of acute DVT. At this point in time, she will be discharged to take [id number] analgesics and follow-up with her primary care provider and/or her WEEKDAY BABYSITTER. I do not feel that she needs anticoagulants or narcotic pain medication. Disposition is discharged home in stable condition. Radiography Diagnostic Testing: Clinical Impression(s) from Imaging Studies Venous Duplex 02/11/23 19:08 IMPRESSION: Normal right lower extremity duplex venous ultrasound. Electronically Signed: Paolo An MD at 20:07 EDT , Discharge Plan Triage Chief Complaint: Lower Extremity Injury ED Provider: Waqas Evans Dx/Rx/DC Orders Clinical Impression: Calf pain Instructions: ED Myalgias, ED Pain, Acute, Uncertain Cause Prescriptions: No Action PNV-DHA 27 mg iron-1 mg -300 mg capsule 1 cap PO DAILY escitalopram oxalate [Lexapro] 5 mg tablet 5 mg PO DAILY omeprazole 20 mg capsule,delayed release(DR/EC) 20 mg PO DAILY Primary Care Provider: Janelle Linton Referrals: Janelle Linton DO [Primary Care Provider] - As soon as possible Disposition Disposition: Home, Self Care What to do if you have Problems For any increased pain, shortness of breath, bleeding, nausea or vomiting, chestpain, or any unexpected problems, contact your Primary Care Provider. Call [facility] ([phone]) or report to the closest Emergency Room. Call 911 if necessary. 02/11/232122 <Electronically signed by Waqas Evans MD> Cosigner Signature (if applicable): CC: Dr. Janelle Linton DO ~ Signed [facility] Work Phone: Evaluation noteNo assessment information available [facility] Work Phone: Evaluation note* Diagnosis Onset Date Resolution Status Vaginal discharge during resolved acute Supervision of high risk , antepartum acute [facility] Work Phone: Evaluation note* Diagnosis Onset Date Resolution Status acute Supervision of high risk , antepartum acute acute Supervision of high risk , antepartum acute acute Supervision of high risk , antepartum acute acute Supervision of high risk , antepartum acute Need for Tdap vaccination ac jamul acute Supervision of high risk , antepartum acute Need for Tdap vaccination ac jamul acute Supervision of high risk , antepartum acute Need for Tdap vaccination ac jamul acute Supervision of high risk , antepartum acute Need for Tdap vaccination ac jamul acute Supervision of high risk , antepartum acute [facility] Work Phone: evaluation note* Diagnosis Onset Date Resolution Status acute Supervision of high risk , antepartum acute acute Supervision of high risk , antepartum acute acute Supervision of high risk , antepartum acute Need for Tdap vaccination ac jamul acute Supervision of high risk , antepartum acute Need for Tdap vaccination ac jamul acute Supervision of high risk , antepartum acute Need for Tdap vaccination ac jamul acute Supervision of high risk , antepartum acute Need for Tdap vaccination ac jamul acute Supervision of high risk , antepartum acute [facility] Work Phone: evaluation note* Diagnosis Onset Date Resolution Status resolved Supervision of high risk , antepartum resolved resolved Supervision of high risk , antepartum resolved Need for Tdap vaccination re solved resolved Supervision of high risk , antepartum resolved Need for Tdap vaccination re solved resolved Supervision of high risk , antepartum resolved Need for Tdap vaccination re solved resolved Supervision of high risk , antepartum resolved Need for Tdap vaccination re solved resolved Supervision of high risk , antepartum resolved Need for Tdap vaccination re solved resolved Supervision of high risk , antepartum resolved Need for Tdap vaccination re solved Oligohydramnios in third trimester resolved resolved Supervision of high risk , antepartum resolved [facility] Work Phone: Evaluation note* Diagnosis Onset Date Resolution Status Need for Tdap vaccination re solved resolved Supervision of high risk , antepartum resolved Need for Tdap vaccination re solved resolved Supervision of high risk , antepartum resolved Need for Tdap vaccination re solved resolved Supervision of high risk , antepartum resolved Need for Tdap vaccination re solved resolved Supervision of high risk , antepartum resolved Need for Tdap vaccination re solved resolved Supervision of high risk , antepartum resolved Need for Tdap vaccination re solved Oligohydramnios in third trimester resolved resolved Supervision of high risk , antepartum resolved Status post vaginal delivery acute [facility] Work Phone: Instructions* Name Dates Details How to Access Health Informa tion Online using Patient Portal and 3rd Republican Apps Indication:Non-smoker Start:16-Aug-2020 Instruction Type:Patient Education Patient Instructions Indication:Non-smoker Start:16-Aug-2020 Instruction Type:Provider Instructions for Treatment How to access health informa tion online Indication:Non-smoker Start:11-Aug-2020 Instruction Type:Patient Education How to access health informa tion online - Detail Indication:Non-smoker Start:11-Aug-2020 Instruction Type:Patient Education Patient Instructions Indication:Non-smoker Start:11-Aug-2020 Instruction Type:Provider Instructions for Treatment How to access health informa tion online Indication:BMI 25.0-25.9,adult Start:09-Aug-2020 Instruction Type:Patient Education How to access health informa tion online - Detail Indication:BMI 25.0-25.9,adult Start:09-Aug-2020 Instruction Type:Patient Education Patient Instructions Indication:Plasma donor Start:09-Aug-2020 Instruction Type:Provider Instructions for Treatment How to access health informa tion online Indication:Non-smoker Start:19-Jun-2020 Instruction Type:Patient Education How to access health informa tion online - Detail Indication:Non-smoker Start:19-Jun-2020 Instruction Type:Patient Education Patient Instructions Indication:Non-smoker Start:19-Jun-2020 Instruction Type:Provider Instructions for Treatment How to access health informa tion online Indication:Non-smoker Start:03-Apr-2020 Instruction Type:Patient Education How to access health informa tion online - Detail Indication:Non-smoker Start:03-Apr-2020 Instruction Type:Patient Education Patient Instructions Indication:Non-smoker Start:03-Apr-2020 Instruction Type:Provider Instructions for Treatment How to access health informa tion online Indication:BMI 25.0-25.9,adult Start:31-Mar-2020 Instruction Type:Patient Education How to access health informa tion online - Detail Indication:BMI 25.0-25.9,adult Start:31-Mar-2020 Instruction Type:Patient Education Patient Instructions Indication:BMI 25.0-25.9,adult Start:31-Mar-2020 Instruction Type:Provider Instructions for Treatment How to access health informa tion online Indication:Non-smoker Start:15-Oct-2019 Instruction Type:Patient Education How to access health informa tion online - Detail Indication:Non-smoker Start:15-Oct-2019 Instruction Type:Patient Education Patient Instructions Indication:Non-smoker Start:15-Oct-2019 Instruction Type:Provider Instructions for Treatment How to access health informa tion online Indication:BMI 25.0-25.9,adult Start:01-Oct-2019 Instruction Type:Patient Education How to access health informa tion online - Detail Indication:BMI 25.0-25.9,adult Start:01-Oct-2019 Instruction Type:Patient Education Patient Instructions Indication:BMI 25.0-25.9,adult Start:01-Oct-2019 Instruction Type:Provider Instructions for Treatment How to access health informa tion online Indication:Non-smoker Start:17-Sep-2019 Instruction Type:Patient Education How to access health informa tion online - Detail Indication:Non-smoker Start:17-Sep-2019 Instruction Type:Patient Education Patient Instructions Indication:Non-smoker Start:17-Sep-2019 Instruction Type:Provider Instructions for Treatment How to access health informa tion online Indication:Non-smoker Start:07-Nov-2017 Instruction Type:Patient Education How to access health informa tion online - Detail Indication:Non-smoker Start:07-Nov-2017 Instruction Type:Patient Education Patient Instructions Indication:Non-smoker Start:07-Nov-2017 Instruction Type:Provider Instructions for Treatment How to access health informa tion online Indication:Anxiety Start:27-Apr-2015 Instruction Type:Patient Education How to access health informa tion online - Detail Indication:Anxiety Start:27-Apr-2015 Instruction Type:Patient Education Patient Instructions Indication:Anxiety Start:27-Apr-2015 Instruction Type:Provider Instructions for Treatment How to access health informa tion online Indication:Anxiety Start:16-Mar-2015 Instruction Type:Patient Education How to access health informa tion online - Detail Indication:Anxiety Start:16-Mar-2015 Instruction Type:Patient Education Patient Instructions Indication:Anxiety Start:16-Mar-2015 Instruction Type:Provider Instructions for Treatment How to access health informa tion online Indication:Anxiety Start:27-May-2014 Instruction Type:Patient Education How to access health informa tion online - Detail Indication:Anxiety Start:27-May-2014 Instruction Type:Patient Education [facility]; [facility] Work Phone: Instructions* Name Dates Details How to Access Health Informa tion Online using Patient Portal and 3rd Republican Apps Indication:Non-smoker Start:16-Aug-2020 Instruction Type:Patient Education Patient Instructions Indication:Non-smoker Start:16-Aug-2020 Instruction Type:Provider Instructions for Treatment How to access health informa tion online Indication:Non-smoker Start:11-Aug-2020 Instruction Type:Patient Education How to access health informa tion online - Detail Indication:Non-smoker Start:11-Aug-2020 Instruction Type:Patient Education Patient Instructions Indication:Non-smoker Start:11-Aug-2020 Instruction Type:Provider Instructions for Treatment How to access health informa tion online Indication:BMI 25.0-25.9,adult Start:09-Aug-2020 Instruction Type:Patient Education How to access health informa tion online - Detail Indication:BMI 25.0-25.9,adult Start:09-Aug-2020 Instruction Type:Patient Education Patient Instructions Indication:Plasma donor Start:09-Aug-2020 Instruction Type:Provider Instructions for Treatment How to access health informa tion online Indication:Non-smoker Start:19-Jun-2020 Instruction Type:Patient Education How to access health informa tion online - Detail Indication:Non-smoker Start:19-Jun-2020 Instruction Type:Patient Education Patient Instructions Indication:Non-smoker Start:19-Jun-2020 Instruction Type:Provider Instructions for Treatment How to access health informa tion online Indication:Non-smoker Start:03-Apr-2020 Instruction Type:Patient Education How to access health informa tion online - Detail Indication:Non-smoker Start:03-Apr-2020 Instruction Type:Patient Education Patient Instructions Indication:Non-smoker Start:03-Apr-2020 Instruction Type:Provider Instructions for Treatment How to access health informa tion online Indication:BMI 25.0-25.9,adult Start:31-Mar-2020 Instruction Type:Patient Education How to access health informa tion online - Detail Indication:BMI 25.0-25.9,adult Start:31-Mar-2020 Instruction Type:Patient Education Patient Instructions Indication:BMI 25.0-25.9,adult Start:31-Mar-2020 Instruction Type:Provider Instructions for Treatment How to access health informa tion online Indication:Non-smoker Start:15-Oct-2019 Instruction Type:Patient Education How to access health informa tion online - Detail Indication:Non-smoker Start:15-Oct-2019 Instruction Type:Patient Education Patient Instructions Indication:Non-smoker Start:15-Oct-2019 Instruction Type:Provider Instructions for Treatment How to access health informa tion online Indication:BMI 25.0-25.9,adult Start:01-Oct-2019 Instruction Type:Patient Education How to access health informa tion online - Detail Indication:BMI 25.0-25.9,adult Start:01-Oct-2019 Instruction Type:Patient Education Patient Instructions Indication:BMI 25.0-25.9,adult Start:01-Oct-2019 Instruction Type:Provider Instructions for Treatment How to access health informa tion online Indication:Non-smoker Start:17-Sep-2019 Instruction Type:Patient Education How to access health informa tion online - Detail Indication:Non-smoker Start:17-Sep-2019 Instruction Type:Patient Education Patient Instructions Indication:Non-smoker Start:17-Sep-2019 Instruction Type:Provider Instructions for Treatment How to access health informa tion online Indication:Non-smoker Start:07-Nov-2017 Instruction Type:Patient Education How to access health informa tion online - Detail Indication:Non-smoker Start:07-Nov-2017 Instruction Type:Patient Education Patient Instructions Indication:Non-smoker Start:07-Nov-2017 Instruction Type:Provider Instructions for Treatment How to access health informa tion online Indication:Anxiety Start:27-Apr-2015 Instruction Type:Patient Education How to access health informa tion online - Detail Indication:Anxiety Start:27-Apr-2015 Instruction Type:Patient Education Patient Instructions Indication:Anxiety Start:27-Apr-2015 Instruction Type:Provider Instructions for Treatment How to access health informa tion online Indication:Anxiety Start:16-Mar-2015 Instruction Type:Patient Education How to access health informa tion online - Detail Indication:Anxiety Start:16-Mar-2015 Instruction Type:Patient Education Patient Instructions Indication:Anxiety Start:16-Mar-2015 Instruction Type:Provider Instructions for Treatment How to access health informa tion online Indication:Anxiety Start:27-May-2014 Instruction Type:Patient Education How to access health informa tion online - Detail Indication:Anxiety Start:27-May-2014 Instruction Type:Patient Education [facility]; [facility] Work Phone: Instructions* Name Dates Details Patient Instructions Indication:Anxiety Start:04-Mar-2022 Instruction Type:Provider Instructions for Treatment How to Access Health Informa tion Online using Patient Portal and 3rd Republican Apps Indication:Anxiety Start:04-Mar-2022 Instruction Type:Patient Education How to Access Health Informa tion Online using Patient Portal and 3rd Republican Apps Indication:Non-smoker Start:16-Aug-2020 Instruction Type:Patient Education Patient Instructions Indication:Non-smoker Start:16-Aug-2020 Instruction Type:Provider Instructions for Treatment How to access health informa tion online Indication:Non-smoker Start:11-Aug-2020 Instruction Type:Patient Education How to access health informa tion online - Detail Indication:Non-smoker Start:11-Aug-2020 Instruction Type:Patient Education Patient Instructions Indication:Non-smoker Start:11-Aug-2020 Instruction Type:Provider Instructions for Treatment How to access health informa tion online Indication:BMI 25.0-25.9,adult Start:09-Aug-2020 Instruction Type:Patient Education How to access health informa tion online - Detail Indication:BMI 25.0-25.9,adult Start:09-Aug-2020 Instruction Type:Patient Education Patient Instructions Indication:Plasma donor Start:09-Aug-2020 Instruction Type:Provider Instructions for Treatment How to access health informa tion online Indication:Non-smoker Start:19-Jun-2020 Instruction Type:Patient Education How to access health informa tion online - Detail Indication:Non-smoker Start:19-Jun-2020 Instruction Type:Patient Education Patient Instructions Indication:Non-smoker Start:19-Jun-2020 Instruction Type:Provider Instructions for Treatment How to access health informa tion online Indication:Non-smoker Start:03-Apr-2020 Instruction Type:Patient Education How to access health informa tion online - Detail Indication:Non-smoker Start:03-Apr-2020 Instruction Type:Patient Education Patient Instructions Indication:Non-smoker Start:03-Apr-2020 Instruction Type:Provider Instructions for Treatment How to access health informa tion online Indication:BMI 25.0-25.9,adult Start:31-Mar-2020 Instruction Type:Patient Education How to access health informa tion online - Detail Indication:BMI 25.0-25.9,adult Start:31-Mar-2020 Instruction Type:Patient Education Patient Instructions Indication:BMI 25.0-25.9,adult Start:31-Mar-2020 Instruction Type:Provider Instructions for Treatment How to access health informa tion online Indication:Non-smoker Start:15-Oct-2019 Instruction Type:Patient Education How to access health informa tion online - Detail Indication:Non-smoker Start:15-Oct-2019 Instruction Type:Patient Education Patient Instructions Indication:Non-smoker Start:15-Oct-2019 Instruction Type:Provider Instructions for Treatment How to access health informa tion online Indication:BMI 25.0-25.9,adult Start:01-Oct-2019 Instruction Type:Patient Education How to access health informa tion online - Detail Indication:BMI 25.0-25.9,adult Start:01-Oct-2019 Instruction Type:Patient Education Patient Instructions Indication:BMI 25.0-25.9,adult Start:01-Oct-2019 Instruction Type:Provider Instructions for Treatment How to access health informa tion online Indication:Non-smoker Start:17-Sep-2019 Instruction Type:Patient Education How to access health informa tion online - Detail Indication:Non-smoker Start:17-Sep-2019 Instruction Type:Patient Education Patient Instructions Indication:Non-smoker Start:17-Sep-2019 Instruction Type:Provider Instructions for Treatment How to access health informa tion online Indication:Non-smoker Start:07-Nov-2017 Instruction Type:Patient Education How to access health informa tion online - Detail Indication:Non-smoker Start:07-Nov-2017 Instruction Type:Patient Education Patient Instructions Indication:Non-smoker Start:07-Nov-2017 Instruction Type:Provider Instructions for Treatment How to access health informa tion online Indication:Anxiety Start:27-Apr-2015 Instruction Type:Patient Education How to access health informa tion online - Detail Indication:Anxiety Start:27-Apr-2015 Instruction Type:Patient Education Patient Instructions Indication:Anxiety Start:27-Apr-2015 Instruction Type:Provider Instructions for Treatment How to access health informa tion online Indication:Anxiety Start:16-Mar-2015 Instruction Type:Patient Education How to access health informa tion online - Detail Indication:Anxiety Start:16-Mar-2015 Instruction Type:Patient Education Patient Instructions Indication:Anxiety Start:16-Mar-2015 Instruction Type:Provider Instructions for Treatment How to access health informa tion online Indication:Anxiety Start:27-May-2014 Instruction Type:Patient Education How to access health informa tion online - Detail Indication:Anxiety Start:27-May-2014 Instruction Type:Patient Education [facility]; [facility] Work Phone: Instructions* Name Dates Details Patient Instructions Indication:Non-smoker Start:03-Apr-2022 Instruction Type:Provider Instructions for Treatment How to Access Health Informa tion Online using Patient Portal and 3rd Republican Apps Indication:Non-smoker Start:03-Apr-2022 Instruction Type:Patient Education Patient Instructions Indication:Anxiety Start:04-Mar-2022 Instruction Type:Provider Instructions for Treatment How to Access Health Informa tion Online using Patient Portal and 3rd Republican Apps Indication:Anxiety Start:04-Mar-2022 Instruction Type:Patient Education How to Access Health Informa tion Online using Patient Portal and 3rd Republican Apps Indication:Non-smoker Start:16-Aug-2020 Instruction Type:Patient Education Patient Instructions Indication:Non-smoker Start:16-Aug-2020 Instruction Type:Provider Instructions for Treatment How to access health informa tion online Indication:Non-smoker Start:11-Aug-2020 Instruction Type:Patient Education How to access health informa tion online - Detail Indication:Non-smoker Start:11-Aug-2020 Instruction Type:Patient Education Patient Instructions Indication:Non-smoker Start:11-Aug-2020 Instruction Type:Provider Instructions for Treatment How to access health informa tion online Indication:BMI 25.0-25.9,adult Start:09-Aug-2020 Instruction Type:Patient Education How to access health informa tion online - Detail Indication:BMI 25.0-25.9,adult Start:09-Aug-2020 Instruction Type:Patient Education Patient Instructions Indication:Plasma donor Start:09-Aug-2020 Instruction Type:Provider Instructions for Treatment How to access health informa tion online Indication:Non-smoker Start:19-Jun-2020 Instruction Type:Patient Education How to access health informa tion online - Detail Indication:Non-smoker Start:19-Jun-2020 Instruction Type:Patient Education Patient Instructions Indication:Non-smoker Start:19-Jun-2020 Instruction Type:Provider Instructions for Treatment How to access health informa tion online Indication:Non-smoker Start:03-Apr-2020 Instruction Type:Patient Education How to access health informa tion online - Detail Indication:Non-smoker Start:03-Apr-2020 Instruction Type:Patient Education Patient Instructions Indication:Non-smoker Start:03-Apr-2020 Instruction Type:Provider Instructions for Treatment How to access health informa tion online Indication:BMI 25.0-25.9,adult Start:31-Mar-2020 Instruction Type:Patient Education How to access health informa tion online - Detail Indication:BMI 25.0-25.9,adult Start:31-Mar-2020 Instruction Type:Patient Education Patient Instructions Indication:BMI 25.0-25.9,adult Start:31-Mar-2020 Instruction Type:Provider Instructions for Treatment How to access health informa tion online Indication:Non-smoker Start:15-Oct-2019 Instruction Type:Patient Education How to access health informa tion online - Detail Indication:Non-smoker Start:15-Oct-2019 Instruction Type:Patient Education Patient Instructions Indication:Non-smoker Start:15-Oct-2019 Instruction Type:Provider Instructions for Treatment How to access health informa tion online Indication:BMI 25.0-25.9,adult Start:01-Oct-2019 Instruction Type:Patient Education How to access health informa tion online - Detail Indication:BMI 25.0-25.9,adult Start:01-Oct-2019 Instruction Type:Patient Education Patient Instructions Indication:BMI 25.0-25.9,adult Start:01-Oct-2019 Instruction Type:Provider Instructions for Treatment How to access health informa tion online Indication:Non-smoker Start:17-Sep-2019 Instruction Type:Patient Education How to access health informa tion online - Detail Indication:Non-smoker Start:17-Sep-2019 Instruction Type:Patient Education Patient Instructions Indication:Non-smoker Start:17-Sep-2019 Instruction Type:Provider Instructions for Treatment How to access health informa tion online Indication:Non-smoker Start:07-Nov-2017 Instruction Type:Patient Education How to access health informa tion online - Detail Indication:Non-smoker Start:07-Nov-2017 Instruction Type:Patient Education Patient Instructions Indication:Non-smoker Start:07-Nov-2017 Instruction Type:Provider Instructions for Treatment How to access health informa tion online Indication:Anxiety Start:27-Apr-2015 Instruction Type:Patient Education How to access health informa tion online - Detail Indication:Anxiety Start:27-Apr-2015 Instruction Type:Patient Education Patient Instructions Indication:Anxiety Start:27-Apr-2015 Instruction Type:Provider Instructions for Treatment How to access health informa tion online Indication:Anxiety Start:16-Mar-2015 Instruction Type:Patient Education How to access health informa tion online - Detail Indication:Anxiety Start:16-Mar-2015 Instruction Type:Patient Education Patient Instructions Indication:Anxiety Start:16-Mar-2015 Instruction Type:Provider Instructions for Treatment How to access health informa tion online Indication:Anxiety Start:27-May-2014 Instruction Type:Patient Education How to access health informa tion online - Detail Indication:Anxiety Start:27-May-2014 Instruction Type:Patient Education [facility]; [facility] Work Phone: Instructions* Name Dates Details Patient Instructions Indication:Non-smoker Start:03-Apr-2022 Instruction Type:Provider Instructions for Treatment How to Access Health Informa tion Online using Patient Portal and 3rd [employer] Apps Indication:Non-smoker Start:03-Apr-2022 Instruction Type:Patient Education Patient Instructions Indication:Anxiety Start:04-Mar-2022 Instruction Type:Provider Instructions for Treatment How to Access Health Informa tion Online using Patient Portal and [employer]rd [employer] Apps Indication:Anxiety Start:04-Mar-2022 Instruction Type:Patient Education How to Access Health Informa tion Online using Patient Portal and [employer]rd [employer] Apps Indication:Non-smoker Start:16-Aug-2020 Instruction Type:Patient Education Patient Instructions Indication:Non-smoker Start:16-Aug-2020 Instruction Type:Provider Instructions for Treatment How to access health informa tion online Indication:Non-smoker Start:11-Aug-2020 Instruction Type:Patient Education How to access health informa tion online - Detail Indication:Non-smoker Start:11-Aug-2020 Instruction Type:Patient Education Patient Instructions Indication:Non-smoker Start:11-Aug-2020 Instruction Type:Provider Instructions for Treatment How to access health informa tion online Indication:BMI 25.0-25.9,adult Start:09-Aug-2020 Instruction Type:Patient Education How to access health informa tion online - Detail Indication:BMI 25.0-25.9,adult Start:09-Aug-2020 Instruction Type:Patient Education Patient Instructions Indication:Plasma donor Start:09-Aug-2020 Instruction Type:Provider Instructions for Treatment How to access health informa tion online Indication:Non-smoker Start:19-Jun-2020 Instruction Type:Patient Education How to access health informa tion online - Detail Indication:Non-smoker Start:19-Jun-2020 Instruction Type:Patient Education Patient Instructions Indication:Non-smoker Start:19-Jun-2020 Instruction Type:Provider Instructions for Treatment How to access health informa tion online Indication:Non-smoker Start:03-Apr-2020 Instruction Type:Patient Education How to access health informa tion online - Detail Indication:Non-smoker Start:03-Apr-2020 Instruction Type:Patient Education Patient Instructions Indication:Non-smoker Start:03-Apr-2020 Instruction Type:Provider Instructions for Treatment How to access health informa tion online Indication:BMI 25.0-25.9,adult Start:31-Mar-2020 Instruction Type:Patient Education How to access health informa tion online - Detail Indication:BMI 25.0-25.9,adult Start:31-Mar-2020 Instruction Type:Patient Education Patient Instructions Indication:BMI 25.0-25.9,adult Start:31-Mar-2020 Instruction Type:Provider Instructions for Treatment How to access health informa tion online Indication:Non-smoker Start:15-Oct-2019 Instruction Type:Patient Education How to access health informa tion online - Detail Indication:Non-smoker Start:15-Oct-2019 Instruction Type:Patient Education Patient Instructions Indication:Non-smoker Start:15-Oct-2019 Instruction Type:Provider Instructions for Treatment How to access health informa tion online Indication:BMI 25.0-25.9,adult Start:01-Oct-2019 Instruction Type:Patient Education How to access health informa tion online - Detail Indication:BMI 25.0-25.9,adult Start:01-Oct-2019 Instruction Type:Patient Education Patient Instructions Indication:BMI 25.0-25.9,adult Start:01-Oct-2019 Instruction Type:Provider Instructions for Treatment How to access health informa tion online Indication:Non-smoker Start:17-Sep-2019 Instruction Type:Patient Education How to access health informa tion online - Detail Indication:Non-smoker Start:17-Sep-2019 Instruction Type:Patient Education Patient Instructions Indication:Non-smoker Start:17-Sep-2019 Instruction Type:Provider Instructions for Treatment How to access health informa tion online Indication:Non-smoker Start:07-Nov-2017 Instruction Type:Patient Education How to access health informa tion online - Detail Indication:Non-smoker Start:07-Nov-2017 Instruction Type:Patient Education Patient Instructions Indication:Non-smoker Start:07-Nov-2017 Instruction Type:Provider Instructions for Treatment How to access health informa tion online Indication:Anxiety Start:27-Apr-2015 Instruction Type:Patient Education How to access health informa tion online - Detail Indication:Anxiety Start:27-Apr-2015 Instruction Type:Patient Education Patient Instructions Indication:Anxiety Start:27-Apr-2015 Instruction Type:Provider Instructions for Treatment How to access health informa tion online Indication:Anxiety Start:16-Mar-2015 Instruction Type:Patient Education How to access health informa tion online - Detail Indication:Anxiety Start:16-Mar-2015 Instruction Type:Patient Education Patient Instructions Indication:Anxiety Start:16-Mar-2015 Instruction Type:Provider Instructions for Treatment How to access health informa tion online Indication:Anxiety Start:27-May-2014 Instruction Type:Patient Education How to access health informa tion online - Detail Indication:Anxiety Start:27-May-2014 Instruction Type:Patient Education [facility]; [facility] Work Phone: Instructions* Name Dates Details Patient Instructions Indication:Non-smoker Start:03-Apr-2022 Instruction Type:Provider Instructions for Treatment How to Access Health Informa tion Online using Patient Portal and 3rd [employer] Apps Indication:Non-smoker Start:03-Apr-2022 Instruction Type:Patient Education Patient Instructions Indication:Anxiety Start:04-Mar-2022 Instruction Type:Provider Instructions for Treatment How to Access Health Informa tion Online using Patient Portal and [employer]rd [employer] Apps Indication:Anxiety Start:04-Mar-2022 Instruction Type:Patient Education How to Access Health Informa tion Online using Patient Portal and [employer]rd [employer] Apps Indication:Non-smoker Start:16-Aug-2020 Instruction Type:Patient Education Patient Instructions Indication:Non-smoker Start:16-Aug-2020 Instruction Type:Provider Instructions for Treatment How to access health informa tion online Indication:Non-smoker Start:11-Aug-2020 Instruction Type:Patient Education How to access health informa tion online - Detail Indication:Non-smoker Start:11-Aug-2020 Instruction Type:Patient Education Patient Instructions Indication:Non-smoker Start:11-Aug-2020 Instruction Type:Provider Instructions for Treatment How to access health informa tion online Indication:BMI 25.0-25.9,adult Start:09-Aug-2020 Instruction Type:Patient Education How to access health informa tion online - Detail Indication:BMI 25.0-25.9,adult Start:09-Aug-2020 Instruction Type:Patient Education Patient Instructions Indication:Plasma donor Start:09-Aug-2020 Instruction Type:Provider Instructions for Treatment How to access health informa tion online Indication:Non-smoker Start:19-Jun-2020 Instruction Type:Patient Education How to access health informa tion online - Detail Indication:Non-smoker Start:19-Jun-2020 Instruction Type:Patient Education Patient Instructions Indication:Non-smoker Start:19-Jun-2020 Instruction Type:Provider Instructions for Treatment How to access health informa tion online Indication:Non-smoker Start:03-Apr-2020 Instruction Type:Patient Education How to access health informa tion online - Detail Indication:Non-smoker Start:03-Apr-2020 Instruction Type:Patient Education Patient Instructions Indication:Non-smoker Start:03-Apr-2020 Instruction Type:Provider Instructions for Treatment How to access health informa tion online Indication:BMI 25.0-25.9,adult Start:31-Mar-2020 Instruction Type:Patient Education How to access health informa tion online - Detail Indication:BMI 25.0-25.9,adult Start:31-Mar-2020 Instruction Type:Patient Education Patient Instructions Indication:BMI 25.0-25.9,adult Start:31-Mar-2020 Instruction Type:Provider Instructions for Treatment How to access health informa tion online Indication:Non-smoker Start:15-Oct-2019 Instruction Type:Patient Education How to access health informa tion online - Detail Indication:Non-smoker Start:15-Oct-2019 Instruction Type:Patient Education Patient Instructions Indication:Non-smoker Start:15-Oct-2019 Instruction Type:Provider Instructions for Treatment How to access health informa tion online Indication:BMI 25.0-25.9,adult Start:01-Oct-2019 Instruction Type:Patient Education How to access health informa tion online - Detail Indication:BMI 25.0-25.9,adult Start:01-Oct-2019 Instruction Type:Patient Education Patient Instructions Indication:BMI 25.0-25.9,adult Start:01-Oct-2019 Instruction Type:Provider Instructions for Treatment How to access health informa tion online Indication:Non-smoker Start:17-Sep-2019 Instruction Type:Patient Education How to access health informa tion online - Detail Indication:Non-smoker Start:17-Sep-2019 Instruction Type:Patient Education Patient Instructions Indication:Non-smoker Start:17-Sep-2019 Instruction Type:Provider Instructions for Treatment How to access health informa tion online Indication:Non-smoker Start:07-Nov-2017 Instruction Type:Patient Education How to access health informa tion online - Detail Indication:Non-smoker Start:07-Nov-2017 Instruction Type:Patient Education Patient Instructions Indication:Non-smoker Start:07-Nov-2017 Instruction Type:Provider Instructions for Treatment How to access health informa tion online Indication:Anxiety Start:27-Apr-2015 Instruction Type:Patient Education How to access health informa tion online - Detail Indication:Anxiety Start:27-Apr-2015 Instruction Type:Patient Education Patient Instructions Indication:Anxiety Start:27-Apr-2015 Instruction Type:Provider Instructions for Treatment How to access health informa tion online Indication:Anxiety Start:16-Mar-2015 Instruction Type:Patient Education How to access health informa tion online - Detail Indication:Anxiety Start:16-Mar-2015 Instruction Type:Patient Education Patient Instructions Indication:Anxiety Start:16-Mar-2015 Instruction Type:Provider Instructions for Treatment How to access health informa tion online Indication:Anxiety Start:27-May-2014 Instruction Type:Patient Education How to access health informa tion online - Detail Indication:Anxiety Start:27-May-2014 Instruction Type:Patient Education [facility]; [facility] Work Phone: Instructions* Name Dates Details Patient Instructions Indication:Non-smoker Start:03-Apr-2022 Instruction Type:Provider Instructions for Treatment How to Access Health Informa tion Online using Patient Portal and [employer]rd [employer] Apps Indication:Non-smoker Start:03-Apr-2022 Instruction Type:Patient Education Patient Instructions Indication:Anxiety Start:04-Mar-2022 Instruction Type:Provider Instructions for Treatment How to Access Health Informa tion Online using Patient Portal and [employer]rd [employer] Apps Indication:Anxiety Start:04-Mar-2022 Instruction Type:Patient Education How to Access Health Informa tion Online using Patient Portal and [employer]rd [employer] Apps Indication:Non-smoker Start:16-Aug-2020 Instruction Type:Patient Education Patient Instructions Indication:Non-smoker Start:16-Aug-2020 Instruction Type:Provider Instructions for Treatment How to access health informa tion online Indication:Non-smoker Start:11-Aug-2020 Instruction Type:Patient Education How to access health informa tion online - Detail Indication:Non-smoker Start:11-Aug-2020 Instruction Type:Patient Education Patient Instructions Indication:Non-smoker Start:11-Aug-2020 Instruction Type:Provider Instructions for Treatment How to access health informa tion online Indication:BMI 25.0-25.9,adult Start:09-Aug-2020 Instruction Type:Patient Education How to access health informa tion online - Detail Indication:BMI 25.0-25.9,adult Start:09-Aug-2020 Instruction Type:Patient Education Patient Instructions Indication:Plasma donor Start:09-Aug-2020 Instruction Type:Provider Instructions for Treatment How to access health informa tion online Indication:Non-smoker Start:19-Jun-2020 Instruction Type:Patient Education How to access health informa tion online - Detail Indication:Non-smoker Start:19-Jun-2020 Instruction Type:Patient Education Patient Instructions Indication:Non-smoker Start:19-Jun-2020 Instruction Type:Provider Instructions for Treatment How to access health informa tion online Indication:Non-smoker Start:03-Apr-2020 Instruction Type:Patient Education How to access health informa tion online - Detail Indication:Non-smoker Start:03-Apr-2020 Instruction Type:Patient Education Patient Instructions Indication:Non-smoker Start:03-Apr-2020 Instruction Type:Provider Instructions for Treatment How to access health informa tion online Indication:BMI 25.0-25.9,adult Start:31-Mar-2020 Instruction Type:Patient Education How to access health informa tion online - Detail Indication:BMI 25.0-25.9,adult Start:31-Mar-2020 Instruction Type:Patient Education Patient Instructions Indication:BMI 25.0-25.9,adult Start:31-Mar-2020 Instruction Type:Provider Instructions for Treatment How to access health informa tion online Indication:Non-smoker Start:15-Oct-2019 Instruction Type:Patient Education How to access health informa tion online - Detail Indication:Non-smoker Start:15-Oct-2019 Instruction Type:Patient Education Patient Instructions Indication:Non-smoker Start:15-Oct-2019 Instruction Type:Provider Instructions for Treatment How to access health informa tion online Indication:BMI 25.0-25.9,adult Start:01-Oct-2019 Instruction Type:Patient Education How to access health informa tion online - Detail Indication:BMI 25.0-25.9,adult Start:01-Oct-2019 Instruction Type:Patient Education Patient Instructions Indication:BMI 25.0-25.9,adult Start:01-Oct-2019 Instruction Type:Provider Instructions for Treatment How to access health informa tion online Indication:Non-smoker Start:17-Sep-2019 Instruction Type:Patient Education How to access health informa tion online - Detail Indication:Non-smoker Start:17-Sep-2019 Instruction Type:Patient Education Patient Instructions Indication:Non-smoker Start:17-Sep-2019 Instruction Type:Provider Instructions for Treatment How to access health informa tion online Indication:Non-smoker Start:07-Nov-2017 Instruction Type:Patient Education How to access health informa tion online - Detail Indication:Non-smoker Start:07-Nov-2017 Instruction Type:Patient Education Patient Instructions Indication:Non-smoker Start:07-Nov-2017 Instruction Type:Provider Instructions for Treatment How to access health informa tion online Indication:Anxiety Start:27-Apr-2015 Instruction Type:Patient Education How to access health informa tion online - Detail Indication:Anxiety Start:27-Apr-2015 Instruction Type:Patient Education Patient Instructions Indication:Anxiety Start:27-Apr-2015 Instruction Type:Provider Instructions for Treatment How to access health informa tion online Indication:Anxiety Start:16-Mar-2015 Instruction Type:Patient Education How to access health informa tion online - Detail Indication:Anxiety Start:16-Mar-2015 Instruction Type:Patient Education Patient Instructions Indication:Anxiety Start:16-Mar-2015 Instruction Type:Provider Instructions for Treatment How to access health informa tion online Indication:Anxiety Start:27-May-2014 Instruction Type:Patient Education How to access health informa tion online - Detail Indication:Anxiety Start:27-May-2014 Instruction Type:Patient Education [facility]; [facility] Work Phone: reason for referral (narrative)No reason for referral information availableWLake [facility]: Family History Unknown Family Member Name Dates Details Cancer Comments:Maternal Grandfathe r. Status:Active Heart Disease Comments:Paternal Grandfathe r. Status:Active Hypercholesterolemia Comments:Mother. Status:Active Unknown Family Member Name Dates Details Cancer Comments:Maternal Grandfathe r. Status:Active Heart Disease Comments:Paternal Grandfathe r. Status:Active Hypercholesterolemia Comments:Mother. Status:Active Unknown Family Member Name Dates Details Cancer Comments:Maternal Grandfathe r. Status:Active Heart Disease Comments:Paternal Grandfathe r. Status:Active Hypercholesterolemia Comments:Mother. Status:Active Unknown Family Member Name Dates Details Cancer Comments:Maternal Grandfathe r. Status:Active Heart Disease Comments:Paternal Grandfathe r. Status:Active Hypercholesterolemia Comments:Mother. Status:Active Unknown Family Member Name Dates Details Cancer Comments:Maternal Grandfathe r. Status:Active Heart Disease Comments:Paternal Grandfathe r. Status:Active Hypercholesterolemia Comments:Mother. Status:Active Unknown Family Member Name Dates Details Cancer Comments:Maternal Grandfathe r. Status:Active Heart Disease Comments:Paternal Grandfathe r. Status:Active Hypercholesterolemia Comments:Mother. Status:Active Unknown Family Member Name Dates Details Cancer Comments:Maternal Grandfathe r. Status:Active Heart Disease Comments:Paternal Grandfathe r. Status:Active Hypercholesterolemia Comments:Mother. Status:Active Unknown Family Member Name Dates Details Cancer Comments:Maternal Grandfathe r. Status:Active Heart Disease Comments:Paternal Grandfathe r. Status:Active Hypercholesterolemia Comments:Mother. Status:Active Unknown Family Member Name Dates Details Cancer Comments:Maternal Grandfathe r. Status:Active Heart Disease Comments:Paternal Grandfathe r. Status:Active Hypercholesterolemia Comments:Mother. Status:Active Unknown Family Member Name Dates Details Cancer Comments:Maternal Grandfathe r. Status:Active Heart Disease Comments:Paternal Grandfathe r. Status:Active Hypercholesterolemia Comments:Mother. Status:Active Unknown Family Member Name Dates Details Cancer Comments:Maternal Grandfathe r. Status:Active Heart Disease Comments:Paternal Grandfathe r. Status:Active Hypercholesterolemia Comments:Mother. Status:Active Unknown Family Member Name Dates Details Cancer Comments:Maternal Grandfathe r. Status:Active Heart Disease Comments:Paternal Grandfathe r. Status:Active Hypercholesterolemia Comments:Mother. Status:Active Relationship Condition Age at Onset Recorded Date/T yecenia grandmother Diabetes mellitus Unknown Malignant neoplasm of breast Unknown grandfather Hypertension Unknown Relationship Condition Age at Onset Recorded Date/T yecenia grandmother Diabetes mellitus Unknown Malignant neoplasm of breast 67 grandfather Hypertension Unknown grandmother Malignant neoplasm of breast 75 Unknown Family Member Name Dates Details Cancer Comments:Maternal Grandfathe r. Status:Active Heart Disease Comments:Paternal Grandfathe r. Status:Active Hypercholesterolemia Comments:Mother. Status:Active Unknown Family Member Name Dates Details Cancer Comments:Maternal Grandfathe r. Status:Active Heart Disease Comments:Paternal Grandfathe r. Status:Active Hypercholesterolemia Comments:Mother. Status:Active Unknown Family Member Name Dates Details Cancer Comments:Maternal Grandfathe r. Status:Active Heart Disease Comments:Paternal Grandfathe r. Status:Active Hypercholesterolemia Comments:Mother. Status:Active Instructions Name Dates Details How to access health informa tion online Indication:Non-smoker Start:03-Apr-2020 Instruction Type:Patient Education How to access health informa tion online - Detail Indication:Non-smoker Start:03-Apr-2020 Instruction Type:Patient Education Patient Instructions Indication:Non-smoker Start:03-Apr-2020 Instruction Type:Provider Instructions for Treatment How to access health informa tion online Indication:BMI 25.0-25.9,adult Start:31-Mar-2020 Instruction Type:Patient Education How to access health informa tion online - Detail Indication:BMI 25.0-25.9,adult Start:31-Mar-2020 Instruction Type:Patient Education Patient Instructions Indication:BMI 25.0-25.9,adult Start:31-Mar-2020 Instruction Type:Provider Instructions for Treatment How to access health informa tion online Indication:Non-smoker Start:15-Oct-2019 Instruction Type:Patient Education How to access health informa tion online - Detail Indication:Non-smoker Start:15-Oct-2019 Instruction Type:Patient Education Patient Instructions Indication:Non-smoker Start:15-Oct-2019 Instruction Type:Provider Instructions for Treatment How to access health informa tion online Indication:BMI 25.0-25.9,adult Start:01-Oct-2019 Instruction Type:Patient Education How to access health informa tion online - Detail Indication:BMI 25.0-25.9,adult Start:01-Oct-2019 Instruction Type:Patient Education Patient Instructions Indication:BMI 25.0-25.9,adult Start:01-Oct-2019 Instruction Type:Provider Instructions for Treatment How to access health informa tion online Indication:Non-smoker Start:17-Sep-2019 Instruction Type:Patient Education How to access health informa tion online - Detail Indication:Non-smoker Start:17-Sep-2019 Instruction Type:Patient Education Patient Instructions Indication:Non-smoker Start:17-Sep-2019 Instruction Type:Provider Instructions for Treatment How to access health informa tion online Indication:Non-smoker Start:07-Nov-2017 Instruction Type:Patient Education How to access health informa tion online - Detail Indication:Non-smoker Start:07-Nov-2017 Instruction Type:Patient Education Patient Instructions Indication:Non-smoker Start:07-Nov-2017 Instruction Type:Provider Instructions for Treatment How to access health informa tion online Indication:Anxiety Start:27-Apr-2015 Instruction Type:Patient Education How to access health informa tion online - Detail Indication:Anxiety Start:27-Apr-2015 Instruction Type:Patient Education Patient Instructions Indication:Anxiety Start:27-Apr-2015 Instruction Type:Provider Instructions for Treatment How to access health informa tion online Indication:Anxiety Start:16-Mar-2015 Instruction Type:Patient Education How to access health informa tion online - Detail Indication:Anxiety Start:16-Mar-2015 Instruction Type:Patient Education Patient Instructions Indication:Anxiety Start:16-Mar-2015 Instruction Type:Provider Instructions for Treatment How to access health informa tion online Indication:Anxiety Start:27-May-2014 Instruction Type:Patient Education How to access health informa tion online - Detail Indication:Anxiety Start:27-May-2014 Instruction Type:Patient Education Name Dates Details How to access health informa tion online Indication:Non-smoker Start:19-Jun-2020 Instruction Type:Patient Education How to access health informa tion online - Detail Indication:Non-smoker Start:19-Jun-2020 Instruction Type:Patient Education Patient Instructions Indication:Non-smoker Start:19-Jun-2020 Instruction Type:Provider Instructions for Treatment How to access health informa tion online Indication:Non-smoker Start:03-Apr-2020 Instruction Type:Patient Education How to access health informa tion online - Detail Indication:Non-smoker Start:03-Apr-2020 Instruction Type:Patient Education Patient Instructions Indication:Non-smoker Start:03-Apr-2020 Instruction Type:Provider Instructions for Treatment How to access health informa tion online Indication:BMI 25.0-25.9,adult Start:31-Mar-2020 Instruction Type:Patient Education How to access health informa tion online - Detail Indication:BMI 25.0-25.9,adult Start:31-Mar-2020 Instruction Type:Patient Education Patient Instructions Indication:BMI 25.0-25.9,adult Start:31-Mar-2020 Instruction Type:Provider Instructions for Treatment How to access health informa tion online Indication:Non-smoker Start:15-Oct-2019 Instruction Type:Patient Education How to access health informa tion online - Detail Indication:Non-smoker Start:15-Oct-2019 Instruction Type:Patient Education Patient Instructions Indication:Non-smoker Start:15-Oct-2019 Instruction Type:Provider Instructions for Treatment How to access health informa tion online Indication:BMI 25.0-25.9,adult Start:01-Oct-2019 Instruction Type:Patient Education How to access health informa tion online - Detail Indication:BMI 25.0-25.9,adult Start:01-Oct-2019 Instruction Type:Patient Education Patient Instructions Indication:BMI 25.0-25.9,adult Start:01-Oct-2019 Instruction Type:Provider Instructions for Treatment How to access health informa tion online Indication:Non-smoker Start:17-Sep-2019 Instruction Type:Patient Education How to access health informa tion online - Detail Indication:Non-smoker Start:17-Sep-2019 Instruction Type:Patient Education Patient Instructions Indication:Non-smoker Start:17-Sep-2019 Instruction Type:Provider Instructions for Treatment How to access health informa tion online Indication:Non-smoker Start:07-Nov-2017 Instruction Type:Patient Education How to access health informa tion online - Detail Indication:Non-smoker Start:07-Nov-2017 Instruction Type:Patient Education Patient Instructions Indication:Non-smoker Start:07-Nov-2017 Instruction Type:Provider Instructions for Treatment How to access health informa tion online Indication:Anxiety Start:27-Apr-2015 Instruction Type:Patient Education How to access health informa tion online - Detail Indication:Anxiety Start:27-Apr-2015 Instruction Type:Patient Education Patient Instructions Indication:Anxiety Start:27-Apr-2015 Instruction Type:Provider Instructions for Treatment How to access health informa tion online Indication:Anxiety Start:16-Mar-2015 Instruction Type:Patient Education How to access health informa tion online - Detail Indication:Anxiety Start:16-Mar-2015 Instruction Type:Patient Education Patient Instructions Indication:Anxiety Start:16-Mar-2015 Instruction Type:Provider Instructions for Treatment How to access health informa tion online Indication:Anxiety Start:27-May-2014 Instruction Type:Patient Education How to access health informa tion online - Detail Indication:Anxiety Start:27-May-2014 Instruction Type:Patient Education Name Dates Details How to access health informa tion online Indication:BMI 25.0-25.9,adult Start:09-Aug-2020 Instruction Type:Patient Education How to access health informa tion online - Detail Indication:BMI 25.0-25.9,adult Start:09-Aug-2020 Instruction Type:Patient Education Patient Instructions Indication:Plasma donor Start:09-Aug-2020 Instruction Type:Provider Instructions for Treatment How to access health informa tion online Indication:Non-smoker Start:19-Jun-2020 Instruction Type:Patient Education How to access health informa tion online - Detail Indication:Non-smoker Start:19-Jun-2020 Instruction Type:Patient Education Patient Instructions Indication:Non-smoker Start:19-Jun-2020 Instruction Type:Provider Instructions for Treatment How to access health informa tion online Indication:Non-smoker Start:03-Apr-2020 Instruction Type:Patient Education How to access health informa tion online - Detail Indication:Non-smoker Start:03-Apr-2020 Instruction Type:Patient Education Patient Instructions Indication:Non-smoker Start:03-Apr-2020 Instruction Type:Provider Instructions for Treatment How to access health informa tion online Indication:BMI 25.0-25.9,adult Start:31-Mar-2020 Instruction Type:Patient Education How to access health informa tion online - Detail Indication:BMI 25.0-25.9,adult Start:31-Mar-2020 Instruction Type:Patient Education Patient Instructions Indication:BMI 25.0-25.9,adult Start:31-Mar-2020 Instruction Type:Provider Instructions for Treatment How to access health informa tion online Indication:Non-smoker Start:15-Oct-2019 Instruction Type:Patient Education How to access health informa tion online - Detail Indication:Non-smoker Start:15-Oct-2019 Instruction Type:Patient Education Patient Instructions Indication:Non-smoker Start:15-Oct-2019 Instruction Type:Provider Instructions for Treatment How to access health informa tion online Indication:BMI 25.0-25.9,adult Start:01-Oct-2019 Instruction Type:Patient Education How to access health informa tion online - Detail Indication:BMI 25.0-25.9,adult Start:01-Oct-2019 Instruction Type:Patient Education Patient Instructions Indication:BMI 25.0-25.9,adult Start:01-Oct-2019 Instruction Type:Provider Instructions for Treatment How to access health informa tion online Indication:Non-smoker Start:17-Sep-2019 Instruction Type:Patient Education How to access health informa tion online - Detail Indication:Non-smoker Start:17-Sep-2019 Instruction Type:Patient Education Patient Instructions Indication:Non-smoker Start:17-Sep-2019 Instruction Type:Provider Instructions for Treatment How to access health informa tion online Indication:Non-smoker Start:07-Nov-2017 Instruction Type:Patient Education How to access health informa tion online - Detail Indication:Non-smoker Start:07-Nov-2017 Instruction Type:Patient Education Patient Instructions Indication:Non-smoker Start:07-Nov-2017 Instruction Type:Provider Instructions for Treatment How to access health informa tion online Indication:Anxiety Start:27-Apr-2015 Instruction Type:Patient Education How to access health informa tion online - Detail Indication:Anxiety Start:27-Apr-2015 Instruction Type:Patient Education Patient Instructions Indication:Anxiety Start:27-Apr-2015 Instruction Type:Provider Instructions for Treatment How to access health informa tion online Indication:Anxiety Start:16-Mar-2015 Instruction Type:Patient Education How to access health informa tion online - Detail Indication:Anxiety Start:16-Mar-2015 Instruction Type:Patient Education Patient Instructions Indication:Anxiety Start:16-Mar-2015 Instruction Type:Provider Instructions for Treatment How to access health informa tion online Indication:Anxiety Start:27-May-2014 Instruction Type:Patient Education How to access health informa tion online - Detail Indication:Anxiety Start:27-May-2014 Instruction Type:Patient Education Name Dates Details How to access health informa tion online Indication:BMI 25.0-25.9,adult Start:09-Aug-2020 Instruction Type:Patient Education How to access health informa tion online - Detail Indication:BMI 25.0-25.9,adult Start:09-Aug-2020 Instruction Type:Patient Education Patient Instructions Indication:Plasma donor Start:09-Aug-2020 Instruction Type:Provider Instructions for Treatment How to access health informa tion online Indication:Non-smoker Start:19-Jun-2020 Instruction Type:Patient Education How to access health informa tion online - Detail Indication:Non-smoker Start:19-Jun-2020 Instruction Type:Patient Education Patient Instructions Indication:Non-smoker Start:19-Jun-2020 Instruction Type:Provider Instructions for Treatment How to access health informa tion online Indication:Non-smoker Start:03-Apr-2020 Instruction Type:Patient Education How to access health informa tion online - Detail Indication:Non-smoker Start:03-Apr-2020 Instruction Type:Patient Education Patient Instructions Indication:Non-smoker Start:03-Apr-2020 Instruction Type:Provider Instructions for Treatment How to access health informa tion online Indication:BMI 25.0-25.9,adult Start:31-Mar-2020 Instruction Type:Patient Education How to access health informa tion online - Detail Indication:BMI 25.0-25.9,adult Start:31-Mar-2020 Instruction Type:Patient Education Patient Instructions Indication:BMI 25.0-25.9,adult Start:31-Mar-2020 Instruction Type:Provider Instructions for Treatment How to access health informa tion online Indication:Non-smoker Start:15-Oct-2019 Instruction Type:Patient Education How to access health informa tion online - Detail Indication:Non-smoker Start:15-Oct-2019 Instruction Type:Patient Education Patient Instructions Indication:Non-smoker Start:15-Oct-2019 Instruction Type:Provider Instructions for Treatment How to access health informa tion online Indication:BMI 25.0-25.9,adult Start:01-Oct-2019 Instruction Type:Patient Education How to access health informa tion online - Detail Indication:BMI 25.0-25.9,adult Start:01-Oct-2019 Instruction Type:Patient Education Patient Instructions Indication:BMI 25.0-25.9,adult Start:01-Oct-2019 Instruction Type:Provider Instructions for Treatment How to access health informa tion online Indication:Non-smoker Start:17-Sep-2019 Instruction Type:Patient Education How to access health informa tion online - Detail Indication:Non-smoker Start:17-Sep-2019 Instruction Type:Patient Education Patient Instructions Indication:Non-smoker Start:17-Sep-2019 Instruction Type:Provider Instructions for Treatment How to access health informa tion online Indication:Non-smoker Start:07-Nov-2017 Instruction Type:Patient Education How to access health informa tion online - Detail Indication:Non-smoker Start:07-Nov-2017 Instruction Type:Patient Education Patient Instructions Indication:Non-smoker Start:07-Nov-2017 Instruction Type:Provider Instructions for Treatment How to access health informa tion online Indication:Anxiety Start:27-Apr-2015 Instruction Type:Patient Education How to access health informa tion online - Detail Indication:Anxiety Start:27-Apr-2015 Instruction Type:Patient Education Patient Instructions Indication:Anxiety Start:27-Apr-2015 Instruction Type:Provider Instructions for Treatment How to access health informa tion online Indication:Anxiety Start:16-Mar-2015 Instruction Type:Patient Education How to access health informa tion online - Detail Indication:Anxiety Start:16-Mar-2015 Instruction Type:Patient Education Patient Instructions Indication:Anxiety Start:16-Mar-2015 Instruction Type:Provider Instructions for Treatment How to access health informa tion online Indication:Anxiety Start:27-May-2014 Instruction Type:Patient Education How to access health informa tion online - Detail Indication:Anxiety Start:27-May-2014 Instruction Type:Patient Education Name Dates Details How to access health informa tion online Indication:Non-smoker Start:11-Aug-2020 Instruction Type:Patient Education How to access health informa tion online - Detail Indication:Non-smoker Start:11-Aug-2020 Instruction Type:Patient Education Patient Instructions Indication:Non-smoker Start:11-Aug-2020 Instruction Type:Provider Instructions for Treatment How to access health informa tion online Indication:BMI 25.0-25.9,adult Start:09-Aug-2020 Instruction Type:Patient Education How to access health informa tion online - Detail Indication:BMI 25.0-25.9,adult Start:09-Aug-2020 Instruction Type:Patient Education Patient Instructions Indication:Plasma donor Start:09-Aug-2020 Instruction Type:Provider Instructions for Treatment How to access health informa tion online Indication:Non-smoker Start:19-Jun-2020 Instruction Type:Patient Education How to access health informa tion online - Detail Indication:Non-smoker Start:19-Jun-2020 Instruction Type:Patient Education Patient Instructions Indication:Non-smoker Start:19-Jun-2020 Instruction Type:Provider Instructions for Treatment How to access health informa tion online Indication:Non-smoker Start:03-Apr-2020 Instruction Type:Patient Education How to access health informa tion online - Detail Indication:Non-smoker Start:03-Apr-2020 Instruction Type:Patient Education Patient Instructions Indication:Non-smoker Start:03-Apr-2020 Instruction Type:Provider Instructions for Treatment How to access health informa tion online Indication:BMI 25.0-25.9,adult Start:31-Mar-2020 Instruction Type:Patient Education How to access health informa tion online - Detail Indication:BMI 25.0-25.9,adult Start:31-Mar-2020 Instruction Type:Patient Education Patient Instructions Indication:BMI 25.0-25.9,adult Start:31-Mar-2020 Instruction Type:Provider Instructions for Treatment How to access health informa tion online Indication:Non-smoker Start:15-Oct-2019 Instruction Type:Patient Education How to access health informa tion online - Detail Indication:Non-smoker Start:15-Oct-2019 Instruction Type:Patient Education Patient Instructions Indication:Non-smoker Start:15-Oct-2019 Instruction Type:Provider Instructions for Treatment How to access health informa tion online Indication:BMI 25.0-25.9,adult Start:01-Oct-2019 Instruction Type:Patient Education How to access health informa tion online - Detail Indication:BMI 25.0-25.9,adult Start:01-Oct-2019 Instruction Type:Patient Education Patient Instructions Indication:BMI 25.0-25.9,adult Start:01-Oct-2019 Instruction Type:Provider Instructions for Treatment How to access health informa tion online Indication:Non-smoker Start:17-Sep-2019 Instruction Type:Patient Education How to access health informa tion online - Detail Indication:Non-smoker Start:17-Sep-2019 Instruction Type:Patient Education Patient Instructions Indication:Non-smoker Start:17-Sep-2019 Instruction Type:Provider Instructions for Treatment How to access health informa tion online Indication:Non-smoker Start:2-Mar-2018 Instruction Type:Patient Education How to access health informa tion online - Detail Indication:Non-smoker Start:07-Nov-2017 Instruction Type:Patient Education Patient Instructions Indication:Non-smoker Start:07-Nov-2017 Instruction Type:Provider Instructions for Treatment How to access health informa tion online Indication:Anxiety Start:27-Apr-2015 Instruction Type:Patient Education How to access health informa tion online - Detail Indication:Anxiety Start:27-Apr-2015 Instruction Type:Patient Education Patient Instructions Indication:Anxiety Start:27-Apr-2015 Instruction Type:Provider Instructions for Treatment How to access health informa tion online Indication:Anxiety Start:16-Mar-2015 Instruction Type:Patient Education How to access health informa tion online - Detail Indication:Anxiety Start:16-Mar-2015 Instruction Type:Patient Education Patient Instructions Indication:Anxiety Start:16-Mar-2015 Instruction Type:Provider Instructions for Treatment How to access health informa tion online Indication:Anxiety Start:27-May-2014 Instruction Type:Patient Education How to access health informa tion online - Detail Indication:Anxiety Start:27-May-2014 Instruction Type:Patient Education Name Dates Details How to Access Health Informa tion Online using Patient Portal and [employer]rd [employer] Apps Indication:Non-smoker Start:16-Aug-2020 Instruction Type:Patient Education Patient Instructions Indication:Non-smoker Start:16-Aug-2020 Instruction Type:Provider Instructions for Treatment How to access health informa tion online Indication:Non-smoker Start:11-Aug-2020 Instruction Type:Patient Education How to access health informa tion online - Detail Indication:Non-smoker Start:11-Aug-2020 Instruction Type:Patient Education Patient Instructions Indication:Non-smoker Start:11-Aug-2020 Instruction Type:Provider Instructions for Treatment How to access health informa tion online Indication:BMI 25.0-25.9,adult Start:09-Aug-2020 Instruction Type:Patient Education How to access health informa tion online - Detail Indication:BMI 25.0-25.9,adult Start:09-Aug-2020 Instruction Type:Patient Education Patient Instructions Indication:Plasma donor Start:09-Aug-2020 Instruction Type:Provider Instructions for Treatment How to access health informa tion online Indication:Non-smoker Start:19-Jun-2020 Instruction Type:Patient Education How to access health informa tion online - Detail Indication:Non-smoker Start:19-Jun-2020 Instruction Type:Patient Education Patient Instructions Indication:Non-smoker Start:19-Jun-2020 Instruction Type:Provider Instructions for Treatment How to access health informa tion online Indication:Non-smoker Start:03-Apr-2020 Instruction Type:Patient Education How to access health informa tion online - Detail Indication:Non-smoker Start:03-Apr-2020 Instruction Type:Patient Education Patient Instructions Indication:Non-smoker Start:03-Apr-2020 Instruction Type:Provider Instructions for Treatment How to access health informa tion online Indication:BMI 25.0-25.9,adult Start:31-Mar-2020 Instruction Type:Patient Education How to access health informa tion online - Detail Indication:BMI 25.0-25.9,adult Start:31-Mar-2020 Instruction Type:Patient Education Patient Instructions Indication:BMI 25.0-25.9,adult Start:31-Mar-2020 Instruction Type:Provider Instructions for Treatment How to access health informa tion online Indication:Non-smoker Start:15-Oct-2019 Instruction Type:Patient Education How to access health informa tion online - Detail Indication:Non-smoker Start:15-Oct-2019 Instruction Type:Patient Education Patient Instructions Indication:Non-smoker Start:15-Oct-2019 Instruction Type:Provider Instructions for Treatment How to access health informa tion online Indication:BMI 25.0-25.9,adult Start:01-Oct-2019 Instruction Type:Patient Education How to access health informa tion online - Detail Indication:BMI 25.0-25.9,adult Start:01-Oct-2019 Instruction Type:Patient Education Patient Instructions Indication:BMI 25.0-25.9,adult Start:01-Oct-2019 Instruction Type:Provider Instructions for Treatment How to access health informa tion online Indication:Non-smoker Start:17-Sep-2019 Instruction Type:Patient Education How to access health informa tion online - Detail Indication:Non-smoker Start:17-Sep-2019 Instruction Type:Patient Education Patient Instructions Indication:Non-smoker Start:17-Sep-2019 Instruction Type:Provider Instructions for Treatment How to access health informa tion online Indication:Non-smoker Start:07-Nov-2017 Instruction Type:Patient Education How to access health informa tion online - Detail Indication:Non-smoker Start:07-Nov-2017 Instruction Type:Patient Education Patient Instructions Indication:Non-smoker Start:07-Nov-2017 Instruction Type:Provider Instructions for Treatment How to access health informa tion online Indication:Anxiety Start:27-Apr-2015 Instruction Type:Patient Education How to access health informa tion online - Detail Indication:Anxiety Start:27-Apr-2015 Instruction Type:Patient Education Patient Instructions Indication:Anxiety Start:27-Apr-2015 Instruction Type:Provider Instructions for Treatment How to access health informa tion online Indication:Anxiety Start:16-Mar-2015 Instruction Type:Patient Education How to access health informa tion online - Detail Indication:Anxiety Start:16-Mar-2015 Instruction Type:Patient Education Patient Instructions Indication:Anxiety Start:16-Mar-2015 Instruction Type:Provider Instructions for Treatment How to access health informa tion online Indication:Anxiety Start:27-May-2014 Instruction Type:Patient Education How to access health informa tion online - Detail Indication:Anxiety Start:27-May-2014 Instruction Type:Patient Education Name Dates Details How to Access Health Informa tion Online using Patient Portal and [employer]rd [employer] Apps Indication:Non-smoker Start:16-Aug-2020 Instruction Type:Patient Education Patient Instructions Indication:Non-smoker Start:16-Aug-2020 Instruction Type:Provider Instructions for Treatment How to access health informa tion online Indication:Non-smoker Start:11-Aug-2020 Instruction Type:Patient Education How to access health informa tion online - Detail Indication:Non-smoker Start:11-Aug-2020 Instruction Type:Patient Education Patient Instructions Indication:Non-smoker Start:11-Aug-2020 Instruction Type:Provider Instructions for Treatment How to access health informa tion online Indication:BMI 25.0-25.9,adult Start:09-Aug-2020 Instruction Type:Patient Education How to access health informa tion online - Detail Indication:BMI 25.0-25.9,adult Start:09-Aug-2020 Instruction Type:Patient Education Patient Instructions Indication:Plasma donor Start:09-Aug-2020 Instruction Type:Provider Instructions for Treatment How to access health informa tion online Indication:Non-smoker Start:19-Jun-2020 Instruction Type:Patient Education How to access health informa tion online - Detail Indication:Non-smoker Start:19-Jun-2020 Instruction Type:Patient Education Patient Instructions Indication:Non-smoker Start:19-Jun-2020 Instruction Type:Provider Instructions for Treatment How to access health informa tion online Indication:Non-smoker Start:03-Apr-2020 Instruction Type:Patient Education How to access health informa tion online - Detail Indication:Non-smoker Start:03-Apr-2020 Instruction Type:Patient Education Patient Instructions Indication:Non-smoker Start:03-Apr-2020 Instruction Type:Provider Instructions for Treatment How to access health informa tion online Indication:BMI 25.0-25.9,adult Start:31-Mar-2020 Instruction Type:Patient Education How to access health informa tion online - Detail Indication:BMI 25.0-25.9,adult Start:31-Mar-2020 Instruction Type:Patient Education Patient Instructions Indication:BMI 25.0-25.9,adult Start:31-Mar-2020 Instruction Type:Provider Instructions for Treatment How to access health informa tion online Indication:Non-smoker Start:15-Oct-2019 Instruction Type:Patient Education How to access health informa tion online - Detail Indication:Non-smoker Start:15-Oct-2019 Instruction Type:Patient Education Patient Instructions Indication:Non-smoker Start:15-Oct-2019 Instruction Type:Provider Instructions for Treatment How to access health informa tion online Indication:BMI 25.0-25.9,adult Start:01-Oct-2019 Instruction Type:Patient Education How to access health informa tion online - Detail Indication:BMI 25.0-25.9,adult Start:01-Oct-2019 Instruction Type:Patient Education Patient Instructions Indication:BMI 25.0-25.9,adult Start:01-Oct-2019 Instruction Type:Provider Instructions for Treatment How to access health informa tion online Indication:Non-smoker Start:17-Sep-2019 Instruction Type:Patient Education How to access health informa tion online - Detail Indication:Non-smoker Start:17-Sep-2019 Instruction Type:Patient Education Patient Instructions Indication:Non-smoker Start:17-Sep-2019 Instruction Type:Provider Instructions for Treatment How to access health informa tion online Indication:Non-smoker Start:07-Nov-2017 Instruction Type:Patient Education How to access health informa tion online - Detail Indication:Non-smoker Start:07-Nov-2017 Instruction Type:Patient Education Patient Instructions Indication:Non-smoker Start:07-Nov-2017 Instruction Type:Provider Instructions for Treatment How to access health informa tion online Indication:Anxiety Start:27-Apr-2015 Instruction Type:Patient Education How to access health informa tion online - Detail Indication:Anxiety Start:27-Apr-2015 Instruction Type:Patient Education Patient Instructions Indication:Anxiety Start:27-Apr-2015 Instruction Type:Provider Instructions for Treatment How to access health informa tion online Indication:Anxiety Start:16-Mar-2015 Instruction Type:Patient Education How to access health informa tion online - Detail Indication:Anxiety Start:16-Mar-2015 Instruction Type:Patient Education Patient Instructions Indication:Anxiety Start:16-Mar-2015 Instruction Type:Provider Instructions for Treatment How to access health informa tion online Indication:Anxiety Start:27-May-2014 Instruction Type:Patient Education How to access health informa tion online - Detail Indication:Anxiety Start:27-May-2014 Instruction Type:Patient Education Name Dates Details How to Access Health Informa tion Online using Patient Portal and [employer] Apps Indication:Non-smoker Start:16-Aug-2020 Instruction Type:Patient Education Patient Instructions Indication:Non-smoker Start:16-Aug-2020 Instruction Type:Provider Instructions for Treatment How to access health informa tion online Indication:Non-smoker Start:11-Aug-2020 Instruction Type:Patient Education How to access health informa tion online - Detail Indication:Non-smoker Start:11-Aug-2020 Instruction Type:Patient Education Patient Instructions Indication:Non-smoker Start:11-Aug-2020 Instruction Type:Provider Instructions for Treatment How to access health informa tion online Indication:BMI 25.0-25.9,adult Start:09-Aug-2020 Instruction Type:Patient Education How to access health informa tion online - Detail Indication:BMI 25.0-25.9,adult Start:09-Aug-2020 Instruction Type:Patient Education Patient Instructions Indication:Plasma donor Start:09-Aug-2020 Instruction Type:Provider Instructions for Treatment How to access health informa tion online Indication:Non-smoker Start:19-Jun-2020 Instruction Type:Patient Education How to access health informa tion online - Detail Indication:Non-smoker Start:19-Jun-2020 Instruction Type:Patient Education Patient Instructions Indication:Non-smoker Start:19-Jun-2020 Instruction Type:Provider Instructions for Treatment How to access health informa tion online Indication:Non-smoker Start:03-Apr-2020 Instruction Type:Patient Education How to access health informa tion online - Detail Indication:Non-smoker Start:03-Apr-2020 Instruction Type:Patient Education Patient Instructions Indication:Non-smoker Start:03-Apr-2020 Instruction Type:Provider Instructions for Treatment How to access health informa tion online Indication:BMI 25.0-25.9,adult Start:31-Mar-2020 Instruction Type:Patient Education How to access health informa tion online - Detail Indication:BMI 25.0-25.9,adult Start:31-Mar-2020 Instruction Type:Patient Education Patient Instructions Indication:BMI 25.0-25.9,adult Start:31-Mar-2020 Instruction Type:Provider Instructions for Treatment How to access health informa tion online Indication:Non-smoker Start:15-Oct-2019 Instruction Type:Patient Education How to access health informa tion online - Detail Indication:Non-smoker Start:15-Oct-2019 Instruction Type:Patient Education Patient Instructions Indication:Non-smoker Start:15-Oct-2019 Instruction Type:Provider Instructions for Treatment How to access health informa tion online Indication:BMI 25.0-25.9,adult Start:01-Oct-2019 Instruction Type:Patient Education How to access health informa tion online - Detail Indication:BMI 25.0-25.9,adult Start:01-Oct-2019 Instruction Type:Patient Education Patient Instructions Indication:BMI 25.0-25.9,adult Start:01-Oct-2019 Instruction Type:Provider Instructions for Treatment How to access health informa tion online Indication:Non-smoker Start:17-Sep-2019 Instruction Type:Patient Education How to access health informa tion online - Detail Indication:Non-smoker Start:17-Sep-2019 Instruction Type:Patient Education Patient Instructions Indication:Non-smoker Start:17-Sep-2019 Instruction Type:Provider Instructions for Treatment How to access health informa tion online Indication:Non-smoker Start:07-Nov-2017 Instruction Type:Patient Education How to access health informa tion online - Detail Indication:Non-smoker Start:07-Nov-2017 Instruction Type:Patient Education Patient Instructions Indication:Non-smoker Start:07-Nov-2017 Instruction Type:Provider Instructions for Treatment How to access health informa tion online Indication:Anxiety Start:27-Apr-2015 Instruction Type:Patient Education How to access health informa tion online - Detail Indication:Anxiety Start:27-Apr-2015 Instruction Type:Patient Education Patient Instructions Indication:Anxiety Start:27-Apr-2015 Instruction Type:Provider Instructions for Treatment How to access health informa tion online Indication:Anxiety Start:16-Mar-2015 Instruction Type:Patient Education How to access health informa tion online - Detail Indication:Anxiety Start:16-Mar-2015 Instruction Type:Patient Education Patient Instructions Indication:Anxiety Start:16-Mar-2015 Instruction Type:Provider Instructions for Treatment How to access health informa tion online Indication:Anxiety Start:27-May-2014 Instruction Type:Patient Education How to access health informa tion online - Detail Indication:Anxiety Start:27-May-2014 Instruction Type:Patient Education Advance Directives Name Dates Details Immunization Registry [place] - Effective on 12/25/2020. Expiration date unspecified Effective:25-Dec-2020 Name Dates Details Immunization Registry [place] - Effective on 12/25/2020. Expiration date unspecified Effective:25-Dec-2020 Name Dates Details Immunization Registry [place] - Effective on 12/25/2020. Expiration date unspecified Effective:25-Dec-2020 Name Dates Details Immunization Registry [place] - Effective on 12/25/2020. Expiration date unspecified Effective:25-Dec-2020 Name Dates Details Immunization Registry [place] - Effective on 12/25/2020. Expiration date unspecified Effective:25-Dec-2020 Advance Directive Response Recorded Date/ Time Living Will No February 11, 2023 6 :27pm Power of [employer] No February 11, 2023 6:27pm Chief Complaint and Reason for Visit Chief Complaint eorders THREATENED Chief Complaint eorders THREATENED EORDER E ORDER Chief Complaint eorders THREATENED EORDER E ORDER vaginal discharge yellow/green NOB LMP 05/03/22 Reason for Visit Vaginal discharge du ring Supervision of high risk , antepartum Chief Complaint OB pt, fell last nig ht 21 WK OB INT ORDERS 25 WK OB 28 WK OB 30 WK OB 32 WK OB 34 WK OB 36 WK OB SUPERVISION OF CORY RISK R/O LABOR Reason for Visit Supervision of high risk , antepartum Supervision of high risk , antepartum Supervision of high risk , antepartum Supervision of high risk , antepartum Need for Tdap vaccination Supervision of high risk , antepartum Need for Tdap vaccination Supervision of high risk , antepartum Need for Tdap vaccination Supervision of high risk , antepartum Need for Tdap vaccination Supervision of high risk , antepartum Chief Complaint 21 WK OB INT ORDERS 25 WK OB 28 WK OB 30 WK OB 32 WK OB 34 WK OB 36 WK OB SUPERVISION OF CORY RISK R/O LABOR Reason for Visit Supervision of high risk , antepartum Supervision of high risk , antepartum Supervision of high risk , antepartum Need for Tdap vaccination Supervision of high risk , antepartum Need for Tdap vaccination Supervision of high risk , antepartum Need for Tdap vaccination Supervision of high risk , antepartum Need for Tdap vaccination Supervision of high risk , antepartum Chief Complaint INT ORDERS 25 WK OB 28 WK OB 30 WK OB 32 WK OB 34 WK OB 36 WK OB SUPERVISION OF CORY RISK R/O LABOR R/O LABOR 37 WK EST OB GROWTH VAG INDUCTION LABOR AND DELIVERY INDUCTION LABOR AND DELIVERY VAG VAG LEG PAIN Reason for Visit Supervision of high risk , antepartum Supervision of high risk , antepartum Need for Tdap vaccination Supervision of high risk , antepartum Need for Tdap vaccination Supervision of high risk , antepartum Need for Tdap vaccination Supervision of high risk , antepartum Need for Tdap vaccination Supervision of high risk , antepartum Need for Tdap vaccination Supervision of high risk , antepartum Need for Tdap vaccination Oligohydramnios in third trimester Supervision of high risk , antepartum Chief Complaint 30 WK OB 32 WK OB 34 WK OB 36 WK OB SUPERVISION OF CORY RISK R/O LABOR R/O LABOR 37 WK EST OB GROWTH VAG INDUCTION LABOR AND DELIVERY INDUCTION LABOR AND DELIVERY VAG VAG LEG PAIN 6 WK PP Reason for Visit Need for Tdap vaccin ation Supervision of high risk , antepartum Need for Tdap vaccination Supervision of high risk , antepartum Need for Tdap vaccination Supervision of high risk , antepartum Need for Tdap vaccination Supervision of high risk , antepartum Need for Tdap vaccination Supervision of high risk , antepartum Need for Tdap vaccination Oligohydramnios in third trimester Supervision of high risk , antepartum Status post vaginal delivery Chief Complaint Admit Date THYROMEGALY December 08, 2024 3:17 pm Chief Complaint Admit Date INT LAB ODERS May 18, 2025 4:36pm Summary Purpose Additional Source Comments Goals (unrecognized section and content) Type Care Experience svdLabor Preferences -CB/BF classes: donelabor support person: deonte and mom Alicelabor intervention preferences: nonepain management options preferred: plans on epiduralcut cord/dad catch: consideringbreastfeeding: yesPP control planned: []discussed possible routes of delivery and associated risks: []special requests: [] INFORMATION SOURCE (unrecogn ized section and content) DATE CREATED AUTHOR 09/23/2022 [facility] DATE CREATED AUTHOR AUTHOR'S WAI VALDEZ 05/28/2025 [facility] Care Teams (unrecognized sec tion and content) Team Status: Active Member Role Status Dates Dr. Janelle Linton DO Family Provider Active Dr. Janelle Linton DO Primary Care Provider Active Team Status: Inactive Member Role Status Dates Dr. Janelle Linton DO Primary Care Provider, Referr ing Provider Active Kacy Palma CNM Attending Provider Active Team Status: Inactive Member Role Status Dates Dr. Janelle Linton DO Primary Care Provider, Referr ing Provider Active Dr. Alida Mccrary MD Attending Provider Active Team Status: Inactive Member Role Status Dates Dr. Janelle Linton DO Primary Care Provider, Referr ing Provider Active Dr. Val Earl DO Attending Provider Activ e Team Status: Inactive Member Role Status Dates Dr. Janelle Linton DO Primary Care Provider Active Dr. Alida Mccrary MD Attending Provider, Referr ing Provider Active Team Status: Active Member Role Status Dates Dr. Janelle Linton DO Primary Care Provider Active Dr. Alida Mccrary MD Attending Provider, Referr ing Provider Active Team Status: Active Member Role Status Dates Dr. Janelle Linton DO Primary Care Provider Active Dr. Alida Mccrary MD Admit Provid er, Attending Provider, Other Provider Active Team Status: Active Member Role Status Dates Dr. Janelle Linton DO Primary Care Provider Active Dr. Alida Mccrary MD Admit Provider, Other Prov ider Active Kacy Palma CNM Attending Provider Active Team Status: Active Member Role Status Dates Dr. Janelle Linton DO Primary Care Provider Active Dr. Alida Mccrary MD Referring Provider, Other Provider Active Dr. Val Earl DO Attending Provider Activ e Team Status: Active Member Role Status Dates Dr. Janelle Linton DO Primary Care Provider Active Dr. Val Earl DO Attending Provider, Refe rring Provider Active Team Status: Inactive Member Role Status Dates Dr. Janelle Linton DO Primary Care Provider Active Dr. Alida Mccrary MD Admit Provider, Attending Provider Active Team Status: Inactive Member Role Status Dates Dr. Janelle Linton DO Primary Care Provider Active Waqas Evans MD Emergency Provider Active Team Status: Inactive Member Role Status Dates Dr. Janelle Linton DO Primary Care Provider Active Waaqs Evans MD Attending Provider, Emergency Provid er Active Team Status: Inactive Member Role Status Dates Dr. Janelle Linton DO Primary Care Provider Active Dr. Val Earl DO Attending Provider, Refe rring Provider Active Team Status: Active Member Role Status Dates Dr. Janelle Linton DO Primary Care Provider Active Team Status: Inactive Member Role Status Dates Dr. Janelle Linton DO Primary Care Provider Active Start: December 08, 2024 End: December 08, 2024 Dr. Janelle Linton DO Attending Provider Active Start: December 08, 2024 End: December 08, 2024 Dr. Janelle Linton DO Referring Provider Active Start: December 08, 2024 End: December 08, 2024 Team Status: Active Member Role/Relationship Status Dates Dr. Janelle Linton DO Primary care physician Active Team Status: Inactive Member Role/Relationship Status Dates Dr. Janelle Linton DO Primary care physician Active Start: May 18, 2025 End: May 18, 2025 Stefanie Rojas CNM Attending physician Active Start: May 18, 2025 End: May 18, 2025 Stefanie Rojas CNM Referring Provider Active S tart: May 18, 2025 End: May 18, 2025 Team Status: Active Member Role/Relationship Status Dates Dr. Janelle Linton DO Primary care physician Active Start: May 20, 2025 Stefanie Rojas CNM Attending physician Active Start: May 20, 2025 Stefanie Rojas CNM Referring Provider Active S tart: May 20, 2025 Team Status: Inactive Member Role/Relationship Status Dates Dr. Janelle Linton DO Primary care physician Active Start: May 20, 2025 End: May 20, 2025 Stefanie Rojas CNM Attending physician Active Start: May 20, 2025 End: May 20, 2025 Stefanie Rojas CNM Referring Provider Active S tart: May 20, 2025 End: May 20, 2025 FOR RECORDS PERTAINING TO PATIENTS WHO ARE OR HAVE BEEN ENROLLED IN A CHEMICAL DEPENDENCY/SUBSTANCEABUSE PROGRAM, SOME INFORMATION MAY BE OMITTED. This clinical summary was aggregated from multiple sources. Caution should be exercised in using it in the provision of clinical care. This summary normalizes information from multiple sources, and as a consequence, information in this document may materially change the coding, format and clinical context of patient data. In addition, data may be omitted in some cases. CLINICAL DECISIONS SHOULD BE BASED ON THE PRIMARY CLINICAL RECORDS. [facility] [employer] provides no warranty or guarantee of the accuracy or completeness of information in this document.
[2025-06-11 13:32] LABS: hCG Titer Quant., Serum 60553 mIU/mL (<9 non-preg)
== END | disposition home or self-care (01) ==
LOC: LAB 10:56
PROVIDERS: PCP Internal Medicine; Referring Provider Obstetrics & Gynecology; Visit Provider Obstetrics & Gynecology
DX: O26.859 Spotting complicating pregnancy, unspecified trimester (principal); O36.80X0 Pregnancy with inconclusive fetal viability, not applicable or unspecified; Z3A.00 Weeks of gestation of pregnancy not specified
CPT/HCPCS: 36415; 84702

== ENCOUNTER → 2025-06-23 | Outpatient (CLI) | payer BC, SELFPAY ==
[2025-06-24 21:07] LABS: Chlamydia By Nucleic Acid AMP Negative (Negative); Gonococcus By Nucleic Acid AMP Negative (Negative)
== END | disposition home or self-care (01) ==
LOC: LABSPEC 12:09
PROVIDERS: PCP Internal Medicine; Referring Provider Advanced Practice Midwife; Visit Provider Advanced Practice Midwife
DX: O09.90 Supervision of high risk pregnancy, unspecified, unspecified trimester (principal); Z3A.00 Weeks of gestation of pregnancy not specified
CPT/HCPCS: 87086; 87088; 87491; 87591

== ENCOUNTER → 2025-07-05 | Outpatient (CLI) | payer BC, SELFPAY ==
[2025-07-05 10:34] LABS: Hematocrit 37.6 % (37-47); Hemoglobin 13.9 g/dL (12.0-15.0); Immature Granulocytes Count 0.030 X10^3/uL (0.0-0.0); Mean Corp Hgb Conc 37.0 g/dL (32-36); Mean Corpuscular Volume 87.4 fL (81-99); Mean Platelet Vol. 9.9 fl (6.2-12.0); NRBC Flagged by Analyzer 0 % (0-5); Platelet Count 407 K/mm3 (150-450); RBC Distribution Width CV 12.9 % (11.6-14.6); RBC Distribution Width SD 40.6 fl (35.1-43.9); Red Blood Count 4.30 M/mm3 (4.2-5.4); White Blood Count 9.2 K/mm3 (4.4-11.0)
[2025-07-05 11:19] LABS: HIV Nonreactive (Nonreactive); Hepatitis B Surface Antigen Nonreactive (Nonreactive); Hepatitis C Antibody Nonreactive (Nonreactive); Syphilis Antibodies Nonreactive (Nonreactive)
== END | disposition home or self-care (01) ==
LOC: BWCLAB 09:13
PROVIDERS: PCP Internal Medicine; Visit Provider Advanced Practice Midwife
DX: O99.210 Obesity complicating pregnancy, unspecified trimester (principal); O09.90 Supervision of high risk pregnancy, unspecified, unspecified trimester; Z3A.00 Weeks of gestation of pregnancy not specified
CPT/HCPCS: 36415; 83036; 85025; 86703; 86762; 86780; 86803; 86850; 86900; 86901; 87340

== ENCOUNTER → 2025-07-06 | Outpatient (CLI) | payer BC, SELFPAY ==
--- NOTE | 2025-07-06 10:48 | US_ITS ---
PROCEDURE: US/Transvaginal w/Preg US
== END | disposition home or self-care (01) ==
LOC: US 10:46
PROVIDERS: PCP Internal Medicine; Referring Provider Nurse Practitioner Women's Health; Visit Provider Nurse Practitioner Women's Health
DX: O26.859 Spotting complicating pregnancy, unspecified trimester (principal); Z3A.00 Weeks of gestation of pregnancy not specified
CPT/HCPCS: 76817